=== PATIENT | female | born 1960 | race Caucasian/White ===

== ENCOUNTER 2019-09-15 08:39 | Emergency (ER) | payer OTHER, SELFPAY ==
[2019-09-15 08:40] VITALS: BP 161/90; PULSE 83; RESP 16; TEMP 35.5; O2SAT 98; BMI 50.8
--- NOTE | 2019-09-15 09:22 | RAD_ITS ---
STUDY: X-RAY - CERVICAL SPINE REASON FOR EXAM: Female, 59 years old. INJURY/PAIN. LT SHOULDER/NECK PAIN. HX LT SHOULDER FX. NKI - ACUTE TECHNIQUE: 3 view(s) of the cervical spine were obtained. COMPARISON: None FINDINGS: Normal anterior atlantoaxial articulation. Normal odontoid process. Normal cervical lordosis. Marked degree of disc space narrowing and spondylosis at the C5-C6 and C6-C7 levels with facet joint osteoarthritis. The soft tissue structures are unremarkable. RAD/Cerv Spine 2 or 3 Views IMPRESSION: Marked degree of disc space narrowing and spondylosis at the C5-C6 and C6-C7 levels. Electronically Signed: Duc Bishop, at 10:27 EST , Service support ,
--- NOTE | 2019-09-15 09:22 | EKG12_ITS ---
Test Reason : UPPER EXTREMITY PAIN Blood Pressure : / mmHG Vent. Rate : 075 BPM Atrial Rate : 075 BPM P-R Int : 158 ms QRS Dur : 106 ms QT Int : 390 ms P-R-T Axes : 049 -37 012 degrees QTc Int : 435 ms Normal sinus rhythm Left axis deviation Minimal voltage criteria for LVH, may be normal variant Abnormal ECG Confirmed by LIZET SHARP, SUKHWINDER ([id number]), editor book SHAHEEN CHATTERJEE ([id number]) on 09/18/2019 2:37:27 PM Referred By: ALEXEY Confirmed By:TIFF HINDS MD
--- NOTE | 2019-09-15 09:24 | ED.DCSUM_ITS ---
- ER Visit Summary Date of Service: 09/15/19 Chief Complaint: Left neck, shoulder, and arm pain History of Present Illness: The patient is a 59 F who presents with left neck, shoulder, and arm pain that began today. Patient states pain began rather suddenly. Patient states she was driving to work when it began. Patient describes the pain as constant aching but sharp at times. Patient states the pain is worse with movement of her shoulder and neck. Patient states the pain is better when she flexes her arm. Patient denies any fevers or chills. Patient denies any radiation to her chest. Patient states the pain does going to her back where she also has chronic low back pain. Patient denies any weakness. Patient denies any headaches. Patient does admit to some shortness of breath but states she has a history of asthma. Physical Examination: Vital signs are stable. Patient is afebrile. Patient is in no acute distress. Oral mucosa is pink and moist. Neck is supple. Trachea is midline. There is no JVD. Heart was regular rate and rhythm. Lungs are clear and equal bilaterally. Musculoskeletal exam reveals tenderness and spasm of the left cervical paraspinal muscles and left trapezius muscle. There is no edema or ecchymosis. There is no bony crepitance or step-off. There is no midline cervical spine tenderness. Range of motion of the cervical spine and left shoulder were limited in all motions secondary to pain. Strength is 5/5 bilateral knee upper extremities. There are no sensory deficits noted. Radial pulses are equal bilaterally. Test Results: EKG showed normal sinus rhythm with a rate of 75. There are no acute ST or T wave changes. This was unchanged compared to previous EKG dated 02/14/2014. X-rays of the cervical spine were obtained. There is some mild degenerative changes. There is disc space narrowing and spondylosis at the C5- C6 and C6-C7 levels. There is no fracture or spondylolisthesis noted. Emergency Department Course and Treatment: Patient was given a dose of Naprosyn and Flexeril here. Patient was advised that this is most likely a muscular strain. Patient was instructed to use ice to the area. Patient was instructed to follow-up with her primary care physician in 5 to 7 days. Patient understood and was agreeable with the plan. All questions were answered. Disposition: Discharge home Impression: Acute cervical strain This note was generated with [employer] dictation software. It may contain incorrect words, spelling, and punctuation that were not noted in review of the chart prior to signing ED Disposition - Plan for ED Patient: Disposition: Home or Assisted Living Diagnosis: Acute cervical myofascial strain Instructions: Neck Sprain/Strain Prescriptions: Naproxen [Naprosyn] 500 mg PO BID PRN #20 tab Prescription Printed Diazepam [Valium] 5 mg PO QHS PRN PRN #10 tab PRN Reason: Muscle Spasm Prescription Printed Referrals: Lazaro Conner MD [Primary Care Provider] - 5-7 Days
[2019-09-15] MEDS: cycloBENZAPRine HCl 10 MG Tablet PO (09:34)
[2019-09-15] MEDS: Naproxen 250 MG Tablet 500 MG PO (09:34)
== END 2019-09-15 10:55 | disposition home or self-care (01) ==
PROVIDERS: Emergency Provider Emergency Medicine; PCP Family Medicine
DX: S16.1XXA Strain of muscle, fascia and tendon at neck level, initial encounter (principal); J45.909 Unspecified asthma, uncomplicated
CPT/HCPCS: 72040; 93005; 99283

== ENCOUNTER 2024-04-15 13:39 | Emergency (ER) | payer OTHER, SELFPAY ==
[2024-04-15 13:40] VITALS: BP 153/76; PULSE 102; RESP 16; TEMP 36.1; O2SAT 96; BMI 51.8
--- NOTE | 2024-04-15 13:55 | ED.VIS.LOWEX ---
HPI History of Present Illness HPI Narrative: 63-year-old female history of a prior PE years ago. States she is atraumatic left hip pain since Wednesday. Denies any fall injury or trauma. No fever or chills. No prior surgery to her left hip or left lower leg. Worse with ambulation. Better sitting or resting. Denies any knee or ankle or foot pain. Chief Complaint: Lower Extremity Injury Informant: patient and spouse/S.O. Occured/Mechanism Mechanism/Context: No injury and No blunt trauma Onset/Context/Timing Onset: Days Context: Gradual Onset Timing: Continuous Quality of Pain: Sharp and Aching Maximum Severity: Mild Associated Symptoms Associated Symptoms: Negative for Parasthesia, Weakness or Loss of Funtion Narrative Narrative: 63-year-old female complaining atraumatic left hip and upper leg pain. Denies any fall injury or trauma. No fever. No swelling. No redness or discoloration. No fever or chills. No prior surgery. Prior similar symptoms: No Recent Illness/Hospitalization: No PFSH PFSH Home Medications ?Medication ?Instructions ?Recorded ?Last Taken ?Type albuterol sulfate 2.5 mg/3 mL 2.5 mg inhalation DAILY 09/15/19 Unknown History (0.083 %) solution for nebulization budesonide 0.25 mg/2 mL suspension 0.25 mg IH DAILY 09/15/19 Unknown History for nebulization diazepam 5 mg tablet 5 mg PO QHS PRN PRN Muscle Spasm 09/15/19 Unknown Rx #10 tabs naproxen 500 mg tablet 500 mg PO BID PRN #20 tabs 09/15/19 Unknown Rx Allergy/AdvReac Type Severity Reaction Status Date / Time No Known Allergies Allergy Verified 04/15/24 13:42 Social History Smoking Status: Never smoker ROS ROS ED ROS Narrative Denies recent illness. Constitutional Constitutional ED: Denies chills or fever(s) Eyes Eyes: Denies blurry vision ENT ENT ED: Denies ear pain Cardiovascular Cardiovascular: Denies chest pain Respiratory/Chest Respiratory/Chest: Denies cough Gastrointestinal Gastrointestinal: Denies abdominal pain, nausea or vomiting Genitourinary Genitourinary ED: Denies dysuria or hematuria Musculoskeletal Musculoskeletal: Denies arthralgias, back pain or myalgias Integumentary Denies abscess Neurologic Neurologic: Denies headache(s) Psychiatric Psychiatric: Denies anxiety Endocrine Endocrinology: Denies polydipsia Hematologic/Lymphatic Hematologic/Lymphatic: Denies easy bleeding Allergic/Immunologic Allergic/Immunologic ED: Denies mouth swelling EXAM Physical Exam Narrative Exam Narrative: 63-year-old female no acute distress. Sitting upright in bed. at bedside. Vital signs are stable afebrile. H EENT exam unremarkable. Lungs clear to auscultation. Heart regular rhythm rate about 100 no murmur. Chest wall ribs nontender. Abdomen soft nontender. Back spine SI joints nontender. No signs of bruising or trauma. Left hip has mild tenderness laterally. There is no shortening or rotation. She has normal flexion extension of left hip, knee ankle and foot. Normal DP pulse. Normal dorsi plantarflexion. There is no redness or discoloration of the hip no signs of trauma or bruising. She has normal flexion extension. Internal and external rotation. Calf is nontender without edema. There is no swelling of the leg. Leg peers normal is neurovascularly intact with normal DP pulse. Both upper and right lower extremity unremarkable. She is awake and alert. No focal motor or sensory deficits. Const Vital Signs: 04/15/24 13:40 Temperature 97.0 F L Temperature Source Temporal Pulse Rate 102 H Respiratory Rate 16 Blood Pressure 153/76 H Blood Pressure Mean 101 Pulse Ox 96 Oxygen Delivery Method Room Air Positive well nourished and well developed; Negative for cachectic, contractures or unkempt General Appearance ED: well developed and NAD; Negative for unkempt, cachectic or contractures Nutritional Appearance: Negative for cachectic HEENT Reports moist mucous membranes atraumatic; Negative for trauma or tenderness Eyes PERRL General Eye ED: Negative for other Neck full ROM and supple Thyroid: Negative for tender Lymph Lymphatic: Negative for other Chest Wall inspection of chest normal and palpation of chest normal Chest: Negative for other Resp normal respiratory effort, no retractions and clear to auscultation bilaterally Effort and Inspection: Negative for pain with movement Auscultation: Negative for rales, rhonchi, wheezes or diminished lung sounds Percussion: Negative for other Cardio regular rate, regular rhythm, S1 normal heart sound, S2 normal heart sound and no murmurs Rate: Negative for bradycardia or tachycardic Rhythm: Negative for abnormal rhythm Bruits: Negative for other GI non-tender, non-distended and no masses Palpation: Negative for tender, guarding or rebound tenderness present Back/Spine no CVA tenderness General Back: Negative for CVA tenderness Cervical Spine: Negative for cervical spine tenderness Thoracic Spine / Upper Back: Negative for thoracic spinal tenderness Lumbar Spine / Lower Back: Negative for lumbar spinal tenderness Extremity normal to inspection and full ROM Extremity Narrative: Mild tenderness left lateral hip and iliotibial tract. No redness or warmth. No discoloration. No signs of trauma or bruising. No shortening or rotation. Normal internal/external rotation. Normal flexion extension. Left knee, lower leg ankle and foot are nontender. No edema. Normal DP pulse. Normal range of motion. No bony deformity. General Extremety ED: Negative for cyanosis or edema General Extremity: Negative for cyanosis or edema Neuro oriented x3, CN's II-XII intact bilaterally, moves all extremities and no sensory deficits noted Sensorium / Orientation: alert, oriented to person, oriented to place and oriented to time Motor Exam: strength 5/5 throughout Psych mental status grossly normal Appearance: Negative for unkempt Speech: No other Skin no wounds Lesions: no lesions Rashes: no rashes Trauma: Negative for abrasion, laceration or puncture MDM MDM MDM Narrative Medical decision making narrative: 63-year-old female with atraumatic left hip pain for the last 3 to 4 days. Denies any fall injury or trauma. No fever. Exam is benign other reproducibly tender. There is no SI joint tenderness. She has normal range of motion. There is no signs of infection. There is no signs of a blood clot. She was concerned it could be that does not seem to be a blood clot on exam. There is no edema or leg or calf tenderness. She has normal DP pulse in the foot. Normal sensation. X-ray of the left hip and pelvis is being obtained. Repeat exam patient is doing well. Has reproducible pain along her left lateral hip and iliotibial tract. Again there is no change in exam. She has normal range of motion. No signs of infection or septic joint. No signs of DVT. Calf and hamstring are nontender and there is no edema. I discussed all this with the patient along with her x-ray. She is comfortable being discharged home with anti-inflammatories and Tylenol and ice and rest. If not improving outpatient follow-up. We discussed a noninvasive study which is not available currently but we can get it done as an outpatient she can hold off at this time. Clinically I do not think this is a DVT. Discharge Plan Triage Chief Complaint: Lower Extremity Injury ED Provider: Neto Wallace Dx/Rx/DC Orders Clinical Impression: Acute pain of left hip Instructions: ED Arthralgia Prescriptions: No Action albuterol sulfate 2.5 MG/3 ML solution for nebulization 2.5 mg inhalation DAILY budesonide 0.25 MG/2 ML suspension for nebulization 0.25 mg IH DAILY naproxen 500 MG tablet 500 mg PO BID PRN Qty: 20 0RF diazepam 5 MG tablet 5 mg PO QHS PRN PRN (Reason: Muscle Spasm) Qty: 10 0RF Primary Care Provider: Lazaro Conner Referrals: Lazaro Conner MD [Primary Care Provider] - 3-5 Days if not improving Activity Restrictions/Additional Instructions: Hip x-ray showed mild arthritis. Otherwise unremarkable. Clinically this appears to be musculoskeletal pain in either your hip which could be from arthritis or the soft tissue along the lateral aspect of your left hip. Ice to the area. Rest. Motrin for pain and inflammation and Tylenol for pain. Follow-up with your doctor if not improving for further evaluation. At this time there is no signs of any broken bones. There is no signs of any infection. Nor any signs of a blood clot. Print Language: Ukrainian Disposition Disposition: Home, Self Care
--- NOTE | 2024-04-15 14:17 | RAD_ITS ---
INDICATION: atraumatic left hip pain EXAMINATION/TECHNIQUE: X-RAY - XR Hip Unilateral with Pelvis when performed; 2-3 Views COMPARISON: No relevant prior comparison study available FINDINGS: PELVIC BONES: No displaced fracture, destructive or sclerotic lesions. Note that overlapping bowel shadows may however obscure fine detail. Sacroiliac joints are unremarkable. No widening of the pubic symphysis. HIPS: There are degenerative changes of the hips characterized by joint space narrowing and subchondral sclerosis. SOFT TISSUES: No soft tissue swelling or gas. RAD/HIP, UNI W/ Pelvis 2-3 Views IMPRESSION: Degenerative changes of the hips. Electronically Signed: Kendra Childers MD at 14:56 EDT ,
[2024-04-15 14:42] VITALS: BP 119/57; PULSE 68; RESP 16; TEMP 36.7; O2SAT 96
== END 2024-04-15 14:44 | disposition home or self-care (01) ==
PROVIDERS: Emergency Provider Emergency Medicine; PCP Family Medicine; Visit Provider Emergency Medicine
DX: M25.552 Pain in left hip (principal); M16.12 Unilateral primary osteoarthritis, left hip; Z86.711 Personal history of pulmonary embolism
CPT/HCPCS: 73502; 99282

== ENCOUNTER 2025-07-23 21:21 | Emergency (ER) | payer MEDICARE, SELFPAY ==
[2025-07-23 21:22] VITALS: BP 187/86; PULSE 79; RESP 18; TEMP 36.8; O2SAT 100; BMI 49.7
--- NOTE | 2025-07-23 21:30 | EKG12_ITS ---
Test Reason : EPIGASTRIC PAIN Blood Pressure : */* mmHG Vent. Rate : 71 BPM Atrial Rate : 71 BPM P-R Int : 160 ms QRS Dur : 116 ms QT Int : 426 ms P-R-T Axes : 60 -43 30 degrees QTcB Int : 462 ms Normal sinus rhythm Left axis deviation Minimal voltage criteria for LVH, may be normal variant ( [place] product ) Possible Septal infarct , age undetermined Abnormal ECG Poor R wave progression Confirmed by Bam Burgos ([id number]), subeditor SHAHEEN CHATTERJEE ([id number]) on 07/27/2025 6:40:33 AM Referred By: SNEHA Confirmed By: Bam Burgos
--- NOTE | 2025-07-23 21:47 | RAD_ITS ---
PROCEDURE: CHEST 1 VIEW (PORTABLE) 07/23/2025 REASON FOR EXAM: CHEST PAIN TECHNIQUE: Frontal view of the chest. FINDINGS: The lungs are clear. The cardiomediastinal silhouette appears unremarkable. No acute osseous abnormality. Moderate thoracic spondylosis. RAD/Chest 1 View (Portable) IMPRESSION: As above. Reading Location: [id number]
[2025-07-23 22:08] LABS: Hematocrit 44.4 % (37-47); Hemoglobin 14.4 g/dL (12.0-15.0); Immature Granulocytes Count 0.050 X10^3/uL (0.0-0.0); Mean Corp Hgb Conc 32.4 g/dL (32-36); Mean Corpuscular Volume 84.4 fL (81-99); Mean Platelet Vol. 10.8 fl (6.2-12.0); NRBC Flagged by Analyzer 0 % (0-5); Platelet Count 281 K/mm3 (150-450); RBC Distribution Width CV 14.7 % (11.6-14.6); RBC Distribution Width SD 45.2 fl (35.1-43.9); Red Blood Count 5.26 M/mm3 (4.2-5.4); White Blood Count 12.8 K/mm3 (4.4-11.0)
[2025-07-23 22:15] LABS: Anion Gap 12 (7-18); BUN 16 mg/dL (4-19); BUN/Creat Ratio 21.9 RATIO (10-20); Calcium,Total 9.7 mg/dL (7.6-11.0); Carbon Dioxide 24.4 mmol/L (20.0-29.0); Chloride 99 mmol/L (96-106); Estimated Creatinine Clearance 108.10 ml/min (50-250); Glucose 157 mg/dL (70-99); Potassium 3.9 mmol/L (3.5-5.1); Troponin T High Sensitivity < 6 ng/L (<=14)
--- NOTE | 2025-07-23 22:55 | US_ITS ---
PROCEDURE: GALLBLADDER 07/23/2025 REASON FOR EXAM: RUQ PAIN TECHNIQUE: Procedure Code: USGB Modality: US Procedure: GALLBLADDER FINDINGS: Diffuse increased echogenicity throughout the liver suggestive of fatty infiltration. The liver is mildly enlarged, measuring 19.6 cm in its greatest dimension. Focal hypoechogenicity in the gallbladder fossa, compatible with focal fatty sparing. Minimal echogenic sludge is noted within the gallbladder. Otherwise the gallbladder appears unremarkable. No gallbladder wall thickening or pericholecystic fluid. The common bile duct measures less than 6 millimeters in diameter, within normal limits. The visualized pancreas is grossly unremarkable. Both kidneys are normal in size, shape, and echotexture. No focal lesion no hydronephrosis. The spleen appears unremarkable, normal in size and echogenicity. US/Gallbladder IMPRESSION: Mild hepatomegaly with fatty infiltration. Minimal gallbladder sludge. Reading Location: [id number]
[2025-07-23] MEDS: 0.9% Normal Saline (1000mL) 1,000 ML 999 ML IV (23:02)
[2025-07-23] MEDS: Pantoprazole Sodium 40 MG in 0.9% Normal Saline (100mL MB+) 100 ML 300 MG IV (23:05)
[2025-07-23 23:22] VITALS: BP 152/78; PULSE 62; RESP 15; O2SAT 93
[2025-07-23 23:33] LABS: AST(SGOT) 25 U/L (<=31); Alanine Aminotransfer ALT/SGPT 20 U/L (<=34); Albumin, Serum 4.3 g/dL (3.4-4.8); Alkaline Phosphatase 125 U/L (35-104); Bilirubin, Direct 0.35 mg/dL (0.00-0.30); Globulin 4.0 g/dL (2.2-4.2); Lipase 28 U/L (13-75)
--- OUTSIDE RECORDS SUMMARY | 2025-07-23 23:53 | XMS RPT_ITS | CCD ---
Author Organization [facility] Care Team Providers Care Lobbyist Name Role Phone Lazaro Rust MD Primary Care Provider RABIA GUPTA Referring Unavailable LAZARO RUST Primary Care Unavailable ANN MARIE MCHUGH Attending Unavailable Lazaro Rust MD Primary Care Provider Lazaro Rust MD Primary Care Provider Lazaro Rust MD Primary Care Provider Lazaro Rust MD Primary Care Provider Lazaro So Primary Care Unavailable Neto Wallace Attending Unavailable Martha SOLAR PANEL TECHNICIAN.Valentino JOYNER Unavailable Aurora Muñoz PA-C Unavailable Lazaro Rust MD Primary Care Provider [phone] Martha SOLAR PANEL TECHNICIAN.ANYA Valentino Unavailable Julian Muñoz PA-Canne Unavailable LAZARO RUST Primary Care Unavailable AURORA MUÑOZ Attending Unavailable AURORA MUÑOZ Referring Unavailable NETO RUSTREY A Primary Care Unavailable LAZARO RUST Attending Unavailable NETO RUSTREY A Primary Care Unavailable LAZARO RUST Referring Unavailable NETO RUSTREY A Primary Care Unavailable VALENTINO EGAN Referring Unavailable NETO RUSTREY A Primary Care Unavailable AURORA MUÑOZ Attending Unavailable YOCASTA, LAZARO A Primary Care Unavailable AURORA MUÑOZ Attending Unavailable YOCASTA, LAZARO A Primary Care Unavailable AURORA MUÑOZ Referring Unavailable YOCASTA, LAZARO A Primary Care Unavailable AURORA MUÑOZ Attending Unavailable YOCASTA LAZARO A Primary Care Unavailable Medications Current Medications Medication Drug Class(es) Dates Sig (Normalized) Sig (Original) [id number] 200 actuat albuterol 0.09 mg/actuat metered dose inhaler (20 sources) beta2-Adrenergic Agonist Start: 10-09-2024 albuterol (PROVENTIL) 2.5 mg /3 mL (0.083 %) nebulizer solution Indications: Mild intermittent asthma without complication (HCC) Use 3 mL via nebulizer every 6 hours as needed for wheezing/shortness of breath. J45.20 300 mL 1 10/09/2024 Active Start: 10-09-2024 take 2 puff(s) by in halation every six hours as needed for wheezing albuterol HFA (PROAIR HFA) 90 mcg/actuation inhaler Inhale 2 Puffs as instructed every 6 hours as needed for wheezing/shortness of breath. 3 Each 1 10/09/2024 Active Start: 11-17-2021 End: 10-06-2024 albuterol (PROVENTIL) 2.5 mg /3 mL (0.083 %) nebulizer solution Indications: Mild intermittent asthma without complication Use 3 mL via nebulizer every 6 hours as needed for wheezing/shortness of breath. J45.20 300 mL 1 10/03/2024 10/06/2024 Discontinued Start: 11-17-2021 End: 10-06-2024 take 2 puff(s) by inhalation every six hours as needed for wheezing albuterol HFA (PROAIR HFA) 90 mcg/actuation inhaler Inhale 2 Puffs as instructed every 6 hours as needed for wheezing/shortness of breath. 3 Each 1 10/03/2024 10/06/2024 Discontinued Comment on above: Use 3 mL via nebuliz er every 6 hours as needed for wheezing/shortness of breath. J45.20 Inhale 2 Puffs as in structed every 6 hours as needed for wheezing/shortness of breath. amoxicillin 875 mg / clavulanate 125 mg oral tablet (3 sources) Penicillin-class Antibacterial Start: End: take 1 tablet by mouth every twelve hours amoxicillin-clavula nirmala potassium (AUGMENTIN) 875-125 mg per tablet Take 1 tablet by mouth every 12 hours for 10 days. 20 tablet 09/19/2024 09/29/2024 Active atorvastatin 10 mg oral tablet (20 sources) HMG-CoA Reductase Inhibitor Start: 023 End: 025 take 1 tablet by mouth once daily atorvastatin (LIPITOR) 10 mg tablet Take 1 tablet by mouth once daily. 90 tablet 3 12/28/2024 Active Start: 11-17-2021 End: 06-11-2023 take 1 tablet by mouth once daily at bedtime for hyperlipidemia atorvastatin (LIPITOR) 10 mg tablet Take 1 tablet by mouth daily at bedtime. For cholesterol. 90 tablet 1 12/10/2022 06/11/2023 Discontinued Comment on above: Take 1 tablet by armond th daily at bedtime. For cholesterol. Take 1 tablet by armond th daily at bedtime for 10 days. For cholesterol. azithromycin 250 mg oral tablet (4 sources) Macrolide Antimicrobial Start: 08-28-2024 End: 09-19-2024 azithromycin (ZITHROMAX) 250 mg tablet Take 1 tablet by mouth as directed. 6 tablet 08/28/2024 09/19/2024 Discontinued Start: 10-02-2022 End: 10-07-2022 azithromycin (ZITHROMAX Z-PA K) 250 mg tablet Indications: Moderate persistent asthma with (acute) exacerbation Take 2 tablets day one, then, 1 tablet daily until gone. 6 tablet 10/02/2022 10/07/2022 Comment on above: Take 2 tablets day o ne, then, 1 tablet daily until gone. budesonide 0.25 mg/ml inhalation suspension (20 sources) Corticosteroid Start: 10-09-2024 End: 10-20-2024 budesonide (PULMICORT) 0.5 mg/2 mL nebulizer solution Indications: Moderate persistent asthma with (acute) exacerbation (HCC) Use 2 mL via nebulizer once daily. Dx: J45.20 180 mL 1 10/20/2024 Active Start: 07-11-2024 End: 10-06-2024 budesonide (PULMICORT) 0.5 m g/2 mL nebulizer solution Use 2 mL via nebulizer once daily. 180 mL 1 10/03/2024 10/06/2024 Discontinued Start: 11-17-2021 End: 04-18-2024 budesonide (PULMICORT) 0.5 m g/2 mL nebulizer solution Indications: Mild intermittent asthma without complication Use 2 mL via nebulizer once daily. 20 mL 04/18/2024 Active Comment on above: Use 2 mL via nebuliz er once daily. calcium carbonate 1250 mg / cholecalciferol 200 unt oral tablet (3 sources) Vitamin D Start: End: take 1 tablet by mouth three times daily pblnhov-[id number]-arwb min D3 500 mg-5 mcg (200 unit) per tablet Take 1 tablet by mouth three times daily. 90 tablet 0 02/26/2022 04/08/2022 Discontinued Comment on above: Take 1 tablet by armond three times daily. cefadroxil 500 mg oral capsule (2 sources) Cephalosporin Antibacterial Start: End: take 1 capsule by mouth twice daily cefADROxil (DURICEF) 500 mg capsule Take 1 capsule by mouth two times a day for 10 days. 20 capsule 08/24/2024 09/03/2024 Active cholecalciferol 0.05 mg oral tablet (20 sources) Vitamin D Start: take 1 tablet by mouth once daily cholecalciferol (VITAMIN D-3) 50 mcg (2,000 unit) tablet Take 1 tablet by mouth once daily. 06/28/2023 Active Start: 02-12-2021 End: 06-28-2023 take 2 tablets by mouth once daily cholecalciferol (VITAMIN D-3) 50 mcg (2,000 unit) tablet Take 2 tablets by mouth once daily. 02/12/2021 06/28/2023 Discontinued Comment on above: Take 2 tablets by mo [facility] once daily. Take 1 tablet by armond once daily. codeine phosphate 2 mg/ml / guaiFENesin 20 mg/ml oral solution (2 sources) Opioid Agonist Start: End: take 5 mL by mouth three times daily as needed codeine-guaiFENesin (ROBITUSSIN AC) 10-100 mg/5 mL syrup Indications: Influenza A Take 5 mL by mouth three times a day as needed for up to 7 days. 120 mL 08/24/2024 08/31/2024 Active COMPOUNDED PRESCRIPTION (20 sources) Start: 6 COMPOUNDED PRESCRIPTION Nebulizer supplies. Dx. Asthma.J45.909 1 Each 0 01/29/2016 Active Comment on above: Nebulizer supplies. Dx. Asthma.J45.909 CPAP (20 sources) Start: CPAP Indications: EVE (obstructive sleep apnea) Mask (per patient preference) optional chin strap (if indicated), filters, tubing / heated tubing, heated humidity and lifetime supplies. Dx. EVE G47.33 327.23 1 Each 08/05/2022 Active Start: 08-05-2022 CPAP Indicatio ns: EVE (obstructive sleep apnea) Mask (per patient preference) optional chin strap (if indicated), filters, tubing / heated tubing, heated humidity and lifetime supplies. Dx. EVE G47.33 327.23 1 Each 0 08/05/2022 Active Start: 07-29-2022 CPAP Indicatio ns: EVE (obstructive sleep apnea) Mask (per patient preference) optional chin strap (if indicated), filters, tubing / heated tubing, heated humidity and lifetime supplies. Dx. EVE G47.33 327.23 1 Each 0 07/29/2022 Active Start: 11-15-2020 End: 07-29-2022 CPAP Indications: EVE (obstr uctive sleep apnea) Mask (per patient preference) optional chin strap (if indicated), filters, tubing / heated tubing, heated humidity and lifetime supplies. Dx. EVE G47.33 327.23 1 Device 0 11/15/2020 07/29/2022 Discontinued Start: 11-15-2020 CPAP Indicatio ns: EVE (obstructive sleep apnea) Mask (per patient preference) optional chin strap (if indicated), filters, tubing / heated tubing, heated humidity and lifetime supplies. Dx. EVE G47.33 327.23 1 Device 0 11/15/2020 Active Comment on above: Mask (per patient pr eference) optional chin strap (if indicated), filters, tubing / heated tubing, heated humidity and lifetime supplies. Dx. EVE G47.33 327.23 cyclobenzaprine hydrochloride 10 mg oral tablet (1 source) Muscle Relaxant Start: 2023 take 1 tablet by mouth every eight hours as needed cyclobenzaprine (FLEXERIL) 10 mg tablet Take 1 tablet by mouth three times a day as needed for muscle spasm. 30 tablet 04/18/2024 Active meloxicam 15 mg oral tablet (9 sources) Nonsteroidal Anti-inflammatory Drug Start: 2023 take 1 tablet by mouth once daily meloxicam (MOBIC) 15 mg tablet Indications: Lumbar spondylosis Take 1 tablet by mouth once daily. 30 tablet 1 01/10/2024 Active methylPREDNISolone (6 sources) Corticosteroid Start: 2024 End: 2024 methylPREDNISolone (MEDROL, CARLENE,) 4 mg Dose-Pack Follow dosing instructions, take with food. 21 tablet 09/19/2024 09/25/2024 Active Start: 08-18-2024 End: 08-24-2024 methylPREDNISolone (MEDROL, CARLENE,) 4 mg Dose-Pack Follow dosing instructions, take with food. 21 tablet 08/18/2024 08/24/2024 Discontinued Start: 08-18-2024 End: 08-24-2024 methylPREDNISolone (MEDROL, CARLENE,) 4 mg Dose-Pack Follow dosing instructions, take with food. 21 tablet 08/18/2024 08/24/2024 Active Nebulizer (20 sources) Start: 05-25-2016 Nebulizer NEBULIZER WITH SUPPLIES IF NEEDED FOR HOME USE. DX: Mild persistent asthma without complication J45.30 1 Each 0 05/25/2016 Active Comment on above: NEBULIZER WITH SUPPL IES IF NEEDED FOR HOME USE. DX: Mild persistent asthma without complication J45.30 predniSONE 20 mg oral tablet (7 sources) Start: 08-28-2024 End: 09-01-2024 take 1 tablet by mouth once daily at mealtime predniSONE (DELTASONE) 20 mg tablet Take 1 tablet by mouth once daily for 4 days. Take daily with food. 4 tablet 08/28/2024 09/01/2024 Active Start: 04-18-2024 End: 04-27-2024 predniSONE (DELTASONE) 10 mg tablet Take 4 tabs daily for 3 days, then 2 tabs daily for 3 days, then 1 tab daily for 3 days with food. 21 tablet 04/18/2024 04/27/2024 Active Start: 10-02-2022 End: 10-06-2022 take 1 tablet by mouth once daily at mealtime predniSONE (DELTASONE) 20 mg tablet Indications: Moderate persistent asthma with (acute) exacerbation Take 1 tablet by mouth once daily for 4 days. Take daily with food. 4 tablet 10/02/2022 10/06/2022 Start: 01-25-2022 End: 02-06-2022 predniSONE (DELTASONE) 10 mg tablet Take 4 tabs daily x 3 days, then 3 tabs x 3 days, 2 tabs x 3 days, then 1 tab x3 days with food. 30 tablet 0 01/25/2022 02/06/2022 Active Comment on above: Take 4 tabs daily x 3 days, then 3 tabs x 3 days, 2 tabs x 3 days, then 1 tab x3 days with food. Take 1 tablet by armond once daily for 4 days. Take daily with food. Completed/Discontinued Medications Medication Drug Class(es) Dates Sig (Normalized) Sig (Original) benzonatate 200 mg oral capsule (18 sources) Non-narcotic Antitussive Start: 08-18-2024 End: 01-18-2025 take 1 capsule by mouth every eight hours as needed Benzonatate 200 mg capsule Take 1 capsule by mouth three times a day as needed. 30 capsule 08/18/2024 01/18/2025 Discontinued (Course of therapy completed) bisacodyl 5 mg delayed release oral tablet (11 sources) Stimulant Laxative Start: 02-03-2022 End: 06-12-2022 Bisacodyl (DULCOLAX) 5 mg tab Indications: Screening for colon cancer Use as directed for Miralax / Gatorade Bowel Prep Kit 4 tablet 0 02/03/2022 06/12/2022 Discontinued Comment on above: Use as directed for Miralax / Gatorade Bowel Prep Kit polyethylene glycol 3350 29896 mg powder for oral solution (11 sources) Osmotic Laxative Start: 02-03-2022 End: 06-12-2022 polyethylene glycol 3350 (MIRALAX, GLYCOLAX) 17 gram/dose powder Indications: Screening for colon cancer Use as directed for Miralax / Gatorade Bowel Prep Kit 238 g 0 02/03/2022 06/12/2022 Discontinued Comment on above: Use as directed for Miralax / Gatorade Bowel Prep Kit Problems Active Problems Problem Classification Problem Date Documented Date Episodic/Chronic Asthma (20 sources) Mild intermittent asthma; Translations: [Mild intermittent asthma, uncomplicated] Onset: 07-21-2013 04-30-2017 Chronic Complications of surgical procedures or medical care (1 source) History of parathyroidectomy; Translations: [Postprocedural hypoparathyroidism] Chronic Disorders of lipid metabolism (20 sources) Mixed hyperlipidemia; Translations: [Mixed hyperlipidemia] Onset: 10-08-2015 04-12-2017 Chronic Diverticulosis and diverticulitis (20 sources) Diverticulosis of colon; Translations: [Diverticulosis of large intestine without perforation or abscess without bleeding] 04-30-2017 Chronic Genitourinary symptoms and ill-defined conditions (4 sources) Hypercalciuria; Translations: [Hypercalciuria] Episodic Hemorrhoids (20 sources) External hemorrhoids; Translations: [Residual hemorrhoidal skin tags] 04-30-2017 Episodic Influenza (1 source) Influenza due to Influenza A virus; Translations: [Influenza due to other identified influenza virus with other respiratory manifestations] 08-24-2024 Episodic Nonmalignant breast conditions (1 source) Breast finding ; Translations: [Dense breast tissue] 01-13-2024 Episodic Nutritional deficiencies (20 sources) Vitamin D deficiency; Translations: [Vitamin D deficiency, unspecified] Onset: 12-02-2020 05-07-2021 Chronic Other endocrine disorders (20 sources) Hyperparathyroidism; Translations: [Hyperparathyroidism, unspecified] Onset: 12-02-2020 Chronic Other endocrine disorders (1 source) Primary hyperparathyroidism; Translations: [Primary hyperparathyroidism] Chronic Other endocrine disorders (1 source) Hyperparathyroidism, unspecified; Translations: [Hyperparathyroidism (HCC)] Onset: 06-12-2022 Chronic Other lower respiratory disease (1 source) Cough; Translations: [Acute cough] 08-23-2023 Episodic Other lower respiratory disease (1 source) Lower respiratory tract infection; Translations: [Unspecified acute lower respiratory infection] 08-18-2024 Episodic Other lower respiratory disease (1 source) Cough; Translations: [Acute cough] 09-19-2024 Episodic Other non-traumatic joint disorders (3 sources) Hip pain; Translations: [Pain in left hip] 01-06-2024 Episodic Other non-traumatic joint disorders (1 source) Pain in left hip; Translations: [Pain in left hip] Onset: 05-12-2024 Episodic Other nutritional; endocrine; and metabolic disorders (5 sources) Hypercalcemia; Translations: [Hypercalcemia] Chronic Other nutritional; endocrine; and metabolic disorders (20 sources) Metabolic syndrome X; Translations: [Metabolic syndrome] Onset: 10-08-2015 04-12-2017 Chronic Other nutritional; endocrine; and metabolic disorders (20 sources) Body mass index 40+ - severely obese; Translations: [Morbid (severe) obesity due to excess calories] Onset: 04-30-2017 04-30-2017 Chronic Otitis media and related conditions (1 source) Acute right otitis media; Translations: [Otitis media, unspecified, right ear] 09-19-2024 Episodic Pulmonary heart disease (20 sources) H/O: pulmonary embolus; Translations: [Personal history of pulmonary embolism] 04-30-2017 Episodic Residual codes; unclassified (20 sources) Obstructive sleep apnea syndrome; Translations: [Obstructive sleep apnea (adult) (pediatric)] Onset: 09-19-2014 11-08-2018 Chronic Residual codes; unclassified (1 source) Obstructive sleep apnea (adult) (pediatric); Translations: [EVE (obstructive sleep apnea)] Onset: 11-08-2018 Chronic Spondylosis; intervertebral disc disorders; other back problems (20 sources) Lumbar spondylosis; Translations: [Spondylosis without myelopathy or radiculopathy, lumbar region] Onset: 02-01-2024 01-10-2024 Chronic Spondylosis; intervertebral disc disorders; other back problems (2 sources) Low back pain; Translations: [Midline low back pain without sciatica, unspecified chronicity] 12-30-2023 Episodic Unclassified (1 source) Obesity, Class III, BMI 40-49.9 (morbid obesity) (HCC); Translations: [Obesity, Class III, BMI 40-49.9 (morbid obesity) (HCC)] Onset: 04-30-2017 Past or Other Problems Problem Classification Problem Date Documented Da te Episodic/Chronic Diabetes mellitus without complication (20 sources) Hyperglycemia; Translations: [Hyperglycemia, unspecified] Onset: 10-08-2015 04-12-2017 Episodic Immunizations and screening for infectious disease (3 sources) Needs influenza immunization; Translations: [Encounter for immunization] Onset: 01-18-2025 Episodic Menopausal disorders (20 sources) Menopausal symptom; Translations: [Menopausal and female climacteric states] Onset: 05-02-2009 Resolved: 09-14-2016 09-14-2016 Chronic Nutritional deficiencies (20 sources) Iron deficiency; Translations: [Iron deficiency] Onset: 11-21-2014 Resolved: 03-04-2016 03-04-2016 Episodic Other connective tissue disease (20 sources) Bilateral plantar fasciitis; Translations: [Plantar fascial fibromatosis] Onset: 10-08-2015 Resolved: 09-14-2016 04-30-2017 Episodic Other hereditary and degenerative nervous system conditions (20 sources) Restless legs; Translations: [Restless legs syndrome] Onset: 11-21-2014 Resolved: 03-04-2016 03-04-2016 Chronic Other lower respiratory disease (20 sources) Snoring; Translations: [Snoring] Onset: 09-19-2014 Resolved: 09-14-2016 09-14-2016 Episodic Other lower respiratory disease (1 source) Unspecified acute lower respiratory infection; Translations: [Lower respiratory infection] Onset: 08-18-2024 Episodic Other non-traumatic joint disorders (20 sources) Shoulder joint pain; Translations: [Pain in unspecified shoulder] Onset: 11-17-2006 Resolved: 09-14-2016 09-14-2016 Episodic Other screening for suspected conditions (not mental disorders or infectious disease) (20 sources) Patient encounter status; Translations: [Encounter for screening for malignant neoplasm of colon] Onset: 04-30-2017 04-30-2017 Episodic Other upper respiratory infections (3 sources) Acute upper respiratory infection; Translations: [Acute upper respiratory infection, unspecified] Onset: 08-18-2024 08-18-2024 Episodic Screening and history of mental health and substance abuse codes (2 sources) Encounter for screening for depression; Translations: [Encounter for screening examination for other mental health and behavioral disorders] Onset: 01-18-2025 Episodic Unclassified (2 sources) Patient encounter status 01-18-2025 Results Test Name Value Interpretation Reference Range Facil ity CNPNon 05-08-[address] [facility] AMINA MORALES ([id number]) 1960 F Date Time Provider Department 05/08/25 [facility] During your visit today, we recorded the following information about you: Debi Boo MA 05/08/2025 3:28 PM Signed Type of form: PAP order from [employer] Form received via fax When form is completed, Fax form to [phone] Form has been forwarded to Physician Desk: DEB Chiang Rilee, MA 05/10/2025 11:32 AM Signed This has been completed and faxed back to number below. Debi Boo MA Allergies As of Date: 05/08/2025 (No Known Allergies) Date Reviewed: 01/18/2025 Reviewed by: Lazaro Rust MD - Fully Assessed Reason for Visit: Forms [913] Cmt: PAP order Prescriptions as of 05/10/2025 - albuterol (PROVENTIL) 2.5 mg /3 mL (0.083 %) nebulizer solution Use 3 mL via nebulizer every 6 hours as needed for wheezing/shortness of breath. J45.20 - atorvastatin (LIPITOR) 10 mg tablet Take 1 tablet by mouth once daily. - budesonide (PULMICORT) 0.5 mg/2 mL nebulizer solution Use 2 mL via nebulizer once daily. Dx: J45.20 - albuterol HFA (PROAIR HFA) 90 mcg/actuation inhaler Inhale 2 Puffs as instructed every 6 hours as needed for wheezing/shortness of breath. - cholecalciferol (VITAMIN D-3) 50 mcg (2,000 unit) tablet Take 1 tablet by mouth once daily. - CPAP Mask (per patient preference) optional chin strap (if indicated), filters, tubing / heated tubing, heated humidity and lifetime supplies. Dx. EVE G47.33 327.23 - Nebulizer NEBULIZER WITH SUPPLIES IF NEEDED FOR HOME USE. DX: Mild persistent asthma without complication J45.30 - COMPOUNDED PRESCRIPTION Nebulizer supplies. Dx. Asthma.J45.909 Problem List As Of Date 05/08/2025 Noted Resolved Pain in joint, shoulder region [M25.519] 11/17/2006 09/14/2016 Symptomatic menopausal or female climacteric st*05/02/2009 09/14/2016 Mild intermittent asthma without complication [*07/21/2013 Snoring [R06.83] 09/19/2014 09/14/2016 EVE (obstructive sleep apnea) ahi 46 [G47.33] 09/19/2014 RLS (restless legs syndrome) [G25.81] 11/21/2014 03/04/2016 Iron deficiency concern [E61.1] 11/21/2014 03/04/2016 Mixed hyperlipidemia [E78.2] 10/08/2015 Metabolic syndrome [E88.810] 10/08/2015 Plantar fasciitis, bilateral [M72.2] 10/08/2015 09/14/2016 Elevated hemoglobin A1c [R73.09] 10/08/2015 Encounter for gynecological examination without*04/30/2017 Diverticulosis of colon [K57.30] External hemorrhoids [K64.4] Internal hemorrhoids [K64.8] History of pulmonary embolism [Z86.711] Plantar fasciitis, bilateral [M72.2] 10/08/2015 Well adult exam [Z00.00] 04/30/2017 Screening for colon cancer [Z12.11] 04/30/2017 Obesity, Class III, BMI 40-49.9 (morbid obesity*04/30/2017 Hyperparathyroidism (HCC) [E21.3] 12/02/2020 Vitamin D deficiency [E55.9] 12/02/2020 Lumbar spondylosis [M47.816] 02/01/2024 Encounter for screening mammogram for breast ca*01/18/2025 Encounter Status:Closed by DEBI BOO on 05/10/25 [facility] JUSTIN SCREENING W TOMOon 01-24 JUSTIN SCREENING W BIANCA * * *Final Report* * * DATE OF EXAM: Jan 24 2025 10:06AM [facility] [id number] - JUSTIN SCREENING W BIANCA / PROCEDURE REASON: Encounter for screening mammogram for malignant neoplasm of breast * * * * Physician Interpretation * * * * RESULT: [address] [address] [place] [address] #[id number] - JUSTIN SCREENING W BIANCA HISTORY: 64 year-old patient presents for screening. Patient is asymptomatic in both breasts. Patient states no personal history of breast cancer. The patient has a family history of breast cancer. COMPARISON STUDIES: The present examination has been compared to prior imaging studies dated 11/21/2019 (mammogram), 12/19/2020 (mammogram), 12/24/2021 (mammogram), 01/11/2023 (mammogram) and 01/13/2024 (mammogram). MAMMOGRAM TECHNIQUE: The study was acquired using full field digital technology and interpreted from soft copy. Digital Breast Tomosynthesis (DBT) images were obtained and used to assist in the interpretation of this examination. MAMMOGRAM FINDINGS: There are scattered areas of fibroglandular density. No suspicious masses, calcifications or other abnormalities are seen in either breast. There are no significant interval changes. IMPRESSION: There is no mammographic evidence of malignancy in either breast. Routine screening mammogram is recommended. Annual mammogram will be due in 1 year. BI-RADS Category 1: Negative RISK: Based on the Tyrer-Cuzick (TC) risk assessment model, this patient has a 8.6% lifetime risk of developing breast cancer, meaning they are at average risk for developing breast cancer. However, this is only an estimate based on available history provided on the patient's questionnaire. We encourage all patients to talk with their providers about these results, further recommendations for managing breast health, and appropriate supplemental screening options if the patient has dense breast tissue. Interpreting Radiologist: Juanpablo Dominique M.D. Electronically signed on: 01/26/2025 Electronic Sales And Service Technician: DAMEON Transcribe Date/Time: Jan 24 2025 9:40A Dictated by: JUANPABLO DOMINIQUE MD This examination was interpreted and the report reviewed and electronically signed by: JUANPABLO DOMINIQUE MD on Jan 26 2025 12:36AM EST [id number] [facility] CNOVon 01-18-2025 CNOV Office Visit (FAMPWS ) AMINA MORALES ([id number]) 1960 F Date Time Provider Department 01/18/25 11:00 AM LA[facility]O RUSTWS During your visit today, we recorded the following information about you: Pulse Respiration Blood pressure 76/minute 18/minute 134/80 Lazaro Rust MD 01/18/2025 9:51 PM Signed Chief Complaint Patient presents with: F/U 6 Month HPI Amina Morales is a 64 year old female who presents here today for a routine follow up. Patient with hx of hyperlipidemia, asthma, EVE, hyperparathyroid, elevated A1c, vit d def, obesity and those as below. No specific concerns today. Amina reports no recent fevers, lumps, or swelling in the neck. She experiences wheezing and dyspnea when the weather is hot, but otherwise, her breathing has been good. She denies waking up with dyspnea at night, hemoptysis, chest pain, palpitations, or lower extremity edema. She has not noticed any changes in heat tolerance, increased thirst, syncope, seizures, or tremors. She continues to use her CPAP machine and feels it is beneficial. Amina has not had any changes in her medications recently. She has one albuterol inhaler left, which she believes will last until the fall, and her budesonide and atorvastatin prescriptions were recently refilled. Recent blood work showed triglycerides at 185 mg/dL, HDL cholesterol at 36 mg/dL, LDL cholesterol at 76 mg/dL, and HbA1c at 6.2%. She is interested in receiving a 6-month COVID-19 booster. Past medical history, appointments, medications, allergies reviewed. Previous Medical History PAST MEDICAL HISTORY Diagnosis Date Closed fracture of left humerus Diverticulosis of colon Elevated hemoglobin A1c 10/08/2015 External hemorrhoids History of pulmonary embolism 1993 ? Pulmonary embolism Hyperglycemia 10/08/2015 Hyperparathyroidism ([facility]) 12/02/2020 Internal hemorrhoids Metabolic syndrome 10/08/2015 Mild intermittent asthma without complication ([facility]) 07/21/2013 Mixed hyperlipidemia 10/08/2015 Obesity, Class III, BMI 40-49.9 (morbid obesity) ([facility]) 04/30/2017 EVE (obstructive sleep apnea) ahi 46 09/19/2014 On CPAP, [facility] Phlebitis and thrombophlebitis of unspecified site Plantar fasciitis, bilateral 10/08/2015 Symptomatic menopausal or female climacteric states 05/02/2009 Vitamin D deficiency 12/02/2020 Previous Surgical History PAST SURGICAL HISTORY Procedure Laterality Date [facility] INCL FLUOR GDNCE DX W/CELL WASHG SPX BRONCHOSCOPY COLONOSCOPY 04/22/2022 repeat in 5 years COLONOSCOPY FLX DX W/COLLJ SPEC WHEN PFRMD 09/18/2011 repeat 10 years HYSTEROSCOPY, DIAGNOSTIC (SEPARATE WITH CURRETAGE IMMUNOCHEMICAL FECAL OCCULT BLOOD TEST 05/01/2017 negative LIG/TRNSXJ FLP TUBE ABDL/VAG APPR UNI/BI Tubal ligation PARATHYROIDECTOMY/EXPLO R PARATHYROIDS RE-EXPLOR 02/2022 PT ED ENDOCRINOLOGY 02/25/2022 Rt: upper and lower, Left Upper. TOTAL ABDOMINAL HYSTERECT W/WO RMVL TUBE OVARY 2004 Hysterectomy, DANIEL UNSPECIFIED ORAL SURGERY PROCEDURE, BY REPORT 08/18/2007 Family History FAMILY HISTORY Problem Relation Age of Onset Lipids Mother High Cholesterol Arthritis Mother Lipids Father High cholesterol Alzheimer's Disease Father Heart Maternal Grandmother Heart Maternal Grandfather Cancer Maternal Grandfather /BONE Heart Paternal Grandmother Heart Paternal Grandfather Hypertension Paternal Grandfather Patient Allergies ALLERGIES No Known Allergies Current Medications Current Outpatient Medications on File Prior to Visit Medication Sig atorvastatin (LIPITOR) 10 mg tablet Take 1 tablet by mouth once daily. budesonide (PULMICORT) 0.5 mg/2 mL nebulizer solution Use 2 mL via nebulizer once daily. Dx: J45.20 albuterol HFA (PROAIR HFA) 90 mcg/actuation inhaler Inhale 2 Puffs as instructed every 6 hours as needed for wheezing/shortness of breath. albuterol (PROVENTIL) 2.5 mg /3 mL (0.083 %) nebulizer solution Use 3 mL via nebulizer every 6 hours as needed for wheezing/shortness of breath. J45.20 Benzonatate 200 mg capsule Take 1 capsule by mouth three times a day as needed. cholecalciferol (VITAMIN D-3) 50 mcg (2,000 unit) tablet Take 1 tablet by mouth once daily. CPAP Mask (per patient preference) optional chin strap (if indicated), filters, tubing / heated tubing, heated humidity and lifetime supplies. Dx. EVE G47.33 327.23 Nebulizer NEBULIZER WITH SUPPLIES IF NEEDED FOR HOME USE. DX: Mild persistent asthma without complication J45.30 COMPOUNDED PRESCRIPTION Nebulizer supplies. Dx. Asthma.J45.909 No current facility-administered medications on file prior to visit. Social History Social History Tobacco Use Smoking status: Never Smokeless tobacco: Never Vaping Use Vaping status: Never Used Substance Use Topics Alcohol use: Yes Comment: Occasionally Drug use: No Review of Sympt (more content not included)... Normal [facility] HbA1c (Bld)on 01-04-2025 Average glucose Estimated from glycated hemoglobin (Bld) [Mass/Vol] 131 mg/dL Normal [facility] Comment on above: Order Comment: Misael robles Type: BLOOD SPECIMENOrdering Facility: [facility] Address: [address] [place] [address] Result Comment: eAG: (Estimated average glucose) is a calculated value from HgbA1c and is dental sales representative of the average blood glucose level in the last 2-3 month period. Performed By: #### 5 5454-3 ####[facility] LABCLIA [id number] [place] [address] [place] HbA1c (Bld) [Mass fraction] 6.2 % High 4.3-5.6 [facility] Comment on above: Order Comment: Misael robles Type: BLOOD SPECIMENOrdering Facility: [facility] Address: [address] [place] [address] Result Comment: Amer ican Diabetes Association guidelines indicate that patients with HgbA1c in the range 5.7-6.4% are at increased risk for development of diabetes, and intervention by lifestyle modification may be beneficial. HgbA1c greater or equal to 6.5% is considered diagnostic of diabetes. Performed By: #### 5 5454-3 ####[facility] LABCLIA [id number] [address] [place] LIPID PANEL, NONFASTINGon Cholesterol [Mass/Vol] 143 mg/dL Normal <200 [facility] Comment on above: Order Comment: Misael robles Type: BLOOD SPECIMENOrdering Facility: [facility] Address: [address] [place] [address] Result Comment: <200 mg/dL, Desirable 200-239 mg/dL, Borderline high >239 mg/dL, High Performed By: #### L IPNF ####[facility] LABCLIA [id number] [address] HDL CHOLESTEROL, NF 36 mg/dL Low >39 [facility] Comment on above: Order Comment: iMsael travis Type: BLOOD SPECIMENOrdering Facility: [facility] Address: [address] [place] [address] Result Comment: 40-5 9 mg/dL, Acceptable >59 mg/dL, High: Negative risk factor for coronary heart disease <40 mg/dL, Low: Positive risk factor for coronary heart disease Performed By: #### L IPNF ####[facility]CLIA [id number] [address] LDL CHOLESTEROL CALCULATED, NF 76 mg/dL Normal <100 [facility] Comment on above: Order Comment: Misael [facility] Type: BLOOD SPECIMENOrdering Facility: [facility] Address: [address] [place] [address] Result Comment: <100 mg/dL, Optimal 100-129 mg/dL, Near optimal/above optimal 130-159 mg/dL, Borderline high 160-189 mg/dL, High >189 mg/dL, Very high Secondary prevention optimal LDL Cholesterol levels are recommended to be <70 mg/dL LDL cholesterol is calculated using the Ceja-NIH equation. Performed By: #### L IPNF ####[facility] LABIA [id number] [address] LDL/HDL RATIO, NF 2.11 mg/dL Normal <2.54 [facility] Comment on above: Order Comment: [place] [facility] Type: BLOOD SPECIMENOrdering Facility: [facility] Address: [address] [place] [address] Result Comment: Lorene goodman: 1. National Cholesterol Education Program ATP III Guideline At-A-Glance Quick Desk Reference: National Heart, Lung, and Blood [place]. National Institutes of Health. 2001: NIH Publication No. 01-3305. 2. An International Atherosclerosis Society position paper: global recommendations for the management of dyslipidemia: executive summary, Atherosclerosis. 2014: 232(2):410-413. Performed By: #### L IPNF ####[facility] LABCLIA [id number] [place] [address] [place] NON HDL CHOL, NF 107 mg/dL Normal <130 [facility] Comment on above: Order Comment: Speci men Type: BLOOD SPECIMENOrdering Facility: [facility] Address: [address] [place] [address] Result Comment: <130 mg/dL, Optimal 130-159 mg/dL, Near optimal/above optimal 160-189 mg/dL, Borderline high 190-219 mg/dL, High >219 mg/dL, Very high Secondary prevention optimal non HDL Cholesterol levels are recommended to be <100 mg/dL Performed By: #### L IPNF ####[facility]CLIA [id number] [address] STATES OF [facility] T CHOL/HDL RATIO NF 3.97 mg/dL Normal <5.10 [facility] Comment on above: Order Comment: Speci men Type: BLOOD SPECIMENOrdering Facility: [facility] Address: [address] [place] [address] Performed By: #### L IPNF ####[facility] LABCLIA [id number] [place] [address] [place] TRIGLYCERIDES, NF 185 mg/dL High <150 [facility] Comment on above: Order Comment: Speci men Type: BLOOD SPECIMENOrdering Facility: [facility] Address: [address] [place] [address] Result Comment: <150 mg/dL, Normal 150-199 mg/dL, Borderline high 200-499 mg/dL, High >499 mg/dL, Very high Performed By: #### L IPNF ####[facility] LABCLIA [id number] [place] [address] [place] VLDL CHOLESTEROL, NF 28 mg/dL Normal <30 [facility] Comment on above: Order Comment: Speci men Type: BLOOD SPECIMENOrdering Facility: [facility] Address: [address] [place] [address] Performed By: #### L [facility] ####[facility] LABCLIA [id number] [place] [address] [place] Josafat 10-20-2024 CNPN Telephone (FAMPWS) AMINA MORALES ([id number]) 1960 F Date Time Provider Department 10/20/24 [facility] During your visit today, we recorded the following information about you: Rachell Alcocer 10/20/2024 11:58 AM Signed Please see encounters regarding the Budesonide. [facility] needs the Code in order to submit under Medicare part B. Amina asked if you can please submit this to them today. TY Lazaro Rust MD 10/20/2024 1:31 PM Signed The following approved medication requests have been transmitted electronically. Requested Prescriptions Signed Prescriptions Disp Refills budesonide (PULMICORT) 0.5 mg/2 mL nebulizer solution 180 mL 1 Sig: Use 2 mL via nebulizer once daily. Dx: J45.20 Authorizing Provider: LAZARO RUST MD Burkey, Jeffrey A, MD 10/20/2024 1:31 PM Signed Addended by: LAZARO RUST on: 10/20/2024 01:31 PM Modules accepted: Orders Allergies As of Date: 10/20/2024 (No Known Allergies) Date Reviewed: 09/19/2024 Reviewed by: Elly Orourke LPN - Fully Assessed Reason for Visit: Medication Problem [65] Cmt: Budesonide Primary Visit Diagnosis:Moderate persistent asthma with (acute) exacerbation [J45.41] Order(s):budesonide (PULMICORT) 0.5 mg/2 mL nebulizer solutionUse 2 mL via nebulizer once daily. Dx: J45.20Disp: 180 mLRfl: 1 Prescriptions as of 10/20/2024 - budesonide (PULMICORT) 0.5 mg/2 mL nebulizer solution Use 2 mL via nebulizer once daily. Dx: J45.20 - albuterol HFA (PROAIR HFA) 90 mcg/actuation inhaler Inhale 2 Puffs as instructed every 6 hours as needed for wheezing/shortness of breath. - albuterol (PROVENTIL) 2.5 mg /3 mL (0.083 %) nebulizer solution Use 3 mL via nebulizer every 6 hours as needed for wheezing/shortness of breath. J45.20 - Benzonatate 200 mg capsule Take 1 capsule by mouth three times a day as needed. - atorvastatin (LIPITOR) 10 mg tablet TAKE 1 TABLET DAILY AT BEDTIME FOR CHOLESTEROL - cholecalciferol (VITAMIN D-3) 50 mcg (2,000 unit) tablet Take 1 tablet by mouth once daily. - CPAP Mask (per patient preference) optional chin strap (if indicated), filters, tubing / heated tubing, heated humidity and lifetime supplies. Dx. EVE G47.33 327.23 - Nebulizer NEBULIZER WITH SUPPLIES IF NEEDED FOR HOME USE. DX: Mild persistent asthma without complication J45.30 - COMPOUNDED PRESCRIPTION Nebulizer supplies. Dx. Asthma.J45.909 Problem List As Of Date 10/20/2024 Noted Resolved Pain in joint, shoulder region [M25.519] 11/17/2006 09/14/2016 Symptomatic menopausal or female climacteric st*05/02/2009 09/14/2016 Mild intermittent asthma without complication [*07/21/2013 Snoring [R06.83] 09/19/2014 09/14/2016 EVE (obstructive sleep apnea) ahi 46 [G47.33] 09/19/2014 RLS (restless legs syndrome) [G25.81] 11/21/2014 03/04/2016 Iron deficiency concern [E61.1] 11/21/2014 03/04/2016 Mixed hyperlipidemia [E78.2] 10/08/2015 Metabolic syndrome [E88.810] 10/08/2015 Plantar fasciitis, bilateral [M72.2] 10/08/2015 09/14/2016 Elevated hemoglobin A1c [R73.09] 10/08/2015 Encounter for gynecological examination without*04/30/2017 Diverticulosis of colon [K57.30] External hemorrhoids [K64.4] Internal hemorrhoids [K64.8] History of pulmonary embolism [Z86.711] Plantar fasciitis, bilateral [M72.2] 10/08/2015 Well adult exam [Z00.00] 04/30/2017 Screening for colon cancer [Z12.11] 04/30/2017 Obesity, Class III, BMI 40-49.9 (morbid obesity*04/30/2017 Hyperparathyroidism (HCC) [E21.3] 12/02/2020 Vitamin D deficiency [E55.9] 12/02/2020 Lumbar spondylosis [M47.816] 02/01/2024 Prescriptions ordered this encounter Disp Refills Start End BUDESONIDE 0.5 MG/2 ML SUSPENSION FO* 180 * 1 10/20/2024 10/20/2024 Route: NEBULIZATION Sig: Use 2 mL via nebulizer once daily. BUDESONIDE 0.5 MG/2 ML SUSPENSION FO* 180 * 1 10/20/2024 Cmt: Dx is J45.20, use Medicare part B plan Route: NEBULIZATION Sig: Use 2 mL via nebulizer once daily. Dx: J45.20 Medications Discontinued During This Encounter Prescriptions - budesonide (PULMICORT) 0.5 mg/2 mL nebulizer solution (Discontinued) Use 2 mL via nebulizer once daily. - budesonide (PULMICORT) 0.5 mg/2 mL nebulizer solution (Discontinued) Use 2 mL via nebulizer once daily. Encounter Status:Closed by VALENTINO EGAN on 10/20/24 [facility] Josafat [facility] AM[facility] MORALES ([id number]) 1960 F Date Time Provider Department 10/06/24 LAZARO RUST During your visit today, we recorded the following information about you: Tigist Arroyo 10/06/2024 3:45 PM Signed Patient called requesting all prescriptions that was sent to [facility] on 10/03 Patient said send it through Medicare Part B Patient can be reached at [phone] Please resend those to [facility] Please advise Paulina Kulkarni RN 10/09/2024 2:27 PM Signed To clarify message below, patient requesting pended scripts be sent to [facility], using her Part B Medicare. STACI Pulido Rayanne, PA-C 10/09/2024 2:29 PM Signed The following approved medication requests have been transmitted electronically. Requested Prescriptions Signed Prescriptions Disp Refills albuterol HFA (PROAIR HFA) 90 mcg/actuation inhaler 3 Each 1 Sig: Inhale 2 Puffs as instructed every 6 hours as needed for wheezing/shortness of breath. Authorizing Provider: AURORA MUÑOZ albuterol (PROVENTIL) 2.5 mg /3 mL (0.083 %) nebulizer solution 300 mL 1 Sig: Use 3 mL via nebulizer every 6 hours as needed for wheezing/shortness of breath. J45.20 Authorizing Provider: AURORA MUÑOZ budesonide (PULMICORT) 0.5 mg/2 mL nebulizer solution 180 mL 1 Sig: Use 2 mL via nebulizer once daily. Authorizing Provider: AURORA MUÑOZ PA-C Allergies As of Date: 10/06/2024 (No Known Allergies) Date Reviewed: 09/19/2024 Reviewed by: Elly Orourke LPN - Fully Assessed Reason for Visit: Medication Problem [65] Cmt: Resend Rxs to [facility] Visit Diagnosis:Mild intermittent asthma without complication [J45.20] Order(s):albuterol HFA (PROAIR HFA) 90 mcg/actuation inhalerInhale 2 Puffs as instructed every 6 hours as needed for wheezing/shortness of breath.Disp: 3 EachRfl: 1 albuterol (PROVENTIL) 2.5 mg /3 mL (0.083 %) nebulizer solutionUse 3 mL via nebulizer every 6 hours as needed for wheezing/shortness of breath. J45.20Disp: 300 mLRfl: 1 budesonide (PULMICORT) 0.5 mg/2 mL nebulizer solutionUse 2 mL via nebulizer once daily.Disp: 180 mLRfl: 1 Prescriptions as of 10/09/2024 - albuterol HFA (PROAIR HFA) 90 mcg/actuation inhaler Inhale 2 Puffs as instructed every 6 hours as needed for wheezing/shortness of breath. - albuterol (PROVENTIL) 2.5 mg /3 mL (0.083 %) nebulizer solution Use 3 mL via nebulizer every 6 hours as needed for wheezing/shortness of breath. J45.20 - budesonide (PULMICORT) 0.5 mg/2 mL nebulizer solution Use 2 mL via nebulizer once daily. - Benzonatate 200 mg capsule Take 1 capsule by mouth three times a day as needed. - atorvastatin (LIPITOR) 10 mg tablet TAKE 1 TABLET DAILY AT BEDTIME FOR CHOLESTEROL - cholecalciferol (VITAMIN D-3) 50 mcg (2,000 unit) tablet Take 1 tablet by mouth once daily. - CPAP Mask (per patient preference) optional chin strap (if indicated), filters, tubing / heated tubing, heated humidity and lifetime supplies. Dx. EVE G47.33 327.23 - Nebulizer NEBULIZER WITH SUPPLIES IF NEEDED FOR HOME USE. DX: Mild persistent asthma without complication J45.30 - COMPOUNDED PRESCRIPTION Nebulizer supplies. Dx. Asthma.J45.909 Problem List As Of Date 10/06/2024 Noted Resolved Pain in joint, shoulder region [M25.519] 11/17/2006 09/14/2016 Symptomatic menopausal or female climacteric st*05/02/2009 09/14/2016 Mild intermittent asthma without complication [*07/21/2013 Snoring [R06.83] 09/19/2014 09/14/2016 EVE (obstructive sleep apnea) ahi 46 [G47.33] 09/19/2014 RLS (restless legs syndrome) [G25.81] 11/21/2014 03/04/2016 Iron deficiency concern [E61.1] 11/21/2014 03/04/2016 Mixed hyperlipidemia [E78.2] 10/08/2015 Metabolic syndrome [E88.810] 10/08/2015 Plantar fasciitis, bilateral [M72.2] 10/08/2015 09/14/2016 Elevated hemoglobin A1c [R73.09] 10/08/2015 Encounter for gynecological examination without*04/30/2017 Diverticulosis of colon [K57.30] External hemorrhoids [K64.4] Internal hemorrhoids [K64.8] History of pulmonary embolism [Z86.711] Plantar fasciitis, bilateral [M72.2] 10/08/2015 Well adult exam [Z00.00] 04/30/2017 Screening for colon cancer [Z12.11] 04/30/2017 Obesity, Class III, BMI 40-49.9 (morbid obesity*04/30/2017 Hyperparathyroidism (HCC) [E21.3] 12/02/2020 Vitamin D deficiency [E55.9] 12/02/2020 Lumbar spondylosis [M47.816] 02/01/2024 Prescriptions ordered this encounter Disp Refills Start End ALBUTEROL SULFATE HFA 90 MCG/ACTUATI* 3 Ea* 1 10/09/2024 Cmt: Generic or brand: dispense inhaler preferred by patient/insurance unless JENAE flag is selected. Route: INHALATION Sig: Inhale 2 Puffs as instructed every 6 hours as needed for wheezing/shortness of breath. ALBUTEROL SULFATE 2.5 MG/3 ML (0.083* 300 * 1 10/09/2024 Route: NEBULIZATION Sig: Use 3 mL via nebulizer every 6 hours as ne (more content not included)... Normal [facility]02[facility] AMINA MORALES ([id number]) 1960 F Date Time Provider Department 10/02/24 LITZY MORALES During your visit today, we recorded the following information about you: Litzy Morales MA 10/02/2024 9:55 AM Signed Patient contacted office and indicated that prior authorization on (2) inhalers. DEB Cueto Janice, LPN 10/02/2024 10:04 AM Addendum Electronic PA requested for medicines ordered 09/25/24 for albuterol (proventil) AND budesonide(pulmicort) Blanca Reza LPN 10/02/2024 11:31 AM Signed Both have been denied with pharmacy benefits D. They are covered under medical benefits part B. Pt notified and this infor was faxed to [facility]. Allergies As of Date: 10/02/2024 (No Known Allergies) Date Reviewed: 09/19/2024 Reviewed by: Elly Orourke LPN - Fully Assessed Reason for Visit: Insurance Authorization [4313] Prescriptions as of 10/02/2024 - albuterol (PROVENTIL) 2.5 mg /3 mL (0.083 %) nebulizer solution Use 3 mL via nebulizer every 6 hours as needed for wheezing/shortness of breath. J45.20 - budesonide (PULMICORT) 0.5 mg/2 mL nebulizer solution Use 2 mL via nebulizer once daily. - Benzonatate 200 mg capsule Take 1 capsule by mouth three times a day as needed. - atorvastatin (LIPITOR) 10 mg tablet TAKE 1 TABLET DAILY AT BEDTIME FOR CHOLESTEROL - albuterol HFA (PROAIR HFA) 90 mcg/actuation inhaler Inhale 2 Puffs as instructed every 6 hours as needed for wheezing/shortness of breath. - cholecalciferol (VITAMIN D-3) 50 mcg (2,000 unit) tablet Take 1 tablet by mouth once daily. - CPAP Mask (per patient preference) optional chin strap (if indicated), filters, tubing / heated tubing, heated humidity and lifetime supplies. Dx. EVE G47.33 327.23 - Nebulizer NEBULIZER WITH SUPPLIES IF NEEDED FOR HOME USE. DX: Mild persistent asthma without complication J45.30 - COMPOUNDED PRESCRIPTION Nebulizer supplies. Dx. Asthma.J45.909 Problem List As Of Date 10/02/2024 Noted Resolved Pain in joint, shoulder region [M25.519] 11/17/2006 09/14/2016 Symptomatic menopausal or female climacteric st*05/02/2009 09/14/2016 Mild intermittent asthma without complication [*07/21/2013 Snoring [R06.83] 09/19/2014 09/14/2016 EVE (obstructive sleep apnea) ahi 46 [G47.33] 09/19/2014 RLS (restless legs syndrome) [G25.81] 11/21/2014 03/04/2016 Iron deficiency concern [E61.1] 11/21/2014 03/04/2016 Mixed hyperlipidemia [E78.2] 10/08/2015 Metabolic syndrome [E88.810] 10/08/2015 Plantar fasciitis, bilateral [M72.2] 10/08/2015 09/14/2016 Elevated hemoglobin A1c [R73.09] 10/08/2015 Encounter for gynecological examination without*04/30/2017 Diverticulosis of colon [K57.30] External hemorrhoids [K64.4] Internal hemorrhoids [K64.8] History of pulmonary embolism [Z86.711] Plantar fasciitis, bilateral [M72.2] 10/08/2015 Well adult exam [Z00.00] 04/30/2017 Screening for colon cancer [Z12.11] 04/30/2017 Obesity, Class III, BMI 40-49.9 (morbid obesity*04/30/2017 Hyperparathyroidism (HCC) [E21.3] 12/02/2020 Vitamin D deficiency [E55.9] 12/02/2020 Lumbar spondylosis [M47.816] 02/01/2024 Encounter Status:Closed by BLANCA REZA on 10/02/24 [facility] CNOVon 09-19-2024 CNOV Office Visit (FAMPWS ) AMINA MORALES ([id number]) 1960 F Date Time Provider Department 09/19/24 7:40 AM AURORA MUÑOZWS During your visit today, we recorded the following information about you: Temperature Pulse Respiration Blood pressure 97 degrees 69/minute 18/minute 126/80 Weight 152 kg Aurora Muñoz PA-C 09/19/2024 8:57 AM Signed Chief Complaint Patient presents with: Follow Up: Having right ear pain, cough HPI Amina Morales is a 64 year old female who presents here today for recheck. Patient tested positive for influenza in July. Was treated for continued bronchitis symptoms with atb. State she was feeling better for a couple weeks. But then 2 days ago she started noting a new cough and fatigue. No fever. +R ear pain +scratchy throat. Past medical history, appointments, medications, allergies reviewed. Previous Medical History PAST MEDICAL HISTORY Diagnosis Date Closed fracture of left humerus Diverticulosis of colon Elevated hemoglobin A1c 10/08/2015 External hemorrhoids History of pulmonary embolism 1993 ? Pulmonary embolism Hyperglycemia 10/08/2015 Hyperparathyroidism (HCC) 12/02/2020 Internal hemorrhoids Metabolic syndrome 10/08/2015 Mild intermittent asthma without complication 07/21/2013 Mixed hyperlipidemia 10/08/2015 Obesity, Class III, BMI 40-49.9 (morbid obesity) ([facility]) 04/30/2017 EVE (obstructive sleep apnea) ahi 46 09/19/2014 On CPAP, [facility] Phlebitis and thrombophlebitis of unspecified site Plantar fasciitis, bilateral 10/08/2015 Symptomatic menopausal or female climacteric states 05/02/2009 Vitamin D deficiency 12/02/2020 Previous Surgical History PAST SURGICAL HISTORY Procedure Laterality Date [facility] INCL FLUOR GDNCE DX W/CELL WASHG SPX BRONCHOSCOPY COLONOSCOPY 04/22/2022 repeat in 5 years COLONOSCOPY FLX DX W/COLLJ SPEC WHEN PFRMD 09/18/2011 repeat 10 years FECAL OCCULT BLOOD TEST 05/01/2017 negative HYSTEROSCOPY, DIAGNOSTIC (SEPARATE WITH CURRETAGE LIG/TRNSXJ FLP TUBE ABDL/VAG APPR UNI/BI Tubal ligation PARATHYROIDECTOMY/EXPLO R PARATHYROIDS RE-EXPLOR 02/2022 PT ED ENDOCRINOLOGY 02/25/2022 Rt: upper and lower, Left Upper. TOTAL ABDOMINAL HYSTERECT W/WO RMVL TUBE OVARY 2004 Hysterectomy, DANIEL UNSPECIFIED ORAL SURGERY PROCEDURE, BY REPORT 08/18/2007 Family History FAMILY HISTORY Problem Relation Age of Onset Lipids Mother High Cholesterol Arthritis Mother Lipids Father High cholesterol Alzheimer's Disease Father Heart Maternal Grandmother Heart Maternal Grandfather Cancer Maternal Grandfather /BONE Heart Paternal Grandmother Heart Paternal Grandfather Hypertension Paternal Grandfather Patient Allergies ALLERGIES No Known Allergies Current Medications Current Outpatient Medications on File Prior to Visit Medication Sig budesonide (PULMICORT) 0.5 mg/2 mL nebulizer solution Use 2 mL via nebulizer once daily. albuterol (PROVENTIL) 2.5 mg /3 mL (0.083 %) nebulizer solution Use 3 mL via nebulizer every 6 hours as needed for wheezing/shortness of breath. J45.20 atorvastatin (LIPITOR) 10 mg tablet TAKE 1 TABLET DAILY AT BEDTIME FOR CHOLESTEROL albuterol HFA (PROAIR HFA) 90 mcg/actuation inhaler Inhale 2 Puffs as instructed every 6 hours as needed for wheezing/shortness of breath. cholecalciferol (VITAMIN D-3) 50 mcg (2,000 unit) tablet Take 1 tablet by mouth once daily. CPAP Mask (per patient preference) optional chin strap (if indicated), filters, tubing / heated tubing, heated humidity and lifetime supplies. Dx. EVE G47.33 327.23 Nebulizer NEBULIZER WITH SUPPLIES IF NEEDED FOR HOME USE. DX: Mild persistent asthma without complication J45.30 COMPOUNDED PRESCRIPTION Nebulizer supplies. Dx. Asthma.J45.909 azithromycin (ZITHROMAX) 250 mg tablet Take 1 tablet by mouth as directed. (Patient not taking: Reported on 09/19/2024) Benzonatate 200 mg capsule Take 1 capsule by mouth three times a day as needed. No current facility-administered medications on file prior to visit. Social History Social History Tobacco Use Smoking status: Never Smokeless tobacco: Never Vaping Use Vaping status: Never Used Substance Use Topics Alcohol use: Yes Comment: Occasionally Drug use: No Review of Symptoms REVIEW OF SYSTEMS See hpi EXAM: BP 126/80 (BP Site: Right Arm, BP Position: Sitting, BP Cuff Size: Large Adult) Pulse 69 Temp 36.1 ?C (97 ?F) Resp 18 Wt (!) 152 kg (335 lb) SpO2 96% BMI 51.97 kg/m? General Appearance: Well appearing, alert, in no acute distress, well-hydrated, well nourished.. Ears: R TM red. Left TM wnl. Nose/Sinuses: Nares normal, septum midline, mucosa normal, no drainage or sinus tenderness. Oropharynx: Lips, mucosa, and tongue normal, teeth and gums normal, oropharynx normal. Neck: Supple, no adenopathy; thyroid symmetric, (more content not included)... [facility] CNPNon 08-28-2024 [facility] AM[facility] MORALES ([id number]) 1960 F Date Time Provider Department 08/28/24 [facility] During your visit today, we recorded the following information about you: Macarena Reed LPN 08/28/2024 11:00 AM Signed Pt calling to report she was seen on and not doing any better. Cough is continuous and yesterday and thru the night face and throat hurting again. Pt was instructed to call back if no better. Pt not sure if ATB needs to be changed and if she needs Prednisone also. Pt denies: fever, abdominal pain,problems breathing, SOB or chest pain. Please review and advise pt. ARTURO Tyson Rayanne, PA-C 08/28/2024 11:10 AM Signed Ill add a zpack. Continue the duricef. Will also do another round of steroid. But since I just had her on a taper, we are only going to do a burst of 20mg daily x 4 days. Elly Orourke LPN 08/28/2024 11:23 AM Signed Pt notified of Aurora's message and instructions. Pt verbalizes understanding. Elly Orourke LPN Allergies As of Date: 08/28/2024 (No Known Allergies) Date Reviewed: 08/24/2024 Reviewed by: Elly Orourke LPN - Fully Assessed Reason for Visit: Patient Question [4628] Order(s):azithromycin (ZITHROMAX) 250 mg tabletTake 1 tablet by mouth as directed.Disp: 6 tabletRfl: 0 predniSONE (DELTASONE) 20 mg tabletTake 1 tablet by mouth once daily for 4 days. Take daily with food.Disp: 4 tabletRfl: 0 Prescriptions as of 08/28/2024 - azithromycin (ZITHROMAX) 250 mg tablet Take 1 tablet by mouth as directed. - predniSONE (DELTASONE) 20 mg tablet Take 1 tablet by mouth once daily for 4 days. Take daily with food. - cefADROxil (DURICEF) 500 mg capsule Take 1 capsule by mouth two times a day for 10 days. - codeine-guaiFENesin (ROBITUSSIN AC) 10-100 mg/5 mL syrup Take 5 mL by mouth three times a day as needed for up to 7 days. - Benzonatate 200 mg capsule Take 1 capsule by mouth three times a day as needed. - budesonide (PULMICORT) 0.5 mg/2 mL nebulizer solution Use 2 mL via nebulizer once daily. - albuterol (PROVENTIL) 2.5 mg /3 mL (0.083 %) nebulizer solution Use 3 mL via nebulizer every 6 hours as needed for wheezing/shortness of breath. J45.20 - atorvastatin (LIPITOR) 10 mg tablet TAKE 1 TABLET DAILY AT BEDTIME FOR CHOLESTEROL - albuterol HFA (PROAIR HFA) 90 mcg/actuation inhaler Inhale 2 Puffs as instructed every 6 hours as needed for wheezing/shortness of breath. - cholecalciferol (VITAMIN D-3) 50 mcg (2,000 unit) tablet Take 1 tablet by mouth once daily. - CPAP Mask (per patient preference) optional chin strap (if indicated), filters, tubing / heated tubing, heated humidity and lifetime supplies. Dx. EVE G47.33 327.23 - Nebulizer NEBULIZER WITH SUPPLIES IF NEEDED FOR HOME USE. DX: Mild persistent asthma without complication J45.30 - COMPOUNDED PRESCRIPTION Nebulizer supplies. Dx. Asthma.J45.909 Problem List As Of Date 08/28/2024 Noted Resolved Pain in joint, shoulder region [M25.519] 11/17/2006 09/14/2016 Symptomatic menopausal or female climacteric st*05/02/2009 09/14/2016 Mild intermittent asthma without complication [*07/21/2013 Snoring [R06.83] 09/19/2014 09/14/2016 EVE (obstructive sleep apnea) ahi 46 [G47.33] 09/19/2014 RLS (restless legs syndrome) [G25.81] 11/21/2014 03/04/2016 Iron deficiency concern [E61.1] 11/21/2014 03/04/2016 Mixed hyperlipidemia [E78.2] 10/08/2015 Metabolic syndrome [E88.810] 10/08/2015 Plantar fasciitis, bilateral [M72.2] 10/08/2015 09/14/2016 Elevated hemoglobin A1c [R73.09] 10/08/2015 Encounter for gynecological examination without*04/30/2017 Diverticulosis of colon [K57.30] External hemorrhoids [K64.4] Internal hemorrhoids [K64.8] History of pulmonary embolism [Z86.711] Plantar fasciitis, bilateral [M72.2] 10/08/2015 Well adult exam [Z00.00] 04/30/2017 Screening for colon cancer [Z12.11] 04/30/2017 Obesity, Class III, BMI 40-49.9 (morbid obesity*04/30/2017 Hyperparathyroidism (HCC) [E21.3] 12/02/2020 Vitamin D deficiency [E55.9] 12/02/2020 Lumbar spondylosis [M47.816] 02/01/2024 Prescriptions ordered this encounter Disp Refills Start End AZITHROMYCIN 250 MG TABLET 6 ta* 0 08/28/2024 Route: ORAL Sig: Take 1 tablet by mouth as directed. PREDNISONE 20 MG TABLET 4 ta* 0 08/28/2024 09/01/2024 Route: ORAL Sig: Take 1 tablet by mouth once daily for 4 days. Take daily with food. Encounter Status:Closed by ELLY OROUREK on 08/28/24 [facility] CNOVgopal 08-24-2024 CNOV Office Visit ([facility] ) AMINA MORALES ([id number]) 1960 F Date Time Provider Department 08/24/24 12:40 PM AURORA MUÑOZ During your visit today, we recorded the following information about you: Temperature Pulse Respiration Blood pressure 97.5 degrees 66/minute 20/minute 136/76 Weight 149.2 kg Aurora Muñoz PA-C 08/24/2024 12:56 PM Signed Chief Complaint Patient presents with: Cough HPI Amina Morales is a 64 year old female who presents here today for Above Complaints.. Patient dx with influenza last week. Symptoms improved with exception of cough which patient reports as worse. Cough is keeping her up at night. Has not been productive. No fever. Past medical history, appointments, medications, allergies reviewed. Previous Medical History PAST MEDICAL HISTORY Diagnosis Date Closed fracture of left humerus Diverticulosis of colon Elevated hemoglobin A1c 10/08/2015 External hemorrhoids History of pulmonary embolism 1993 ? Pulmonary embolism Hyperglycemia 10/08/2015 Hyperparathyroidism (HCC) 12/02/2020 Internal hemorrhoids Metabolic syndrome 10/08/2015 Mild intermittent asthma without complication 07/21/2013 Mixed hyperlipidemia 10/08/2015 Obesity, Class III, BMI 40-49.9 (morbid obesity) (HCC) 04/30/2017 EVE (obstructive sleep apnea) ahi 46 09/19/2014 On CPAP, [facility] Phlebitis and thrombophlebitis of unspecified site Plantar fasciitis, bilateral 10/08/2015 Symptomatic menopausal or female climacteric states 05/02/2009 Vitamin D deficiency 12/02/2020 Previous Surgical History PAST SURGICAL HISTORY Procedure Laterality Date [facility] INCL FLUOR GDNCE DX W/CELL WASHG SPX BRONCHOSCOPY COLONOSCOPY 04/22/2022 repeat in 5 years COLONOSCOPY FLX DX W/COLLJ SPEC WHEN PFRMD 09/18/2011 repeat 10 years FECAL OCCULT BLOOD TEST 05/01/2017 negative HYSTEROSCOPY, DIAGNOSTIC (SEPARATE WITH CURRETAGE LIG/TRNSXJ FLP TUBE ABDL/VAG APPR UNI/BI Tubal ligation PARATHYROIDECTOMY/EXPLO R PARATHYROIDS RE-EXPLOR 02/2022 PT ED ENDOCRINOLOGY 02/25/2022 Rt: upper and lower, Left Upper. TOTAL ABDOMINAL HYSTERECT W/WO RMVL TUBE OVARY 2004 Hysterectomy, DANIEL UNSPECIFIED ORAL SURGERY PROCEDURE, BY REPORT 08/18/2007 Family History FAMILY HISTORY Problem Relation Age of Onset Lipids Mother High Cholesterol Arthritis Mother Lipids Father High cholesterol Alzheimer's Disease Father Heart Maternal Grandmother Heart Maternal Grandfather Cancer Maternal Grandfather /BONE Heart Paternal Grandmother Heart Paternal Grandfather Hypertension Paternal Grandfather Patient Allergies ALLERGIES No Known Allergies Current Medications Current Outpatient Medications on File Prior to Visit Medication Sig Benzonatate 200 mg capsule Take 1 capsule by mouth three times a day as needed. budesonide (PULMICORT) 0.5 mg/2 mL nebulizer solution Use 2 mL via nebulizer once daily. albuterol (PROVENTIL) 2.5 mg /3 mL (0.083 %) nebulizer solution Use 3 mL via nebulizer every 6 hours as needed for wheezing/shortness of breath. J45.20 atorvastatin (LIPITOR) 10 mg tablet TAKE 1 TABLET DAILY AT BEDTIME FOR CHOLESTEROL albuterol HFA (PROAIR HFA) 90 mcg/actuation inhaler Inhale 2 Puffs as instructed every 6 hours as needed for wheezing/shortness of breath. cholecalciferol (VITAMIN D-3) 50 mcg (2,000 unit) tablet Take 1 tablet by mouth once daily. CPAP Mask (per patient preference) optional chin strap (if indicated), filters, tubing / heated tubing, heated humidity and lifetime supplies. Dx. EVE G47.33 327.23 Nebulizer NEBULIZER WITH SUPPLIES IF NEEDED FOR HOME USE. DX: Mild persistent asthma without complication J45.30 COMPOUNDED PRESCRIPTION Nebulizer supplies. Dx. Asthma.J45.909 methylPREDNISolone (MEDROL, CARLENE,) 4 mg Dose-Pack Follow dosing instructions, take with food. (Patient not taking: Reported on 08/24/2024) No current facility-administered medications on file prior to visit. Social History Social History Tobacco Use Smoking status: Never Smokeless tobacco: Never Vaping Use Vaping status: Never Used Substance Use Topics Alcohol use: Yes Comment: Occasionally Drug use: No Review of Symptoms REVIEW OF SYSTEMS See hpi EXAM: BP 136/76 (BP Site: Left Arm, BP Position: Sitting, BP Cuff Size: Large Adult) Pulse 66 Temp 36.4 ?C (97.5 ?F) Resp 20 Wt (!) 149.2 kg (329 lb) SpO2 96% BMI 51.04 kg/m? General Appearance: Well appearing, alert, in no acute distress, well-hydrated, well nourished.. Neck: Supple, no adenopathy; thyroid symmetric, normal size, no bruits. Lungs: wheezes and rhonchi throughout. No acute distress Heart: RRR without murmur, gallop, or rubs. No ectopy. Health Maintenance List Advance Directive Discussion Never done Mammogram Screening due on 01/12/2025 Depression Screening due on 12/29/2024 Anxi (more content not included)... [facility] CNOVon 08-18-2024 CNOV Office Visit ([facility] ) CARMNEAMINA Aquino ([id number]) 1960 F Date Time Provider Department 08/18/24 12:20 PM [facility] During your visit today, we recorded the following information about you: Temperature Pulse Respiration Blood pressure 99.7 degrees 101/minute 20/minute 130/78 Weight 152 kg Aurora Muñoz PA-C 08/18/2024 12:51 PM Signed Chief Complaint Patient presents with: Cough HPI Amina Aquino Carmen is a 64 year old female who presents here today for Above Complaints.. Patient with cough for 3 days. Pain in lower ribcage from cough. Having sinus pressure and ear pressure Sore throat from cough Cough is dry No fevers No body aches No n/v/d Past medical history, appointments, medications, allergies reviewed. Previous Medical History PAST MEDICAL HISTORY Diagnosis Date Closed fracture of left humerus Diverticulosis of colon Elevated hemoglobin A1c 10/08/2015 External hemorrhoids History of pulmonary embolism 1993 ? Pulmonary embolism Hyperglycemia 10/08/2015 Hyperparathyroidism ([facility]) 12/02/2020 Internal hemorrhoids Metabolic syndrome 10/08/2015 Mild intermittent asthma without complication 07/21/2013 Mixed hyperlipidemia 10/08/2015 Obesity, Class III, BMI 40-49.9 (morbid obesity) ([facility]) 04/30/2017 EVE (obstructive sleep apnea) ahi 46 09/19/2014 [place] [facility] [place] Phlebitis and thrombophlebitis of unspecified site Plantar fasciitis, bilateral 10/08/2015 Symptomatic menopausal or female climacteric states 05/02/2009 Vitamin D deficiency 12/02/2020 Previous Surgical History PAST SURGICAL HISTORY Procedure Laterality Date [facility] INCL FLUOR GDNCE DX W/CELL WASHG SPX BRONCHOSCOPY COLONOSCOPY 04/22/2022 repeat in 5 years COLONOSCOPY FLX DX W/COLLJ SPEC WHEN PFRMD 09/18/2011 repeat 10 years FECAL OCCULT BLOOD TEST 05/01/2017 negative HYSTEROSCOPY, DIAGNOSTIC (SEPARATE WITH CURRETAGE LIG/TRNSXJ FLP TUBE ABDL/VAG APPR UNI/BI Tubal ligation PARATHYROIDECTOMY/EXPLO R PARATHYROIDS RE-EXPLOR 02/2022 PT ED ENDOCRINOLOGY 02/25/2022 Rt: upper and lower, Left Upper. TOTAL ABDOMINAL HYSTERECT W/WO RMVL TUBE OVARY 2004 Hysterectomy, DANIEL UNSPECIFIED ORAL SURGERY PROCEDURE, BY REPORT 08/18/2007 Family History FAMILY HISTORY Problem Relation Age of Onset Lipids Mother High Cholesterol Arthritis Mother Lipids Father High cholesterol Alzheimer's Disease Father Heart Maternal Grandmother Heart Maternal Grandfather Cancer Maternal Grandfather /BONE Heart Paternal Grandmother Heart Paternal Grandfather Hypertension Paternal Grandfather Patient Allergies ALLERGIES No Known Allergies Current Medications Current Outpatient Medications on File Prior to Visit Medication Sig budesonide (PULMICORT) 0.5 mg/2 mL nebulizer solution Use 2 mL via nebulizer once daily. albuterol (PROVENTIL) 2.5 mg /3 mL (0.083 %) nebulizer solution Use 3 mL via nebulizer every 6 hours as needed for wheezing/shortness of breath. J45.20 atorvastatin (LIPITOR) 10 mg tablet TAKE 1 TABLET DAILY AT BEDTIME FOR CHOLESTEROL albuterol HFA (PROAIR HFA) 90 mcg/actuation inhaler Inhale 2 Puffs as instructed every 6 hours as needed for wheezing/shortness of breath. cholecalciferol (VITAMIN D-3) 50 mcg (2,000 unit) tablet Take 1 tablet by mouth once daily. CPAP Mask (per patient preference) optional chin strap (if indicated), filters, tubing / heated tubing, heated humidity and lifetime supplies. Dx. EVE G47.33 327.23 Nebulizer NEBULIZER WITH SUPPLIES IF NEEDED FOR HOME USE. DX: Mild persistent asthma without complication J45.30 COMPOUNDED PRESCRIPTION Nebulizer supplies. Dx. Asthma.J45.909 No current facility-administered medications on file prior to visit. Social History Social History Tobacco Use Smoking status: Never Smokeless tobacco: Never Vaping Use Vaping status: Never Used Substance Use Topics Alcohol use: Yes Comment: Occasionally Drug use: No Review of Symptoms REVIEW OF SYSTEMS See hpi EXAM: BP 130/78 (BP Site: Left Arm, BP Position: Sitting, BP Cuff Size: Large Adult) Pulse 101 Temp 37.6 ?C (99.7 ?F) Resp 20 Wt (!) 152 kg (335 lb) SpO2 100% BMI 51.97 kg/m? General Appearance: Well appearing, alert, in no acute distress, well-hydrated, well nourished.. Ears: External ears normal, canals clear. Nose/Sinuses: Nares normal, septum midline, mucosa normal, no drainage or sinus tenderness. Oropharynx: Lips, mucosa, and tongue normal, teeth and gums normal, oropharynx normal. Neck: Supple, no adenopathy; thyroid symmetric, normal size, no bruits. Lungs: wheeze noted. Heart: RRR without murmur, gallop, or rubs. No ectopy. Health Maintenance List Advance Directive Discussion Never done Mammogram Screening due on 01/12/2025 Depression Screening due on 12/29/2024 Anxiety Screening due on 12/29/2024 (more content not included)... [facility] CNPNon 08-18-2024 CNPN Telephone ([facility]) AMINA MORALES ([id number]) 1960 F Date Time Provider Department 08/18/24 [facility] During your visit today, we recorded the following information about you: Aurora Muñoz PA-C 08/18/2024 1:19 PM Signed Cxr neg for infection. ELISABET Reilly Amanda, RN 08/18/2024 1:29 PM Signed Pt called and is notified of providers results. Pt voices understanding. Janette Torres RN Allergies As of Date: 08/18/2024 (No Known Allergies) Date Reviewed: 08/18/2024 Reviewed by: Elly Orourke LPN - Fully Assessed Reason for Visit: Results [95] Prescriptions as of 08/18/2024 - methylPREDNISolone (MEDROL, CARLENE,) 4 mg Dose-Pack Follow dosing instructions, take with food. - Benzonatate 200 mg capsule Take 1 capsule by mouth three times a day as needed. - budesonide (PULMICORT) 0.5 mg/2 mL nebulizer solution Use 2 mL via nebulizer once daily. - albuterol (PROVENTIL) 2.5 mg /3 mL (0.083 %) nebulizer solution Use 3 mL via nebulizer every 6 hours as needed for wheezing/shortness of breath. J45.20 - atorvastatin (LIPITOR) 10 mg tablet TAKE 1 TABLET DAILY AT BEDTIME FOR CHOLESTEROL - albuterol HFA (PROAIR HFA) 90 mcg/actuation inhaler Inhale 2 Puffs as instructed every 6 hours as needed for wheezing/shortness of breath. - cholecalciferol (VITAMIN D-3) 50 mcg (2,000 unit) tablet Take 1 tablet by mouth once daily. - CPAP Mask (per patient preference) optional chin strap (if indicated), filters, tubing / heated tubing, heated humidity and lifetime supplies. Dx. EVE G47.33 327.23 - Nebulizer NEBULIZER WITH SUPPLIES IF NEEDED FOR HOME USE. DX: Mild persistent asthma without complication J45.30 - COMPOUNDED PRESCRIPTION Nebulizer supplies. Dx. Asthma.J45.909 Problem List As Of Date 08/18/2024 Noted Resolved Pain in joint, shoulder region [M25.519] 11/17/2006 09/14/2016 Symptomatic menopausal or female climacteric st*05/02/2009 09/14/2016 Mild intermittent asthma without complication [*07/21/2013 Snoring [R06.83] 09/19/2014 09/14/2016 EVE (obstructive sleep apnea) ahi 46 [G47.33] 09/19/2014 RLS (restless legs syndrome) [G25.81] 11/21/2014 03/04/2016 Iron deficiency concern [E61.1] 11/21/2014 03/04/2016 Mixed hyperlipidemia [E78.2] 10/08/2015 Metabolic syndrome [E88.810] 10/08/2015 Plantar fasciitis, bilateral [M72.2] 10/08/2015 09/14/2016 Elevated hemoglobin A1c [R73.09] 10/08/2015 Encounter for gynecological examination without*04/30/2017 Diverticulosis of colon [K57.30] External hemorrhoids [K64.4] Internal hemorrhoids [K64.8] History of pulmonary embolism [Z86.711] Plantar fasciitis, bilateral [M72.2] 10/08/2015 Well adult exam [Z00.00] 04/30/2017 Screening for colon cancer [Z12.11] 04/30/2017 Obesity, Class III, BMI 40-49.9 (morbid obesity*04/30/2017 Hyperparathyroidism (HCC) [E21.3] 12/02/2020 Vitamin D deficiency [E55.9] 12/02/2020 Lumbar spondylosis [M47.816] 02/01/2024 Encounter Status:Closed by JANETTE TORRES on 08/18/24 [facility] COVID AND INFLUENZA A/B AND RSV PCR, ROUTINEon 08-18-2024 SARS-CoV-2 (COVID-19) RNA LUIS E+probe Ql (Unsp spec) SARS-COV-2 (AGENT OF COVID-19) RNA: Not detected INFLUENZA A RNA: Detected INFLUENZA B RNA: Not detected RESPIRATORY SYNCYTIAL VIRUS (RSV) RNA: Not detected [facility] Comment on above: Performed By: #### C VFLRS ####[facility] [id number] [place] [address] [place] XR CHEST 2V FRONTAL/LATon XR CHEST 2V FRONTAL/LAT * * *Final Report* * * DATE OF EXAM: Aug 18 2024 1:04PM WOX [id number] - XR CHEST 2V FRONTAL/LAT / PROCEDURE REASON: multiple diagnoses * * * * Physician Interpretation * * * * EXAMINATION: CHEST RADIOGRAPH (2 VIEW FRONTAL and LATERAL) CLINICAL HISTORY: Lower respiratory infection URI, acute MQ: XC2_6 EXAM DATE/TIME: 08/18/2024 1:04 PM COMPARISON: 08/23/2023 RESULT: Lines, tubes, and devices: None. Lungs and pleura: No consolidation. No lung mass. No pleural effusion. No pneumothorax. Cardiomediastinal silhouette: Normal cardiomediastinal silhouette. Bones and soft tissues: Degenerative changes are present within the thoracic spine. IMPRESSION: No acute radiographic abnormality. Electronic Sales And Service Technician: ZOEY Transcribe Date/Time: Aug 18 2024 1:04P Dictated by : CARMEN EATON MD This examination was interpreted and the report reviewed and electronically signed by: CARMEN EATON MD on Aug 18 2024 1:05PM EST [id number] [facility] XR Chest PA and Lateralon IMPRESSION: No acute radiographic abnormality. Electronic Sales And Service Technician: [facility] Transcribe Date/Time: Aug 18 2024 1:04P Dictated by : CARMEN EATON MD This examination was interpreted and the report reviewed and electronically signed by: CARMEN EATON MD on Aug 18 2024 1:05PM EST DIVISION OF RADIOLOGY * * *Final Report* * * DATE OF EXAM: Aug 18 2024 1:04PM WOX [id number] - XR CHEST 2V FRONTAL/LAT / PROCEDURE REASON: multiple diagnoses * * * * Physician Interpretation * * * * EXAMINATION: CHEST RADIOGRAPH (2 VIEW FRONTAL & LATERAL) CLINICAL HISTORY: Lower respiratory infection URI, acute MQ: XC2_6 EXAM DATE/TIME: 08/18/2024 1:04 PM COMPARISON: 08/23/2023 RESULT: Lines, tubes, and devices: None. Lungs and pleura: No consolidation. No lung mass. No pleural effusion. No pneumothorax. Cardiomediastinal silhouette: Normal cardiomediastinal silhouette. Bones and soft tissues: Degenerative changes are present within the thoracic spine. DIVISION OF RADIOLOGY Provider, [facility] - 08/18/2024 * * *Final Report* * * DATE OF EXAM: Aug 18 2024 1:04PM WOX [id number] - XR CHEST 2V FRONTAL/LAT / PROCEDURE REASON: multiple diagnoses * * * * Physician Interpretation * * * * EXAMINATION: CHEST RADIOGRAPH (2 VIEW FRONTAL & LATERAL) CLINICAL HISTORY: Lower respiratory infection URI, acute MQ: XC2_6 EXAM DATE/TIME: 08/18/2024 1:04 PM COMPARISON: 08/23/2023 RESULT: Lines, tubes, and devices: None. Lungs and pleura: No consolidation. No lung mass. No pleural effusion. No pneumothorax. Cardiomediastinal silhouette: Normal cardiomediastinal silhouette. Bones and soft tissues: Degenerative changes are present within the thoracic spine. IMPRESSION IMPRESSION: No acute radiographic abnormality. Electronic Sales And Service Technician: PSCPetr Transcribe Date/Time: Aug 18 2024 1:04P Dictated by : CARMEN EATON MD This examination was interpreted and the report reviewed and electronically signed by: CARMEN EATON MD on Aug 18 2024 1:05PM EST [facility] Radiology Study observation (narrative) [facility] XR Chest PA and LateralOrder ed By: [facility] Provider on 08-18-2024 [facility] CNOVon 07-11-2024 CNOV Office Visit (FAMPWS ) AMINA MORALES ([id number]) 1960 F Date Time Provider Department 07/11/24 7:20 AM [facility] During your visit today, we recorded the following information about you: Temperature Pulse Respiration Blood pressure 97.8 degrees 79/minute 18/minute 128/70 Weight Height 153.3 kg 1.71 m Aurora Muñoz PA-C 07/11/2024 8:37 AM Signed Chief Complaint Patient presents with: Yearly Exam HPI Amina Aquino Carmen is a 63 year old female who presents here today for physical. Patient with hx of hyperlipidemia, asthma, EVE, hyperparathyroid, elevated A1c, vit d def, obesity and those as below. No specific concerns today. Past medical history, appointments, medications, allergies reviewed. Previous Medical History PAST MEDICAL HISTORY Diagnosis Date Closed fracture of left humerus Diverticulosis of colon Elevated hemoglobin A1c 10/08/2015 External hemorrhoids History of pulmonary embolism 1993 ? Pulmonary embolism Hyperglycemia 10/08/2015 Hyperparathyroidism (HCC) 12/02/2020 Internal hemorrhoids Metabolic syndrome 10/08/2015 Mild intermittent asthma without complication 07/21/2013 Mixed hyperlipidemia 10/08/2015 Obesity, Class III, BMI 40-49.9 (morbid obesity) (HCC) 04/30/2017 EVE (obstructive sleep apnea) ahi 46 09/19/2014 On CPAP, BRETT [facility] Phlebitis and thrombophlebitis of unspecified site Plantar fasciitis, bilateral 10/08/2015 Symptomatic menopausal or female climacteric states 05/02/2009 Vitamin D deficiency 12/02/2020 Previous Surgical History PAST SURGICAL HISTORY Procedure Laterality Date [facility] INCL FLUOR GDNCE DX W/CELL WASHG SPX BRONCHOSCOPY COLONOSCOPY 04/22/2022 repeat in 5 years COLONOSCOPY FLX DX W/COLLJ SPEC WHEN PFRMD 09/18/2011 repeat 10 years FECAL OCCULT BLOOD TEST 05/01/2017 negative HYSTEROSCOPY, DIAGNOSTIC (SEPARATE WITH CURRETAGE LIG/TRNSXJ FLP TUBE ABDL/VAG APPR UNI/BI Tubal ligation PARATHYROIDECTOMY/EXPLO R PARATHYROIDS RE-EXPLOR 02/2022 PT ED ENDOCRINOLOGY 02/25/2022 Rt: upper and lower, Left Upper. TOTAL ABDOMINAL HYSTERECT W/WO RMVL TUBE OVARY 2004 Hysterectomy, DANIEL UNSPECIFIED ORAL SURGERY PROCEDURE, BY REPORT 08/18/2007 Family History FAMILY HISTORY Problem Relation Age of Onset Lipids Mother High Cholesterol Arthritis Mother Lipids Father High cholesterol Alzheimer's Disease Father Heart Maternal Grandmother Heart Maternal Grandfather Cancer Maternal Grandfather /BONE Heart Paternal Grandmother Heart Paternal Grandfather Hypertension Paternal Grandfather Patient Allergies ALLERGIES No Known Allergies Current Medications Current Outpatient Medications on File Prior to Visit Medication Sig albuterol (PROVENTIL) 2.5 mg /3 mL (0.083 %) nebulizer solution Use 3 mL via nebulizer every 6 hours as needed for wheezing/shortness of breath. J45.20 atorvastatin (LIPITOR) 10 mg tablet TAKE 1 TABLET DAILY AT BEDTIME FOR CHOLESTEROL budesonide (PULMICORT) 0.5 mg/2 mL nebulizer solution Use 2 mL via nebulizer once daily. albuterol HFA (PROAIR HFA) 90 mcg/actuation inhaler Inhale 2 Puffs as instructed every 6 hours as needed for wheezing/shortness of breath. cholecalciferol (VITAMIN D-3) 50 mcg (2,000 unit) tablet Take 1 tablet by mouth once daily. CPAP Mask (per patient preference) optional chin strap (if indicated), filters, tubing / heated tubing, heated humidity and lifetime supplies. Dx. EVE G47.33 327.23 Nebulizer NEBULIZER WITH SUPPLIES IF NEEDED FOR HOME USE. DX: Mild persistent asthma without complication J45.30 COMPOUNDED PRESCRIPTION Nebulizer supplies. Dx. Asthma.J45.909 budesonide (PULMICORT) 0.5 mg/2 mL nebulizer solution Use 2 mL via nebulizer once daily. cyclobenzaprine (FLEXERIL) 10 mg tablet Take 1 tablet by mouth three times a day as needed for muscle spasm. (Patient not taking: Reported on 07/11/2024) meloxicam (MOBIC) 15 mg tablet Take 1 tablet by mouth once daily. (Patient not taking: Reported on 07/11/2024) No current facility-administered medications on file prior to visit. Social History Social History Tobacco Use Smoking status: Never Smokeless tobacco: Never Vaping Use Vaping status: Never Used Substance Use Topics Alcohol use: Yes Comment: Occasionally Drug use: No Review of Symptoms REVIEW OF SYSTEMS GENERAL: No weight loss, malaise or fevers HEENT: No changes in hearing or vision, no nose bleeds or other nasal problems NECK: Negative for lumps, goiter, pain and significant neck swelling RESPIRATORY: Negative for cough, hemoptysis, wheezing, COPD, dyspnea or shortness of breath CARDIOVASCULAR: Negative for chest pain, leg swelling, CHF or palpitations GI: Negative for abdominal discomfort, blood in stools or black stools, change in bowel habit, nausea, vomiting : No history of dysuria, frequency or incontinen (more content not included)... Normal [facility] 25(OH)D3 [facility] 2023 25-hydroxyvitamin D3 [Mass/Vol] 34.5 ng/mL Normal 31.0-80.0 [facility] Comment on above: Order Comment: Speci men Type: BLOOD SPECIMENOrdering Facility: [facility] Address: [address] [place] [address] Result Comment: Clas sification of 25 [place] Vitamin D status: Deficiency/Insufficiency: < or = 30 ng/ml. Sufficiency/Optimal Levels: 31-80 ng/mL Toxicity: > 100 ng/mL. Test performed by chemiluminescent immunoassay. Performed By: #### 1 989-3 ####[facility] [id number] [place] [address] [place] CBC W Auto Differential pane l (Bld)on 06-28-2024 Basophils (Bld) [#/Vol] 0.07 10*3/uL Normal <0.11 [facility] Comment on above: Order Comment: Speci men Type: BLOOD SPECIMENOrdering Facility: [facility] Address: [address] [place] [address] Performed By: #### 5 7021-8 ####[facility]CL[facility] [id number] [place] [address] [place] Basophils/100 WBC (Bld) 0.9 % Normal [facility] Comment on above: Order Comment: Speci men Type: BLOOD SPECIMENOrdering Facility: [facility] Address: [address] [place] [address] Performed By: #### 5 7021-8 ####[facility]CL[facility] [id number] [place] [address] [place] Differential cell count method Nom (Bld) Auto Normal [facility] Comment on above: Order Comment: Speci men Type: BLOOD SPECIMENOrdering Facility: [facility] Address: [address] [place] [address] Performed By: #### 5 7021-8 ####[facility] [id number] [place] [address] [place] Eosinophils (Bld) [#/Vol] 0.18 10*3/uL Normal <0.46 [facility] Comment on above: Order Comment: Speci men Type: BLOOD SPECIMENOrdering Facility: [facility] Address: [address] [place] [address] Performed By: #### 5 7021-8 ####[facility] [id number] [place] [address] [place] Eosinophils/100 WBC (Bld) 2.2 % Normal [facility] Comment on above: Order Comment: Speci men Type: BLOOD SPECIMENOrdering Facility: [facility] Address: [address] [place] [address] Performed By: #### 5 7021-8 ####[facility] [id number] [place] [address] [place] Erythrocyte distribution width (RBC) [Ratio] 14.6 % Normal 11.5-15.0 [facility] Comment on above: Order Comment: Speci men Type: BLOOD SPECIMENOrdering Facility: [facility] Address: [address] [place] [address] Performed By: #### 5 7021-8 ####[facility] [id number] [place] [address] [place] Hematocrit (Bld) [Volume fraction] 39.6 % Normal 36.0-46.0 [facility] Comment on above: Order Comment: Speci men Type: BLOOD SPECIMENOrdering Facility: [facility] Address: [address] [place] [address] Performed By: #### 5 7021-8 ####[facility] [id number] [place] [address] [place] Hemoglobin (Bld) [Mass/Vol] 12.9 g/dL Normal 11.5-15.5 [facility] Comment on above: Order Comment: Speci men Type: BLOOD SPECIMENOrdering Facility: [facility] Address: [address] [place] [address] Performed By: #### 5 7021-8 ####[facility] [id number] [place] [address] [place] Immature granulocytes (Bld) [#/Vol] 0.04 10*3/uL Normal <0.10 [facility] Comment on above: Order Comment: Speci men Type: BLOOD SPECIMENOrdering Facility: [facility] Address: [address] [place] [address] Performed By: #### 5 7021-8 ####[facility] [id number] [place] [address] [place] Immature granulocytes/100 WBC (Bld) 0.5 % Normal [facility] Comment on above: Order Comment: Speci men Type: BLOOD SPECIMENOrdering Facility: [facility] Address: [address] [place] [address] Performed By: #### 5 7021-8 ####[facility] [id number] [place] [address] [place] Lymphocytes (Bld) [#/Vol] 1.47 10*3/uL Normal 1.00-4.00 [facility] Comment on above: Order Comment: Speci men Type: BLOOD SPECIMENOrdering Facility: [facility] Address: [address] [place] [address] Performed By: #### 5 7021-8 ####[facility] LABIA [id number] [place] [address] [place] Lymphocytes/100 WBC (Bld) 18.3 % Normal [facility] Comment on above: Order Comment: Speci men Type: BLOOD SPECIMENOrdering Facility: [facility] Address: [address] [place] [address] Performed By: #### 5 7021-8 ####[facility] LABIA [id number] [place] [address] [place] MCH (RBC) [Entitic mass] 28.0 pg Normal 26.0-34.0 [facility] Comment on above: Order Comment: Speci men Type: BLOOD SPECIMENOrdering Facility: [facility] Address: [address] [place] [address] Performed By: #### 5 7021-8 ####[facility]CL[facility] [id number] [address] [id number] [address] [place] MCHC (RBC) [Mass/Vol] 32.6 g/dL Normal 30.5-36.0 [facility] Comment on above: Order Comment: Speci men Type: BLOOD SPECIMENOrdering Facility: [facility] Address: [address] [place] [address] Performed By: #### 5 7021-8 ####[facility]CL[facility] [id number] [place] [address] [place] MCV (RBC) [Entitic vol] 85.9 fL Normal 80.0-100.0 [facility] Comment on above: Order Comment: Speci men Type: BLOOD SPECIMENOrdering Facility: [facility] Address: [address] [place] [address] Performed By: #### 5 7021-8 ####[facility] LABIA [id number] [place] [address] [place] Monocytes (Bld) [#/Vol] 0.59 10*3/uL Normal <0.87 [facility] Comment on above: Order Comment: Speci men Type: BLOOD SPECIMENOrdering Facility: [facility] Address: [address] [place] [address] Performed By: #### 5 7021-8 ####[facility]IA [id number] [place] [address] [place] Monocytes/100 WBC (Bld) 7.3 % Normal [facility] Comment on above: Order Comment: Speci men Type: BLOOD SPECIMENOrdering Facility: [facility] Address: [address] [place] [address] Performed By: #### 5 7021-8 ####[facility]CL[facility] [id number] [place] [address] [place] Neutrophils (Bld) [#/Vol] 5.70 10*3/uL Normal 1.45-7.50 [facility] Comment on above: Order Comment: Speci men Type: BLOOD SPECIMENOrdering Facility: [facility] Address: [address] [place] [address] Performed By: #### 5 7021-8 ####[facility]CL[facility] [id number] [place] [address] [place] Neutrophils/100 WBC (Bld) 70.8 % Normal [facility] Comment on above: Order Comment: Speci men Type: BLOOD SPECIMENOrdering Facility: [facility] Address: [address] [place] [address] Performed By: #### 5 7021-8 ####[facility] LABIA [id number] [place] [address] [place] Nucleated RBC (Bld) [#/Vol] 10*3/uL Normal <0.01 [facility] Comment on above: Order Comment: Speci men Type: BLOOD SPECIMENOrdering Facility: [facility] Address: [address] [place] [address] Performed By: #### 5 7021-8 ####[facility]IA [id number] [place] [address] [place] Nucleated RBC/100 WBC (Bld) [Ratio] 0.0 /100 WBC Normal [facility] Comment on above: Order Comment: Speci men Type: BLOOD SPECIMENOrdering Facility: [facility] Address: [address] [place] [address] Performed By: #### 5 7021-8 ####[facility]CL[facility] [id number] [place] [address] [place] Platelet mean volume (Bld) [Entitic vol] 10.6 fL Normal 9.0-12.7 [facility] Comment on above: Order Comment: Speci men Type: BLOOD SPECIMENOrdering Facility: [facility] Address: [address] [place] [address] Performed By: #### 5 7021-8 ####[facility]CL[facility] [id number] [place] [address] [place] Platelets (Bld) [#/Vol] 249 10*3/uL Normal 150-400 [facility] Comment on above: Order Comment: Speci men Type: BLOOD SPECIMENOrdering Facility: [facility] Address: [address] [place] [address] Performed By: #### 5 7021-8 ####[facility] [id number] [place] [address] [place] RBC (Bld) [#/Vol] 4.61 10*6/uL Normal 3.90-5.20 [facility] Comment on above: Order Comment: Speci men Type: BLOOD SPECIMENOrdering Facility: [facility] Address: [address] [place] [address] Performed By: #### 5 7021-8 ####[facility] LABIA [id number] [place] [address] [place] WBC (Bld) [#/Vol] 8.05 10*3/uL Normal 3.70-11.00 [facility] Comment on above: Order Comment: Speci men Type: BLOOD SPECIMENOrdering Facility: [facility] Address: [address] [place] [address] Performed By: #### 5 7021-8 ####[facility]IA [id number] [place] [address] [place] Comprehensive metabolic 2000 panelon 06-28-2024 Albumin [Mass/Vol] 3.9 g/dL Normal 3.9-4.9 [facility] Comment on above: Order Comment: Speci men Type: BLOOD SPECIMENOrdering Facility: [facility] Address: [address] [place] [address] Performed By: #### 2 4323-8, LIPNF ####[facility]IA [id number] [place] [address] [place] ALP [Catalytic activity/Vol] 117 U/L Normal 34-123 [facility] Comment on above: Order Comment: Speci men Type: BLOOD SPECIMENOrdering Facility: [facility] Address: [address] [place] [address] Performed By: #### 2 4323-8, LIPNF ####[facility]CL[facility] [id number] [place] [address] [place] ALT [Catalytic activity/Vol] 19 U/L Normal 7-38 [facility] Comment on above: Order Comment: Speci men Type: BLOOD SPECIMENOrdering Facility: [facility] Address: [address] [place] [address] Performed By: #### 2 4323-8, LIPNF ####[facility]CL[facility] [id number] [place] [address] [place] Anion gap [Moles/Vol] 12 mmol/L Normal 8-15 [facility] Comment on above: Order Comment: Speci men Type: BLOOD SPECIMENOrdering Facility: [facility] Address: [address] [place] [address] Performed By: #### 2 4323-8, LIPNF ####[facility]CL[facility] [id number] [place] [address] [place] AST [Catalytic activity/Vol] 21 U/L Normal 13-35 [facility] Comment on above: Order Comment: Speci men Type: BLOOD SPECIMENOrdering Facility: [facility] Address: [address] [place] [address] Performed By: #### 2 4323-8, LIPNF ####[facility]CL[facility] [id number] [place] [address] [place] Bilirubin [Mass/Vol] 0.8 mg/dL Normal 0.2-1.3 [facility] Comment on above: Order Comment: Speci men Type: BLOOD SPECIMENOrdering Facility: [facility] Address: [address] [place] [address] Performed By: #### 2 4323-8, LIPNF ####[facility]CL[facility] [id number] [place] [address] [place] Calcium [Mass/Vol] 9.1 mg/dL Normal 8.5-10.2 [facility] Comment on above: Order Comment: Speci men Type: BLOOD SPECIMENOrdering Facility: [facility] Address: [address] [place] [address] Performed By: #### 2 4323-8, LIPNF ####[facility]CL[facility] [id number] [place] [address] [place] Chloride [Moles/Vol] 103 mmol/L Normal 98-107 [facility] Comment on above: Order Comment: Speci men Type: BLOOD SPECIMENOrdering Facility: [facility] Address: [address] [place] [address] Performed By: #### 2 4323-8, LIPNF ####[facility]CL[facility] [id number] [place] [address] [place] CO2 [Moles/Vol] 23 mmol/L Normal 22-30 [facility] Comment on above: Order Comment: Speci men Type: BLOOD SPECIMENOrdering Facility: [facility] Address: [address] [place] [address] Performed By: #### 2 4323-8, LIPNF ####[facility]CL[facility] [id number] [place] [address] [place] Creatinine [Mass/Vol] 0.68 mg/dL Normal 0.58-0.96 [facility] Comment on above: Order Comment: Speci men Type: BLOOD SPECIMENOrdering Facility: [facility] Address: [address] [place], [place] [address] Performed By: #### 2 4323-8, LIPNF ####[facility]CL[facility] [id number] [place] [address] [place] Creatinine and Glomerular filtration rate.predicted panel (S/P/Bld) 97 mL/min/1.73m??? Normal >=60 [facility] Comment on above: Order Comment: Misael robles Type: BLOOD SPECIMENOrdering Facility: [facility] Address: [address] [place] [address] Result Comment: Jolene mated Glomerular Filtration Rate (eGFR) is calculated using the 2020 CKD-EPI creatinine equation. This equation utilizes serum creatinine, sex, and age as parameters. The creatinine assay has traceable calibration to isotope dilution-mass spectrometry. Refer to KDIGO guidelines for clinical interpretation. In patients with unstable renal function, e.g. those with acute kidney injury, the eGFR may not accurately reflect actual GFR. Performed By: #### 2 4323-8, LIPNF ####[facility]CL[facility] [id number] [place] [address] [place] Glucose [Mass/Vol] 153 mg/dL High 74-99 [facility] Comment on above: Order Comment: Misael robles Type: BLOOD SPECIMENOrdering Facility: [facility] Address: [address] [place] [address] Result Comment: The [place] Diabetes Association (ADA) provides guidance for cutoff values for fasting glucose and random glucose. The ADA defines fasting as no caloric intake for at least 8 hours. Fasting plasma glucose results between 100 to 125 mg/dL indicate increased risk for diabetes (prediabetes). Fasting plasma glucose results greater than or equal to 126 mg/dL meet the criteria for diagnosis of diabetes. In the absence of unequivocal hyperglycemia, results should be confirmed by repeat testing. In a patient with classic symptoms of hyperglycemia or hyperglycemic crisis, random plasma glucose results greater than or equal to 200 mg/dL meet the criteria for diagnosis of diabetes. Reference: Standards of Medical Care in Diabetes 2016, [place] Diabetes Association. Diabetes Care. 2016.39(Suppl 1). Performed By: #### 2 4323-8, LIPNF ####[facility]CL[facility] [id number] [place] [address] [place] Potassium [Moles/Vol] 4.2 mmol/L Normal 3.7-5.1 [facility] Comment on above: Order Comment: Speci men Type: BLOOD SPECIMENOrdering Facility: [facility] Address: [address] [place] [address] Performed By: #### 2 4323-8, LIPNF ####[facility]CL[facility] [id number] [address] [address] [place] Protein [Mass/Vol] 7.1 g/dL Normal 6.3-8.0 [facility] Comment on above: Order Comment: Speci men Type: BLOOD SPECIMENOrdering Facility: [facility] Address: [address] [place] [address] Performed By: #### 2 4323-8, LIPNF ####[facility]CL[facility] [id number] [place] [address] [place] Sodium [Moles/Vol] 138 mmol/L Normal 136-144 [facility] Comment on above: Order Comment: Speci men Type: BLOOD SPECIMENOrdering Facility: [facility] Address: [address] [place] [address] Performed By: #### 2 4323-8, LIPNF ####[facility]CL[facility] [id number] [place] [address] [place] Urea nitrogen [Mass/Vol] 14 mg/dL Normal 7-21 [facility] Comment on above: Order Comment: Speci men Type: BLOOD SPECIMENOrdering Facility: [facility] Address: [address] [place] [address] Performed By: #### 2 4323-8, LIPNF ####[facility]CL[facility] [id number] [place] [address] [place] HbA1c (Bld)on 06-28-2024 Average glucose Estimated from glycated hemoglobin (Bld) [Mass/Vol] 131 mg/dL Normal [facility] Comment on above: Order Comment: Speci men Type: BLOOD SPECIMENOrdering Facility: [facility] Address: [address] [place] [address] Result Comment: eAG: (Estimated average glucose) is a calculated value from HgbA1c and is dental sales representative of the average blood glucose level in the last 2-3 month period. Performed By: #### 5 5454-3 ####[facility] [id number] [place] [address] [place] HbA1c (Bld) [Mass fraction] 6.2 % High 4.3-5.6 [facility] Comment on above: Order Comment: Speci men Type: BLOOD SPECIMENOrdering Facility: [facility] Address: [address] [place] [address] Result Comment: [place] Diabetes Association guidelines indicate that patients with HgbA1c in the range 5.7-6.4% are at increased risk for development of diabetes, and intervention by lifestyle modification may be beneficial. HgbA1c greater or equal to 6.5% is considered diagnostic of diabetes. Performed By: #### 5 5454-3 ####[facility] [id number] [place] [address] [place] LIPID PANEL, NONFASTINGon Cholesterol [Mass/Vol] 151 mg/dL Normal <200 [facility] Comment on above: Order Comment: Misael robles Type: BLOOD SPECIMENOrdering Facility: [facility] Address: [address] [place] [address] Result Comment: <200 mg/dL, Desirable 200-239 mg/dL, Borderline high >239 mg/dL, High Performed By: #### 2 4323-8, LIPNF ####[facility]IA [id number] [place] [address] [place] HDL CHOLESTEROL, NF 37 mg/dL Low >39 [facility] Comment on above: Order Comment: Misael men Type: BLOOD SPECIMENOrdering Facility: [facility] Address: [address] [place] [address] Result Comment: 40-5 9 mg/dL, Acceptable >59 mg/dL, High: Negative risk factor for coronary heart disease <40 mg/dL, Low: Positive risk factor for coronary heart disease Performed By: #### 2 4323-8, LIPNF ####[facility]CL[facility] [id number] [address] [facility] LDL CHOLESTEROL, NF 88 mg/dL Normal <100 [facility] Comment on above: Order Comment: Speci men Type: BLOOD SPECIMENOrdering Facility: [facility] Address: [address] [place] [address] Result Comment: <100 mg/dL, Optimal 100-129 mg/dL, Near optimal/above optimal 130-159 mg/dL, Borderline high 160-189 mg/dL, High >189 mg/dL, Very high Secondary prevention optimal LDL Cholesterol levels are recommended to be < 70 mg/dL Performed By: #### 2 4323-8, LIPNF ####[facility]CL[facility] [id number] [address] LDL/HDL RATIO, NF 2.38 mg/dL Normal <2.54 [facility] Comment on above: Order Comment: Speci men Type: BLOOD SPECIMENOrdering Facility: [facility] Address: [address] [place] [address] Result Comment: Reflilibeth goodman: 1. National Cholesterol Education Program ATP III Guideline At-A-Glance Quick Desk Reference: National Heart, Lung, and Blood [place]. National Institutes of Health. 2001: NIH Publication No. 01-3305. 2. An International Atherosclerosis Society position paper: global recommendations for the management of dyslipidemia: executive summary, Atherosclerosis. 2014: 232(2):410-413. Performed By: #### 2 4323-8, LIPNF ####[facility] LABIA [id number] [place] [address] [place] NON HDL CHOL, NF 114 mg/dL Normal <130 [facility] Comment on above: Order Comment: Speci men Type: BLOOD SPECIMENOrdering Facility: [facility] Address: [address] [place] [address] Result Comment: <130 mg/dL, Optimal 130-159 mg/dL, Near optimal/above optimal 160-189 mg/dL, Borderline high 190-219 mg/dL, High >219 mg/dL, Very high Secondary prevention optimal non HDL Cholesterol levels are recommended to be <100 mg/dL Performed By: #### 2 4323-8, LIPNF ####[facility] LABCLIA [id number] [place] [address] [place] T CHOL/HDL RATIO NF 4.08 mg/dL Normal <5.10 [facility] Comment on above: Order Comment: Speci men Type: BLOOD SPECIMENOrdering Facility: [facility] Address: [address] [place] [address] Performed By: #### 2 4323-8, LIPNF ####[facility] LABCLIA [id number] [place] [address] [place] TRIGLYCERIDES, NF 128 mg/dL Normal <150 [facility] Comment on above: Order Comment: Speci men Type: BLOOD SPECIMENOrdering Facility: [facility] Address: [address] [place] [address] Result Comment: <150 mg/dL, Normal 150-199 mg/dL, Borderline high 200-499 mg/dL, High >499 mg/dL, Very high Performed By: #### 2 4323-8, LIPNF ####[facility] LABCLIA [id number] [place] [address] [place] VLDL CHOLESTEROL, NF 26 mg/dL Normal <30 [facility] Comment on above: Order Comment: Speci men Type: BLOOD SPECIMENOrdering Facility: [facility] Address: [address] [place] [address] Performed By: #### 2 4323-8, LIPNF ####[facility] LABCLIA [id number] [place] [id number] [place] Urinalysis complete panel (U )on 06-28-2024 BACTERIA UL 2123.0 uL High Negative [facility] Comment on above: Order Comment: Speci men Type: URINE SPECIMENOrdering Facility: [facility] Address: [address] [place] [address] Performed By: #### 2 4356-8 ####[facility] LABCLIA [id number] [place] [address] [place] Bilirubin Ql (U) Negative Normal Negative [facility] Comment on above: Order Comment: Speci men Type: URINE SPECIMENOrdering Facility: [facility] Address: [address] [place] [address] Performed By: #### 2 4356-8 ####[facility] LABCLIA [id number] [place] [address] [place] Clarity (Unsp spec) Clear Normal Clear [facility] Comment on above: Order Comment: Speci men Type: URINE SPECIMENOrdering Facility: [facility] Address: [address] [place] [address] Performed By: #### 2 4356-8 ####[facility] LABCLIA [id number] [place] [address] [place] Color (U) Yellow Normal Yellow [facility] Comment on above: Order Comment: Speci men Type: URINE SPECIMENOrdering Facility: [facility] Address: [address] [place] [address] Performed By: #### 2 4356-8 ####[facility] LABCLIA [id number] [place] [address] [place] Epithelial cells LM.HPF (Urine sed) [#/Area] Few Normal [facility] Comment on above: Order Comment: Speci men Type: URINE SPECIMENOrdering Facility: [facility] Address: [address] [place] [address] Performed By: #### 2 4356-8 ####[facility] LABCLIA [id number] [address] [address] [id number] [address] [place] Glucose Test strip (U) [Mass/Vol] Negative Normal Negative [facility] Comment on above: Order Comment: Speci men Type: URINE SPECIMENOrdering Facility: [facility] Address: [address] [place] [address] Performed By: #### 2 4356-8 ####[facility] LABCLIA [id number] [place] [address] [place] Hemoglobin Ql (U) Negative Normal Negative [facility] Comment on above: Order Comment: Speci men Type: URINE SPECIMENOrdering Facility: [facility] Address: [address] [place] [address] Performed By: #### 2 4356-8 ####[facility] LABCLIA [id number] [place] [address] [place] Hyaline casts (Urine sed) [#/Area] 0 /[LPF] Normal 0 /LPF [facility] Comment on above: Order Comment: Speci men Type: URINE SPECIMENOrdering Facility: [facility] Address: [address] [place] [address] Performed By: #### 2 4356-8 ####[facility] LABCLIA [id number] [place] [address] [place] Ketones Ql (U) Negative Normal Negative [facility] Comment on above: Order Comment: Speci men Type: URINE SPECIMENOrdering Facility: [facility] Address: [address] [place] [address] Performed By: #### 2 4356-8 ####[facility] LABCLIA [id number] [place] [address] [place] Leukocyte esterase Test strip Ql (U) Negative Normal Negative [facility] Comment on above: Order Comment: Speci men Type: URINE SPECIMENOrdering Facility: [facility] Address: [address] [place] [address] Performed By: #### 2 4356-8 ####[facility] LABCLIA [id number] [place] [address] [place] Nitrite Ql (U) Negative Normal Negative [facility] Comment on above: Order Comment: Speci men Type: URINE SPECIMENOrdering Facility: [facility] Address: [address] [place] [address] Performed By: #### 2 4356-8 ####[facility] LABIA [id number] [place] [address] [place] pH (U) 6.0 [pH] Normal <8.5 [facility] Comment on above: Order Comment: Speci men Type: URINE SPECIMENOrdering Facility: [facility] Address: [address] [place] [address] Performed By: #### 2 4356-8 ####[facility] LABIA [id number] [place] [address] [place] Protein (U) [Mass/Vol] Negative Normal Negative [facility] Comment on above: Order Comment: Speci men Type: URINE SPECIMENOrdering Facility: [facility] Address: [address] [place] [address] Performed By: #### 2 4356-8 ####[facility] LABIA [id number] [place] [address] [place] RBC LM.HPF (Urine sed) [#/Area] 0-2 /HPF Normal 0-2 /HPF [facility] Comment on above: Order Comment: Speci men Type: URINE SPECIMENOrdering Facility: [facility] Address: [address] [place] [address] Performed By: #### 2 4356-8 ####[facility] LABIA [id number] [place] [address] [place] Specific gravity (U) [Rel density] 1.018 Normal 1.005-1.030 [facility] Comment on above: Order Comment: Speci men Type: URINE SPECIMENOrdering Facility: [facility] Address: [address] [place] [address] Performed By: #### 2 4356-8 ####[facility] [id number] [place] [address] [place] Urobilinogen Ql (U) 0.2 EU/dL Normal 0.2-1.0 EU/dL Cl [facility] Comment on above: Order Comment: Speci men Type: URINE SPECIMENOrdering Facility: [facility] Address: [address] [place] [address] Performed By: #### 2 4356-8 ####[facility] [id number] [place] [address] [place] WBC LM.HPF (Urine sed) [#/Area] 0-5 /HPF Normal 0-5 /HPF [facility] Comment on above: Order Comment: Speci men Type: URINE SPECIMENOrdering Facility: [facility] Address: [address] [place] [address] Performed By: #### 2 4356-8 ####[facility] [id number] [place] [address] [place] Emergency Department Summary on 04-15-2024 Emergency Department Summary [facility] Medical Records Department [address] [place] [id number] Emergency Department Summary 04/15/24 MR#: [id number] Acct: [id number] Name: AMINA MORALES Rep #: [id number] : 1960 63 From: Neto Wallace MD PCP: Lazaro Rust MD Status:REG ER Location: ED HPI History of Present Illness HPI Narrative: 63-year-old female history of a prior PE years ago. States she is atraumatic left hip pain since Wednesday. Denies any fall injury or trauma. No fever or chills. No prior surgery to her left hip or left lower leg. Worse with ambulation. Better sitting or resting. Denies any knee or ankle or foot pain. Chief Complaint: Lower Extremity Injury Informant: patient and spouse/S.O. Occured/Mechanism Mechanism/Context: No injury and No blunt trauma Onset/Context/Timing Onset: Days Context: Gradual Onset Timing: Continuous Quality of Pain: Sharp and Aching Maximum Severity: Mild Associated Symptoms Associated Symptoms: Negative for Parasthesia, Weakness or Loss of Funtion Narrative Narrative: 63-year-old female complaining atraumatic left hip and upper leg pain. Denies any fall injury or trauma. No fever. No swelling. No redness or discoloration. No fever or chills. No prior surgery. Prior similar symptoms: No Recent Illness/Hospitalization : No PFSH PFSH Home Medications ???Medication ???Instructions ???Recorded ???Last Taken ???Type albuterol sulfate 2.5 mg/3 mL 2.5 mg inhalation DAILY 09/15/19 Unknown History (0.083 %) solution for nebulization budesonide 0.25 mg/2 mL suspension 0.25 mg IH DAILY 09/15/19 Unknown History for nebulization diazepam 5 mg tablet 5 mg PO QHS PRN PRN Muscle Spasm 09/15/19 Unknown Rx #10 tabs naproxen 500 mg tablet 500 mg PO BID PRN #20 tabs 09/15/19 Unknown Rx Allergy/AdvReac Type Severity Reaction Status Date / Time No Known Allergies Allergy Verified 04/15/24 13:42 Social History Smoking Status: Never smoker ROS ROS ED ROS Narrative Denies recent illness. Constitutional Constitutional ED: Denies chills or fever(s) Eyes Eyes: Denies blurry vision ENT ENT ED: Denies ear pain Cardiovascular Cardiovascular: Denies chest pain Respiratory/Chest Respiratory/Chest: Denies cough Gastrointestinal Gastrointestinal: Denies abdominal pain, nausea or vomiting Genitourinary Genitourinary ED: Denies dysuria or hematuria Musculoskeletal Musculoskeletal: Denies arthralgias, back pain or myalgias Integumentary Denies abscess Neurologic Neurologic: Denies headache(s) Psychiatric Psychiatric: Denies anxiety Endocrine Endocrinology: Denies polydipsia Hematologic/Lymphatic Hematologic/Lymphatic: Denies easy bleeding Allergic/Immunologic Allergic/Immunologic ED: Denies mouth swelling EXAM Physical Exam Narrative Exam Narrative: 63-year-old female no acute distress. Sitting upright in bed. at bedside. Vital signs are stable afebrile. H EENT exam unremarkable. Lungs clear to auscultation. Heart regular rhythm rate about 100 no murmur. Chest wall ribs nontender. Abdomen soft nontender. Back spine SI joints nontender. No signs of bruising or trauma. Left hip has mild tenderness laterally. There is no shortening or rotation. She has normal flexion extension of left hip, knee ankle and foot. Normal DP pulse. Normal dorsi plantarflexion. There is no redness or discoloration of the hip no signs of trauma or bruising. She has normal flexion extension. Internal and external rotation. Calf is nontender without edema. There is no swelling of the leg. Leg peers normal is neurovascularly intact with normal DP pulse. Both upper and right lower extremity unremarkable. She is awake and alert. No focal motor or sensory deficits. Const Vital Signs: 04/15/24 13:40 Temperature 97.0 F L Temperature Source Temporal Pulse Rate 102 H Respiratory Rate 16 Blood Pressure 153/76 H Blood Pressure Mean 101 Pulse Ox 96 Oxygen Delivery Method Room Air Positive well nourished and well developed; Negative for cachectic, contractures or unkempt General Appearance ED: well developed and NAD; Negative for unkempt, cachectic or contractures Nutritional Appearance: Negative for cachectic HEENT Reports moist mucous membranes atraumatic; Negative for trauma or tenderness Eyes PERRL General Eye ED: Negative for other Neck full ROM and supple Thyroid: Negative for tender Lymph Lymphatic: Negative for other Chest Wall inspection of chest normal and palpation of chest normal Chest: Negative for other Resp normal respiratory effort, no retractions and clear to auscultation bilaterally Effort and Inspection: Negative for pain with movement Auscultation: Negative for rales, rhonchi, wheezes or diminish (more content not included)... Normal [facility] HIP, UNI W/ Pelvis 2-3 Views on 04-15-2024 HIP, UNI W/ Pelvis 2-3 Views [facility] Imaging Services [address] [place] [address] HIP, UNI W/ Pelvis 2-3 Views MR#: [id number] Acct: [id number] Name: AMINA MORALES Rep #: [id number] : 1960 F 63 From: Kendra Childers MD PCP: Lazaro Rust MD Status: DEP Study: HIP, UNI W/ Pelvis 2-3 Views Date of Exam: Exam# [id number] Ordering [place]: [place] [id number] INDICATION: atraumatic left hip pain EXAMINATION/TECHNIQUE: X-RAY - XR Hip Unilateral with Pelvis when performed; 2-3 Views COMPARISON: No relevant prior comparison study available FINDINGS: PELVIC BONES: No displaced fracture, destructive or sclerotic lesions. Note that overlapping bowel shadows may however obscure fine detail. Sacroiliac joints are unremarkable. No widening of the pubic symphysis. HIPS: There are degenerative changes of the hips characterized by joint space narrowing and subchondral sclerosis. SOFT TISSUES: No soft tissue swelling or gas. RAD/HIP, UNI W/ Pelvis 2-3 Views IMPRESSION: Degenerative changes of the hips. Electronically Signed: Kendra Childers MD at 14:56 EDT , CC: Dr. Neto Wallace MD; Lazaro Rust MD Electronic Sales And Service Technician: Signed Normal [facility] DBT Breast - bilateral scree misael 01-13-2024 IMPRESSION: BENIGN FINDING There is no mammographic evidence of malignancy. A 1 year screening mammogram is recommended. The exam was reviewed by a staff physician. gayatri Tompkins M.D., D.O./vitaly:01/13/2024 13:01:11 Window Covering Sales Consultant(s): RT Alexus(R)(M), [facility] letter sent: Normal over 40 Mammogram BI-RADS: 2 Benign finding Multiple national specialty organizations have released breast cancer screening guidelines for women at average risk for developing breast cancer - guidelines that are based on both evidence and opinion, yet differ on when to start and how often to screen for breast cancer. With representation from Breast Imaging, Internal Medicine, Women's Health, Family Medicine, and Medical/Surgical Oncology, the [facility] has carefully reviewed the data and reached the following consensus: 1) All women should engage in shared decision-making with their providers to decide when to start and how often to screen; 2) All women should have the opportunity to start screening mammography at age 40; 3) For women ages 45-55, we recommend annual screening mammograms; 4) For women ages 55 and over, we support both the transition from an annual to a biennial interval if this aligns more with patient's values and preferences, or continuation with annual screening; 5) All women should discuss with their providers when to stop screening mammograms. Electronic Sales And Service Technician: Vitaly Transcribe Date/Time: Jan 13 2024 9:24A Dictated by: CANDIDA KEENAN DO This examination was interpreted and the report reviewed and electronically signed by: CALEB CASTILLO MD on Jan 13 2024 1:01PM [facility] DIVISION OF RADIOLOGY * * *Final Report* * * DATE OF EXAM: Jan 13 2024 9:46AM W 0582 - [facility] SCREENING W BIANCA / PROCEDURE REASON: multiple diagnoses * * * * Physician Interpretation * * * * RESULT: #[id number] - [facility] SCREENING W BIANCA BILATERAL DIGITAL SCREENING MAMMOGRAM TOMOSYNTHESIS WITH CAD: 01/13/2024 HISTORY: Multiple Diagnoses /Screening Mammogram with BIANCA - patient reports NO breast symptoms /priors available for comparison. RESULT: TECHNIQUE: The study was acquired using full field digital technology and interpreted from soft copy. Digital Breast Tomosynthesis (DBT) images were obtained and used to assist in the interpretation of this examination. Current study was also evaluated with a Computer Aided Detection (CAD). Comparison is made to exams dated: 01/11/2023 mammogram, 12/24/2021 mammogram, and 12/19/2020 mammogram - [facility]. There are scattered areas of fibroglandular density. There are benign masses in both breasts. No significant masses, calcifications, or other findings are seen in either breast. There has been no significant interval change. DIVISION OF RADIOLOGY Provider, Celestina Carlyle [facility] - 01/13/2024 * * *Final Report* * * DATE OF EXAM: Jan 13 2024 9:46AM WRW 0582 - [facility] SCREENING W BIANCA / PROCEDURE REASON: multiple diagnoses * * * * Physician Interpretation * * * * RESULT: #[id number] - [facility] SCREENING W BIANCA BILATERAL DIGITAL SCREENING MAMMOGRAM TOMOSYNTHESIS WITH CAD: 01/13/2024 HISTORY: Multiple Diagnoses /Screening Mammogram with BIANCA - patient reports NO breast symptoms /priors available for comparison. RESULT: TECHNIQUE: The study was acquired using full field digital technology and interpreted from soft copy. Digital Breast Tomosynthesis (DBT) images were obtained and used to assist in the interpretation of this examination. Current study was also evaluated with a Computer Aided Detection (CAD). Comparison is made to exams dated: 01/11/2023 mammogram, 12/24/2021 mammogram, and 12/19/2020 mammogram - [facility]. There are scattered areas of fibroglandular density. There are benign masses in both breasts. No significant masses, calcifications, or other findings are seen in either breast. There has been no significant interval change. IMPRESSION IMPRESSION: BENIGN FINDING There is no mammographic evidence of malignancy. A 1 year screening mammogram is recommended. The exam was reviewed by a staff physician. gayatri Tompkins M.D., D.O./vitaly:01/13/2024 13:01:11 Window Covering Sales Consultant(s): RT Alexus(Chaitanya)(M), [facility] letter sent: Normal over 40 Mammogram BI-RADS: 2 Benign finding Multiple national specialty organizations have released breast cancer screening guidelines for women at average risk for developing breast cancer - guidelines that are based on both evidence and opinion, yet differ on when to start and how often to screen for breast cancer. With representation from Breast Imaging, Internal Medicine, Women's Health, Family Medicine, and Medical/Surgical Oncology, the [facility] has carefully reviewed the data and reached the following consensus: 1) All women should engage in shared decision-making with their providers to decide when to start and how often to screen; 2) All women should have the opportunity to start screening mammography at age 40; 3) For women ages 45-55, we recommend annual screening mammograms; 4) For women ages 55 and over, we support both the transition from an annual to a biennial interval if this aligns more with patient's values and preferences, or continuation with annual screening; 5) All women should discuss with their providers when to stop screening mammograms. Electronic Sales And Service Technician: Vitaly Transcribe Date/Time: Jan 13 2024 9:24A Dictated by: CANDIDA KEENAN DO This examination was interpreted and the report reviewed and electronically signed by: CALEB CASTILLO MD on Jan 13 2024 1:01PM EST [facility] Radiology Study observation (narrative) [facility] DBT Breast - bilateral scree ningOrdered By: [facility] Provider on 01-13-2024 [facility] XR HIP BILATERAL 5V PEL/AP/L AT EACH HIPon 01-05-2024 IMPRESSION: No acute fracture. Degenerative disease of the left hip. Electronic Sales And Service Technician: ZOEY Transcribe Date/Time: Jan 05 2024 11:34A Dictated by : MARCELINO DIEGO MD This examination was interpreted and the report reviewed and electronically signed by: MARCELINO DIEGO MD on Jan 05 2024 11:35AM [facility] DIVISION OF RADIOLOGY * * *Final Report* * * DATE OF EXAM: Dec 30 2023 11:52AM WOX [id number] - XR HIP JACKY 5V PEL+ AP/LAT EA HIP / PROCEDURE REASON: Midline low back pain without sciatica, unspecified chronicity * * * * Physician Interpretation * * * * EXAMINATION: XR HIP JACKY 5V PEL+ AP/LAT EA HIP CLINICAL HISTORY: Chronic low back pain radiates down the right leg Technique: XR HIP JACKY 5V PEL+ AP/LAT EA HIP -- BILATERAL with 5 views on 5 images Comparison: None RESULT: No acute fracture or dislocation. Moderate left hip joint space narrowing with acetabular osteophytes. DIVISION OF RADIOLOGY Provider, [facility] - 01/05/2024 * * *Final Report* * * DATE OF EXAM: Dec 30 2023 11:52AM WOX [id number] - XR HIP JACKY 5V PEL+ AP/LAT EA HIP / PROCEDURE REASON: Midline low back pain without sciatica, unspecified chronicity * * * * Physician Interpretation * * * * EXAMINATION: XR HIP JACKY 5V PEL+ AP/LAT EA HIP CLINICAL HISTORY: Chronic low back pain radiates down the right leg Technique: XR HIP JACKY 5V PEL+ AP/LAT EA HIP -- BILATERAL with 5 views on 5 images Comparison: None RESULT: No acute fracture or dislocation. Moderate left hip joint space narrowing with acetabular osteophytes. IMPRESSION IMPRESSION: No acute fracture. Degenerative disease of the left hip. Electronic Sales And Service Technician: [facility]ENTER[facility] Transcribe Date/Time: Jan 05 2024 11:34A Dictated by : MARCELINO DIEGO MD This examination was interpreted and the report reviewed and electronically signed by: MARCELINO DIEGO MD on Jan 05 2024 11:35AM EST [facility] XR Lumbar spine AP and Later al and obliqueon 01-05-2024 IMPRESSION: No acute fracture. Degenerative disease of the lumbar spine. Grade 1 anterolisthesis of L4 on L5. Electronic Sales And Service Technician: ZOEY Transcribe Date/Time: Jan 05 2024 11:35A Dictated by : MARCELINO DIEGO MD This examination was interpreted and the report reviewed and electronically signed by: MARCELINO DIEGO MD on Jan 05 2024 11:36AM EST DIVISION OF RADIOLOGY * * *Final Report* * * DATE OF EXAM: Dec 30 2023 11:52AM WOX [id number] - XR LUMBAR PARS 4V AP/LAT/OBL X2 / PROCEDURE REASON: Midline low back pain without sciatica, unspecified chronicity * * * * Physician Interpretation * * * * X-ray lumbosacral spine, AP, lateral and oblique views Indication: Low back pain Comparison: None Counting reference: Lumbosacral junction. For the purposes of this report, L5S1 is considered the last lumbar type disc space and L4-5 is considered the level of the iliac crest. No acute fracture. Grade 1 anterolisthesis of L4 on L5. There is degenerative disc disease at multiple levels of the lumbar spine with endplate sclerosis, intervertebral disc space narrowing and osteophyte formation. Facet joint degenerative disease from L3 through S1. Sacroiliac joints appear normal. DIVISION OF RADIOLOGY Provider, Roberts Chapel Carlyle [facility] - 01/05/2024 * * *Final Report* * * DATE OF EXAM: Dec 30 2023 11:52AM WOX [id number] - XR LUMBAR PARS 4V AP/LAT/OBL X2 / PROCEDURE REASON: Midline low back pain without sciatica, unspecified chronicity * * * * Physician Interpretation * * * * X-ray lumbosacral spine, AP, lateral and oblique views Indication: Low back pain Comparison: None Counting reference: Lumbosacral junction. For the purposes of this report, L5S1 is considered the last lumbar type disc space and L4-5 is considered the level of the iliac crest. No acute fracture. Grade 1 anterolisthesis of L4 on L5. There is degenerative disc disease at multiple levels of the lumbar spine with endplate sclerosis, intervertebral disc space narrowing and osteophyte formation. Facet joint degenerative disease from L3 through S1. Sacroiliac joints appear normal. IMPRESSION IMPRESSION: No acute fracture. Degenerative disease of the lumbar spine. Grade 1 anterolisthesis of L4 on L5. Electronic Sales And Service Technician: ZOEY Transcribe Date/Time: Jan 05 2024 11:35A Dictated by : MARCELINO DIEGO MD This examination was interpreted and the report reviewed and electronically signed by: MARCELINO DIEGO MD on Jan 05 2024 11:36AM EST [facility] XR Lumbar spine AP and Later al and obliqueOrdered By: Ccf Provider on 01-05-2024 [facility] No Panel Informationon 12-29 Radiology Study observation (narrative) [facility] XR Chest PA and Lateralon IMPRESSION: New minimal left infrahilar opacity, atelectasis versus bronchopneumonia in the appropriate clinical setting. Electronic Sales And Service Technician: ZOEY Transcribe Date/Time: Aug 23 2023 2:39P Dictated by : GE MONK MD This examination was interpreted and the report reviewed and electronically signed by: GE MONK MD on Aug 23 2023 2:39PM [facility] DIVISION OF RADIOLOGY * * *Final Report* * * DATE OF EXAM: Aug 23 2023 2:37PM WOX 5291 - XR CHEST 2V FRONTAL/LAT / PROCEDURE REASON: Acute cough * * * * Physician Interpretation * * * * EXAMINATION: CHEST RADIOGRAPH (2 VIEW FRONTAL & LATERAL) CLINICAL HISTORY: Acute cough MQ: XC2_6 EXAM DATE/TIME: 08/23/2023 2:37 PM COMPARISON: Chest x-ray dated October 02, 2022 RESULT: Lines, tubes, and devices: None. Lungs and pleura: No consolidation. No lung mass. No pleural effusion. No pneumothorax. Cardiomediastinal silhouette: New minimal left infrahilar opacity. No pleural effusion or pneumothorax are Bones and soft tissues: Degenerative changes are present within the thoracic spine. DIVISION OF RADIOLOGY Provider, Mango Reardonanish [facility] - 08/23/2023 * * *Final Report* * * DATE OF EXAM: Aug 23 2023 2:37PM WOX 5291 - XR CHEST 2V FRONTAL/LAT / PROCEDURE REASON: Acute cough * * * * Physician Interpretation * * * * EXAMINATION: CHEST RADIOGRAPH (2 VIEW FRONTAL & LATERAL) CLINICAL HISTORY: Acute cough MQ: XC2_6 EXAM DATE/TIME: 08/23/2023 2:37 PM COMPARISON: Chest x-ray dated October 02, 2022 RESULT: Lines, tubes, and devices: None. Lungs and pleura: No consolidation. No lung mass. No pleural effusion. No pneumothorax. Cardiomediastinal silhouette: New minimal left infrahilar opacity. No pleural effusion or pneumothorax are Bones and soft tissues: Degenerative changes are present within the thoracic spine. IMPRESSION IMPRESSION: New minimal left infrahilar opacity, atelectasis versus bronchopneumonia in the appropriate clinical setting. Electronic Sales And Service Technician: ZOEY Transcribe Date/Time: Aug 23 2023 2:39P Dictated by : GE MONK MD This examination was interpreted and the report reviewed and electronically signed by: GE MONK MD on Aug 23 2023 2:39PM EST [facility] Radiology Study observation (narrative) [facility] XR Chest PA and LateralOrder ed By: Ccf Provider on 08-23-2023 [facility] JUSTIN SCREENING W TOMOon 01-11 [facility] XR CHEST 2V FRONTAL/LATon [facility] XR Chest PA and Lateralon IMPRESSION: No acute radiographic abnormality. Electronic Sales And Service Technician: ZOEY Transcribe Date/Time: Oct 02 2022 2:13P Dictated by : CLAIRE LANGSTON MD This examination was interpreted and the report reviewed and electronically signed by: CLAIRE LANGSTON MD on Oct 02 2022 2:14PM [facility] DIVISION OF RADIOLOGY * * *Final Report* * * DATE OF EXAM: Oct 02 2022 2:03PM WOX 5291 - XR CHEST 2V FRONTAL/LAT / PROCEDURE REASON: Moderate persistent asthma with (acute) exacerbation * * * * Physician Interpretation * * * * EXAMINATION: CHEST RADIOGRAPH (2 VIEW FRONTAL & LATERAL) CLINICAL HISTORY: Moderate persistent asthma with (acute) exacerbation MQ: XC2_6 EXAM DATE/TIME: 10/02/2022 2:03 PM COMPARISON: Chest x-ray on 02/16/2022 RESULT: Lines, tubes, and devices: None. Lungs and pleura: No consolidation. No lung mass. No pleural effusion. No pneumothorax. Cardiomediastinal silhouette: Stable cardiac silhouette and mediastinal contour. Bones and soft tissues: There are degenerative changes in the spine. DIVISION OF RADIOLOGY Provider, [facility] - 10/02/2022 * * *Final Report* * * DATE OF EXAM: Oct 02 2022 2:03PM WOX 5291 - XR CHEST 2V FRONTAL/LAT / PROCEDURE REASON: Moderate persistent asthma with (acute) exacerbation * * * * Physician Interpretation * * * * EXAMINATION: CHEST RADIOGRAPH (2 VIEW FRONTAL & LATERAL) CLINICAL HISTORY: Moderate persistent asthma with (acute) exacerbation MQ: XC2_6 EXAM DATE/TIME: 10/02/2022 2:03 PM COMPARISON: Chest x-ray on 02/16/2022 RESULT: Lines, tubes, and devices: None. Lungs and pleura: No consolidation. No lung mass. No pleural effusion. No pneumothorax. Cardiomediastinal silhouette: Stable cardiac silhouette and mediastinal contour. Bones and soft tissues: There are degenerative changes in the spine. IMPRESSION IMPRESSION: No acute radiographic abnormality. Electronic Sales And Service Technician: PSCB Transcribe Date/Time: Oct 02 2022 2:13P Dictated by : CLAIRE LANGSTON MD This examination was interpreted and the report reviewed and electronically signed by: CLAIRE LANGSTON MD on Oct 02 2022 2:14PM EST [facility] Radiology Study observation (narrative) [facility] XR Chest PA and LateralOrder ed By: Ccf Provider on 10-02-2022 [facility] ANES POSTPROC EVALon 04-22-2 022 ANES POSTPROC EVAL HNO ID: [id number] Author: Ann Marie Mchugh MD Service: ? Author Type: Anesthesiologist Type: Anesthesia Postprocedure Evaluation Filed: 04/22/2022 1:32 PM Note Text: POST ANESTHESIA EVALUATION NOTE : 1960 Procedure Summary Date: 04/22/22 Room / Location: [facility] Endoscopy Anesthesia Start: 948 Anesthesia Stop: 1033 Procedure: COLONOSCOPY SCREENING Diagnosis: Screening for colon cancer (Screening for colorectal malignant neoplasm) Scheduled Providers: Ben Hollis MD; Ann Marie Mchugh MD Responsible Provider: Ann Marie Mchugh MD Anesthesia Type: MAC ASA Status: 3 Anesthesia Type: MAC Last Vitals Vitals Value Taken Time BP 129/61 04/22/22 1101 Temp 36.3 ?C (97.3 ?F) 04/22/22 1033 Pulse 57 04/22/22 1103 Resp 9 04/22/22 1103 SpO2 100 % 04/22/22 1103 Vitals shown include unvalidated device data. Post Anesthesia Patient Status Patient Evaluation: bedside. Anticipated Disposition: phase 2 then home. Neurological Status: aware and responsive. Pulmonary Status: breathing comfortably on room air Airway Control: returned to baseline unsupported. Cardiovascular Status: stable. Pain Management: clinically adequate Postoperative Hydration: acceptable. Intraoperative Events: no significant anesthesia events Post Operative Nausea/Vomiting Status: no significant post operative nausea or vomiting Anesthetic Observations: Recommendation: continue current plan of care. Anesthesia Observations No Documentation SIGNATURE: Ann Marie Mchugh MD PATIENT NAME: Amina Morales DATE: April 22, 2022 TIME: 1:31 PM CSN: [id number] Normal [facility] ANES PRE-OPon 04-22-2022 ANES PRE-OP HNO ID: [id number] Author: Ann Marie Mchugh MD Service: ? Author Type: Anesthesiologist Type: Anesthesia Preprocedure Evaluation Filed: 04/22/2022 9:25 AM Note Text: ANESTHESIOLOGY DAY OF SURGERY NOTE : 1960 Procedure Information Date/Time: 04/22/22 1000 Scheduled providers: Ben Hollis MD; Ann Marie Mchugh MD Procedure: COLONOSCOPY SCREENING Location: [facility] Endoscopy Estimated body mass index is 52.94 kg/m? as calculated from the following: Height as of 04/08/22: 170.2 cm (5' 7). Weight as of 04/08/22: 153.3 kg (338 lb). Most recent hematocrit and potassium results: Hematocrit 41.6 02/16/2022 Potassium 4.4 12/24/2021 Relevant Problems ANESTHESIA (+) EVE (obstructive sleep apnea) ahi 46 (CPAP. Nasal pillows. ) CARDIO (+) External hemorrhoids (+) Internal hemorrhoids (-) Angina at rest (HCC) (-) Angina of effort (HCC) NEURO-PSYCH (+) History of pulmonary embolism PULMONARY (+) Mild intermittent asthma without complication (+) EVE (obstructive sleep apnea) ahi 46 (CPAP. Nasal pillows. ) I - PHYSICAL EVALUATION AIRWAY Patient intubated: No. Tracheostomy tube not present Mallampati: III. TM distance: >3 FB. Neck ROM: full ROM without neurological symptoms. Mouth opening: adequate. Short neck: no. Thick neck: no DENTAL Dental findings: teeth intact. II - ANESTHESIA PLAN ASA Score: 3 Anesthetic Plan: MAC The patient is not a current smoker. NPO Status: adequate Beta Syl Administration of chronic beta syl medication not planned. Monitoring plan: standard ASA. Postoperative analgesic plan: other. Informed Consent Anesthetic risks, benefits, alternatives, personnel and consent discussed: yes. Patient / Responsible Republican agrees to proceed: yes Patient / Surrogate agrees to blood products: Yes DNR status not reviewed with patient and/or family prior to surgery. Significant changes in the patient condition since the History and Physical, not otherwise documented in primary service progress note: no. Potential Anesthesia issues that may suggest increased risk of complications or contraindication to planned procedure: none. Vitals Value Taken Time BP 134/66 04/22/22 0900 Pulse 71 04/22/22 0900 Resp 18 04/22/22 0900 Temp 36.2 ?C (97.2 ?F) 04/22/22 0900 SpO2 97 % 04/22/22 0900 Outpatient Medications as of 04/22/2022 Medication Sig - polyethylene glycol 3350 (MIRALAX, GLYCOLAX) 17 gram/dose powder Use as directed for Miralax / Gatorade Bowel Prep Kit - Bisacodyl (DULCOLAX) 5 mg tab Use as directed for Miralax / Gatorade Bowel Prep Kit - atorvastatin (LIPITOR) 10 mg tablet Take 1 tablet by mouth daily at bedtime. For cholesterol. - budesonide (PULMICORT) 0.5 mg/2 mL nebulizer solution Use 2 mL via nebulizer once daily. - albuterol (PROVENTIL) 2.5 mg /3 mL (0.083 %) nebulizer solution Use 3 mL via nebulizer every 6 hours as needed for wheezing/shortness of breath. J45.20 - cholecalciferol (VITAMIN D-3) 50 mcg (2,000 unit) tablet Take 2 tablets by mouth once daily. - albuterol HFA (PROAIR HFA) 90 mcg/actuation inhaler Inhale 2 Puffs as instructed every 6 hours as needed for wheezing/shortness of breath. - CPAP Mask (per patient preference) optional chin strap (if indicated), filters, tubing / heated tubing, heated humidity and lifetime supplies. Dx. EVE G47.33 327.23 - Nebulizer NEBULIZER WITH SUPPLIES IF NEEDED FOR HOME USE. DX: Mild persistent asthma without complication J45.30 - COMPOUNDED PRESCRIPTION Nebulizer supplies. Dx. Asthma.J45.909 Facility-Administered Medications as of 04/22/2022 Medication Dose Route Frequency - lactated ringers iv infusion 30 mL/hr INTRAVENOUS CONTINUOUS I have interviewed and examined the patient. I have reviewed the medical record and/or the pre-anesthesia evaluation, pertinent labs, and test results. This contains updated information obtained within 48 hours of Surgery/Procedure. SIGNATURE: Ann Marie Mchugh MD PATIENT NAME: Amina Morales DATE: April 22, 2022 TIME: 9:24 AM CSN: [id number] Normal [facility] Colonoscopyon 04-22-2022 Colonoscopy [facility] Gastrointestinal Endoscopy Patient Name: Amina Morales Procedure Date: 04/22/2022 9:42 AM Date of : 1960 Admit Type: Outpatient Age: 61 Room: [facility] Gender: Female Note Status: Finalized Attending MD: Ben Hollis MD Procedure: Colonoscopy Indications: Screening for colorectal malignant neoplasm Providers: Ben Hollis MD Patient Profile: This is a 61 year old female. Refer to note in patient chart for documentation of history and physical. Last Colonoscopy: August 2011. Referring Physician: Rabia Gupta (Referring MD) Medicines: See the Anesthesia note for documentation of the administered medications Complications: No immediate complications. Requesting Provider: Procedure: Pre-Anesthesia Assessment: - Prior to the procedure, a History and Physical was performed, and patient medications and allergies were reviewed. The patient's tolerance of previous anesthesia was also reviewed. The risks and benefits of the procedure and the sedation options and risks were discussed with the patient. All questions were answered, and informed consent was obtained. Prior Anticoagulants: The patient has taken no previous anticoagulant or antiplatelet agents. ASA Grade Assessment: III - A patient with severe systemic disease. After reviewing the risks and benefits, the patient was deemed in satisfactory condition to undergo the procedure. After I obtained informed consent, the scope was passed under direct vision. Throughout the procedure, the patient's blood pressure, pulse, and oxygen saturations were monitored continuously. The Colonoscope was introduced through the anus and advanced to the cecum, identified by appendiceal orifice and ileocecal valve. The colonoscopy was performed without difficulty. The patient tolerated the procedure well. The quality of the bowel preparation was good. Scope Withdrawal Time: 0 hours 17 minutes 33 seconds Moderate Sedation: MAC anesthesia was administered by the anesthesia team. Total Procedure Duration: 0 hours 29 minutes 33 seconds Findings: The perianal and digital rectal examinations were normal. Non-bleeding internal hemorrhoids were found during retroflexion. The hemorrhoids were mild and small. The exam was otherwise without abnormality. There was area with significant folds that would not flaten out. THIS MADE IT DIFFICULT TO SEE AROUND. Impression: - Non-bleeding internal hemorrhoids. - The examination was otherwise normal. - No specimens collected. Recommendation: - Patient has a contact number available for emergencies. The signs and symptoms of potential delayed complications were discussed with the patient. Return to normal activities tomorrow. Written discharge instructions were provided to the patient. - Resume previous diet. - Continue present medications. - Repeat colonoscopy in 5 years for screening purposes secondary to numerous folds. - Return to primary care physician PRN. - Resume anticoagulant at prior dose. Procedure Code(s): --- Professional --- 76988, Colonoscopy, flexible; diagnostic, including collection of specimen(s) by brushing or washing, when performed (separate procedure) Diagnosis Code(s): --- Professional --- Z12.11, Encounter for screening for malignant neoplasm of colon K64.8, Other hemorrhoids CPT copyright 2019 [employer]. All rights reserved. The codes documented in this report are preliminary and upon him coder review may be revised to meet current compliance requirements. Attending Participation: I personally performed the entire procedure. Scope In: 9:58:02 AM Scope Out: 10:27:35 AM MD Ben Flores MD 04/22/2022 10:32:54 AM This report has been signed electronically by Ben Hollis MD Number of Addenda: 0 Note Initiated On: 04/22/2022 9:42 AM Estimated Blood Loss: Estimated blood loss: none. Normal [facility] HISTORY PHYSICALon HISTORY PHYSICAL HNO ID: [id number] Author: Ben Hollis MD Service: General Surgery Author Type: Physician Type: HANDP Filed: 04/22/2022 9:54 AM Note Text: HPI: The patient denies change in bowel habits, denies black stool or rectal bleeding or abdominal pain. Having a bowel movement Daily. Reports at times constipation reporting what she eats might cause constipation. Denies diarrhea. Denies weight loss. Denies upper GI complaints at this time. Record Review: [facility] / Outside records reviewed. PAST MEDICAL HISTORY PAST MEDICAL HISTORY Diagnosis Date Closed fracture of left humerus Diverticulosis of colon External hemorrhoids History of pulmonary embolism 1993 ? Pulmonary embolism Hyperglycemia 10/08/2015 Hyperparathyroidism (HCC) 12/02/2020 Internal hemorrhoids Metabolic syndrome 10/08/2015 Mild intermittent asthma without complication 07/21/2013 Mixed hyperlipidemia 10/08/2015 Obesity, Class III, BMI 40-49.9 (morbid obesity) (HCC) 04/30/2017 EVE (obstructive sleep apnea) ahi 46 09/19/2014 On CPAP, [facility] Phlebitis and thrombophlebitis of unspecified site Plantar fasciitis, bilateral 10/08/2015 Symptomatic menopausal or female climacteric states 05/02/2009 Vitamin D deficiency 12/02/2020 PAST SURGICAL HISTORY PAST SURGICAL HISTORY Procedure [facility]/CELL WASHG SPX BRONCHOSCOPY COLONOSCOPY FLX DX W/COLLJ SPEC WHEN PFRMD 09/18/11 repeat 10 years FECAL OCCULT BLOOD TEST 05/01/2017 negative HYSTEROSCOPY, DIAGNOSTIC (SEPARATE WITH CURRETAGE LIG/TRNSXJ FLP TUBE ABDL/VAG APPR UNI/BI Tubal ligation TOTAL ABDOMINAL HYSTERECT W/WO RMVL TUBE OVARY 2004 Hysterectomy, DANIEL UNSPECIFIED ORAL SURGERY PROCEDURE, BY REPORT 08/18/2007 Allergies: ALLERGIES ALLERGIES No Known Allergies Medications: CURRENT MEDICATIONS atorvastatin (LIPITOR) 10 mg tablet Take 1 tablet by mouth daily at bedtime. For cholesterol. budesonide (PULMICORT) 0.5 mg/2 mL nebulizer solution Use 2 mL via nebulizer once daily. albuterol (PROVENTIL) 2.5 mg /3 mL (0.083 %) nebulizer solution Use 3 mL via nebulizer every 6 hours as needed for wheezing/shortness of breath. J45.20 albuterol HFA (PROAIR HFA) 90 mcg/actuation inhaler Inhale 2 Puffs as instructed every 6 hours as needed for wheezing/shortness of breath. cholecalciferol (VITAMIN D-3) 50 mcg (2,000 unit) tablet Take 2 tablets by mouth once daily. predniSONE (DELTASONE) 10 mg tablet Take 4 tabs daily x 3 days, then 3 tabs x 3 days, 2 tabs x 3 days, then 1 tab x3 days with food. atorvastatin (LIPITOR) 10 mg tablet Take 1 tablet by mouth daily at bedtime for 10 days. For cholesterol. CPAP Mask (per patient preference) optional chin strap (if indicated), filters, tubing / heated tubing, heated humidity and lifetime supplies. Dx. EVE G47.33 327.23 Nebulizer NEBULIZER WITH SUPPLIES IF NEEDED FOR HOME USE. DX: Mild persistent asthma without complication J45.30 COMPOUNDED PRESCRIPTION Nebulizer supplies. Dx. 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 Are you taking any blood thinners? No Physical Examination: BP 114/68 Pulse 76 Ht 5' 8.504 (1.74m) Wt 335 lb (152.0kg) SpO2 98% BMI 50.19 kg/(m2). Physical Exam Constitutional: Appearance: Normal appearance. She is normal weight. HENT: Head: Normocephalic and atraumatic. Eyes: Extraocular Movements: Extraocular movements intact. Pupils: Pupils are equal, round, and reactive to light. Cardiovascular: Rate and Rhythm: Normal rate and regular rhythm. Pulses: Normal pulses. Heart sounds: Normal heart sounds. Pulmonary: Effort: Pulmonary effort is normal. Breath sounds: Normal breath sounds. Abdominal: General: Abdomen is flat. Bowel sounds are normal. Palpations: Abdomen is soft. Musculoskeletal: General: Normal range of motion. Cervical back: Normal range of motion and neck supple. Skin: General: Skin is warm and dry. Neurological: General: No focal deficit present. Mental Status: She is alert and oriented to person, place, and time. Psychiatric: Mood and Affect: Mood normal. (more content not included)... Normal [facility] Calcium SerPl-mCncon 022 Calcium [Mass/Vol] 10.0 mg/dL Normal 8.5-10.2 [facility] Comment on above: Order Comment: Speci men Type: BLOOD SPECIMENOrdering Facility: [facility] Address: [address] [place] [address] Performed By: #### 1 [id number] ####[facility]ORATORYCLIA [id number] [address] [place] PTH-[facility]-0 Parathyrin.intact [Mass/Vol] 11 pg/mL Low 15-65 [facility] Comment on above: Order Comment: Speci [facility] Type: BLOOD SPECIMEN Ordering Facility: [facility] Address: [address] [place] [address] Performed By: #### 2 [id number] #### [facility] CLIA [id number] [place] [address] [place] ANES POSTPROC EVALon 022 ANES POSTPROC EVAL HNO ID: [id number] Author: Teddy Leone MD Service: Anesthesiology Author Type: Physician Type: Anesthesia Postprocedure Evaluation Filed: 02/25/2022 4:37 PM Note Text: POST ANESTHESIA EVALUATION NOTE : 1960 Procedure Summary Date: 02/25/22 Room / Location: OR05 / MM OR Anesthesia Start: 1357 Anesthesia Stop: 1632 Procedure: PARATHYROIDECTOMY (N/A Thyroid) Diagnosis: Hyperparathyroidism (HCC) (Hyperparathyroidism (HCC) [E21.3]) Surgeons: Angelina Quiros MD Responsible Provider: Teddy Leone MD Anesthesia Type: general ASA Status: 2 Anesthesia Type: general Airway Type: ETT Last Vitals Vitals Value Taken Time BP 149/82 02/25/22 1630 Temp 36.4 ?C (97.5 ?F) 02/25/22 1628 Pulse 79 02/25/22 1636 Resp 19 02/25/22 1636 SpO2 96 % 02/25/22 1636 Vitals shown include unvalidated device data. Post Anesthesia Patient Status Patient Evaluation: PACU. PACU/ICU Patient Condition: stable. Anticipated Disposition: inpatient floor planned admission. Neurological Status: aware and responsive. Pulmonary Status: breathing comfortably on room air Airway Control: returned to baseline unsupported. Cardiovascular Status: stable. Pain Management: clinically adequate - multimodal analgesia pain management approach Postoperative Hydration: acceptable. Intraoperative Events: no significant anesthesia events Recommendation: continue current plan of care and further care per PACU/ICU/floor team. Anesthesia Observations No Documentation SIGNATURE: Teddy Leone MD PATIENT NAME: Amina Morales DATE: February 25, 2022 TIME: 4:37 PM CSN: [id number] [facility] ANES PRE-OPon 02-25-2022 ANES PRE-OP HNO ID: [id number] Author: Raul Davidson MD Service: Anesthesiology Author Type: Anesthesiologist Type: Anesthesia Preprocedure Evaluation Filed: 02/25/2022 12:14 PM Note Text: ANESTHESIOLOGY DAY OF SURGERY NOTE : 1960 Procedure Information Date/Time: 02/25/22 1255 Procedure: PARATHYROIDECTOMY (N/A Thyroid) Location: OR05 / [facility] OR Surgeons: Angelina Quiros MD Estimated body mass index is 53.56 kg/m? as calculated from the following: Height as of 02/16/22: 170.2 cm (5' 7). Weight as of 02/16/22: 155.1 kg (342 lb). Most recent hematocrit and potassium results: Hematocrit 41.6 02/16/2022 Potassium 4.4 12/24/2021 Relevant Problems ANESTHESIA (+) EVE (obstructive sleep apnea) ahi 46 CARDIO (+) External hemorrhoids (+) Internal hemorrhoids NEURO-PSYCH (+) History of pulmonary embolism PULMONARY (+) Mild intermittent asthma without complication (+) EVE (obstructive sleep apnea) ahi 46 I - PHYSICAL EVALUATION AIRWAY Patient intubated: No. Mallampati: II. TM distance: >3 FB. Neck ROM: full ROM without neurological symptoms. Mouth opening: adequate. Short neck: no. Thick neck: no DENTAL Dental findings: teeth intact. Additional exam findings: no II - ANESTHESIA PLAN ASA Score: 2 Anesthetic Plan: general Airway type: ETT NPO Status: adequate Monitoring plan: Standard ASA. Postoperative analgesic plan: parenteral or oral opioids and multimodal analgesia. Patient / Surrogate agrees to blood products: yes DNR status not reviewed with patient and/or family prior to surgery. Significant changes in the patient condition since the History and Physical, not otherwise documented in primary service progress note: no. Potential Anesthesia issues that may suggest increased risk of complications or contraindication to planned procedure: none. Vitals Value Taken Time BP 155/69 02/25/22 1150 Pulse 80 02/25/22 1150 Resp 16 02/25/22 1150 Temp 36.7 ?C (98 ?F) 02/25/22 1150 SpO2 97 % 02/25/22 1150 Facility-Administered Medications as of 02/25/2022 Medication Dose Route Frequency - lidocaine 10 mg/mL (1 %) 1-2 mg injection (XYLOCAINE) 0.1-0.2 mL INTRADERMAL PRN - NaCl 0.9% iv infusion 75 mL/hr INTRAVENOUS CONTINUOUS - [COMPLETED] acetaminophen 650 mg tab(s) (TYLENOL) 650 mg ORAL Pre-Op Once - [COMPLETED] promethazine 12.5 mg tab(s) (PHENERGAN) 12.5 mg ORAL Pre-Op Once - scopolamine 1 mg over 3 days 1 Patch (TRANSDERM-SCOP) 1 Patch TRANSDERMAL ONCE - [START ON 02/28/2022] scopolamine - REMOVE PATCH OTHER q 72 HR And - scopolamine - VERIFY patch OTHER q 8 H Outpatient Medications as of 02/25/2022 Medication Sig - atorvastatin (LIPITOR) 10 mg tablet Take 1 tablet by mouth daily at bedtime. For cholesterol. - budesonide (PULMICORT) 0.5 mg/2 mL nebulizer solution Use 2 mL via nebulizer once daily. - albuterol (PROVENTIL) 2.5 mg /3 mL (0.083 %) nebulizer solution Use 3 mL via nebulizer every 6 hours as needed for wheezing/shortness of breath. J45.20 - CPAP Mask (per patient preference) optional chin strap (if indicated), filters, tubing / heated tubing, heated humidity and lifetime supplies. Dx. EVE G47.33 327.23 - albuterol HFA (PROAIR HFA) 90 mcg/actuation inhaler Inhale 2 Puffs as instructed every 6 hours as needed for wheezing/shortness of breath. - cholecalciferol (VITAMIN D-3) 50 mcg (2,000 unit) tablet Take 2 tablets by mouth once daily. - Nebulizer NEBULIZER WITH SUPPLIES IF NEEDED FOR HOME USE. DX: Mild persistent asthma without complication J45.30 - COMPOUNDED PRESCRIPTION Nebulizer supplies. Dx. Asthma.J45.909 I have interviewed and examined the patient. I have reviewed the medical record and/or the pre-anesthesia evaluation, pertinent labs, and test results. This contains updated information obtained within 48 hours of Surgery/Procedure. SIGNATURE: Raul Davidson MD PATIENT NAME: Amina Morales DATE: February 25, 2022 TIME: 12:14 PM CSN: [id number] [facility] BRIEF OP NOTon 02-25-2022 BRIEF OP NOT HNO ID: [id number] Author: Nasim Ardon MD, PhD Service: Endocrine Surgery Author Type: Resident Type: Brief Op Note Filed: 02/25/2022 4:21 PM Note Text: GENERAL SURGERY BRIEF OP NOTE LOG ID: [id number] Surgery/Procedure Date: 02/25/2022 Incision/Procedure Start Time: 2:29 PM Incision Close/Procedure End Time: 4:16 PM Surgeon(s) and Percussion Instrument Repairer(s): Surgeon(s) and Role: * Angelina Quiros MD - Primary * Nasim Ardon MD, PhD - Resident - Assisting No Additional Staff Procedure(s): 1. Intraoperative ultrasound 2. Parathyroidectomy (Right upper, Right lower, Left upper) Anesthesia: General Findings: Three abnormal appearing parathyroid glands removed. Left lower parathyroid gland normal in appearance and preserved. Please see operative report for full details Drains: None IV Fluids: Per anesthesia report Estimated Blood Loss: 5 mls Estimated Urine Output: Per anesthesia report Specimens: ID Type Source Tests Collected by Time Destination 1 : Pre PTH Blood BLOOD INTRAOPERATIVE PTH Angelina Quiros MD 02/25/2022 2:52 PM 2 : Post PTH Blood BLOOD INTRAOPERATIVE PTH Angelina Quiros MD 02/25/2022 3:32 PM A : Right Lower Parathyroid Gland Totally Excised totally Submitted [id number] Tissue PARATHYROID GLAND RIGHT SURGICAL PATHOLOGY Angelina Quiros MD 02/25/2022 2:58 PM B : right upper totally excised, portion submitted 10x7x3 Tissue PARATHYROID GLAND RIGHT SURGICAL PATHOLOGY Angelina Quiros MD 02/25/2022 3:36 PM C : left upper totally excised, portion submitted 10x5x4 Tissue PARATHYROID GLAND LEFT SURGICAL PATHOLOGY Angelina Quiros MD 02/25/2022 3:41 PM Wound Classification: Class 1, operative wound clean, non-traumatic, with no inflammation encountered, no break in technique, gastrointestinal and genitor-urinary tracts not entered Complications: None Pre-Op/Pre-Procedure Diagnosis: Pre-Op Diagnosis Codes: * Hyperparathyroidism (HCC) [E21.3] Post-Op/Post-Procedure Diagnosis: Same SIGNATURE: Nasim Ardon MD, PhD PATIENT NAME: Amina Morales DATE: February 25, 2022 TIME: 4:19 PM PAGER/CONTACT #: [phone] From 6pm to 6 am and on weekends, please page general surgery on-call [phone] [facility] HBV core Ab Ser Qlon 022 HBV core Ab Ql (S) Negative Normal Negative [facility] Comment on above: Order Comment: Speci men Type: BLOOD SPECIMENOrdering Facility: [facility] Address: [address] [place] [phone] Result Comment: No e vidence of current or past infection with Hepatitis B virus. Should recent infection be suspected, repeat testing may be considered 3-4 weeks after this draw. Performed By: #### 1 6933-4, , ####[facility] [id number] [address] [place] HBV surface Ab IA Ql (S)on 0 02-25-2022 HBV surface Ag Ql (S) Negative [facility] Comment on above: Order Comment: Speci men Type: BLOOD SPECIMENOrdering Facility: [facility] Address: [address] [place] [address] Performed By: #### 1 6933-4, , ####[facility] [id number] [address] [place] HCV Ab Ser Qlon 02-25-2022 HCV Ab Ql (S) Negative [facility] Comment on above: Order Comment: Speci men Type: BLOOD SPECIMEN [facility]ing Facility: [facility] Address: [address] [place] [address] Result Comment: The result suggests no evidence of active infection with Hepatitis C virus. Should recent infection be suspected, repeat testing may be considered 4-6 weeks after this draw. Performed By: #### 1 6128-1 #### [facility] CLIA [id number] [address] [place] [address] [place] HIV 1+2 Ab IA Qlon 2 HIV 1 and 2 Ab IA.rapid Nom [facility] Comment on above: Order Comment: Speci men Type: BLOOD SPECIMENOrdering Facility: [facility] Address: [address] [place] [address] Result Comment: Test not indicated. Performed By: #### 1 6933-4, 15722-2, ####[facility] [id number] [address] [place] HIV 1+2 Ab+HIV1 p24 Ag IA Ql Non-Reactive Normal Nonreactive [facility] Comment on above: Order Comment: Speci men Type: BLOOD SPECIMENOrdering Facility: [facility] Address: [address] [place], [place] [id number] Performed By: #### 1 6933-4, 23549-0, 08247-8 ####[facility] [id number] [place] [address] [place] HIVINT [facility] Comment on above: Order Comment: Speci men Type: BLOOD SPECIMENOrdering Facility: [facility] Address: [address] [place], [place] [id number] Result Comment: No e vidence of HIV-1 or HIV-2 infection. Should recent infection be suspected, repeat testing may be considered 2-3 weeks after this draw. [place] Rev. Code 3701.243(E): This information has been disclosed to you from confidential records protected from disclosure by state law. ???You shall make no further disclosure of this information without the specific, written, and informed release of the individual to whom it pertains or as otherwise permitted by state law. A general authorization for the release of medical or other information is not sufficient for the purpose of the release of HIV test results or diagnoses. Performed By: #### 1 6933-4, 58795-9, 09917-6 ####[facility] [id number] [place] [address] [place] INTRAOPERATIVE PTHon 022 INTRAOPERATIVE PTH 15 pg/mL Normal 15-65 [facility] Comment on above: Order Comment: Speci men Type: BLOOD SPECIMEN [facility]ing Facility: [facility] Address: [address] [place], [place] [phone] Performed By: #### R IPTH #### [facility] CLIA [id number] [address] [place] [address] [place] INTRAOPERATIVE PTH 78 pg/mL High 15-65 [facility] Comment on above: Order Comment: Speci men Type: BLOOD SPECIMEN [facility]ing Facility: [facility] Address: [address] [place] [address], [place] [address] Performed By: #### R IPTH #### [facility] CLIA [id number] [address] [place] [address] [place] NURSING PROGon 02-25-2022 NURSING PROG HNO ID: [id number] Author: Natasha Mckinnon RN Service: Nursing Author Type: Registered Nurse Type: Nursing Progress Note Filed: 02/25/2022 11:29 AM Note Text: PRE OP LEARNING ASSESSMENT PROCEDURE/SURGERY: SURGERY: parathyroidectomy READINESS TO LEARN COGNITIVE ABILITY: Alert and oriented MOTIVATION TO LEARN: Eager FAMILY SUPPORT: Unable to assess - Family not present PATIENT LEARNS BEST BY: Individual Instruction Written Instruction - Hand-outs Verbal Instruction FACTORS AFFECTING LEARNING: None PHYSICAL LIMITATIONS AFFECTING LEARNING: None Electronically Signed By: Natasha Mckinnon RN In Department: [facility] SURGERY [facility] OPERATIVE NOon 02-25-2022 OPERATIVE NO HNO ID: [id number] Author: Angelina Quiros MD Service: Endocrine Surgery Author Type: Physician Type: Operative Report Filed: 02/26/2022 3:59 PM Note Text: [facility] - Operative Report AMINA MORALES : 1960 AGE: 61. SEX: F PATIENT TYPE: A HOSP SVC: [facility] LOCATION: [facility] ATTENDING PHYSICIAN: Angelina Quiros M.D. CSN NUMBER: [id number] DATE OF SURGERY/PROCEDURE: 02/25/2022 Incision/Procedure Start Time: 2:29 PM Incision Close/Procedure End Time: 4:16 PM PREOPERATIVE DIAGNOSIS: Primary hyperparathyroidism. POSTOPERATIVE DIAGNOSIS: Primary hyperparathyroidism. SURGEON: Angelina Quiros M.D. LINOTYPE WORKER: Dr. Nasim Ardon. SURGERY/PROCEDURE: 1. Parathyroidectomy. 2. Neck ultrasound. 3. Cryopreservation of parathyroid tissue. ANESTHESIA: General endotracheal. URINE OUTPUT: Not recorded. ESTIMATED BLOOD LOSS: Minimal. INDICATIONS: This is a 61-year-old woman with biochemical evidence of primary hyperparathyroidism with calcium 10.9, PTH between 50s and 90s. Hypercalcemia has been present since at least 2018. She complains of brain fog, has a very high urinary calcium of greater than 400. DEXA scan was normal. Preop ultrasound and sestamibi were suggestive of right-sided parathyroid adenoma. ULTRASOUND FINDINGS: Ultrasound images were archived and sent to the medical record. Images demonstrated a hypoechoic structure measuring 12 x 8 x 16 mm in the distribution of the right lower parathyroid with typical appearance of enlarged parathyroid gland. No other parathyroids were seen. The thyroid had scattered colloid cysts in both lobes. OPERATIVE FINDINGS: All 4 parathyroids were seen with 100% certainty. The right lower parathyroid was enlarged, measuring 21 x 14 x 12 mm. It was excised completely and confirmed hypercellular parathyroid tissue. The right upper parathyroid was enlarged and firm. It measured 10 x 7 x 3 mm. It was excised completely. The left upper parathyroid was also enlarged and firm. It measured 10 x 5 x 4 mm. It was excised completely. The right lower parathyroid was located in the thymic horn and it was suppressed in appearance and it was left entirely in situ and its [place] blood supply. Pre-excision PTH was 78. Post-excision PTH is pending. DESCRIPTION OF PROCEDURE: After informed consent was obtained, patient was brought to the operating room and placed supine on the operating table. No antibiotics were indicated and none were given. SCDs were used for DVT prophylaxis. She was intubated and placed in neck extended, both arms tucked. We then performed ultrasound. We prepped and draped the neck. We made a 4 cm incision in natural skin crease overlying the isthmus. We carried this down through the platysma using electrocautery. We created subplatysmal flaps up to thyroid cartilage down the sternal notch. We divided the strap muscles in the midline. We the right sternohyoid and sternothyroid muscles from 1 another. Then, we the right thyroid from the overlying sternothyroid muscle and performed lateral dissection down to the carotid artery. We identified an enlarged and firm right lower parathyroid. We dissected it free of the surrounding tissue. We then valentina a pre-excision PTH from her right anterior jugular vein. We then divided the hilum of the right lower parathyroid with a 3-0 silk ties and sent it for pathology. We explored the right upper neck and found a firm, mildly enlarged right upper parathyroid gland. We then exposed the left neck in the same manner. We identified the left upper parathyroid with a similar appearance to the right upper parathyroid and a very small normal-appearing left lower parathyroid. We elected to remove the right upper and left upper parathyroids. We divided the hilum with the Harmonic Scalpel. We sent a portion of each gland for frozen section. The remainder was placed on sterile ice for later cryopreservation. We placed 2 hemoclips next to the left lower parathyroid. We achieved hemostasis. We left SNoW Surgicel on both sides of the central neck. We closed the strap muscles with a single layer of interrupted 4-0 Vicryl. We valentina a post-excision PTH as well as cryo blood from the right anterior jugular vein. We closed the platysma with a single layer of interrupted 4-0 Vicryl. We injected the wound with 0.5% Marcaine and closed the skin using running 3-0 subcuticular Prolene. We placed surgical glue and Steri-Strips as a dressing. Due to the nature of this case with uncertainty as to the amount of remaining parathyroid tissue, a decision was made to cryopreserve the resected parathyroid gland(s) for storage and potential future auto transplantation. We turned our attention to the back table, where we performed tissue preparation of the resected parathyroid glands. Under sterile conditions, a portion of each parathyroid gland was minced into (more content not included)... [facility] SURGICAL PATHOLOGYon 022 CASE REPORT [facility] Comment on above: Order Comment: Speci men Type: TISSUE SPECIMEN [facility] Address: [address] [place] [address] Result Comment: Surg [facility] Pathology Report Case: [id number] Authorizing Provider: Angelina Quiros MD Collected: 02/25/2022 02:58 PM Ordering Location: [facility] Surgery Received: 02/25/2022 03:04 PM Pathologist: Bharti Soto MD Intraop: Meagan Traylor MD Specimens: A) - PARATHYROID GLAND RIGHT, Right Lower Parathyroid Gland Totally Excised totally Submitted [id number] B) - PARATHYROID GLAND RIGHT, right upper totally excised, portion submitted 10x7x3 C) - PARATHYROID GLAND LEFT, left upper totally excised, portion submitted 10x5x4 Performed By: #### S #### [facility] CLIA [id number] [address] [place], [place] [address] [address] [place] DIAGNOSIS COMMENT C. The left upper parathyroid gland is predominantly comprised of fat with focally increased parenchymal tissue; this could represent within the range of normal or a mildly hypercellular parathyroid gland. [facility] Comment on above: Order Comment: Speci men Type: TISSUE SPECIMEN [facility] Address: [address] [place] [address] Performed By: #### S #### [facility] CLIA [id number] [address] [place] [address] FINAL DIAGNOSIS [facility] Comment on above: Order Comment: Speci men Type: TISSUE SPECIMEN [facility]: [facility] Address: [address] [place] [address] Result Comment: A. P arathyroid, right lower, excision: -Hypercellular parathyroid gland tissue. B. Parathyroid, right upper, excision: -Mildly hypercellular parathyroid gland tissue. C. Parathyroid, left upper, excision: -Variably cellular parathyroid gland tissue. (See comment.) Performed By: #### S #### [facility] CLIA [id number] [address] [place] [address] FINAL PERFORMING LAB [facility] Comment on above: Order Comment: Speci men Type: TISSUE SPECIMEN Order[facility] Facility: [facility] Address: [address] [place] [address] Result Comment: Diag nostic interpretation performed at [facility], [address] [place] [address] CLIA# [id number] Tool Salvage Worker: Bolivar Guido M.D. Performed By: #### S #### [facility] CLIA [id number] [address] [place] [address] GROSS DESCRIPTION [facility] Comment on above: Order Comment: Speci [facility] Type: TISSUE SPECIMEN Ordering Facility: [facility] Address: [address] [place] [address] Result Comment: A. P ARATHYROID GLAND RIGHT. A. Received fresh is a segment of hernández-red soft tissue measuring 21 x 14 x 12 mm and weighing 1.508 grams. One half submitted as FSA1. Remainder in A2. Gross examination performed at [facility], [address], [place] [address] CLIA# [id number]. B. PARATHYROID GLAND RIGHT. B. Received fresh is a segment of hernández-red soft tissue measuring 5 x 4 x 3 mm and weighing 0.05 grams. Submitted in toto as FSB1. Gross examination performed at [facility], [address], [place] [address] CLIA# [id number]. C. PARATHYROID GLAND LEFT. C. Received fresh is a segment of hernández-red soft tissue measuring 4 x 3 x 3 mm and weighing 0.04 grams. Submitted in toto as FSC1. Gross examination performed at [facility], [address], [place] [address] CLIA# [id number]. Performed By: #### S #### [facility] CLIA [id number] [address] [place] [address] INTRAOPERATIVE DIAGNOSIS [facility] Comment on above: Order Comment: Speci men Type: TISSUE SPECIMEN Order[facility]: [facility] Address: [address] [place] [address] Result Comment: A. P ARATHYROID GLAND RIGHT. FSA1 Right lower parathyroid gland: Hypercellular parathyroid tissue (Dr. Meagan Traylor) Intraoperative diagnosis performed at [facility], [address], [place] [address] CLIA# [id number]. B. PARATHYROID GLAND RIGHT. FSB1 Right upper parathyroid gland: Parathyroid tissue (Dr. Meagan Traylor) Intraoperative diagnosis performed at [facility], [address], [place] [address] CLIA# [id number]. C. PARATHYROID GLAND LEFT. FSC1 Left upper parathyroid gland: Parathyroid tissue (Dr. Meagan Traylor) Intraoperative diagnosis performed at [facility], [address], [place] [address] CLIA# [id number]. Performed By: #### S #### [facility] CLIA [id number] [address] [place] [address] [place] ECG COMPLETEon 02-17-2022 Atrial Rate 73 BPM [facility] Calculated P [employer] 96 degrees [facility] Calculated R [employer] -35 degrees [facility] Calculated T [employer] 24 degrees [facility] P-R Interval 160 ms [facility] QRS Duration 108 ms [facility] QT Interval 406 ms [facility] QTC Calculation (Bazett) 447 ms [facility] Ventricular Rate 73 BPM [facility] XR CHEST 2V FRONTAL/LATon [facility] No Panel Informationon 01-08 [facility] US THYROID/PARATHYROID (POC) ENDO USE ONLYon 01-08-2022 [facility] JUSTIN SCREENINGon 12-24-2021 [facility] No Panel Informationon 12-02 [facility] Vital Signs Date Time Vital Sign Value Performing Clinician Faci jennifer 01-18-2025 11:10-0400 Diastolic blood pressure 80 mm[Hg] Lazaro Rust MD Work Phone: [facility] 01-18-2025 11:10-0400 Heart rate 76 /min Lazaro Rust MD Work Phone: [facility] 01-18-2025 11:10-0400 Respiratory rate 18 /min Lazaro Rust MD Work Phone: [facility] 01-18-2025 11:10-0400 Systolic blood pressure 134 mm[Hg] Lazaro Rust MD Work Phone: [facility] 09-19-2024 07:30-0500 Body mass index (BMI) [Ratio] 51.97 kg/m2 Aurora Muñoz PA-C Work Phone: [facility] 09-19-2024 07:30-0500 Body temperature 97 [degF] Aurora Muñoz PA-C Work Phone: [facility] 09-19-2024 07:30-0500 Body weight 151.96 kg Aurora Muñoz PA-C Work Phone: [facility] 09-19-2024 07:30-0500 Diastolic blood pressure 80 mm[Hg] Aurora Muñoz PA-C Work Phone: [facility] 09-19-2024 07:30-0500 Heart rate 69 /min Aurora Muñoz PA-C Work Phone: [facility] 09-19-2024 07:30-0500 Respiratory rate 18 /min Aurora Muñoz PA-C Work Phone: [facility] 09-19-2024 07:30-0500 SaO2% (BldA) [Mass fraction] 96 % Aurora Muñoz PA-C Work Phone: [facility] 09-19-2024 07:30-0500 Systolic blood pressure 126 mm[Hg] Aurora Muñoz PA-C Work Phone: [facility] 08-24-2024 12:31-0500 Body mass index (BMI) [Ratio] 51.04 kg/m2 Aurora Muñoz PA-C Work Phone: [facility] 08-24-2024 12:31-0500 Body temperature 97.5 [degF] Aurora Muñoz PA-C Work Phone: [facility] 08-24-2024 12:31-0500 Body weight 149.23 kg Aurora Muñoz PA-C Work Phone: [facility] 08-24-2024 12:31-0500 Diastolic blood pressure 76 mm[Hg] Aurora Muñoz PA-C Work Phone: [facility] 08-24-2024 12:31-0500 Heart rate 66 /min Aurora Muñoz PA-C Work Phone: [facility] 08-24-2024 12:31-0500 Respiratory rate 20 /min Aurora Muñoz PA-C Work Phone: [facility] 08-24-2024 12:31-0500 SaO2% (BldA) [Mass fraction] 96 % Aurora Muñoz PA-C Work Phone: [facility] 08-24-2024 12:31-0500 Systolic blood pressure 136 mm[Hg] Aurora Muñoz PA-C Work Phone: [facility] 08-18-2024 12:17-0500 Body mass index (BMI) [Ratio] 51.97 kg/m2 Aurora Muñoz PA-C Work Phone: [facility] 08-18-2024 12:17-0500 Body temperature 99.7 [degF] Aurora Muñoz PA-C Work Phone: [facility] 08-18-2024 12:17-0500 Body weight 151.96 kg Aurora Muñoz PA-C Work Phone: [facility] 08-18-2024 12:17-0500 Diastolic blood pressure 78 mm[Hg] Aurora Muñoz PA-C Work Phone: [facility] 08-18-2024 12:17-0500 Heart rate 101 /min Aurora Muñoz PA-C Work Phone: [facility] 08-18-2024 12:17-0500 Respiratory rate 20 /min Aurora Muñoz PA-C Work Phone: [facility] 08-18-2024 12:17-0500 SaO2% (BldA) [Mass fraction] 100 % Aurora Muñoz PA-C Work Phone: [facility] 08-18-2024 12:17-0500 Systolic blood pressure 130 mm[Hg] Aurora Muñoz PA-C Work Phone: [facility] 04-18-2024 10:28-0400 Body mass index (BMI) [Ratio] 52.77 kg/m2 Aurora Muñoz PA-C Work Phone: [facility] 04-18-2024 10:28-0400 Body temperature 98.4 [degF] Aurora Muñoz PA-C Work Phone: [facility] 04-18-2024 10:28-0400 Body weight 155.13 kg Aurora Muñoz PA-C Work Phone: [facility] 04-18-2024 10:28-0400 Diastolic blood pressure 76 mm[Hg] Aurora Muñoz PA-C Work Phone: [facility] 04-18-2024 10:28-0400 Heart rate 96 /min Aurora Muñoz PA-C Work Phone: [facility] 04-18-2024 10:28-0400 Respiratory rate 18 /min Aurora Muñoz PA-C Work Phone: [facility] 04-18-2024 10:28-0400 SaO2% (BldA) [Mass fraction] 95 % Aurora Muñoz PA-C Work Phone: [facility] 04-18-2024 10:28-0400 Systolic blood pressure 126 mm[Hg] Aurora Muñoz PA-C Work Phone: [facility] 12-30-2023 10:52-0400 Body mass index (BMI) [Ratio] 52.62 kg/m2 Valentino Egan APRN.IMMIGRATION INVESTIGATOR Work Phone: [facility] 12-30-2023 10:52-0400 Body weight 154.68 kg Valentino Egan APRN.IMMIGRATION INVESTIGATOR Work Phone: [facility] 12-30-2023 10:52-0400 Diastolic blood pressure 74 mm[Hg] Valentino Egan APRN.IMMIGRATION INVESTIGATOR Work Phone: [facility] 12-30-2023 10:52-0400 Heart rate 80 /min Valentino Egan APRN.IMMIGRATION INVESTIGATOR Work Phone: [facility] 12-30-2023 10:52-0400 Respiratory rate 16 /min Valentino Egan APRN.IMMIGRATION INVESTIGATOR Work Phone: [facility] 12-30-2023 10:52-0400 Systolic blood pressure 117 mm[Hg] Valentino Egan APRN.IMMIGRATION INVESTIGATOR Work Phone: [facility] 06-28-2023 14:37-0500 Body height 171.5 cm Lazaro Rust MD Work Phone: [facility] 06-28-2023 14:37-0500 Body weight 150.59 kg Lazaro Rust MD Work Phone: [facility] 06-28-2023 14:37-0500 Diastolic blood pressure 82 mm[Hg] Lazaro Rust MD Work Phone: [facility] 06-28-2023 14:37-0500 Heart rate 70 /min Lazaro Rust MD Work Phone: [facility] 06-28-2023 14:37-0500 Respiratory rate 16 /min Lazaro Rust MD Work Phone: [facility] 06-28-2023 14:37-0500 Systolic blood pressure 136 mm[Hg] Lazaro Rust MD Work Phone: [facility] 10-02-2022 13:39-0500 Body temperature 97.9 [degF] Valentino Egan SOLAR PANEL TECHNICIAN.IMMIGRATION INVESTIGATOR Work Phone: [facility] 10-02-2022 13:39-0500 Body weight 153.77 kg Valentino Egan SOLAR PANEL TECHNICIAN.IMMIGRATION INVESTIGATOR Work Phone: [facility] 10-02-2022 13:39-0500 Diastolic blood pressure 82 mm[Hg] Valentino Egan SOLAR PANEL TECHNICIAN.IMMIGRATION INVESTIGATOR Work Phone: [facility] 10-02-2022 13:39-0500 Heart rate 80 /min Valentino Egan SOLAR PANEL TECHNICIAN.IMMIGRATION INVESTIGATOR Work Phone: [facility] 10-02-2022 13:39-0500 Respiratory rate 18 /min Valentino Egan SOLAR PANEL TECHNICIAN.IMMIGRATION INVESTIGATOR Work Phone: [facility] 10-02-2022 13:39-0500 SaO2% (BldA) [Mass fraction] 95 % Valentino Egan SOLAR PANEL TECHNICIAN.IMMIGRATION INVESTIGATOR Work Phone: [facility] 10-02-2022 13:39-0500 Systolic blood pressure 136 mm[Hg] Valentino Egan SOLAR PANEL TECHNICIAN.IMMIGRATION INVESTIGATOR Work Phone: [facility] 06-12-2022 13:35-0500 Diastolic blood pressure 82 mm[Hg] Lazaro Rust MD Work Phone: [facility] 06-12-2022 13:35-0500 Systolic blood pressure 132 mm[Hg] Lazaro Rust MD Work Phone: [facility] 06-12-2022 13:02-0500 Body height 170.8 cm Lazaro Rust MD Work Phone: [facility] 06-12-2022 13:02-0500 Body weight 154.68 kg Lazaro Rust MD Work Phone: [facility] 06-12-2022 13:02-0500 Heart rate 70 /min Lazaro Rust MD Work Phone: [facility] 04-28-2022 10:54-0400 Body height 170.2 cm Savanah Sahu MD Work Phone: [facility] 04-28-2022 10:54-0400 Body weight 152.41 kg Savanah Sahu MD Work Phone: [facility] 04-28-2022 10:54-0400 Diastolic blood pressure 78 mm[Hg] Savanah Sahu MD Work Phone: [facility] 04-28-2022 10:54-0400 Systolic blood pressure 130 mm[Hg] Savanah Sahu MD Work Phone: [facility] 04-08-2022 08:32-0400 Body height 170.2 cm Pacc 1 Work Phone: [facility] 04-08-2022 08:32-0400 Body temperature 98.4 [degF] Pacc 1 Work Phone: [facility] 04-08-2022 08:32-0400 Body weight 153.32 kg Pacc 1 Work Phone: [facility] 04-08-2022 08:32-0400 Diastolic blood pressure 74 mm[Hg] Pacc 1 Work Phone: [facility] 04-08-2022 08:32-0400 Heart rate 68 /min Pacc 1 Work Phone: [facility] 04-08-2022 08:32-0400 Respiratory rate 16 /min Pacc 1 Work Phone: [facility] 04-08-2022 08:32-0400 SaO2% (BldA) [Mass fraction] 96 % Pacc 1 Work Phone: [facility] 04-08-2022 08:32-0400 Systolic blood pressure 136 mm[Hg] Pacc 1 Work Phone: [facility] 02-16-2022 09:13-0400 Body height 170.2 cm Pacc 1 Work Phone: [facility] 02-16-2022 09:13-0400 Body temperature 97.59 [degF] Pacc 1 Work Phone: [facility] 02-16-2022 09:13-0400 Body weight 155.13 kg Pacc 1 Work Phone: [facility] 02-16-2022 09:13-0400 Diastolic blood pressure 72 mm[Hg] Pacc 1 Work Phone: [facility] 02-16-2022 09:13-0400 Heart rate 73 /min Pacc 1 Work Phone: [facility] 02-16-2022 09:13-0400 Respiratory rate 18 /min Pacc 1 Work Phone: [facility] 02-16-2022 09:13-0400 SaO2% (BldA) [Mass fraction] 95 % Pacc 1 Work Phone: [facility] 02-16-2022 09:13-0400 Systolic blood pressure 134 mm[Hg] Pacc 1 Work Phone: [facility] 02-03-2022 09:42-0400 Body height 174 cm Rabia Gupta SOLAR PANEL TECHNICIAN.IMMIGRATION INVESTIGATOR Work Phone: [facility] 02-03-2022 09:42-0400 Body weight 151.96 kg Rabia Gupta SOLAR PANEL TECHNICIAN.IMMIGRATION INVESTIGATOR Work Phone: [facility] 02-03-2022 09:42-0400 Diastolic blood pressure 68 mm[Hg] Rabia Gupta SOLAR PANEL TECHNICIAN.IMMIGRATION INVESTIGATOR Work Phone: [facility] 02-03-2022 09:42-0400 Heart rate 76 /min Rabia Gupta SOLAR PANEL TECHNICIAN.IMMIGRATION INVESTIGATOR Work Phone: [facility] 02-03-2022 09:42-0400 SaO2% (BldA) [Mass fraction] 98 % Rabia Gupta SOLAR PANEL TECHNICIAN.IMMIGRATION INVESTIGATOR Work Phone: [facility] 02-03-2022 09:42-0400 Systolic blood pressure 114 mm[Hg] Rabia Gupta SOLAR PANEL TECHNICIAN.IMMIGRATION INVESTIGATOR Work Phone: [facility] 01-08-2022 10:03-0400 Body height 172.7 cm Angelina Quiros MD Work Phone: [facility] 01-08-2022 10:03-0400 Body weight 154.68 kg Angelina Quiros MD Work Phone: [facility] 01-08-2022 10:03-0400 Diastolic blood pressure 74 mm[Hg] Angelina Quiros MD Work Phone: [facility] 01-08-2022 10:03-0400 Heart rate 75 /min Angelina Quiros MD Work Phone: [facility] 01-08-2022 10:03-0400 Systolic blood pressure 125 mm[Hg] Angelina Quiros MD Work Phone: [facility] 12-24-2021 14:50-0400 Body height 172.7 cm Shantell Seymour MD Work Phone: [facility] 12-24-2021 14:50-0400 Body weight 154.22 kg Shantell Seymour MD Work Phone: [facility] 12-24-2021 14:50-0400 Diastolic blood pressure 63 mm[Hg] Shantell Seymour MD Work Phone: [facility] 12-24-2021 14:50-0400 Systolic blood pressure 140 mm[Hg] Shantell Seymour MD Work Phone: [facility] Encounters Encounter Date Encounter Type Care Provider Facility Start: 01-29-2025 End: 01-29-2025 Follow-up encounter Valentino Egan APRN.IMMIGRATION INVESTIGATOR Work Phone: [facility] [place] Start: 01-24-2025 ambulatory LAZARO RUST [facility] ty:[facility] Start: 01-24-2025 End: 01-24-2025 Subsequent hospital visit by physician Screen Mammo [facility] Comment on above: Encounter for screen ing mammogram for malignant neoplasm of breast [Z12.31] Start: 01-18-2025 End: 01-18-2025 Patient encounter procedure Lazaro Rust MD Work Phone: [facility] Comment on above: Mixed hyperlipidemia (Primary Dx); Elevated hemoglobin A1c; Mild intermittent asthma without complication (HCC); Hyperparathyroidism (HCC); Obesity, Class III, BMI 40-49.9 (morbid obesity) (HCC); EVE (obstructive sleep apnea) ahi 46; Vitamin D deficiency; Need for vaccination; Screening for depression; Encounter for screening examination for other mental health and behavioral disorders; Encounter for screening mammogram for malignant neoplasm of breast Start: 01-18-2025 End: 01-18-2025 ambulatory LAZARO RUST Facility:[facility] Start: 01-15-2025 End: 01-15-2025 ambulatory Valentino Gandhi MA [facility] Start: 01-15-2025 End: 01-16-2025 Follow-up encounter Lazaro Rust MD Work Phone: [facility] [place] Start: 01-15-2025 End: 01-15-2025 Patient encounter procedure Valentino Gandhi MA [facility] Comment on above: Population Health Na vigation Outreach ([facility] PCSRonald) Start: 01-04-2025 End: 01-04-2025 ambulatory AURORA MUÑOZ Facility:[facility] Start: 12-27-2024 End: 12-28-2024 Refill Valentino Egan APRN.IMMIGRATION INVESTIGATOR Work Phone: [facility] [place] Comment on above: Refill Request Start: 10-20-2024 End: 10-20-2024 Telephone encounter Lazaro Rust MD Work Phone: [facility] [place] Comment on above: Medication Problem ( Budesonide) Start: 10-17-2024 End: 10-17-2024 Refill Lazaro Rust MD Work Phone: [facility] [place] Comment on above: Refill Request Start: 10-06-2024 End: 10-09-2024 Telephone encounter Lazaro Rust MD Work Phone: [facility] [place] Comment on above: Medication Problem ( Resend Rxs to [facility]) Start: 10-03-2024 End: 10-03-2024 Refill Lazaro Rust MD Work Phone: [facility] [place] Comment on above: Refill Request Start: 10-03-2024 End: 10-03-2024 Refill Aurora Muñoz PA-C Work Phone: [facility] [place] Comment on above: Med Change Request Start: 10-02-2024 End: 10-02-2024 ambulatory Lazaro Rust MD Work Phone: [facility] [place] Comment on above: Budesonide inhalatio n and albuterol solution Start: 10-02-2024 End: 10-02-2024 Telephone encounter Litzy Morales MA [facility] Comment on above: Insurance Authorizat ion Start: 09-25-2024 End: 09-25-2024 Refill Lazaro Rust MD Work Phone: [address] [place] [address] Comment on above: Refill Request Start: 09-20-2024 End: 09-20-2024 Follow-up encounter Aurora Muñoz PA-C Work Phone: [facility] [place] Start: 09-19-2024 End: 09-19-2024 ambulatory LAZARO RUST Facility:[facility] Start: 09-19-2024 End: 09-19-2024 Office outpatient visit 15 minutes Aurora Muñoz PA-C Work Phone: [facility] [place] Comment on above: Acute otitis media, right (Primary Dx); URI, acute; Acute cough Start: 08-28-2024 End: 08-28-2024 Telephone encounter Lazaro Rust MD Work Phone: [facility] [place] Comment on above: Patient Question Start: 08-24-2024 End: 08-24-2024 ambulatory [facility] Facility:[facility] Start: 08-24-2024 End: 08-24-2024 Office outpatient visit 15 minutes Aurora HAYWARD-C Work Phone: [facility] [place] Comment on above: Influenza A (Primary Dx) Start: 08-18-2024 End: 08-18-2024 Telephone encounter Aurora DIETRICHC Work Phone: [facility] [place] Comment on above: Results Start: 08-18-2024 End: 08-18-2024 [facility] Facility:[facility] Start: 08-18-2024 End: 08-18-2024 Patient encounter procedure Aurora HAYWARD-C Work Phone: [facility] [place] Comment on above: Lower respiratory in fection (Primary Dx); URI, acute Start: 07-11-2024 End: 07-11-2024 [facility] Facility:[facility] Start: 06-28-2024 End: 06-28-2024 ambulatory VALENTINO EGAN Facility:[facility] Start: 06-28-2024 Encounter for genera l adult medical examination without abnormal findings LAZARO RUST [facility] Start: 04-18-2024 End: 04-18-2024 Patient encounter procedure Aurora Toni HAYWARD-C Work Phone: [facility] [place] Comment on above: Left hip pain (Prima ry Dx); Encounter for immunization; Mild intermittent asthma without complication Start: 04-17-2024 End: 04-17-2024 Chart abstracting Lazaro Rust MD Work Phone: [facility] [place] Comment on above: ER Discharge Summary Start: 04-15-2024 End: 04-15-2024 Emergency department patient visit Lazaro SILVA Facility:[facility] Start: 02-28-2024 End: 02-28-2024 ambulatory Shane Ramirez PT Work Phone: [facility] Comment on above: Lumbar spondylosis ( Primary Dx) Start: 02-21-2024 End: 02-21-2024 ambulatory Deanna Trujillo GIMP BUTTONHOLE MACHINE OPERATOR Work Phone: [facility] Comment on above: Lumbar spondylosis ( Primary Dx) Start: 02-09-2024 End: 02-09-2024 ambulatory Deanna Trujillo GIMP BUTTONHOLE MACHINE OPERATOR Work Phone: [facility] Comment on above: Lumbar spondylosis ( Primary Dx) Start: 02-01-2024 End: 02-01-2024 ambulatory Shane Ramirez PT Work Phone: [facility] Comment on above: Lumbar spondylosis ( Primary Dx) Start: 01-13-2024 Documentation procedure Mammog gema Coordinator [facility] Department Start: 01-13-2024 Letter encounter Mammography Coordinator [facility] Department Start: 01-13-2024 End: 01-13-2024 Subsequent hospital visit by physician Screen Mammo [facility] Comment on above: Encounter for screen ing mammogram for malignant neoplasm of breast [Z12.31] Start: 01-10-2024 End: 01-10-2024 Patient encounter procedure Raji Dubois MD Work Phone: Orthopaedics Comment on above: Lumbar spondylosis ( Primary Dx); Left hip pain Start: 01-06-2024 Telephone encounter Valentino hutchinson APRN.IMMIGRATION INVESTIGATOR Work Phone: [facility] Comment on above: Results Start: 12-30-2023 End: 12-30-2023 Subsequent hospital visit by physician Xr [facility] Work Phone: Radiology Comment on above: Midline low back jhony n without sciatica, unspecified chronicity [M54.50] Start: 12-30-2023 End: 12-30-2023 Patient encounter procedure Valentino Egan APRN.IMMIGRATION INVESTIGATOR Work Phone: [facility] Comment on above: Midline low back jhony n without sciatica, unspecified chronicity (Primary Dx); Mixed hyperlipidemia; EVE (obstructive sleep apnea) ahi 46; Hyperparathyroidism (HCC); Elevated hemoglobin A1c; Moderate persistent asthma with (acute) exacerbation; Wellness examination; Vitamin D deficiency; Morbid obesity with BMI of 50.0-59.9, adult (HCC) Start: 12-30-2023 End: 12-30-2023 Patient encounter status Valentino Egan APRN.IMMIGRATION INVESTIGATOR Work Phone: [facility] Start: 12-06-2023 Refill Valentino fong APRN.CNP Work Phone: [facility] [place] Comment on above: Refill Request Start: 08-23-2023 End: 08-23-2023 Subsequent hospital visit by physician Xr [facility] [place] Work Phone: Radiology Comment on above: Acute cough [R05.1] Start: 06-28-2023 End: 06-28-2023 Patient encounter procedure Lazaro Rust MD Work Phone: [facility] [place] Comment on above: Well adult exam ([facility] Dx); Mixed hyperlipidemia; Elevated hemoglobin A1c; Hyperparathyroidism (HCC); Mild intermittent asthma without complication; Obesity, Class III, BMI 40-49.9 (morbid obesity) (HCC); EVE (obstructive sleep apnea) ahi 46; Vitamin D deficiency Start: 06-28-2023 End: 06-28-2023 Patient encounter status Lazaro Rust MD Work Phone: [facility] Work Phone: Start: 06-18-2023 Refill Lazaro michael MD Work Phone: [facility] Comment on above: Refill Request (Plea se send RX today, patient is out! this is a copy of the mail order for urgent reuqest to local pharmacy [facility]) Start: 06-11-2023 Refill Lazaro michael MD Work Phone: [facility] [place] Comment on above: Refill Request Start: 05-21-2023 Telephone encounter Lazaro Rust MD Work Phone: [facility] [place] Comment on above: Knee Pain Start: 05-11-2023 Telephone encounter Lazaro Rust MD Work Phone: [facility] [place] Comment on above: Rx not available at pharmacy Start: 01-12-2023 Documentation procedure Mammog gema Coordinator [facility] Start: 01-12-2023 Letter encounter Mammography Coordinator [facility] Department Start: 01-11-2023 End: 01-11-2023 Subsequent hospital visit by physician Screen Mammo [facility] Comment on above: Encounter for screen ing mammogram for malignant neoplasm of breast [Z12.31] Start: 10-02-2022 End: 10-02-2022 Subsequent hospital visit by physician Xr [facility] [place] Work Phone: Radiology Comment on above: Moderate persistent asthma with (acute) exacerbation [J45.41] Start: 10-02-2022 End: 10-02-2022 Patient encounter procedure Valentino Egan APRN.CNP Work Phone: [facility] Comment on above: Moderate persistent asthma with (acute) exacerbation (Primary Dx) Start: 07-29-2022 Refill Lazaro michael MD Work Phone: [facility] Comment on above: Refill Request Start: 06-12-2022 End: 06-12-2022 Patient encounter procedure Lazaro Rust MD Work Phone: [facility] Comment on above: Well adult exam ([facility] Dx); Mild intermittent asthma without complication; Mixed hyperlipidemia; Hyperparathyroidism (HCC); Hyperglycemia; Vitamin D deficiency; EVE (obstructive sleep apnea) ahi 46; Obesity, Class III, BMI 40-49.9 (morbid obesity) (HCC); Elevated hemoglobin A1c Start: 06-12-2022 End: 06-12-2022 Patient encounter status Lazaro Rust MD Work Phone: [facility] [place] Start: 04-28-2022 End: 04-28-2022 Patient encounter procedure Savanah Sahu MD Work Phone: OB/Gynecology Comment on above: Encounter for gyneco logical examination (general) (routine) without abnormal findings (Primary Dx); Encounter for screening mammogram for malignant neoplasm of breast; Need for influenza vaccination Start: 04-28-2022 End: 04-28-2022 Patient encounter status Savanah Sahu MD Work Phone: OB/Gynecology Start: 04-22-2022 ambulatory [facility] Facility:[facility] Start: 04-08-2022 End: 04-08-2022 Admission to [facility] [place] 1 Work Phone: [facility] Start: 04-08-2022 End: 04-08-2022 ambulatory [facility] [place] 1 Work Phone: Pre Anesthesia Comment on above: Pre-operative examin ation (Primary Dx); Screening for colon cancer; Diverticulosis of colon; Mild intermittent asthma without complication; Mixed hyperlipidemia; EVE (obstructive sleep apnea) ahi 46; Hyperparathyroidism (HCC); History of pulmonary embolism Start: 04-08-2022 End: 04-08-2022 Preprocedural examination done [facility] 1 Work Phone: Pre Anesthesia Start: 04-03-2022 Telephone encounter Yaneth Vazquez APRN.CNP Work Phone: Pre Anesthesia Comment on above: Patient Question (Ap pointment clarifications) Start: 03-13-2022 End: 03-13-2022 ambulatory Angelina Quiros MD Work Phone: Endocrine Surgery Comment on above: S/P parathyroidectom y (HCC) (Primary Dx) Start: 03-13-2022 End: 03-13-2022 Telemedicine consultation with patient Angelina Quiros MD Work Phone: [facility] Start: 02-24-2022 Orders Only Nasim Ardon MD, P hD Work Phone: General Surgery Comment on above: Hyperparathyroidism (HCC) (Primary Dx) Start: 02-18-2022 Telephone encounter Lazaro Rust MD Work Phone: [facility] Comment on above: Orders (nebulizer br oken -needs a replacement ) Start: 02-16-2022 End: 02-16-2022 Subsequent hospital visit by physician Xr [facility] [place] Work Phone: Radiology Comment on above: Hyperparathyroidism (HCC) [E21.3] Start: 02-16-2022 End: 02-16-2022 Admission to establishment [facility] [place] 1 Work Phone: [facility] Start: 02-16-2022 End: 02-16-2022 ambulatory [facility] [place] 1 Work Phone: Pre Anesthesia Comment on above: Pre-operative examin ation (Primary Dx); Hyperparathyroidism (HCC); History of pulmonary embolism; Mild intermittent asthma without complication; EVE (obstructive sleep apnea) ahi 46; Mixed hyperlipidemia; Obesity, Class III, BMI 40-49.9 (morbid obesity) (HCC) Start: 02-16-2022 End: 02-16-2022 Preprocedural examination done [facility] [place] 1 Work Phone: Pre Anesthesia Start: 02-03-2022 Telephone encounter Rabia Gupta APRN.CNP Work Phone: Gastroenterology Comment on above: Procedure (Colonosco py) Start: 02-03-2022 End: 02-03-2022 Patient encounter procedure Rabia Gupta APRN.CNP Work Phone: Gastroenterology Comment on above: Screening for colon cancer Start: 01-25-2022 Telephone encounter Riana rose APRN.CNP Work Phone: [facility] Comment on above: Orders Start: 01-08-2022 End: 01-08-2022 Orders Only Angelina Quiros MD Work Phone: Endocrine Surgery Comment on above: Hyperparathyroidism (HCC) (Primary Dx) Primary hyperparathy roidism (HCC) (Primary Dx); Hypercalcemia; Hypercalciuria; Hyperparathyroidism (HCC) pre-ops, MM OR 8/3/2 2 (Parathyroidectomy) Hypercalcemia [E83.5 2] Start: 12-24-2021 End: 12-24-2021 Patient encounter procedure Shantell Seymour MD Work Phone: Endocrinology Comment on above: Hypercalcemia (Prima ry Dx); Hypercalciuria; Hyperparathyroidism (HCC); Vitamin D deficiency Start: 12-24-2021 Documentation procedure Mammog gema Coordinator [facility] Start: 12-24-2021 Letter encounter Mammography Coordinator [facility] Department Start: 12-24-2021 Telephone encounter Aurora marrufo PA-C Work Phone: Family [facility] [place] Comment on above: Results Start: 12-24-2021 End: 12-24-2021 Subsequent hospital visit by physician Screen Mammo [facility] Comment on above: Screening mammogram for breast cancer [Z12.31] Start: 12-16-2021 Telephone encounter Lazaro Rust MD Work Phone: [facility] [place] Comment on above: Medication Question Start: 12-02-2021 End: 12-02-2021 Subsequent hospital visit by physician Bone Density [facility] Work Phone: Radiology Comment on above: Hyperparathyroidism (HCC) [E21.3] Start: 11-20-2021 ambulatory Shantell jay MD Work Phone: Endocrinology Comment on above: Results and next kamran ps Start: 11-20-2021 E-mail encounter fro m caregiver Shantell Seymour MD Work Phone: [facility] Start: 05-07-2021 Patient encounter status Kristy Seymour MD Work Phone: [facility] Work Phone: Start: 04-30-2017 Patient encounter status Kristy Seymour MD Work Phone: [facility] Work Phone: Procedures Date Procedure Procedure Detail Performing Clinician Start: 01-18-2025 PFIZER-BIONTECH COVI D-19 VACCINE AGE 12+ YR (COMIRNATY) Lazaro Rust MD Work Phone: Start: 01-04-2025 Lipid 1996 panel - S bhavna or Plasma Valentino Gandhi MA Start: 06-28-2024 Lipid 1996 panel - S bhavna or Plasma Aurora Muñoz PA-C Work Phone: Start: 04-18-2024 PFIZER-BIONTECH COVI D-19 VACCINE AGE 12+ YR Aurora Muñoz PA-C Work Phone: Start: 01-13-2024 Screening digital br east tomosynthesis bi Savanah Sahu MD Work Phone: Start: 12-30-2023 Radex hips bilateral with pelvis minimum 5 views Valentino Egan SOLAR PANEL TECHNICIAN.IMMIGRATION INVESTIGATOR Work Phone: Start: 12-30-2023 Adult depression scr eening assessment Deanna Trujillo GIMP BUTTONHOLE MACHINE OPERATOR Work Phone: Start: 12-23-2023 Lipid 1995 panel - S bhavna or Plasma Valentino Egan SOLAR PANEL TECHNICIAN.IMMIGRATION INVESTIGATOR Work Phone: Start: 08-23-2023 Radiologic exam ches t 2 views Valentino Egan SOLAR PANEL TECHNICIAN.IMMIGRATION INVESTIGATOR Work Phone: Start: 06-21-2023 Lipid 1996 panel - S bhavna or Plasma Lazaro Rust MD Work Phone: Start: 01-11-2023 End: 01-11-2023 Mammography Savanah comer MD Work Phone: Start: 12-02-2022 Lipid 1996 panel - S bhavna or Plasma Lazaro Rust MD Work Phone: Start: 10-02-2022 Radiologic exam ches t 2 views Valentino Egan APRN.IMMIGRATION INVESTIGATOR Work Phone: Start: 04-28-2022 INFLUENZA VACCINE QUADRIVALENT 6 MO - 64 YRS IM Savanah Sahu MD Work Phone: Start: 04-22-2022 Colonoscopy Savanah Sahu MD Work Phone: Start: 02-16-2022 Radiologic exam ches t 2 views Angelina Quiros MD Work Phone: Start: 01-08-2022 Parathyroid imaging w/tomographic spect & ct Angelina Quiros MD Work Phone: Start: 01-08-2022 Us soft tissue head & neck real time imge docm Angelina Quiros MD Work Phone: Start: 12-24-2021 End: 12-24-2021 Mammography Aurora Steve Work Phone: Start: 12-02-2021 Dxa bone density joseluis dy 1/> sites axial skel Shantell Seymour MD Work Phone: Start: 12-19-2020 Mammography Shantell Seymour MD Work Phone: Start: 09-18-2011 Colonoscopy Shantell Seymour MD Work Phone: Plan of Treatment Date Care Activity Detail Author Start: 04-22-2032 Colonoscopy COLONOSCOPY [facility] Start: 04-22-2032 COLORECTAL CANCER SCREENING COLORECTAL CANCER SCREENING [facility] Start: 01-04-2030 Lipid panel Lipid Screening [facility] Start: 06-28-2029 Lipid panel Lipid Screening [facility] Start: 12-22-2028 Lipid panel Lipid Screening [facility] Start: 06-21-2028 Lipid 1996 panel - Serum or Plasma Lipid Screening [facility] Start: 06-21-2028 Lipid panel Lipid Screening [facility] Start: 05-10-2028 Urine microalbumin profile [facility] Start: 01-05-2028 Diabetes Screening Diabetes Screening [facility] Start: 12-03-2027 Lipid 1996 panel - Serum or Plasma Lipid Screening [facility] Start: 12-03-2027 LIPID SCREEN LIPID SCREEN [facility] Start: 06-28-2027 Diabetes Screening Diabetes Screening [facility] Start: 06-08-2027 LIPID SCREEN LIPID SCREEN [facility] Start: 04-22-2027 Colonoscopy COLONOSCOPY [facility] Start: 04-22-2027 COLORECTAL CANCER SCREENING COLORECTAL CANCER SCREENING [facility] Start: 04-22-2027 Screening for malignant neoplasm of colon [facility] Start: 12-22-2026 Diabetes Screening Diabetes Screening [facility] Start: 11-12-2026 LIPID SCREEN LIPID SCREEN [facility] Start: 06-21-2026 Diabetes Screening Diabetes Screening [facility] Start: 05-07-2026 PNEUMOCOCCAL (3 - PPSV23 if available, else PCV20) PNEUMOCOCCAL (3 - PPSV23 if available, else PCV20) [facility] Start: 05-07-2026 PNEUMOCOCCAL (3 - PPSV23 or PCV20) PNEUMOCOCCAL (3 - PPSV23 or PCV20) [facility] Start: 05-07-2026 Pneumococcal vaccination [facility] Start: 05-07-2026 Pneumococcal Vaccine: 50+ (3 of 3 - PCV20 or PCV21) Pneumococcal Vaccine: 50+ (3 of 3 - PCV20 or PCV21) [facility] Start: 01-24-2026 Screening for malignant neoplasm of breast Mammogram Screening [facility] Start: 01-18-2026 Annual PCP Team Chronic Disease Visit Annual PCP Team Chronic Disease Visit [facility] Start: 12-02-2025 DIABETES SCREEN DIABETES SCREEN [facility] Start: 12-02-2025 Diabetes Screening Diabetes Screening [facility] Start: 09-19-2025 Annual PCP Team Chronic Disease Visit Annual PCP Team Chronic Disease Visit [facility] Start: 08-24-2025 Annual PCP Team Chronic Disease Visit Annual PCP Team Chronic Disease Visit [facility] Start: 08-18-2025 Annual PCP Team Chronic Disease Visit Annual PCP Team Chronic Disease Visit [facility] Start: 07-23-2025 End: 07-23-2025 Patient encounter procedure 07/23/2025 10:40 AM EST Office Visit [facility] [place] [address] [place] [address] [phone] Valentino Egan APRN.IMMIGRATION INVESTIGATOR [address] [place], [place] [phone] Medicare Wellness [facility] [place] Comment on above: Medicare Wellness Start: 07-06-2025 End: 10-05-2025 25-hydroxyvitamin D3 [Mass/volume] in Serum or Plasma VITAMIN D 25 HYDROXY Lab Routine Vitamin D deficiency Expected: 07/06/2025, Expires: 10/05/2025 [facility] Comment on above: Expected: 07/06/2025, Expires: Start: 07-06-2025 End: 10-05-2025 Comprehensive metabolic 2000 panel - Serum or Plasma COMPREHENSIVE METABOLIC PANEL Lab Routine Mixed hyperlipidemia Hyperparathyroidism (HCC) Expected: 07/06/2025, Expires: 10/05/2025 [facility] Comment on above: Expected: 07/06/2025, Expires: Start: 07-06-2025 End: 02-17-2026 DBT Breast - bilateral screening JUSTIN SCREENING W BIANCA Radiology Routine Encounter for screening mammogram for malignant neoplasm of breast Expected: 07/06/2025, Expires: 02/17/2026 [facility] Work Phone: Comment on above: Expected: 07/06/2025, Expires: Start: 07-06-2025 End: 10-05-2025 Hemoglobin A1c in Blood HEMOGLOBIN A1C Lab Routine Elevated hemoglobin A1c Expected: 07/06/2025, Expires: 10/05/2025 [facility] Comment on above: Expected: 07/06/2025, Expires: Start: 07-06-2025 End: 10-05-2025 LIPID PANEL, NONFASTING LIPID PANEL, NONFASTING Lab Routine Mixed hyperlipidemia Expected: 07/06/2025, Expires: 10/05/2025 [facility] Comment on above: Expected: 07/06/2025, Expires: Start: 07-06-2025 End: 10-05-2025 Urinalysis complete panel - Urine URINALYSIS, WITH MICROSCOPIC Lab Routine Mixed hyperlipidemia Expected: 07/06/2025, Expires: 10/05/2025 [facility] Comment on above: Expected: 07/06/2025, Expires: Start: 06-08-2025 DIABETES SCREEN DIABETES SCREEN [facility] Start: 04-18-2025 Annual PCP Team Chronic Disease Visit Annual PCP Team Chronic Disease Visit [facility] Start: 03-26-2025 Influenza vaccination Influenza Vaccine (#1) [facility] Start: 01-18-2025 End: 02-17-2026 DBT Breast - bilateral screening JUSTIN SCREENING W BIANCA Radiology Routine Encounter for screening mammogram for malignant neoplasm of breast Expected: 01/18/2025, Expires: 02/17/2026 [facility] Comment on above: Expected: 01/18/2025, Expires: Start: 01-18-2025 End: 01-18-2025 Patient encounter procedure 01/18/2025 11:00 AM EDT Office Visit [facility] [address] [place], [place] [address] Lazaro Rust MD [address] [place] [address] [place] [address] 6 month f/u [facility] Comment on above: 6 month f/u Start: 01-12-2025 Screening for malignant neoplasm of breast Mammogram Screening [facility] Start: 01-12-2025 End: 01-12-2025 Patient encounter procedure [facility] Comment on above: 6 month f/u Start: 12-29-2024 Annual PCP Team Chronic Disease Visit Annual PCP Team Chronic Disease Visit [facility] Start: 12-29-2024 Anxiety Screening Anxiety Screening [facility] Start: 12-29-2024 Depression Screening Depression Screening [facility] Start: 11-12-2024 DIABETES SCREEN DIABETES SCREEN [facility] Start: 10-16-2024 Covid-19 Vaccine () Covid-19 Vaccine () [facility] Start: 08-23-2024 Annual PCP Team Chronic Disease Visit Annual PCP Team Chronic Disease Visit [facility] Start: 2024 Advance Directive Discussion Advance Directive Discussion [facility] Start: 07-26-2024 Medicare Advantage Annual Wellness Visit Medicare Advantage Annual Wellness Visit [facility] Start: 07-01-2024 End: 07-01-2024 Patient encounter procedure 07/01/2024 8:00 AM EST Office Visit [facility] [address] [place] [address] Lazaro Rust MD [address] [place] [address] physical [facility] Comment on above: physical Start: 06-28-2024 End: 09-27-2024 25-hydroxyvitamin D3 [Mass/volume] in Serum or Plasma VITAMIN D 25 HYDROXY Lab Routine Vitamin D deficiency Expected: 06/28/2024, Expires: 09/27/2024 [facility] Comment on above: Expected: 06/28/2024, Expires: Start: 06-28-2024 Annual PCP Team Chronic Disease Visit Annual PCP Team Chronic Disease Visit [facility] Start: 06-28-2024 End: 09-27-2024 CBC W Auto Differential panel - Blood COMPLETE BLOOD COUNT AND DIFFERENTIAL Lab Routine Wellness examination Expected: 06/28/2024, Expires: 09/27/2024 [facility] Comment on above: Expected: 06/28/2024, Expires: Start: 06-28-2024 End: 09-27-2024 Comprehensive metabolic 2000 panel - Serum or Plasma COMPREHENSIVE METABOLIC PANEL Lab Routine Wellness examination Expected: 06/28/2024, Expires: 09/27/2024 [facility] Comment on above: Expected: 06/28/2024, Expires: Start: 06-28-2024 End: 09-27-2024 Hemoglobin A1c in Blood HEMOGLOBIN A1C Lab Routine Elevated hemoglobin A1c Expected: 06/28/2024, Expires: 09/27/2024 [facility] Comment on above: Expected: 06/28/2024, Expires: Start: 06-28-2024 End: 09-27-2024 LIPID PANEL, NONFASTING LIPID PANEL, NONFASTING Lab Routine Mixed hyperlipidemia Expected: 06/28/2024, Expires: 09/27/2024 [facility] Comment on above: Expected: 06/28/2024, Expires: Start: 06-28-2024 RSV Vaccine (1 - 1-dose 60+ series) RSV Vaccine (1 - 1-dose 60+ series) [facility] Comment on above: Postponed from 2019 (Insurance Cov erage) Start: 06-28-2024 RSV Vaccine (1 - Risk 60-74 years 1-dose series) RSV Vaccine (1 - Risk 60-74 years 1-dose series) [facility] Comment on above: Postponed from 2019 (Insurance Cov erage) Start: 06-28-2024 End: 09-27-2024 Urinalysis complete panel - Urine URINALYSIS, WITH MICROSCOPIC Lab Routine Wellness examination Expected: 06/28/2024, Expires: 09/27/2024 [facility] Comment on above: Expected: 06/28/2024, Expires: Start: 06-28-2024 End: 06-28-2024 ambulatory 06/28/2024 7:15 AM EST [facility] [address] [place] [address] [facility] Start: 03-26-2024 Covid-19 Vaccine ( season) Covid-19 Vaccine ( season) [facility] Start: 03-26-2024 Influenza vaccination Influenza Vaccine (#1) [facility] Start: 02-28-2024 End: 02-28-2024 ambulatory 02/28/2024 4:15 PM EDT OT/PT/Speech Visit [facility] [address] [place] [address] Shane Ramirez, PT [address] [place] [address] Lumbar spondylosis [M47.816] [facility] Comment on above: Lumbar spondylosis [M47.816] Start: 02-21-2024 End: 02-21-2024 ambulatory 02/21/2024 2:45 PM EDT OT/PT/Speech Visit [facility] [address] [place] [address] Deanna Trujillo, [employer]TON[employer] MACHINE OPERATOR [address] [place] [address] Lumbar spondylosis [M47.816] [facility] Comment on above: Lumbar spondylosis [M47.816] Start: 02-09-2024 End: 02-09-2024 Follow-up encounter 02/09/2024 4:30 PM EDT OT/PT/Speech Visit [facility] [address] [place] [address] Deanna Trujillo, G[employer] MACHINE OPERATOR [address] [place] [address] follow up [facility] Comment on above: follow up Start: 02-02-2024 End: 02-02-2024 Nutrition therapy 02/02/2024 10:15 AM EDT [facility] [address] [place] [address] Jorge Luis Jones, RD [address] [place] [address] [facility] Comment on above: Menu and a1c Start: 02-01-2024 End: 02-01-2024 ambulatory 02/01/2024 7:00 AM EDT OT/PT/Speech Visit [facility] [address] [place] [address] Shane Ramirez, PT [address] [place] [address] Lumbar spondylosis [M47.816] [facility] Comment on above: Lumbar spondylosis [M47.816] Start: 01-13-2024 End: 01-13-2024 Patient encounter procedure 01/13/2024 9:30 AM EDT Appointment Mammogram [address] [place] [address] Mammogram Start: 01-12-2024 Mammography [facility] Start: 01-12-2024 Screening for malignant neoplasm of breast Mammogram Screening [facility] Start: 01-10-2024 End: 01-10-2024 Patient encounter procedure 01/10/2024 2:15 PM EDT Office Visit Orthopaedics [address] [place] [address] Raji Dubois MD [address] [place] [address] Left hip pain [M25.552] Orthopaedics Comment on above: Left hip pain [M25.552] Start: 12-30-2023 End: 12-30-2023 Patient encounter procedure 12/30/2023 11:00 AM EDT Office Visit [facility] [place] [address] [place], [place] [address] [address] Valentino Egan APRN.[facility] [address] [place] [address] 6 month follow up [facility] [place] Comment on above: 6 month follow up Start: 12-17-2023 End: 03-17-2024 Hemoglobin A1c in Blood HGB A1C Lab Routine Elevated hemoglobin A1c Expected: 12/17/2023, Expires: 03/17/2024 [facility] Work Phone: Comment on above: Expected: 12/17/2023, Expires: Start: 12-17-2023 End: 03-17-2024 LIPID PANEL, NONFASTING LIPID PANEL, NONFASTING Lab Routine Mixed hyperlipidemia Expected: 12/17/2023, Expires: 03/17/2024 [facility] Work Phone: Comment on above: Expected: 12/17/2023, Expires: Start: 12-11-2023 ANNUAL PCP TEAM CHRONIC DISEASE VISIT ANNUAL PCP TEAM CHRONIC DISEASE VISIT [facility] Start: 10-03-2023 ANNUAL PCP TEAM CHRONIC DISEASE VISIT ANNUAL PCP TEAM CHRONIC DISEASE VISIT [facility] Start: 07-26-2023 Behavioral Health Screening Behavioral Health Screening [facility] Start: 07-25-2023 Depression Assessment Depression Assessment [facility] Comment on above: Postponed from 07/26/2022 (Declined at t his time) Start: 06-12-2023 ANNUAL PCP TEAM CHRONIC DISEASE VISIT ANNUAL PCP TEAM CHRONIC DISEASE VISIT [facility] Start: 12-24-2022 Mammography MAMMOGRAM [facility] Start: 11-27-2022 End: 01-27-2023 Hemoglobin A1c in Blood HGB A1C Lab Routine Hyperglycemia Expected: 11/27/2022, Expires: 01/27/2023 [facility] Work Phone: Comment on above: Expected: 11/27/2022, Expires: 3 Start: 11-27-2022 End: 01-27-2023 Hepatic function 2000 panel - Serum or Plasma HEPATIC FUNCTION PNL Lab Routine Mixed hyperlipidemia Expected: 11/27/2022, Expires: 01/27/2023 [facility] Work Phone: Comment on above: Expected: 11/27/2022, Expires: 3 Start: 11-27-2022 End: 01-27-2023 LIPID PANEL, NONFASTING LIPID PANEL, NONFASTING Lab Routine Mixed hyperlipidemia Expected: 11/27/2022, Expires: 01/27/2023 [facility] Work Phone: Comment on above: Expected: 11/27/2022, Expires: 3 Start: 11-17-2022 ANNUAL PCP TEAM CHRONIC DISEASE VISIT ANNUAL PCP TEAM CHRONIC DISEASE VISIT [facility] Start: 09-09-2022 End: 10-09-2022 25-hydroxyvitamin D3 [Mass/volume] in Serum or Plasma VITAMIN D 25 HYDROXY Lab Routine S/P parathyroidectomy ([facility]) Expected: 09/09/2022, Expires: 10/09/2022 [facility] Work Phone: Comment on above: Expected: 09/09/2022, Expires: 3 Start: 09-09-2022 End: 10-09-2022 Calcium [Mass/volume] in Serum or Plasma CALCIUM TOTAL BLD Lab Routine S/P parathyroidectomy ([facility]) Expected: 09/09/2022, Expires: 10/09/2022 [facility] Work Phone: Comment on above: Expected: 09/09/2022, Expires: 3 Start: 09-09-2022 End: 10-09-2022 Parathyrin.intact [Mass/volume] in Serum or Plasma PTH INTACT BLD Lab Routine S/P parathyroidectomy ([facility]) Expected: 09/09/2022, Expires: 10/09/2022 [facility] Work Phone: Comment on above: Expected: 09/09/2022, Expires: 3 Start: 07-26-2022 DEPRESSION ASSESSMENT DEPRESSION ASSESSMENT [facility] Start: 03-26-2022 Influenza vaccination INFLUENZA (#1) [facility] Start: 02-25-2022 End: 02-26-2022 US THYROID/PARATHYROID (POC) ENDO USE ONLY US THYROID/PARATHYROID (POC) ENDO USE ONLY Imaging Diagnostic Routine Hyperparathyroidism (HCC) Expected: 02/25/2022, Expires: 02/26/2022 [facility] Work Phone: Comment on above: Expected: 02/25/2022, Expires: 2 Start: 02-22-2022 End: 01-08-2023 SARS-CoV-2 (COVID-19) RNA [Presence] in Respiratory specimen by LUIS E with probe detection PRE-PROCEDURE & PRE-OPERATIVE COVID Microbiology Routine Hyperparathyroidism (HCC) Expected: 02/22/2022, Expires: 01/08/2023 [facility] Work Phone: Comment on above: Expected: 02/22/2022, Expires: 3 Start: 01-23-2022 COVID-19 VACCINE (5 - Booster for Pfizer series) COVID-19 VACCINE (5 - Booster for Pfizer series) [facility] Start: 01-08-2022 End: 01-08-2023 CBC W Auto Differential panel - Blood CBC + DIFF Lab Routine Hyperparathyroidism (HCC) Expected: 01/08/2022, Expires: 01/08/2023 [facility] Work Phone: Comment on above: Expected: 01/08/2022, Expires: 3 Start: 12-24-2021 End: 02-23-2022 CALCIUM IONIZED B [facility] Work Phone: Comment on above: Expected: 12/24/2021, Expires: 2 Start: 12-24-2021 End: 02-23-2022 PTH INTACT BLD [facility] Work Phone: Comment on above: Expected: 12/24/2021, Expires: 2 Start: 12-24-2021 End: 02-23-2022 Renal function 2000 panel - Serum or Plasma [facility] Work Phone: Comment on above: Expected: 12/24/2021, Expires: 2 Start: 12-24-2021 End: 02-23-2022 VITAMIN D 25 HYDROXY [facility] Work Phone: Comment on above: Expected: 12/24/2021, Expires: 2 Start: 12-24-2021 End: 02-23-2022 VITAMIN D1 25-DIHYDR [facility] Work Phone: Comment on above: Expected: 12/24/2021, Expires: 2 Start: 12-19-2021 Mammography MAMMOGRAM [facility] Start: 09-18-2021 Colonoscopy COLONOSCOPY [facility] Start: 09-18-2021 COLORECTAL CANCER SCREENING COLORECTAL CANCER SCREENING [facility] Start: 08-29-2021 COVID-19 VACCINE (4 - Booster for Pfizer series) COVID-19 VACCINE (4 - Booster for Pfizer series) [facility] Start: 07-26-2021 DEPRESSION ASSESSMENT DEPRESSION ASSESSMENT [facility] Start: 06-03-2020 FECAL OCCULT BLOOD FECAL OCCULT BLOOD [facility] Start: 06-03-2020 Screening for malignant neoplasm of colon Fecal Occult Blood [facility] Start: 2019 RSV Vaccine (1 - 1-dose 60+ series) RSV Vaccine (1 - 1-dose 60+ series) [facility] Start: 2004 COLOGUARD (FIT-DNA) COLOGUARD (FIT-DNA) [facility] Start: [address] COLONOGRAPHY [facility] Start: 2004 Screening for malignant neoplasm of colon [facility] Start: 2004 SIGMOIDOSCOPY SIGMOIDOSCOPY [facility] COVID & INFLUENZA A/ B & RSV PCR, ROUTINE COVID & INFLUENZA A/B & RSV PCR, ROUTINE Microbiology Routine Lower respiratory infection URI, acute Ordered: 08/18/2024 [facility] Work Phone: Comment on above: Ordered: 08/18/2024 COVID & INFLUENZA A/ B & RSV PCR, ROUTINE COVID & INFLUENZA A/B & RSV PCR, ROUTINE Microbiology Routine URI, acute Acute cough Ordered: 09/19/2024 [facility] Work Phone: Comment on above: Ordered: 09/19/2024 DBT Breast - bilater al screening JUSTIN SCREENING W BIANCA Radiology Routine Encounter for screening mammogram for malignant neoplasm of breast 01/24/2025 10:06 AM EDT [facility] Work Phone: End: 12-20-2022 Dxa bone density study 1/> sites axial skel DXA-AXIAL SKELETON Radiology Routine Hyperparathyroidism (HCC) Hypercalcemia Hypercalciuria 1 Occurrences starting 11/20/2021 until 12/20/2022 [facility] Work Phone: Comment on above: 1 Occurrences starting 11/20/2021 until 12/20/2022 End: 12-20-2022 Dxa bone density study 1/>sites appendiclr skel DXA-FOREARM [facility]KE[facility] Radiology Routine Hyperparathyroidism (HCC) Hypercalcemia Hypercalciuria 1 Occurrences starting 11/20/2021 until 12/20/2022 [facility] Work Phone: Comment on above: 1 Occurrences starting 11/20/2021 until 12/20/2022 End: 01-08-2023 ECG COMPLETE ECG COMPLETE ECG Routine Hyperparathyroidism (HCC) 1 Occurrences starting 01/08/2022 until 01/08/2023 [facility] Work Phone: Comment on above: 1 Occurrences starting 01/08/2022 until 01/08/2023 End: 05-28-2023 JUSTIN SCREENING W BIANCA JUSTIN SCREENING W BIANCA Radiology Routine Encounter for screening mammogram for malignant neoplasm of breast 1 Occurrences starting 04/28/2022 until 05/28/2023 [facility] Work Phone: Comment on above: 1 Occurrences starting 04/28/2022 until 05/28/2023 End: 01-08-2023 Radiologic exam chest 2 views XR CHEST 2V FRONTAL/LAT Radiology Routine Hyperparathyroidism (HCC) 1 Occurrences starting 01/08/2022 until 01/08/2023 [facility] Work Phone: Comment on above: 1 Occurrences starting 01/08/2022 until 01/08/2023 REFER FOR ADMIT INTERVIEW REFER FOR ADMIT INTERVIEW Procedures Routine Hyperparathyroidism (HCC) Ordered: 01/08/2022 [facility] Work Phone: Comment on above: Ordered: 01/08/2022 End: 02-03-2023 Screening colonoscopy COLONOSCOPY SCREENING Endoscopy Routine Screening for colon cancer 1 Occurrences starting 02/03/2022 until 02/03/2023 [facility] Work Phone: Comment on above: 1 Occurrences starting 02/03/2022 until 02/03/2023 End: 01-28-2025 XR HIP BILATERAL 5V PEL/AP/LAT EACH HIP XR HIP BILATERAL 5V PEL/AP/LAT EACH HIP Radiology Routine Midline low back pain without sciatica, unspecified chronicity 1 Occurrences starting 12/30/2023 until 01/28/2025 [facility] Comment on above: 1 Occurrences starting 12/30/2023 until 01/28/2025 XR HIP BILATERAL 5V PEL/AP/LAT EACH HIP XR HIP BILATERAL 5V PEL/AP/LAT EACH HIP Radiology Routine Midline low back pain without sciatica, unspecified chronicity 12/30/2023 11:52 AM EDT [facility] End: 01-28-2025 XR Lumbar spine AP and Lateral and oblique XR LUMBAR PARS DEFECT 4V AP/LAT/BOTH OBL Radiology Routine Midline low back pain without sciatica, unspecified chronicity 1 Occurrences starting 12/30/2023 until 01/28/2025 [facility] Work Phone: Comment on above: 1 Occurrences starting 12/30/2023 until 01/28/2025 XR Lumbar spine AP a nd Lateral and oblique XR LUMBAR PARS DEFECT 4V AP/LAT/BOTH OBL Radiology Routine Midline low back pain without sciatica, unspecified chronicity 12/30/2023 11:52 AM EDT [facility] Immunizations Immunization Date Immunization Notes Care Provider Anne Marie [facility] 01-18-2025 COVID-19 vaccine, ag e 12+ yr ([employer] COMIRNATY) Lazaro Rust MD Work Phone: [facility] 06-26-2024 respiratory syncytia l virus (RSV) vaccine, adjuvanted (AREXVY) Aurora Muñoz PA-C Work Phone: [facility] 04-18-2024 COVID-19 vaccine, ag e 12+ yr ([employer]) Aurora Muñoz PA-C Work Phone: [facility] 04-18-2024 influenza, seasonal, injectable Aurora Muñoz PA-C Work Phone: [facility] 04-18-2024 influenza virus vacc ine, unspecified formulation Screen Wstr [facility] 04-19-2023 COVID-19 vaccine, ag e 12+ yr, season ([employer]) Lazaro Rust MD Work Phone: [facility] 04-19-2023 influenza, injectabl e, quadrivalent, preservative free Lazaro Rust MD Work Phone: [facility] 04-19-2023 influenza virus vacc ine, unspecified formulation Shane James PT Work Phone: [facility] 04-28-2022 influenza, injectabl e, quadrivalent, contains preservative Savanah Sahu MD Work Phone: [facility] 05-07-2021 pneumococcal polysaccharide vaccine, 23 valent Shantell Seymour MD Work Phone: [facility] 05-07-2021 zoster vaccine recombinant Shantell Seymour MD Work Phone: [facility] 04-28-2021 COVID-19 vaccine, ag e 12+ yr (PFIZER-BIONTECH - PURPLE TOP) Shantell Seymour MD Work Phone: [facility] 04-11-2021 influenza, injectabl e, quadrivalent, contains preservative Shantell Seymour MD Work Phone: [facility] 04-11-2021 influenza, seasonal, injectable Shantell Semyour MD Work Phone: [facility] 10-31-2020 zoster vaccine recombinant Shantell Seymour MD Work Phone: [facility] 09-07-2020 COVID-19 vaccine, ag e 12+ yr (PFIZER-BIONTECH - PURPLE TOP) Shantell Seymour MD Work Phone: [facility] 08-19-2020 COVID-19 vaccine, ag e 12+ yr (PFIZER-BIONTECH - PURPLE TOP) Shantell Seymour MD Work Phone: [facility] 05-01-2020 influenza, injectabl e, quadrivalent, contains preservative Shantell Seymour MD Work Phone: [facility] 05-10-2018 pneumococcal conjuga te vaccine, 13 valent Shatnell Seymour MD Work Phone: [facility] 05-10-2018 tetanus toxoid, redu angy diphtheria toxoid, and acellular pertussis vaccine, adsorbed Shantell Seymour MD Work Phone: [facility] 05-24-2017 influenza, high dose seasonal, preservative-free Shantell Seymour MD Work Phone: [facility] Work Phone: 05-04-2016 influenza, seasonal, injectable Shantell Seymour MD Work Phone: [facility] 09-19-2014 pneumococcal polysaccharide vaccine, 23 valent Shantell Seymour MD Work Phone: [facility] 04-23-2008 tetanus toxoid, redu angy diphtheria toxoid, and acellular pertussis vaccine, adsorbed Shantell Seymour MD Work Phone: [facility] 04-25-2006 influenza virus vacc ine, unspecified formulation Shantell Seymour MD Work Phone: [facility] Work Phone: 05-02-1998 tetanus and diphther ia toxoids, adsorbed, preservative free, for adult use (2 Lf of tetanus toxoid and 2 Lf of diphtheria toxoid) Shantell Seymour MD Work Phone: [facility] Work Phone: Payers Date Payer Category Payer Medicare AETNA MEDICARE A ETNA MEDICARE PPO [id number] 2024-Present [phone] [address] [place] [address] PPO [id number] 2024 Medicare (Managed Care) [place] [place] [id number] 2024 Medicare [id number] 2024 Self-pay 2022 Private Health Insurance [id number] 2021 Private Health Insurance AETNA A ETNA CHOICE POS II [id number] 2021-Present [phone] [address] [place] [address] POS [id number] 2021 Private Health Insurance [id number] 2021 Private Health Insurance [id number] Unknown [id number] Social History Date Type Detail Facility Start: 06-29-2011 End: 04-08-2022 Tobacco smoking status UTIS Never smoked tobacco [facility] Work Phone: Start: 11-17-2021 End: 01-18-2025 Alcohol intake Current drinker of alcohol (finding) [facility] Start: 1960 Sex Assigned At Not on file [facility] Start: 11-07-2021 End: 06-12-2022 Exposure to SARS-CoV-2 (event) Not sure [facility] Start: 06-29-2011 End: 04-08-2022 Tobacco use and exposure Smokeless tobacco non-user [facility] Work Phone: Start: 06-09-2022 End: 12-04-2022 History SDOH Alcohol Frequency 2 [facility] Start: 06-09-2022 End: 12-04-2022 History SDOH Alcohol Std Drinks 1 [facility] Start: 06-09-2022 History SDOH Social Connections Phone 5 [facility] Start: 06-09-2022 End: 12-04-2022 History SDOH Social Connections Meetings 98 [facility] Start: 06-09-2022 End: 12-04-2022 History SDOH Social Connections Living 3 [facility] Start: 12-04-2022 End: 04-18-2024 History of Social function [facility] Start: 12-04-2022 End: 04-18-2024 Social connection and isolation panel [facility] In a typical week, h ow many times do you talk on the telephone with family, friends, or neighbors? Patient refused [facility] Do you belong to any clubs or organizations such as jainism groups, unions, [employer] or athletic groups, or school groups? No [facility] Are you now , , , , never or living with a partner? [facility] How often to you hav e a drink containing alcohol? 2-4 times a month [facility] How often do you hav e 6 or more drinks on 1 occasion? Never [facility] Do you feel stress - tense, restless, nervous, or anxious, or unable to sleep at night because your mind is troubled all the time - these days [OSQ] Only a little [facility] (I/We) worried wheth er (my/our) food would run out before (I/we) got money to buy more. DK or Refused [facility] How often to you hav e a drink containing alcohol? Monthly or less [facility] How many standard dr inks containing alcohol do you have on a typical day? 1 or 2 [facility] (I/We) worried wheth er (my/our) food would run out before (I/we) got money to buy more. Never true [facility] Functional Status Date Assessment Result Facility 02-26-2022 Are you deaf, or do you have serious difficulty hearing No 02/26/2022 11:18 AM Paz Montes RN No [facility] 02-26-2022 Are you blind, or do you have serious difficulty seeing, even when wearing glasses No 02/26/2022 11:18 AM EDT Paz Rendon RN No [facility] 02-26-2022 Do you have serious difficulty walking or climbing stairs No 02/26/2022 11:18 AM EDT Paz Rendon RN No [facility] 02-26-2022 Do you have difficul ty dressing or bathing No 02/26/2022 11:18 AM EDT Paz Rendon RN No [facility] 02-26-2022 Because of a physica l, mental, or emotional condition, do you have difficulty doing errands alone such as visiting a physician's office or shopping No 02/26/2022 11:18 AM EDT Paz Rendon RN No [facility] Mental Status Date Assessment Result Facility 02-26-2022 Because of a physica l, mental, or emotional condition, do you have serious difficulty concentrating, remembering, or making decisions No 02/26/2022 11:18 AM EDT Paz Rendon RN No [facility] Clinical Notes 10-08-2015 to 01-29-2025 Telephone Encounter - Charley George MA - 01/29/2025 12:55 PM EDTTelephone Encounter - Charley George MA - 01/29/2025 12:55 PM Toña Baig Mammo Tech - 01/24/2025 9:30 AM EDT Note Date & Type Note Facility 01-29-2025 Telephone encounter Note Pt notified and verbalized understanding Charley George MA [facility] 01-29-2025 Miscellaneous Notes Pt notified and verbalized understanding Charley George MA Please let patient know her mammogram is negative. Patient should continue with annual screenings. documented in this encounter [facility] 01-29-2025 Telephone encounter Note Please let patient know her mammogram is negative. Patient should continue with annual screenings. [facility] 01-24-2025 History of Present illness Narrative Radiology Service Progress Note PATIENT NAME: Amina Morales DATE OF SERVICE: January 24, 2025 TIME: 10:08 AM PATIENT IDENTITY VERIFICATION COMPLETED USING TWO (2) IDENTIFIERS: Name and Date of confirmed by patient verbally. FALL SCREENING: Has the patient had 2 falls in the last year or 1 fall with injury or currently using an Ambulatory Assistive Device (Walker, Cane, Wheelchair, Crutches, etc.)? No PATIENT GENDER DATA: Assigned female at . status: : No status: NO. PATIENT RELEVANT IMPLANT DATA REVIEWED: Not Applicable PATIENT PRESENTS WITH AN IMPLANTABLE OR ATTACHED DOPE WORKER: No RADIOLOGY DEPARTMENT: Mammography PERIPHERAL IV DATA: Not applicable SIGNED BY: Teena Farmer January 24, 2025 10:08 AM documented in this encounter [facility] 01-24-2025 Note HNO ID: [id number] Author: TOÑA DU Mammo Tech Service: ? Author Type: Records And Information Manager Type: Progress Notes Filed: 01/24/2025 10:09 Note Text: Radiology Service Progress Note PATIENT NAME: Amina Morales DATE OF SERVICE: January 24, 2025 TIME: 10:08 AM PATIENT IDENTITY VERIFICATION COMPLETED USING TWO (2) IDENTIFIERS: Name and Date of confirmed by patient verbally. FALL SCREENING: Has the patient had 2 falls in the last year or 1 fall with injury or currently using an Ambulatory Assistive Device (Walker, Cane, Wheelchair, Crutches, etc.)? No PATIENT GENDER DATA: Assigned female at . status: : No status: NO. PATIENT RELEVANT IMPLANT DATA REVIEWED: Not Applicable PATIENT PRESENTS WITH AN IMPLANTABLE OR ATTACHED DOPE WORKER: No RADIOLOGY DEPARTMENT: Mammography PERIPHERAL IV DATA: Not applicable SIGNED BY: Toña Du [employer] January 24, 2025 10:08 AM [facility] 01-18-2025 Instructions Lazaro Rust MD - 01/18/2025 11:45 AM EDT Please get labs and urine test done on or after 07/06/2025 prior to your next visit. We discussed your recent lab results: - Your triglycerides were slightly elevated at 185 (goal is below 150). This may be related to dietary fat intake. Please continue to monitor your diet and aim to reduce fat intake. - Your HDL cholesterol (good cholesterol) was 36, which is below the target of 50. Physical activity and exercise are the best ways to improve this level. - Your LDL cholesterol (bad cholesterol) was excellent at 76, improved from 88 previously. - Your A1c was stable at 6.2, indicating you are at risk for diabetes but are not diabetic. Please continue to focus on a healthy diet and regular exercise. We discussed your COVID-19 booster: - You received your COVID-19 booster today. This is recommended due to your age and history of asthma, as your immune system may be less robust. - I still encourage you to get your next booster in the fall, as you have been doing. We discussed your mammogram: - I placed an order for a screening mammogram. The staff will assist you in scheduling this. We discussed your medications: - No changes were made to your current medications. - Your albuterol inhaler should last until the fall. If you find you are running low before your next visit, please send us a message, and we will refill it for you. We discussed your next steps: - I placed an order for labs to be completed before your next physical. - The staff will help schedule your physical for 6 months from now. Please let us know if you have any questions or concerns before your next visit. documented in this encounter [facility] 01-18-2025 Note HNO ID: [id number] Author: LAZARO RUST MD Service: ? Author Type: Physician Type: Progress Notes Filed: 01/18/2025 21:51 Note Text: Chief Complaint Patient presents with: F/U 6 Month HPI Amina Morales is a 64 year old female who presents here today for a routine follow up. Patient with hx of hyperlipidemia, asthma, EVE, hyperparathyroid, elevated A1c, vit d def, obesity and those as below. No specific concerns today. Amina reports no recent fevers, lumps, or swelling in the neck. She experiences wheezing and dyspnea when the weather is hot, but otherwise, her breathing has been good. She denies waking up with dyspnea at night, hemoptysis, chest pain, palpitations, or lower extremity edema. She has not noticed any changes in heat tolerance, increased thirst, syncope, seizures, or tremors. She continues to use her CPAP machine and feels it is beneficial. Amina has not had any changes in her medications recently. She has one albuterol inhaler left, which she believes will last until the fall, and her budesonide and atorvastatin prescriptions were recently refilled. Recent blood work showed triglycerides at 185 mg/dL, HDL cholesterol at 36 mg/dL, LDL cholesterol at 76 mg/dL, and HbA1c at 6.2%. She is interested in receiving a 6-month COVID-19 booster. Past medical history, appointments, medications, allergies reviewed. Previous Medical History PAST MEDICAL HISTORY Diagnosis Date Closed fracture of left humerus Diverticulosis of colon Elevated hemoglobin A1c 10/08/2015 External hemorrhoids History of pulmonary embolism 1993 ? Pulmonary embolism Hyperglycemia 10/08/2015 Hyperparathyroidism ([facility]) 12/02/2020 Internal hemorrhoids Metabolic syndrome 10/08/2015 Mild intermittent asthma without complication ([facility]) 07/21/2013 Mixed hyperlipidemia 10/08/2015 Obesity, Class III, BMI 40-49.9 (morbid obesity) ([facility]) 04/30/2017 EVE (obstructive sleep apnea) ahi 46 09/19/2014 On CPAP, [facility] Phlebitis and thrombophlebitis of unspecified site Plantar fasciitis, bilateral 10/08/2015 Symptomatic menopausal or female climacteric states 05/02/2009 Vitamin D deficiency 12/02/2020 Previous Surgical History PAST SURGICAL HISTORY [facility]/CELL WASHG SPX BRONCHOSCOPY COLONOSCOPY 04/22/2022 repeat in 5 years COLONOSCOPY FLX DX W/COLLJ SPEC WHEN PFRMD 09/18/2011 repeat 10 years HYSTEROSCOPY, DIAGNOSTIC (SEPARATE WITH CURRETAGE IMMUNOCHEMICAL FECAL OCCULT BLOOD TEST 05/01/2017 negative LIG/TRNSXJ FLP TUBE ABDL/VAG APPR UNI/BI Tubal ligation PARATHYROIDECTOMY/EXPLOR PARATHYROIDS RE-EXPLOR 02/2022 PT ED ENDOCRINOLOGY 02/25/2022 Rt: upper and lower, Left Upper. TOTAL ABDOMINAL HYSTERECT W/WO RMVL TUBE OVARY 2004 Hysterectomy, DANIEL UNSPECIFIED ORAL SURGERY PROCEDURE, BY REPORT 08/18/2007 Family History FAMILY HISTORY Problem Relation Age of Onset Lipids Mother High Cholesterol Arthritis Mother Lipids Father High cholesterol Alzheimer's Disease Father Heart Maternal Grandmother Heart Maternal Grandfather Cancer Maternal Grandfather /BONE Heart Paternal Grandmother Heart Paternal Grandfather Hypertension Paternal Grandfather Patient Allergies ALLERGIES No Known Allergies Current Medications Current Outpatient Medications on File Prior to Visit Medication Sig atorvastatin (LIPITOR) 10 mg tablet Take 1 tablet by mouth once daily. budesonide (PULMICORT) 0.5 mg/2 mL nebulizer solution Use 2 mL via nebulizer once daily. Dx: J45.20 albuterol HFA (PROAIR HFA) 90 mcg/actuation inhaler Inhale 2 Puffs as instructed every 6 hours as needed for wheezing/shortness of breath. albuterol (PROVENTIL) 2.5 mg /3 mL (0.083 %) nebulizer solution Use 3 mL via nebulizer every 6 hours as needed for wheezing/shortness of breath. J45.20 Benzonatate 200 mg capsule Take 1 capsule by mouth three times a day as needed. cholecalciferol (VITAMIN D-3) 50 mcg (2,000 unit) tablet Take 1 tablet by mouth once daily. CPAP Mask (per patient preference) optional chin strap (if indicated), filters, tubing / heated tubing, heated humidity and lifetime supplies. Dx. EVE G47.33 327.23 Nebulizer NEBULIZER WITH SUPPLIES IF NEEDED FOR HOME USE. DX: Mild persistent asthma without complication J45.30 COMPOUNDED PRESCRIPTION Nebulizer supplies. Dx. Asthma.J45.909 No current facility-administered medications on file prior to visit. Social History Social History Tobacco Use Smoking status: Never Smokeless tobacco: Never Vaping Use Vaping status: Never Used Substance Use Topics Alcohol use: Yes Comment: Occasionally Drug use: No Review of Symptoms REVIEW OF SYSTEMS GENERAL: No weight loss, malaise or fevers NECK: Negative for lumps, goiter, pain and significant neck swelling RESPIRATORY: Negative for cough, hemoptysis, wheezing, COPD, dyspnea or shortness of breath. Only harder to breath when i (more content not included)... [facility] 01-18-2025 History of Present illness Narrative Chief Complaint Patient presents with: F/U 6 Month HPI Amina Morales is a 64 year old female who presents here today for a routine follow up. Patient with hx of hyperlipidemia, asthma, EVE, hyperparathyroid, elevated A1c, vit d def, obesity and those as below. No specific concerns today. Amina reports no recent fevers, lumps, or swelling in the neck. She experiences wheezing and dyspnea when the weather is hot, but otherwise, her breathing has been good. She denies waking up with dyspnea at night, hemoptysis, chest pain, palpitations, or lower extremity edema. She has not noticed any changes in heat tolerance, increased thirst, syncope, seizures, or tremors. She continues to use her CPAP machine and feels it is beneficial. Amina has not had any changes in her medications recently. She has one albuterol inhaler left, which she believes will last until the fall, and her budesonide and atorvastatin prescriptions were recently refilled. Recent blood work showed triglycerides at 185 mg/dL, HDL cholesterol at 36 mg/dL, LDL cholesterol at 76 mg/dL, and HbA1c at 6.2%. She is interested in receiving a 6-month COVID-19 booster. Past medical history, appointments, medications, allergies reviewed. Previous Medical History PAST MEDICAL HISTORY Diagnosis Date Closed fracture of left humerus Diverticulosis of colon Elevated hemoglobin A1c 10/08/2015 External hemorrhoids History of pulmonary embolism 1993 ? Pulmonary embolism Hyperglycemia 10/08/2015 Hyperparathyroidism (HCC) 12/02/2020 Internal hemorrhoids Metabolic syndrome 10/08/2015 Mild intermittent asthma without complication (HCC) 07/21/2013 Mixed hyperlipidemia 10/08/2015 Obesity, Class III, BMI 40-49.9 (morbid obesity) (HCC) 04/30/2017 EVE (obstructive sleep apnea) ahi 46 09/19/2014 On CPAP, [facility] Phlebitis and thrombophlebitis of unspecified site Plantar fasciitis, bilateral 10/08/2015 Symptomatic menopausal or female climacteric states 05/02/2009 Vitamin D deficiency 12/02/2020 Previous Surgical History PAST SURGICAL HISTORY [facility] DX W/CELL WASHG SPX BRONCHOSCOPY COLONOSCOPY 04/22/2022 repeat in 5 years COLONOSCOPY FLX DX W/COLLJ SPEC WHEN PFRMD 09/18/2011 repeat 10 years HYSTEROSCOPY, DIAGNOSTIC (SEPARATE WITH CURRETAGE IMMUNOCHEMICAL FECAL OCCULT BLOOD TEST 05/01/2017 negative LIG/TRNSXJ FLP TUBE ABDL/VAG APPR UNI/BI Tubal ligation PARATHYROIDECTOMY/EXPLOR PARATHYROIDS RE-EXPLOR 02/2022 PT ED ENDOCRINOLOGY 02/25/2022 Rt: upper and lower, Left Upper. TOTAL ABDOMINAL HYSTERECT W/WO RMVL TUBE OVARY 2004 Hysterectomy, DANIEL UNSPECIFIED ORAL SURGERY PROCEDURE, BY REPORT 08/18/2007 Family History FAMILY HISTORY Problem Relation Age of Onset Lipids Mother High Cholesterol Arthritis Mother Lipids Father High cholesterol Alzheimer's Disease Father Heart Maternal Grandmother Heart Maternal Grandfather Cancer Maternal Grandfather /BONE Heart Paternal Grandmother Heart Paternal Grandfather Hypertension Paternal Grandfather Patient Allergies ALLERGIES No Known Allergies Current Medications Current Outpatient Medications on File Prior to Visit Medication Sig atorvastatin (LIPITOR) 10 mg tablet Take 1 tablet by mouth once daily. budesonide (PULMICORT) 0.5 mg/2 mL nebulizer solution Use 2 mL via nebulizer once daily. Dx: J45.20 albuterol HFA (PROAIR HFA) 90 mcg/actuation inhaler Inhale 2 Puffs as instructed every 6 hours as needed for wheezing/shortness of breath. albuterol (PROVENTIL) 2.5 mg /3 mL (0.083 %) nebulizer solution Use 3 mL via nebulizer every 6 hours as needed for wheezing/shortness of breath. J45.20 Benzonatate 200 mg capsule Take 1 capsule by mouth three times a day as needed. cholecalciferol (VITAMIN D-3) 50 mcg (2,000 unit) tablet Take 1 tablet by mouth once daily. CPAP Mask (per patient preference) optional chin strap (if indicated), filters, tubing / heated tubing, heated humidity and lifetime supplies. Dx. EVE G47.33 327.23 Nebulizer NEBULIZER WITH SUPPLIES IF NEEDED FOR HOME USE. DX: Mild persistent asthma without complication J45.30 COMPOUNDED PRESCRIPTION Nebulizer supplies. Dx. Asthma.J45.909 No current facility-administered medications on file prior to visit. Social History Social History Tobacco Use Smoking status: Never Smokeless tobacco: Never Vaping Use Vaping status: Never Used Substance Use Topics Alcohol use: Yes Comment: Occasionally Drug use: No Review of Symptoms REVIEW OF SYSTEMS GENERAL: No weight loss, malaise or fevers NECK: Negative for lumps, goiter, pain and significant neck swelling RESPIRATORY: Negative for cough, hemoptysis, wheezing, COPD, dyspnea or shortness of breath. Only harder to breath when it has been in the 90's this past week. No nocturnal shortness of breath. CARDIOVASCULAR: Negative for chest pain, leg swelling, hypertension, CHF or palpitations ENDOCRINE: Negative for cold or heat intolerance, polyuria, polydipsia and goiter NEURO: No history of headaches, syncope, paralysis, seizures or tremors SEE HPI EXAM: BP 134/80 (BP Site: Left Arm, BP Position: Sitting, BP Cuff Size: Large Adult) Pulse 76 Resp 18 Last 5 Encounter Wt Readings: Date: Wt: 09/19/2024 152 kg (335 lb) 08/24/2024 149.2 kg (329 lb) 08/18/2024 152 kg (335 lb) 07/11/2024 153.3 kg (338 lb) 04/18/2024 155.1 kg (342 lb) General Appearance: Well appearing, alert, in no acute distress, well-hydrated, well nourished. and Morbidly obese. Neck: Supple, no adenopathy; thyroid symmetric, normal size, no bruits. Lungs: Lungs clear to auscultation. No wheezing, rhonchi, rales.. Heart: RRR without murmur, gallop, or rubs. No ectopy. Abdomen: Normal abdominal exam, Abdomen soft, non-tender. Bowel sounds normal. No masses, organomegaly. Extremities: No deformities, edema, skin discoloration, clubbing or cyanosis. Good capillary refill. . Peripheral Pulses: Normal. Health Maintenance List Medicare Advantage Annual Wellness Visit Never done Advance Directive Discussion Never done Depression Screening due on 12/29/2024 Anxiety Screening due on 12/29/2024 Mammogram Screening due on 01/12/2025 Annual PCP Team Chronic Disease Visit due on 01/18/2026 Colorectal Cancer Screening due on 04/22/2027 Diabetes Screening due on 01/05/2028 DTaP,Tdap,Td Vaccine(3 - Td or Tdap) due on 05/10/2028 Lipid Screening due on 01/04/2030 Bone Density Screening Completed Influenza Vaccine Completed RSV Vaccine Completed Shingrix Vaccine Completed Covid-19 Vaccine Completed Pneumococcal Vaccine: 50+ Completed Cervical Cancer Screening Discontinued Hepatitis C Screening Discontinued HIV Screening Discontinued Data reviewed Latest Ref Rng 06/28/2024 01/04/2025 Total Cholesterol, Nonfasting <200 mg/dL 151 143 Triglycerides, Nonfasting <150 mg/dL 128 185 (H) HDL Cholesterol, Nonfasting >39 mg/dL 37 (L) 36 (L) LDL Cholesterol Calculated, Nonfasting <100 mg/dL 88 76 Non HDL Cholesterol, Nonfasting <130 mg/dL 114 107 VLDL Cholesterol, Nonfasting <30 mg/dL 26 28 Total Chol/HDL Ratio, Nonfasting <5.10 mg/dL 4.08 3.97 LDL/HDL Ratio, Nonfasting <2.54 mg/dL 2.38 2.11 Hemoglobin A1C 4.3 - 5.6 % 6.2 (H) 6.2 (H) Estimated Average Glucose mg/dL 131 131 Assessment and Plan 1. Mixed hyperlipidemia (E78.2) Recent lab results show triglycerides at 185 mg/dL (goal <150 mg/dL), HDL at 36 mg/dL (goal >50 mg/dL), and LDL at 76 mg/dL. Previous triglycerides were 128 mg/dL and LDL was 88 mg/dL. - Encouraged dietary modifications to reduce fat intake. - Advised increasing physical activity to improve HDL levels. - Continue atorvastatin therapy. 2. Elevated hemoglobin A1c (R73.09) Hemoglobin A1c stable at 6.2%, indicating prediabetes but not diabetes. - Continue monitoring diet and exercise. 3. Mild intermittent asthma without complication (HCC) (J45.20) Asthma is well-controlled with current medication regimen. Patient experiences occasional dyspnea in hot weather but no nocturnal symptoms or hemoptysis. - Continue current medications: albuterol and budesonide. - Refill albuterol if needed before the next visit. 4. Hyperparathyroidism (HCC) (E21.3) Status post parathyroidectomy. 5. Obesity, Class III, BMI 40-49.9 (morbid obesity) (HCC) (E66.813) Contributing factor to elevated hemoglobin A1c and hyperlipidemia. - Continue to encourage weight management through diet and exercise. 6. EVE (obstructive sleep apnea) (G47.33) Well-managed with CPAP therapy, which patient finds beneficial. - Continue CPAP use. 7. Vitamin D deficiency (E55.9) 8. Need for vaccination (Z23) Eligible for COVID-19 booster due to age >65 and history of asthma. - Administer COVID-19 booster. - Advised to receive flu and COVID-19 vaccines in the fall. 9. Screening for depression (Z13.31) 10. Encounter for screening examination for other mental health and behavioral disorders (Z13.39) 11. Encounter for screening mammogram for malignant neoplasm of breast (Z12.31) Patient due for screening mammogram. - Ordered screening mammogram and facilitated scheduling. F/u 6 months extensive check CMP, A1c, lipid, UA and Vit D prior. Lazaro Rust MD Recording using [employer] software for draft documentation of the visit was discussed with the patient/authorized dental sales representative; all questions welcomed and answered. Patient/authorized dental sales representative agreed to proceed documented in this encounter [facility] 01-16-2025 Telephone encounter Note Pt r/s for 01/18/25. Debi Boo MA [facility] 01-16-2025 Miscellaneous Notes Pt r/s for 01/18/25. Debi Boo MA Can we help pt get r/s since this was from when Provider was out of the office? Okay with PCP Team. Debi Boo MA Needs routine appt from 01/12/25 rescheduled due to my absence. Can be within the triad. documented in this encounter [facility] 01-15-2025 Telephone encounter Note Can we help pt get r/s since this was from when Provider was out of the office? Okay with PCP Team. Debi Boo MA [facility] 01-15-2025 Telephone encounter Note Needs routine appt from 01/12/25 rescheduled due to my absence. Can be within the triad. [facility] 01-15-2025 Note HNO ID: [id number] Author: VALENTINO GANDHI MA Service: ? 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 Type: Progress Notes Filed: 01/15/2025 11:46 Note Text: POPULATION HEALTH NAVIGATION OUTREACH Action/FYI Patient is on [employer] Work[employer] list for below and needs appointment to address: Medicare Advantage Annual Wellness Visit Advance Directive Discussion Covid-19 Vaccine( season) Depression Screening Anxiety Screening Mammogram Screening Hemoglobin A1C (%) Date Value 01/04/2025 6.2 05/03/2021 5.7 Last 1 Encounter BP Readings: Date: BP: 09/19/2024 126/80 Patient due for: Medicare Annual Wellness Visit - last 07-11-24 Follow up - provider ill from 01-12-25 Breast Cancer Screening MyChart Active: Yes Left message for patient to call back. Sent [employer] message. HCC: Yes Reason for Outreach Care Gap/HCC or Scheduling Wellness Visits Care Gaps due: Medicare Annual Wellness Visit Follow-up Appointment Breast Cancer Screening Patient Contacted: Unable or unnecessary to reach patient: Left message [employer] message sent HCC related Navigation Signature: Valentino Gandhi MA January 15, 2025 11:43 AM [facility] 01-15-2025 History of Present illness Narrative POPULATION HEALTH NAVIGATION OUTREACH Action/ Patient is on [employer] Work[employer] list for below and needs appointment to address: Medicare Advantage Annual Wellness Visit Advance Directive Discussion Covid-19 Vaccine() Depression Screening Anxiety Screening Mammogram Screening Hemoglobin A1C (%) Date Value 01/04/2025 6.2 05/03/2021 5.7 Last 1 Encounter BP Readings: Date: BP: 09/19/2024 126/80 Patient due for: Medicare Annual Wellness Visit - last 07-11-24 Follow up - provider ill from 01-12-25 Breast Cancer Screening [employer] Active: Yes Left message for patient to call back. Sent [employer] message. HCC: Yes Reason for Outreach Care Gap/HCC or Scheduling Wellness Visits Care Gaps due: Medicare Annual Wellness Visit Follow-up Appointment Breast Cancer Screening Patient Contacted: Unable or unnecessary to reach patient: Left message [employer] message sent HCC related Navigation Signature: Valentino Gandhi MA January 15, 2025 11:43 AM documented in this encounter [facility] 01-15-2025 Note Patient Outreach (NE TNAV) AMINA MORALES ([id number]) 1960 F Date Time Provider Department 01/15/25 VALENTINO GANDHIV During your visit today, we recorded the following information about you: Valentino Gandhi MA 01/15/2025 11:46 AM Signed POPULATION HEALTH NAVIGATION OUTREACH Action/I Patient is on [employer] Work[employer] list for below and needs appointment to address: Medicare Advantage Annual Wellness Visit Advance Directive Discussion Covid-19 Vaccine() Depression Screening Anxiety Screening Mammogram Screening Hemoglobin A1C (%) Date Value 01/04/2025 6.2 05/03/2021 5.7 Last 1 Encounter BP Readings: Date: BP: 09/19/2024 126/80 Patient due for: Medicare Annual Wellness Visit - last 07-11-24 Follow up - provider ill from 01-12-25 Breast Cancer Screening MyChart Active: Yes Left message for patient to call back. Sent [employer] message. HCC: Yes Reason for Outreach Care Gap/HCC or Scheduling Wellness Visits Care Gaps due: Medicare Annual Wellness Visit Follow-up Appointment Breast Cancer Screening Patient Contacted: Unable or unnecessary to reach patient: Left message [employer] message sent HCC related Navigation Signature: Valentino Gandhi MA January 15, 2025 11:43 AM Allergies As of Date: 01/15/2025 (No Known Allergies) Date Reviewed: 09/19/2024 Reviewed by: Elly Orourke LPN - Fully Assessed Reason for Visit: Population Health Navigation Outreach [3910] Cmt: Anne[facility] Prescriptions as of 01/15/2025 - atorvastatin (LIPITOR) 10 mg tablet Take 1 tablet by mouth once daily. - budesonide (PULMICORT) 0.5 mg/2 mL nebulizer solution Use 2 mL via nebulizer once daily. Dx: J45.20 - albuterol HFA (PROAIR HFA) 90 mcg/actuation inhaler Inhale 2 Puffs as instructed every 6 hours as needed for wheezing/shortness of breath. - albuterol (PROVENTIL) 2.5 mg /3 mL (0.083 %) nebulizer solution Use 3 mL via nebulizer every 6 hours as needed for wheezing/shortness of breath. J45.20 - Benzonatate 200 mg capsule Take 1 capsule by mouth three times a day as needed. - cholecalciferol (VITAMIN D-3) 50 mcg (2,000 unit) tablet Take 1 tablet by mouth once daily. - CPAP Mask (per patient preference) optional chin strap (if indicated), filters, tubing / heated tubing, heated humidity and lifetime supplies. Dx. EVE G47.33 327.23 - Nebulizer NEBULIZER WITH SUPPLIES IF NEEDED FOR HOME USE. DX: Mild persistent asthma without complication J45.30 - COMPOUNDED PRESCRIPTION Nebulizer supplies. Dx. Asthma.J45.909 Problem List As Of Date 01/15/2025 Noted Resolved Pain in joint, shoulder region [M25.519] 11/17/2006 09/14/2016 Symptomatic menopausal or female climacteric st*05/02/2009 09/14/2016 Mild intermittent asthma without complication [*07/21/2013 Snoring [R06.83] 09/19/2014 09/14/2016 EVE (obstructive sleep apnea) ahi 46 [G47.33] 09/19/2014 RLS (restless legs syndrome) [G25.81] 11/21/2014 03/04/2016 Iron deficiency concern [E61.1] 11/21/2014 03/04/2016 Mixed hyperlipidemia [E78.2] 10/08/2015 Metabolic syndrome [E88.810] 10/08/2015 Plantar fasciitis, bilateral [M72.2] 10/08/2015 09/14/2016 Elevated hemoglobin A1c [R73.09] 10/08/2015 Encounter for gynecological examination without*04/30/2017 Diverticulosis of colon [K57.30] External hemorrhoids [K64.4] Internal hemorrhoids [K64.8] History of pulmonary embolism [Z86.711] Plantar fasciitis, bilateral [M72.2] 10/08/2015 Well adult exam [Z00.00] 04/30/2017 Screening for colon cancer [Z12.11] 04/30/2017 Obesity, Class III, BMI 40-49.9 (morbid obesity*04/30/2017 Hyperparathyroidism (HCC) [E21.3] 12/02/2020 Vitamin D deficiency [E55.9] 12/02/2020 Lumbar spondylosis [M47.816] 02/01/2024 Encounter Status:Closed by VALENTINO GANDHI on 01/15/25 [facility] 12-28-2024 Telephone encounter Note Prescription Refill Information The patient has been identified by name and date of : Yes Caregiver verified no other encounters exist for this prescription request: Yes Caregiver confirmed with patient/requestor that no other refills are due, in the near future, with this provider at this time: Yes The last office visit in the department: 09/19/24 Does the patient have a future office visit with this provider/department: Yes Requested Prescriptions Pending Prescriptions Disp Refills atorvastatin (LIPITOR) 10 mg tablet 90 tablet 3 Elly Orourke LPN December 28, 2024 2:48 PM [facility] 12-28-2024 Miscellaneous Notes Prescription Refill Information The patient has been identified by name and date of : Yes Caregiver verified no other encounters exist for this prescription request: Yes Caregiver confirmed with patient/requestor that no other refills are due, in the near future, with this provider at this time: Yes The last office visit in the department: 09/19/24 Does the patient have a future office visit with this provider/department: Yes Requested Prescriptions Pending Prescriptions Disp Refills atorvastatin (LIPITOR) 10 mg tablet 90 tablet 3 Elly Orourke LPN December 28, 2024 2:48 PM documented in this encounter [facility] 10-20-2024 Note Addended by: ALZARO RUST on: 10/20/2024 01:31 PM Modules accepted: Orders [facility] 10-20-2024 Telephone encounter Note The following approved medication requests have been transmitted electronically. Requested Prescriptions Signed Prescriptions Disp Refills budesonide (PULMICORT) 0.5 mg/2 mL nebulizer solution 180 mL 1 Sig: Use 2 mL via nebulizer once daily. Dx: J45.20 Authorizing Provider: LAZARO RUST MD [facility] 10-20-2024 Miscellaneous Notes Addended by: LAZARO RUST on: 10/20/2024 01:31 PM Modules accepted: Orders The following approved medication requests have been transmitted electronically. Requested Prescriptions Signed Prescriptions Disp Refills budesonide (PULMICORT) 0.5 mg/2 mL nebulizer solution 180 mL 1 Sig: Use 2 mL via nebulizer once daily. Dx: J45.20 Authorizing Provider: LAZARO RUST MD Please see encounters regarding the Budesonide. [facility] needs the Code in order to submit under Medicare part B. Amina asked if you can please submit this to them today. TY documented in this encounter [facility] 10-20-2024 Telephone encounter Note Please see encounters regarding the Budesonide. [facility] needs the Code in order to submit under Medicare part B. Amina asked if you can please submit this to them today. TY [facility] 10-17-2024 Telephone encounter Note The following approved medication requests have been transmitted electronically. Requested Prescriptions Signed Prescriptions Disp Refills budesonide (PULMICORT) 0.5 mg/2 mL nebulizer solution 180 mL 1 Sig: Use 2 mL via nebulizer once daily. Authorizing Provider: LAZARO RUST MD [facility] 10-17-2024 Miscellaneous Notes The following approved medication requests have been transmitted electronically. Requested Prescriptions Signed Prescriptions Disp Refills budesonide (PULMICORT) 0.5 mg/2 mL nebulizer solution 180 mL 1 Sig: Use 2 mL via nebulizer once daily. Authorizing Provider: LAZARO RUST MD per message below [facility] needs [facility] [place]. Specify that it needs to go under the Medicare B Last rx was sent to [facility]. Pt has appointment 01/12/25 RON: 09/19/24 [facility] [place]. Specify that it needs to go under the Medicare B Prescription Refill Information The patient has been identified by name and date of : Yes Caregiver verified no other encounters exist for this prescription request: Yes Caregiver confirmed with patient/requestor that no other refills are due, in the near future, with this provider at this time: Yes The last office visit in the department: 09-19-24 Does the patient have a future office visit with this provider/department: Yes Requested Prescriptions Pending Prescriptions Disp Refills budesonide (PULMICORT) 0.5 mg/2 mL nebulizer solution 180 mL 1 Sig: Use 2 mL via nebulizer once daily. Nazanin Brown October 17, 2024 2:25 PM documented in this encounter [facility] 10-17-2024 Telephone encounter Note per message below [facility] [place] Specify that it needs to go under the Medicare B Last rx was sent to [facility]. Pt has appointment 01/12/25 RON: 09/19/24 [facility] 10-17-2024 Telephone encounter Note [facility] [place]. Specify that it needs to go under the Medicare B [facility] Work Phone: 10-17-2024 Telephone encounter Note Prescription Refill Information The patient has been identified by name and date of : Yes Caregiver verified no other encounters exist for this prescription request: Yes Caregiver confirmed with patient/requestor that no other refills are due, in the near future, with this provider at this time: Yes The last office visit in the department: 09-19-24 Does the patient have a future office visit with this provider/department: Yes Requested Prescriptions Pending Prescriptions Disp Refills budesonide (PULMICORT) 0.5 mg/2 mL nebulizer solution 180 mL 1 Sig: Use 2 mL via nebulizer once daily. Nazanin Brown October 17, 2024 2:25 PM [facility] 10-09-2024 Telephone encounter Note The following approved medication requests have been transmitted electronically. Requested Prescriptions Signed Prescriptions Disp Refills albuterol HFA (PROAIR HFA) 90 mcg/actuation inhaler 3 Each 1 Sig: Inhale 2 Puffs as instructed every 6 hours as needed for wheezing/shortness of breath. Authorizing Provider: AURORA MUÑOZ albuterol (PROVENTIL) 2.5 mg /3 mL (0.083 %) nebulizer solution 300 mL 1 Sig: Use 3 mL via nebulizer every 6 hours as needed for wheezing/shortness of breath. J45.20 Authorizing Provider: AURORA MUÑOZ budesonide (PULMICORT) 0.5 mg/2 mL nebulizer solution 180 mL 1 Sig: Use 2 mL via nebulizer once daily. Authorizing Provider: AURORA MUÑOZ PA-C [facility] 10-09-2024 Miscellaneous Notes The following approved medication requests have been transmitted electronically. Requested Prescriptions Signed Prescriptions Disp Refills albuterol HFA (PROAIR HFA) 90 mcg/actuation inhaler 3 Each 1 Sig: Inhale 2 Puffs as instructed every 6 hours as needed for wheezing/shortness of breath. Authorizing Provider: AURORA MUÑOZ albuterol (PROVENTIL) 2.5 mg /3 mL (0.083 %) nebulizer solution 300 mL 1 Sig: Use 3 mL via nebulizer every 6 hours as needed for wheezing/shortness of breath. J45.20 Authorizing Provider: AURORA MUÑOZ budesonide (PULMICORT) 0.5 mg/2 mL nebulizer solution 180 mL 1 Sig: Use 2 mL via nebulizer once daily. Authorizing Provider: AURORA MUÑOZ PA-C To clarify message below, patient requesting pended scripts be sent to [facility], using her Part B Medicare. Paulina Kulkarni RN Patient called requesting all prescriptions that was sent to [facility] on 10/03 Patient said send it through Medicare Part B Patient can be reached at [phone] Please resend those to [facility] Please advise documented in this encounter [facility] 10-09-2024 Telephone encounter Note To clarify message below, patient requesting pended scripts be sent to [facility], using her Part B Medicare. Paulina Kulkarni RN [facility] 10-06-2024 Telephone encounter Note Patient called requesting all prescriptions that was sent to [facility] on 10/03 Patient said send it through Medicare Part B Patient can be reached at [phone] Please resend those to [facility] Please advise [facility] Work Phone: 10-03-2024 Telephone encounter Note Requesting these be sent to local pharmacy. Looks like [facility] Natasha Garibay MA [facility] 10-03-2024 Miscellaneous Notes Requesting these be sent to local pharmacy. [facility] Natasha Garibay MA Last apt 09-19-2024 Next apt 01-12-2025 Patient has been identified by name and date of : Yes Last office visit in this department: 09/19/2024 RX INSTRUCTIONS: Patient aware RX will be sent to pharmacy. No need to notify patient. Patient phones requesting refills as follows: Requested Prescriptions Pending Prescriptions Disp Refills albuterol (PROVENTIL) 2.5 mg /3 mL (0.083 %) nebulizer solution 300 mL 1 Sig: Use 3 mL via nebulizer every 6 hours as needed for wheezing/shortness of breath. J45.20 albuterol HFA (PROAIR HFA) 90 mcg/actuation inhaler 3 Each 1 Sig: Inhale 2 Puffs as instructed every 6 hours as needed for wheezing/shortness of breath. budesonide (PULMICORT) 0.5 mg/2 mL nebulizer solution 180 mL 1 Sig: Use 2 mL via nebulizer once daily. Please review and advise. Tigist Brown documented in this encounter [facility] 10-03-2024 Telephone encounter Note Last apt 09-19-2024 Next apt 01-12-2025 Patient has been identified by name and date of : Yes Last office visit in this department: 09/19/2024 RX INSTRUCTIONS: Patient aware RX will be sent to pharmacy. No need to notify patient. Patient phones requesting refills as follows: Requested Prescriptions Pending Prescriptions Disp Refills albuterol (PROVENTIL) 2.5 mg /3 mL (0.083 %) nebulizer solution 300 mL 1 Sig: Use 3 mL via nebulizer every 6 hours as needed for wheezing/shortness of breath. J45.20 albuterol HFA (PROAIR HFA) 90 mcg/actuation inhaler 3 Each 1 Sig: Inhale 2 Puffs as instructed every 6 hours as needed for wheezing/shortness of breath. budesonide (PULMICORT) 0.5 mg/2 mL nebulizer solution 180 mL 1 Sig: Use 2 mL via nebulizer once daily. Please review and advise. Tigist Brown [facility] 10-02-2024 Telephone encounter Note Both have been denied with pharmacy benefits D. They are covered under medical benefits part B. Pt notified and [facility]. [facility] 10-02-2024 Miscellaneous Notes Both have been denied with pharmacy benefits D. They are covered under medical benefits part B. Pt notified and [facility]. Electronic PA requested for medicines ordered 09/25/24 for albuterol (proventil) AND budesonide(pulmicort) Patient contacted office and indicated that prior authorization on (2) inhalers. Litzy Morales MA documented in this encounter [facility] 10-02-2024 Telephone encounter Note Electronic PA requested for medicines ordered 09/25/24 for albuterol (proventil) AND budesonide(pulmicort) [facility] 10-02-2024 Telephone encounter Note Patient contacted office and indicated that prior authorization on (2) inhalers. Litzy Morales MA [facility] 10-02-2024 Telephone encounter Note See phone note to prior authorization nurse. Litzy Morales MA [facility] 10-02-2024 Miscellaneous Notes See phone note to prior authorization nurse. Litzy Morales MA documented in this encounter [facility] 09-25-2024 Telephone encounter Note Prescription Refill Information The patient has been identified by name and date of : Yes Caregiver verified no other encounters exist for this prescription request: Yes Caregiver confirmed with patient/requestor that no other refills are due, in the near future, with this provider at this time: Yes The last office visit in the department: 06/2024 Does the patient have a future office visit with this provider/department: Yes Requested Prescriptions Pending Prescriptions Disp Refills albuterol (PROVENTIL) 2.5 mg /3 mL (0.083 %) nebulizer solution 300 mL 1 Sig: Use 3 mL via nebulizer every 6 hours as needed for wheezing/shortness of breath. J45.20 budesonide (PULMICORT) 0.5 mg/2 mL nebulizer solution 180 mL 1 Sig: Use 2 mL via nebulizer once daily. Litzy Morales MA September 25, 2024 2:36 PM [facility] 09-25-2024 Miscellaneous Notes Prescription Refill Information The patient has been identified by name and date of : Yes Caregiver verified no other encounters exist for this prescription request: Yes Caregiver confirmed with patient/requestor that no other refills are due, in the near future, with this provider at this time: Yes The last office visit in the department: 06/2024 Does the patient have a future office visit with this provider/department: Yes Requested Prescriptions Pending Prescriptions Disp Refills albuterol (PROVENTIL) 2.5 mg /3 mL (0.083 %) nebulizer solution 300 mL 1 Sig: Use 3 mL via nebulizer every 6 hours as needed for wheezing/shortness of breath. J45.20 budesonide (PULMICORT) 0.5 mg/2 mL nebulizer solution 180 mL 1 Sig: Use 2 mL via nebulizer once daily. Litzy Morales MA September 25, 2024 2:36 PM Prescription Refill Information The patient has been identified by name and date of : Yes Caregiver verified no other encounters exist for this prescription request: Yes Caregiver confirmed with patient/requestor that no other refills are due, in the near future, with this provider at this time: Yes The last office visit in the department: Does the patient have a future office visit with this provider/department: Yes Requested Prescriptions Pending Prescriptions Disp Refills albuterol (PROVENTIL) 2.5 mg /3 mL (0.083 %) nebulizer solution 300 mL 1 Sig: Use 3 mL via nebulizer every 6 hours as needed for wheezing/shortness of breath. J45.20 budesonide (PULMICORT) 0.5 mg/2 mL nebulizer solution 180 mL 1 Sig: Use 2 mL via nebulizer once daily. Paulina Brown September 25, 2024 2:16 PM documented in this encounter [facility] 09-25-2024 Telephone encounter Note Prescription Refill Information The patient has been identified by name and date of : Yes Caregiver verified no other encounters exist for this prescription request: Yes Caregiver confirmed with patient/requestor that no other refills are due, in the near future, with this provider at this time: Yes The last office visit in the department: Does the patient have a future office visit with this provider/department: Yes Requested Prescriptions Pending Prescriptions Disp Refills albuterol (PROVENTIL) 2.5 mg /3 mL (0.083 %) nebulizer solution 300 mL 1 Sig: Use 3 mL via nebulizer every 6 hours as needed for wheezing/shortness of breath. J45.20 budesonide (PULMICORT) 0.5 mg/2 mL nebulizer solution 180 mL 1 Sig: Use 2 mL via nebulizer once daily. Paulina Brown September 25, 2024 2:16 PM [facility] 09-20-2024 Telephone encounter Note Pt notified of same. Elly Orourke LPN [facility] 09-20-2024 Miscellaneous Notes Pt notified of same. Elly Orourke LPN Neg covid/rsv. Continue as we discussed. documented in this encounter [facility] 09-20-2024 Telephone encounter Note Neg covid/rsv. Continue as we discussed. [facility] 09-19-2024 Note SARS-COV-2 (AGENT OF COVID-19) RNA: Not detected INFLUENZA A RNA: Not detected INFLUENZA B RNA: Not detected RESPIRATORY SYNCYTIAL VIRUS (RSV) RNA: Not detected [facility] Comment on above: Performed By: #### 9 [id number] ####[facility] [id number] [place] [address] [place] 09-19-2024 Note HNO ID: [id number] Author: AURORA MUÑOZ PA-C Service: ? Author Type: Physician Percussion Instrument Repairer Type: Progress Notes Filed: 09/19/2024 08:57 Note Text: Chief Complaint Patient presents with: Follow Up: Having right ear pain, cough HPI Amina Morales is a 64 year old female who presents here today for recheck. Patient tested positive for influenza in July. Was treated for continued bronchitis symptoms with atb. State she was feeling better for a couple weeks. But then 2 days ago she started noting a new cough and fatigue. No fever. +R ear pain +scratchy throat. Past medical history, appointments, medications, allergies reviewed. Previous Medical History PAST MEDICAL HISTORY Diagnosis Date Closed fracture of left humerus Diverticulosis of colon Elevated hemoglobin A1c 10/08/2015 External hemorrhoids History of pulmonary embolism 1993 ? Pulmonary embolism Hyperglycemia 10/08/2015 Hyperparathyroidism (HCC) 12/02/2020 Internal hemorrhoids Metabolic syndrome 10/08/2015 Mild intermittent asthma without complication 07/21/2013 Mixed hyperlipidemia 10/08/2015 Obesity, Class III, BMI 40-49.9 (morbid obesity) (HCC) 04/30/2017 EVE (obstructive sleep apnea) ahi 46 09/19/2014 On CPAP, [facility] Phlebitis and thrombophlebitis of unspecified site Plantar fasciitis, bilateral 10/08/2015 Symptomatic menopausal or female climacteric states 05/02/2009 Vitamin D deficiency 12/02/2020 Previous Surgical History PAST SURGICAL HISTORY Procedure Laterality Date [facility] INCL FLUOR GDNCE DX W/CELL WASHG SPX BRONCHOSCOPY COLONOSCOPY 04/22/2022 repeat in 5 years COLONOSCOPY FLX DX W/COLLJ SPEC WHEN PFRMD 09/18/2011 repeat 10 years FECAL OCCULT BLOOD TEST 05/01/2017 negative HYSTEROSCOPY, DIAGNOSTIC (SEPARATE WITH CURRETAGE LIG/TRNSXJ FLP TUBE ABDL/VAG APPR UNI/BI Tubal ligation PARATHYROIDECTOMY/EXPLOR PARATHYROIDS RE-EXPLOR 02/2022 PT ED ENDOCRINOLOGY 02/25/2022 Rt: upper and lower, Left Upper. TOTAL ABDOMINAL HYSTERECT W/WO RMVL TUBE OVARY 2004 Hysterectomy, DANIEL UNSPECIFIED ORAL SURGERY PROCEDURE, BY REPORT 08/18/2007 Family History FAMILY HISTORY Problem Relation Age of Onset Lipids Mother High Cholesterol Arthritis Mother Lipids Father High cholesterol Alzheimer's Disease Father Heart Maternal Grandmother Heart Maternal Grandfather Cancer Maternal Grandfather /BONE Heart Paternal Grandmother Heart Paternal Grandfather Hypertension Paternal Grandfather Patient Allergies ALLERGIES No Known Allergies Current Medications Current Outpatient Medications on File Prior to Visit Medication Sig budesonide (PULMICORT) 0.5 mg/2 mL nebulizer solution Use 2 mL via nebulizer once daily. albuterol (PROVENTIL) 2.5 mg /3 mL (0.083 %) nebulizer solution Use 3 mL via nebulizer every 6 hours as needed for wheezing/shortness of breath. J45.20 atorvastatin (LIPITOR) 10 mg tablet TAKE 1 TABLET DAILY AT BEDTIME FOR CHOLESTEROL albuterol HFA (PROAIR HFA) 90 mcg/actuation inhaler Inhale 2 Puffs as instructed every 6 hours as needed for wheezing/shortness of breath. cholecalciferol (VITAMIN D-3) 50 mcg (2,000 unit) tablet Take 1 tablet by mouth once daily. CPAP Mask (per patient preference) optional chin strap (if indicated), filters, tubing / heated tubing, heated humidity and lifetime supplies. Dx. EVE G47.33 327.23 Nebulizer NEBULIZER WITH SUPPLIES IF NEEDED FOR HOME USE. DX: Mild persistent asthma without complication J45.30 COMPOUNDED PRESCRIPTION Nebulizer supplies. Dx. Asthma.J45.909 azithromycin (ZITHROMAX) 250 mg tablet Take 1 tablet by mouth as directed. (Patient not taking: Reported on 09/19/2024) Benzonatate 200 mg capsule Take 1 capsule by mouth three times a day as needed. No current facility-administered medications on file prior to visit. Social History Social History Tobacco Use Smoking status: Never Smokeless tobacco: Never Vaping Use Vaping status: Never Used Substance Use Topics Alcohol use: Yes Comment: Occasionally Drug use: No Review of Symptoms REVIEW OF SYSTEMS See hpi EXAM: BP 126/80 (BP Site: Right Arm, BP Position: Sitting, BP Cuff Size: Large Adult) Pulse 69 Temp 36.1 ?C (97 ?F) Resp 18 Wt (!) 152 kg (335 lb) SpO2 96% BMI 51.97 kg/m? General Appearance: Well appearing, alert, in no acute distress, well-hydrated, well nourished.. Ears: R TM red. Left TM wnl. Nose/Sinuses: Nares normal, septum midline, mucosa normal, no drainage or sinus tenderness. Oropharynx: Lips, mucosa, and tongue normal, teeth and gums normal, oropharynx normal. Neck: Supple, no adenopathy; thyroid symmetric, normal size, no bruits. Lungs: Lungs clear to auscultation. No wheezing, rhonchi, rales.. Heart: RRR without murmur, gallop, or rubs. No ectopy. Health Maintenance List Advance Directive Discussion Never done Mammogram Screening due on 01/12/2025 Covid-19 Vaccine( se (more content not included)... [facility] 09-19-2024 History of Present illness Narrative Chief Complaint Patient presents with: Follow Up: Having right ear pain, cough HPI Amina Morales is a 64 year old female who presents here today for recheck. Patient tested positive for influenza in July. Was treated for continued bronchitis symptoms with atb. State she was feeling better for a couple weeks. But then 2 days ago she started noting a new cough and fatigue. No fever. +R ear pain +scratchy throat. Past medical history, appointments, medications, allergies reviewed. Previous Medical History PAST MEDICAL HISTORY Diagnosis Date Closed fracture of left humerus Diverticulosis of colon Elevated hemoglobin A1c 10/08/2015 External hemorrhoids History of pulmonary embolism 1993 ? Pulmonary embolism Hyperglycemia 10/08/2015 Hyperparathyroidism ([facility]) 12/02/2020 Internal hemorrhoids Metabolic syndrome 10/08/2015 Mild intermittent asthma without complication 07/21/2013 Mixed hyperlipidemia 10/08/2015 Obesity, Class III, BMI 40-49.9 (morbid obesity) ([facility]) 04/30/2017 EVE (obstructive sleep apnea) ahi 46 09/19/2014 On CPAP, DME [facility] Phlebitis and thrombophlebitis of unspecified site Plantar fasciitis, bilateral 10/08/2015 Symptomatic menopausal or female climacteric states 05/02/2009 Vitamin D deficiency 12/02/2020 Previous Surgical History PAST SURGICAL HISTORY Procedure Laterality Date [facility] INCL FLUOR GDNCE DX W/CELL WASHG SPX BRONCHOSCOPY COLONOSCOPY 04/22/2022 repeat in 5 years COLONOSCOPY FLX DX W/COLLJ SPEC WHEN PFRMD 09/18/2011 repeat 10 years FECAL OCCULT BLOOD TEST 05/01/2017 negative HYSTEROSCOPY, DIAGNOSTIC (SEPARATE WITH CURRETAGE LIG/TRNSXJ FLP TUBE ABDL/VAG APPR UNI/BI Tubal ligation PARATHYROIDECTOMY/EXPLOR PARATHYROIDS RE-EXPLOR 02/2022 PT ED ENDOCRINOLOGY 02/25/2022 Rt: upper and lower, Left Upper. TOTAL ABDOMINAL HYSTERECT W/WO RMVL TUBE OVARY 2004 Hysterectomy, DANIEL UNSPECIFIED ORAL SURGERY PROCEDURE, BY REPORT 08/18/2007 Family History FAMILY HISTORY Problem Relation Age of Onset Lipids Mother High Cholesterol Arthritis Mother Lipids Father High cholesterol Alzheimer's Disease Father Heart Maternal Grandmother Heart Maternal Grandfather Cancer Maternal Grandfather /BONE Heart Paternal Grandmother Heart Paternal Grandfather Hypertension Paternal Grandfather Patient Allergies ALLERGIES No Known Allergies Current Medications Current Outpatient Medications on File Prior to Visit Medication Sig budesonide (PULMICORT) 0.5 mg/2 mL nebulizer solution Use 2 mL via nebulizer once daily. albuterol (PROVENTIL) 2.5 mg /3 mL (0.083 %) nebulizer solution Use 3 mL via nebulizer every 6 hours as needed for wheezing/shortness of breath. J45.20 atorvastatin (LIPITOR) 10 mg tablet TAKE 1 TABLET DAILY AT BEDTIME FOR CHOLESTEROL albuterol HFA (PROAIR HFA) 90 mcg/actuation inhaler Inhale 2 Puffs as instructed every 6 hours as needed for wheezing/shortness of breath. cholecalciferol (VITAMIN D-3) 50 mcg (2,000 unit) tablet Take 1 tablet by mouth once daily. CPAP Mask (per patient preference) optional chin strap (if indicated), filters, tubing / heated tubing, heated humidity and lifetime supplies. Dx. EVE G47.33 327.23 Nebulizer NEBULIZER WITH SUPPLIES IF NEEDED FOR HOME USE. DX: Mild persistent asthma without complication J45.30 COMPOUNDED PRESCRIPTION Nebulizer supplies. Dx. Asthma.J45.909 azithromycin (ZITHROMAX) 250 mg tablet Take 1 tablet by mouth as directed. (Patient not taking: Reported on 09/19/2024) Benzonatate 200 mg capsule Take 1 capsule by mouth three times a day as needed. No current facility-administered medications on file prior to visit. Social History Social History Tobacco Use Smoking status: Never Smokeless tobacco: Never Vaping Use Vaping status: Never Used Substance Use Topics Alcohol use: Yes Comment: Occasionally Drug use: No Review of Symptoms REVIEW OF SYSTEMS See hpi EXAM: BP 126/80 (BP Site: Right Arm, BP Position: Sitting, BP Cuff Size: Large Adult) Pulse 69 Temp 36.1 C (97 F) Resp 18 Wt (!) 152 kg (335 lb) SpO2 96% BMI 51.97 kg/m General Appearance: Well appearing, alert, in no acute distress, well-hydrated, well nourished.. Ears: R TM red. Left TM wnl. Nose/Sinuses: Nares normal, septum midline, mucosa normal, no drainage or sinus tenderness. Oropharynx: Lips, mucosa, and tongue normal, teeth and gums normal, oropharynx normal. Neck: Supple, no adenopathy; thyroid symmetric, normal size, no bruits. Lungs: Lungs clear to auscultation. No wheezing, rhonchi, rales.. Heart: RRR without murmur, gallop, or rubs. No ectopy. Health Maintenance List Advance Directive Discussion Never done Mammogram Screening due on 01/12/2025 Covid-19 Vaccine( season) due on 10/16/2024 Depression Screening due on 12/29/2024 Anxiety Screening due on 12/29/2024 Annual PCP Team Chronic Disease Visit due on 08/24/2025 Pneumococcal Vaccine: 50+(3 of 3 - PCV20 or PCV21) due on 05/07/2026 Colorectal Cancer Screening due on 04/22/2027 Diabetes Screening due on 06/28/2027 DTaP,Tdap,Td Vaccine(3 - Td or Tdap) due on 05/10/2028 Lipid Screening due on 06/28/2029 Bone Density Screening Completed Influenza Vaccine Completed RSV Vaccine Completed Shingrix Vaccine Completed Spirometry Discontinued Cervical Cancer Screening Discontinued Hepatitis C Screening Discontinued HIV Screening Discontinued Data reviewed ASSESSMENT/PLAN: 1. Acute otitis media, right - ICD9: 382.9, ICD10: H66.91 (primary diagnosis) Start atb and medrol pack Follow up prn 2. URI, acute - ICD9: 465.9, ICD10: J06.9 - COVID & INFLUENZA A/B & RSV PCR, ROUTINE 3. Acute cough - ICD9: 786.2, ICD10: R05.1 As above. - COVID & INFLUENZA A/B & RSV PCR, ROUTINE Aurora Muñoz PA-C documented in this encounter [facility] 08-28-2024 Telephone encounter Note Pt notified of Aurora's message and instructions. Pt verbalizes understanding. Elly Orourke LPN [facility] 08-28-2024 Miscellaneous Notes Pt notified of Aurora's message and instructions. Pt verbalizes understanding. Elly Orourke LPN Ill add a zpack. Continue the duricef. Will also do another round of steroid. But since I just had her on a taper, we are only going to do a burst of 20mg daily x 4 days. Pt calling to report she was seen on and not doing any better. Cough is continuous and yesterday and thru the night face and throat hurting again. Pt was instructed to call back if no better. Pt not sure if ATB needs to be changed and if she needs Prednisone also. Pt denies: fever, abdominal pain,problems breathing, SOB or chest pain. Please review and advise pt. Macarena Reed LPN documented in this encounter [facility] 08-28-2024 Telephone encounter Note Ill add a zpack. Continue the duricef. Will also do another round of steroid. But since I just had her on a taper, we are only going to do a burst of 20mg daily x 4 days. [facility] 08-28-2024 Telephone encounter Note Pt calling to report she was seen on and not doing any better. Cough is continuous and yesterday and thru the night face and throat hurting again. Pt was instructed to call back if no better. Pt not sure if ATB needs to be changed and if she needs Prednisone also. Pt denies: fever, abdominal pain,problems breathing, SOB or chest pain. Please review and advise pt. Macarena Reed LPN [facility] 08-24-2024 Note HNO ID: [id number] Author: AURORA MUÑOZ PA-C Service: ? Author Type: Physician Percussion Instrument Repairer Type: Progress Notes Filed: 08/24/2024 12:56 Note Text: Chief Complaint Patient presents with: Cough HPI Amina Morales is a 64 year old female who presents here today for Above Complaints.. Patient dx with influenza last week. Symptoms improved with exception of cough which patient reports as worse. Cough is keeping her up at night. Has not been productive. No fever. Past medical history, appointments, medications, allergies reviewed. Previous Medical History PAST MEDICAL HISTORY Diagnosis Date Closed fracture of left humerus Diverticulosis of colon Elevated hemoglobin A1c 10/08/2015 External hemorrhoids History of pulmonary embolism 1993 ? Pulmonary embolism Hyperglycemia 10/08/2015 Hyperparathyroidism (HCC) 12/02/2020 Internal hemorrhoids Metabolic syndrome 10/08/2015 Mild intermittent asthma without complication 07/21/2013 Mixed hyperlipidemia 10/08/2015 Obesity, Class III, BMI 40-49.9 (morbid obesity) (HCC) 04/30/2017 EVE (obstructive sleep apnea) ahi 46 09/19/2014 On CPAP, DME [facility] Phlebitis and thrombophlebitis of unspecified site Plantar fasciitis, bilateral 10/08/2015 Symptomatic menopausal or female climacteric states 05/02/2009 Vitamin D deficiency 12/02/2020 Previous Surgical History PAST SURGICAL HISTORY Procedure Laterality Date [facility] INCL FLUOR GDNCE DX W/CELL WASHG SPX BRONCHOSCOPY COLONOSCOPY 04/22/2022 repeat in 5 years COLONOSCOPY FLX DX W/COLLJ SPEC WHEN PFRMD 09/18/2011 repeat 10 years FECAL OCCULT BLOOD TEST 05/01/2017 negative HYSTEROSCOPY, DIAGNOSTIC (SEPARATE WITH CURRETAGE LIG/TRNSXJ FLP TUBE ABDL/VAG APPR UNI/BI Tubal ligation PARATHYROIDECTOMY/EXPLOR PARATHYROIDS RE-EXPLOR 02/2022 PT ED ENDOCRINOLOGY 02/25/2022 Rt: upper and lower, Left Upper. TOTAL ABDOMINAL HYSTERECT W/WO RMVL TUBE OVARY 2004 Hysterectomy, DANIEL UNSPECIFIED ORAL SURGERY PROCEDURE, BY REPORT 08/18/2007 Family History FAMILY HISTORY Problem Relation Age of Onset Lipids Mother High Cholesterol Arthritis Mother Lipids Father High cholesterol Alzheimer's Disease Father Heart Maternal Grandmother Heart Maternal Grandfather Cancer Maternal Grandfather /BONE Heart Paternal Grandmother Heart Paternal Grandfather Hypertension Paternal Grandfather Patient Allergies ALLERGIES No Known Allergies Current Medications Current Outpatient Medications on File Prior to Visit Medication Sig Benzonatate 200 mg capsule Take 1 capsule by mouth three times a day as needed. budesonide (PULMICORT) 0.5 mg/2 mL nebulizer solution Use 2 mL via nebulizer once daily. albuterol (PROVENTIL) 2.5 mg /3 mL (0.083 %) nebulizer solution Use 3 mL via nebulizer every 6 hours as needed for wheezing/shortness of breath. J45.20 atorvastatin (LIPITOR) 10 mg tablet TAKE 1 TABLET DAILY AT BEDTIME FOR CHOLESTEROL albuterol HFA (PROAIR HFA) 90 mcg/actuation inhaler Inhale 2 Puffs as instructed every 6 hours as needed for wheezing/shortness of breath. cholecalciferol (VITAMIN D-3) 50 mcg (2,000 unit) tablet Take 1 tablet by mouth once daily. CPAP Mask (per patient preference) optional chin strap (if indicated), filters, tubing / heated tubing, heated humidity and lifetime supplies. Dx. EVE G47.33 327.23 Nebulizer NEBULIZER WITH SUPPLIES IF NEEDED FOR HOME USE. DX: Mild persistent asthma without complication J45.30 COMPOUNDED PRESCRIPTION Nebulizer supplies. Dx. Asthma.J45.909 methylPREDNISolone (MEDROL, CARLENE,) 4 mg Dose-Pack Follow dosing instructions, take with food. (Patient not taking: Reported on 08/24/2024) No current facility-administered medications on file prior to visit. Social History Social History Tobacco Use Smoking status: Never Smokeless tobacco: Never Vaping Use Vaping status: Never Used Substance Use Topics Alcohol use: Yes Comment: Occasionally Drug use: No Review of Symptoms REVIEW OF SYSTEMS See hpi EXAM: BP 136/76 (BP Site: Left Arm, BP Position: Sitting, BP Cuff Size: Large Adult) Pulse 66 Temp 36.4 ?C (97.5 ?F) Resp 20 Wt (!) 149.2 kg (329 lb) SpO2 96% BMI 51.04 kg/m? General Appearance: Well appearing, alert, in no acute distress, well-hydrated, well nourished.. Neck: Supple, no adenopathy; thyroid symmetric, normal size, no bruits. Lungs: wheezes and rhonchi throughout. No acute distress Heart: RRR without murmur, gallop, or rubs. No ectopy. Health Maintenance List Advance Directive Discussion Never done Mammogram Screening due on 01/12/2025 Depression Screening due on 12/29/2024 Anxiety Screening due on 12/29/2024 Annual PCP Team Chronic Disease Visit due on 08/18/2025 Pneumococcal Vaccine: 50+(3 of 3 - PCV20 or PCV21) due on 05/07/2026 Colorectal Cancer Screening due on 04/22/2027 Diabetes Screening due on 06/28/2027 DTaP,Tdap,Td Vaccine(3 - Td or Tdap) due on more content not included)... [facility] 08-24-2024 History of Present illness Narrative Chief Complaint Patient presents with: Cough HPI Amina Morales is a 64 year old female who presents here today for Above Complaints.. Patient dx with influenza last week. Symptoms improved with exception of cough which patient reports as worse. Cough is keeping her up at night. Has not been productive. No fever. Past medical history, appointments, medications, allergies reviewed. Previous Medical History PAST MEDICAL HISTORY Diagnosis Date Closed fracture of left humerus Diverticulosis of colon Elevated hemoglobin A1c 10/08/2015 External hemorrhoids History of pulmonary embolism 1993 ? Pulmonary embolism Hyperglycemia 10/08/2015 Hyperparathyroidism (HCC) 12/02/2020 Internal hemorrhoids Metabolic syndrome 10/08/2015 Mild intermittent asthma without complication 07/21/2013 Mixed hyperlipidemia 10/08/2015 Obesity, Class III, BMI 40-49.9 (morbid obesity) (HCC) 04/30/2017 EVE (obstructive sleep apnea) ahi 46 09/19/2014 On CPAP, DME [facility] Phlebitis and thrombophlebitis of unspecified site Plantar fasciitis, bilateral 10/08/2015 Symptomatic menopausal or female climacteric states 05/02/2009 Vitamin D deficiency 12/02/2020 Previous Surgical History PAST SURGICAL HISTORY Procedure Laterality Date [facility] INCL FLUOR GDNCE DX W/CELL WASHG SPX BRONCHOSCOPY COLONOSCOPY 04/22/2022 repeat in 5 years COLONOSCOPY FLX DX W/COLLJ SPEC WHEN PFRMD 09/18/2011 repeat 10 years FECAL OCCULT BLOOD TEST 05/01/2017 negative HYSTEROSCOPY, DIAGNOSTIC (SEPARATE WITH CURRETAGE LIG/TRNSXJ FLP TUBE ABDL/VAG APPR UNI/BI Tubal ligation PARATHYROIDECTOMY/EXPLOR PARATHYROIDS RE-EXPLOR 02/2022 PT ED ENDOCRINOLOGY 02/25/2022 Rt: upper and lower, Left Upper. TOTAL ABDOMINAL HYSTERECT W/WO RMVL TUBE OVARY 2004 Hysterectomy, DANIEL UNSPECIFIED ORAL SURGERY PROCEDURE, BY REPORT 08/18/2007 Family History FAMILY HISTORY Problem Relation Age of Onset Lipids Mother High Cholesterol Arthritis Mother Lipids Father High cholesterol Alzheimer's Disease Father Heart Maternal Grandmother Heart Maternal Grandfather Cancer Maternal Grandfather /BONE Heart Paternal Grandmother Heart Paternal Grandfather Hypertension Paternal Grandfather Patient Allergies ALLERGIES No Known Allergies Current Medications Current Outpatient Medications on File Prior to Visit Medication Sig Benzonatate 200 mg capsule Take 1 capsule by mouth three times a day as needed. budesonide (PULMICORT) 0.5 mg/2 mL nebulizer solution Use 2 mL via nebulizer once daily. albuterol (PROVENTIL) 2.5 mg /3 mL (0.083 %) nebulizer solution Use 3 mL via nebulizer every 6 hours as needed for wheezing/shortness of breath. J45.20 atorvastatin (LIPITOR) 10 mg tablet TAKE 1 TABLET DAILY AT BEDTIME FOR CHOLESTEROL albuterol HFA (PROAIR HFA) 90 mcg/actuation inhaler Inhale 2 Puffs as instructed every 6 hours as needed for wheezing/shortness of breath. cholecalciferol (VITAMIN D-3) 50 mcg (2,000 unit) tablet Take 1 tablet by mouth once daily. CPAP Mask (per patient preference) optional chin strap (if indicated), filters, tubing / heated tubing, heated humidity and lifetime supplies. Dx. EVE G47.33 327.23 Nebulizer NEBULIZER WITH SUPPLIES IF NEEDED FOR HOME USE. DX: Mild persistent asthma without complication J45.30 COMPOUNDED PRESCRIPTION Nebulizer supplies. Dx. Asthma.J45.909 methylPREDNISolone (MEDROL, CARLENE,) 4 mg Dose-Pack Follow dosing instructions, take with food. (Patient not taking: Reported on 08/24/2024) No current facility-administered medications on file prior to visit. Social History Social History Tobacco Use Smoking status: Never Smokeless tobacco: Never Vaping Use Vaping status: Never Used Substance Use Topics Alcohol use: Yes Comment: Occasionally Drug use: No Review of Symptoms REVIEW OF SYSTEMS See hpi EXAM: BP 136/76 (BP Site: Left Arm, BP Position: Sitting, BP Cuff Size: Large Adult) Pulse 66 Temp 36.4 C (97.5 F) Resp 20 Wt (!) 149.2 kg (329 lb) SpO2 96% BMI 51.04 kg/m General Appearance: Well appearing, alert, in no acute distress, well-hydrated, well nourished.. Neck: Supple, no adenopathy; thyroid symmetric, normal size, no bruits. Lungs: wheezes and rhonchi throughout. No acute distress Heart: RRR without murmur, gallop, or rubs. No ectopy. Health Maintenance List Advance Directive Discussion Never done Mammogram Screening due on 01/12/2025 Depression Screening due on 12/29/2024 Anxiety Screening due on 12/29/2024 Annual PCP Team Chronic Disease Visit due on 08/18/2025 Pneumococcal Vaccine: 50+(3 of 3 - PCV20 or PCV21) due on 05/07/2026 Colorectal Cancer Screening due on 04/22/2027 Diabetes Screening due on 06/28/2027 DTaP,Tdap,Td Vaccine(3 - Td or Tdap) due on 05/10/2028 Lipid Screening due on 06/28/2029 Bone Density Screening Completed Influenza Vaccine Completed RSV Vaccine Completed Shingrix Vaccine Completed Covid-19 Vaccine Completed Spirometry Discontinued Cervical Cancer Screening Discontinued Hepatitis C Screening Discontinued HIV Screening Discontinued Data reviewed ASSESSMENT/PLAN: 1. Influenza A - ICD9: 487.1, ICD10: J10.1 Improving With cough worsening and patient's risk for pneumonia, will start atb. Patient to contact me on Wednesday if not improved. - CODEINE 10 MG-GUAIFENESIN 100 MG/5 ML ORAL LIQUID Aurora Muñoz PA-C documented in this encounter [facility] 08-18-2024 Telephone encounter Note Pt called and is notified of providers results. Pt voices understanding. Janette Torres RN [facility] 08-18-2024 Miscellaneous Notes Pt called and is notified of providers results. Pt voices understanding. Janette Torres RN Cxr neg for infection. Aurora Muñoz PA-C documented in this encounter [facility] 08-18-2024 Telephone encounter Note Cxr neg for infection. Aurora Muñoz PA-C [facility] 08-18-2024 Note HNO ID: [id number] Author: JAMEL LEONE RT(Chaitanya) Service: ? Author Type: Records And Information Manager Type: Progress Notes Filed: 08/18/2024 13:03 Note Text: Radiology Service Progress Note PATIENT NAME: Amina Morales DATE OF SERVICE: August 18, 2024 TIME: 12:50 PM PATIENT IDENTITY VERIFICATION COMPLETED USING TWO (2) IDENTIFIERS: Name and Date of confirmed by patient verbally. FALL SCREENING: Has the patient had 2 falls in the last year or 1 fall with injury or currently using an Ambulatory Assistive Device (Walker, Cane, Wheelchair, Crutches, etc.)? No PATIENT GENDER DATA: Assigned female at . status: : No status: NO. PATIENT RELEVANT IMPLANT DATA REVIEWED: Yes PATIENT PRESENTS WITH AN IMPLANTABLE OR ATTACHED DOPE WORKER: No RADIOLOGY DEPARTMENT: General X-ray: Exam(s) Completed: Chest X-Ray PERIPHERAL IV DATA: Not applicable SIGNED BY: Jamel Leone, RT(R) August 18, 2024 12:50 PM [facility] 08-18-2024 Note HNO ID: [id number] Author: AURORA MUÑOZ PA-C Service: ? Author Type: Physician Percussion Instrument Repairer Type: Progress Notes Filed: 08/18/2024 12:51 Note Text: Chief Complaint Patient presents with: Cough HPI Amina Morales is a 64 year old female who presents here today for Above Complaints.. Patient with cough for 3 days. Pain in lower ribcage from cough. Having sinus pressure and ear pressure Sore throat from cough Cough is dry No fevers No body aches No n/v/d Past medical history, appointments, medications, allergies reviewed. Previous Medical History PAST MEDICAL HISTORY Diagnosis Date Closed fracture of left humerus Diverticulosis of colon Elevated hemoglobin A1c 10/08/2015 External hemorrhoids History of pulmonary embolism 1993 ? Pulmonary embolism Hyperglycemia 10/08/2015 Hyperparathyroidism (HCC) 12/02/2020 Internal hemorrhoids Metabolic syndrome 10/08/2015 Mild intermittent asthma without complication 07/21/2013 Mixed hyperlipidemia 10/08/2015 Obesity, Class III, BMI 40-49.9 (morbid obesity) (HCC) 04/30/2017 EVE (obstructive sleep apnea) ahi 46 09/19/2014 On CPAP, [facility] Phlebitis and thrombophlebitis of unspecified site Plantar fasciitis, bilateral 10/08/2015 Symptomatic menopausal or female climacteric states 05/02/2009 Vitamin D deficiency 12/02/2020 Previous Surgical History PAST SURGICAL HISTORY Procedure Laterality Date [facility] INCL FLUOR GDNCE DX W/CELL WASHG SPX BRONCHOSCOPY COLONOSCOPY 04/22/2022 repeat in 5 years COLONOSCOPY FLX DX W/COLLJ SPEC WHEN PFRMD 09/18/2011 repeat 10 years FECAL OCCULT BLOOD TEST 05/01/2017 negative HYSTEROSCOPY, DIAGNOSTIC (SEPARATE WITH CURRETAGE LIG/TRNSXJ FLP TUBE ABDL/VAG APPR UNI/BI Tubal ligation PARATHYROIDECTOMY/EXPLOR PARATHYROIDS RE-EXPLOR 02/2022 PT ED ENDOCRINOLOGY 02/25/2022 Rt: upper and lower, Left Upper. TOTAL ABDOMINAL HYSTERECT W/WO RMVL TUBE OVARY 2004 Hysterectomy, DANIEL UNSPECIFIED ORAL SURGERY PROCEDURE, BY REPORT 08/18/2007 Family History FAMILY HISTORY Problem Relation Age of Onset Lipids Mother High Cholesterol Arthritis Mother Lipids Father High cholesterol Alzheimer's Disease Father Heart Maternal Grandmother Heart Maternal Grandfather Cancer Maternal Grandfather /BONE Heart Paternal Grandmother Heart Paternal Grandfather Hypertension Paternal Grandfather Patient Allergies ALLERGIES No Known Allergies Current Medications Current Outpatient Medications on File Prior to Visit Medication Sig budesonide (PULMICORT) 0.5 mg/2 mL nebulizer solution Use 2 mL via nebulizer once daily. albuterol (PROVENTIL) 2.5 mg /3 mL (0.083 %) nebulizer solution Use 3 mL via nebulizer every 6 hours as needed for wheezing/shortness of breath. J45.20 atorvastatin (LIPITOR) 10 mg tablet TAKE 1 TABLET DAILY AT BEDTIME FOR CHOLESTEROL albuterol HFA (PROAIR HFA) 90 mcg/actuation inhaler Inhale 2 Puffs as instructed every 6 hours as needed for wheezing/shortness of breath. cholecalciferol (VITAMIN D-3) 50 mcg (2,000 unit) tablet Take 1 tablet by mouth once daily. CPAP Mask (per patient preference) optional chin strap (if indicated), filters, tubing / heated tubing, heated humidity and lifetime supplies. Dx. EVE G47.33 327.23 Nebulizer NEBULIZER WITH SUPPLIES IF NEEDED FOR HOME USE. DX: Mild persistent asthma without complication J45.30 COMPOUNDED PRESCRIPTION Nebulizer supplies. Dx. Asthma.J45.909 No current facility-administered medications on file prior to visit. Social History Social History Tobacco Use Smoking status: Never Smokeless tobacco: Never Vaping Use Vaping status: Never Used Substance Use Topics Alcohol use: Yes Comment: Occasionally Drug use: No Review of Symptoms REVIEW OF SYSTEMS See hpi EXAM: BP 130/78 (BP Site: Left Arm, BP Position: Sitting, BP Cuff Size: Large Adult) Pulse 101 Temp 37.6 ?C (99.7 ?F) Resp 20 Wt (!) 152 kg (335 lb) SpO2 100% BMI 51.97 kg/m? General Appearance: Well appearing, alert, in no acute distress, well-hydrated, well nourished.. Ears: External ears normal, canals clear. Nose/Sinuses: Nares normal, septum midline, mucosa normal, no drainage or sinus tenderness. Oropharynx: Lips, mucosa, and tongue normal, teeth and gums normal, oropharynx normal. Neck: Supple, no adenopathy; thyroid symmetric, normal size, no bruits. Lungs: wheeze noted. Heart: RRR without murmur, gallop, or rubs. No ectopy. Health Maintenance List Advance Directive Discussion Never done Mammogram Screening due on 01/12/2025 Depression Screening due on 12/29/2024 Anxiety Screening due on 12/29/2024 Annual PCP Team Chronic Disease Visit due on 07/11/2025 Pneumococcal Vaccine: 50+(3 of 3 - PCV20 or PCV21) due on 05/07/2026 Colorectal Cancer Screening due on 04/22/2027 Diabetes Screening due on 06/28/2027 DTaP,Tdap,Td Vaccine(3 - Td or Tdap) due on 05/10/2028 Lipid Screening due o (more content not included)... [facility] 08-18-2024 History of Present illness Narrative Chief Complaint Patient presents with: Cough HPI Amina Morales is a 64 year old female who presents here today for Above Complaints.. Patient with cough for 3 days. Pain in lower ribcage from cough. Having sinus pressure and ear pressure Sore throat from cough Cough is dry No fevers No body aches No n/v/d Past medical history, appointments, medications, allergies reviewed. Previous Medical History PAST MEDICAL HISTORY Diagnosis Date Closed fracture of left humerus Diverticulosis of colon Elevated hemoglobin A1c 10/08/2015 External hemorrhoids History of pulmonary embolism 1993 ? Pulmonary embolism Hyperglycemia 10/08/2015 Hyperparathyroidism (HCC) 12/02/2020 Internal hemorrhoids Metabolic syndrome 10/08/2015 Mild intermittent asthma without complication 07/21/2013 Mixed hyperlipidemia 10/08/2015 Obesity, Class III, BMI 40-49.9 (morbid obesity) (HCC) 04/30/2017 EVE (obstructive sleep apnea) ahi 46 09/19/2014 On CPAP, DME [facility] Phlebitis and thrombophlebitis of unspecified site Plantar fasciitis, bilateral 10/08/2015 Symptomatic menopausal or female climacteric states 05/02/2009 Vitamin D deficiency 12/02/2020 Previous Surgical History PAST SURGICAL HISTORY Procedure Laterality Date [facility] INCL FLUOR GDNCE DX W/CELL WASHG SPX BRONCHOSCOPY COLONOSCOPY 04/22/2022 repeat in 5 years COLONOSCOPY FLX DX W/COLLJ SPEC WHEN PFRMD 09/18/2011 repeat 10 years FECAL OCCULT BLOOD TEST 05/01/2017 negative HYSTEROSCOPY, DIAGNOSTIC (SEPARATE WITH CURRETAGE LIG/TRNSXJ FLP TUBE ABDL/VAG APPR UNI/BI Tubal ligation PARATHYROIDECTOMY/EXPLOR PARATHYROIDS RE-EXPLOR 02/2022 PT ED ENDOCRINOLOGY 02/25/2022 Rt: upper and lower, Left Upper. TOTAL ABDOMINAL HYSTERECT W/WO RMVL TUBE OVARY 2004 Hysterectomy, DANIEL UNSPECIFIED ORAL SURGERY PROCEDURE, BY REPORT 08/18/2007 Family History FAMILY HISTORY Problem Relation Age of Onset Lipids Mother High Cholesterol Arthritis Mother Lipids Father High cholesterol Alzheimer's Disease Father Heart Maternal Grandmother Heart Maternal Grandfather Cancer Maternal Grandfather /BONE Heart Paternal Grandmother Heart Paternal Grandfather Hypertension Paternal Grandfather Patient Allergies ALLERGIES No Known Allergies Current Medications Current Outpatient Medications on File Prior to Visit Medication Sig budesonide (PULMICORT) 0.5 mg/2 mL nebulizer solution Use 2 mL via nebulizer once daily. albuterol (PROVENTIL) 2.5 mg /3 mL (0.083 %) nebulizer solution Use 3 mL via nebulizer every 6 hours as needed for wheezing/shortness of breath. J45.20 atorvastatin (LIPITOR) 10 mg tablet TAKE 1 TABLET DAILY AT BEDTIME FOR CHOLESTEROL albuterol HFA (PROAIR HFA) 90 mcg/actuation inhaler Inhale 2 Puffs as instructed every 6 hours as needed for wheezing/shortness of breath. cholecalciferol (VITAMIN D-3) 50 mcg (2,000 unit) tablet Take 1 tablet by mouth once daily. CPAP Mask (per patient preference) optional chin strap (if indicated), filters, tubing / heated tubing, heated humidity and lifetime supplies. Dx. EVE G47.33 327.23 Nebulizer NEBULIZER WITH SUPPLIES IF NEEDED FOR HOME USE. DX: Mild persistent asthma without complication J45.30 COMPOUNDED PRESCRIPTION Nebulizer supplies. Dx. Asthma.J45.909 No current facility-administered medications on file prior to visit. Social History Social History Tobacco Use Smoking status: Never Smokeless tobacco: Never Vaping Use Vaping status: Never Used Substance Use Topics Alcohol use: Yes Comment: Occasionally Drug use: No Review of Symptoms REVIEW OF SYSTEMS See hpi EXAM: BP 130/78 (BP Site: Left Arm, BP Position: Sitting, BP Cuff Size: Large Adult) Pulse 101 Temp 37.6 C (99.7 F) Resp 20 Wt (!) 152 kg (335 lb) SpO2 100% BMI 51.97 kg/m General Appearance: Well appearing, alert, in no acute distress, well-hydrated, well nourished.. Ears: External ears normal, canals clear. Nose/Sinuses: Nares normal, septum midline, mucosa normal, no drainage or sinus tenderness. Oropharynx: Lips, mucosa, and tongue normal, teeth and gums normal, oropharynx normal. Neck: Supple, no adenopathy; thyroid symmetric, normal size, no bruits. Lungs: wheeze noted. Heart: RRR without murmur, gallop, or rubs. No ectopy. Health Maintenance List Advance Directive Discussion Never done Mammogram Screening due on 01/12/2025 Depression Screening due on 12/29/2024 Anxiety Screening due on 12/29/2024 Annual PCP Team Chronic Disease Visit due on 07/11/2025 Pneumococcal Vaccine: 50+(3 of 3 - PCV20 or PCV21) due on 05/07/2026 Colorectal Cancer Screening due on 04/22/2027 Diabetes Screening due on 06/28/2027 DTaP,Tdap,Td Vaccine(3 - Td or Tdap) due on 05/10/2028 Lipid Screening due on 06/28/2029 Bone Density Screening Completed Influenza Vaccine Completed RSV Vaccine Completed Shingrix Vaccine Completed Covid-19 Vaccine Completed Spirometry Discontinued Cervical Cancer Screening Discontinued Hepatitis C Screening Discontinued HIV Screening Discontinued Data reviewed ASSESSMENT/PLAN: 1. Lower respiratory infection - ICD9: 519.8, ICD10: J22 (primary diagnosis) Check start cxr Check covid/influenza/rsv Start medrol pack and cough med Continue inhaler use - COVID & INFLUENZA A/B & RSV PCR, ROUTINE - XR CHEST 2V FRONTAL/LAT 2. URI, acute - ICD9: 465.9, ICD10: J06.9 As above - COVID & INFLUENZA A/B & RSV PCR, ROUTINE - XR CHEST 2V FRONTAL/LAT Aurora Muñoz PA-C documented in this encounter [facility] 07-11-2024 Note HNO ID: [id number] Author: AURORA MUÑOZ PA-C Service: ? Author Type: Physician Percussion Instrument Repairer Type: Progress Notes Filed: 07/11/2024 08:37 Note Text: Chief Complaint Patient presents with: Yearly Exam HPI Amina Morales is a 63 year old female who presents here today for physical. Patient with hx of hyperlipidemia, asthma, EVE, hyperparathyroid, elevated A1c, vit d def, obesity and those as below. No specific concerns today. Past medical history, appointments, medications, allergies reviewed. Previous Medical History PAST MEDICAL HISTORY Diagnosis Date Closed fracture of left humerus Diverticulosis of colon Elevated hemoglobin A1c 10/08/2015 External hemorrhoids History of pulmonary embolism 1993 ? Pulmonary embolism Hyperglycemia 10/08/2015 Hyperparathyroidism (HCC) 12/02/2020 Internal hemorrhoids Metabolic syndrome 10/08/2015 Mild intermittent asthma without complication 07/21/2013 Mixed hyperlipidemia 10/08/2015 Obesity, Class III, BMI 40-49.9 (morbid obesity) (HCC) 04/30/2017 EVE (obstructive sleep apnea) ahi 46 09/19/2014 On CPAP, DME [facility] Phlebitis and thrombophlebitis of unspecified site Plantar fasciitis, bilateral 10/08/2015 Symptomatic menopausal or female climacteric states 05/02/2009 Vitamin D deficiency 12/02/2020 Previous Surgical History PAST SURGICAL HISTORY Procedure Laterality Date [facility] INCL FLUOR GDNCE DX W/CELL WASHG SPX BRONCHOSCOPY COLONOSCOPY 04/22/2022 repeat in 5 years COLONOSCOPY FLX DX W/COLLJ SPEC WHEN PFRMD 09/18/2011 repeat 10 years FECAL OCCULT BLOOD TEST 05/01/2017 negative HYSTEROSCOPY, DIAGNOSTIC (SEPARATE WITH CURRETAGE LIG/TRNSXJ FLP TUBE ABDL/VAG APPR UNI/BI Tubal ligation PARATHYROIDECTOMY/EXPLOR PARATHYROIDS RE-EXPLOR 02/2022 PT ED ENDOCRINOLOGY 02/25/2022 Rt: upper and lower, Left Upper. TOTAL ABDOMINAL HYSTERECT W/WO RMVL TUBE OVARY 2003 Hysterectomy, DANIEL UNSPECIFIED ORAL SURGERY PROCEDURE, BY REPORT 08/18/2007 Family History FAMILY HISTORY Problem Relation Age of Onset Lipids Mother High Cholesterol Arthritis Mother Lipids Father High cholesterol Alzheimer's Disease Father Heart Maternal Grandmother Heart Maternal Grandfather Cancer Maternal Grandfather /BONE Heart Paternal Grandmother Heart Paternal Grandfather Hypertension Paternal Grandfather Patient Allergies ALLERGIES No Known Allergies Current Medications Current Outpatient Medications on File Prior to Visit Medication Sig albuterol (PROVENTIL) 2.5 mg /3 mL (0.083 %) nebulizer solution Use 3 mL via nebulizer every 6 hours as needed for wheezing/shortness of breath. J45.20 atorvastatin (LIPITOR) 10 mg tablet TAKE 1 TABLET DAILY AT BEDTIME FOR CHOLESTEROL budesonide (PULMICORT) 0.5 mg/2 mL nebulizer solution Use 2 mL via nebulizer once daily. albuterol HFA (PROAIR HFA) 90 mcg/actuation inhaler Inhale 2 Puffs as instructed every 6 hours as needed for wheezing/shortness of breath. cholecalciferol (VITAMIN D-3) 50 mcg (2,000 unit) tablet Take 1 tablet by mouth once daily. CPAP Mask (per patient preference) optional chin strap (if indicated), filters, tubing / heated tubing, heated humidity and lifetime supplies. Dx. EVE G47.33 327.23 Nebulizer NEBULIZER WITH SUPPLIES IF NEEDED FOR HOME USE. DX: Mild persistent asthma without complication J45.30 COMPOUNDED PRESCRIPTION Nebulizer supplies. Dx. Asthma.J45.909 budesonide (PULMICORT) 0.5 mg/2 mL nebulizer solution Use 2 mL via nebulizer once daily. cyclobenzaprine (FLEXERIL) 10 mg tablet Take 1 tablet by mouth three times a day as needed for muscle spasm. (Patient not taking: Reported on 07/11/2024) meloxicam (MOBIC) 15 mg tablet Take 1 tablet by mouth once daily. (Patient not taking: Reported on 07/11/2024) No current facility-administered medications on file prior to visit. Social History Social History Tobacco Use Smoking status: Never Smokeless tobacco: Never Vaping Use Vaping status: Never Used Substance Use Topics Alcohol use: Yes Comment: Occasionally Drug use: No Review of Symptoms REVIEW OF SYSTEMS GENERAL: No weight loss, malaise or fevers HEENT: No changes in hearing or vision, no nose bleeds or other nasal problems NECK: Negative for lumps, goiter, pain and significant neck swelling RESPIRATORY: Negative for cough, hemoptysis, wheezing, COPD, dyspnea or shortness of breath CARDIOVASCULAR: Negative for chest pain, leg swelling, CHF or palpitations GI: Negative for abdominal discomfort, blood in stools or black stools, change in bowel habit, nausea, vomiting : No history of dysuria, frequency or incontinence RACKMAN: Negative for abnormal vaginal bleeding, abnormal vaginal discharge MUSCULOSKELETAL: chronic back pain SKIN: Negative for lesions, rash, and itching PSYCH: Negative for sleep disturbance, mood disorder and recent psychosocial stressors HEMATOLOGY/LYMPHOLOGY: Negative for prolonged bleeding (more content not included)... [facility] 04-18-2024 History of Present illness Narrative Chief Complaint Patient presents with: ER F/U HPI Amina Morales is a 63 year old female who presents here today for ER Follow Up.. Patient went to ER 04/15/24 due to left hip pain. Patient was concerned for possible blood clot given her history but workup did not support that diagnosis. Xray did show some arthritis. She has been taking acetaminophen, ibuprofen and icing. Patient has been continuing. Pain located left outer hip/buttock and runs down the outside of her leg to her knee. Pain worsens with walking, getting in and out of car. Improves with rest. Past medical history, appointments, medications, allergies reviewed. Previous Medical History PAST MEDICAL HISTORY Diagnosis Date Closed fracture of left humerus Diverticulosis of colon Elevated hemoglobin A1c 10/08/2015 External hemorrhoids History of pulmonary embolism 1993 ? Pulmonary embolism Hyperglycemia 10/08/2015 Hyperparathyroidism ([facility]) 12/02/2020 Internal hemorrhoids Metabolic syndrome 10/08/2015 Mild intermittent asthma without complication 07/21/2013 Mixed hyperlipidemia 10/08/2015 Obesity, Class III, BMI 40-49.9 (morbid obesity) (HCC) 04/30/2017 EVE (obstructive sleep apnea) ahi 46 09/19/2014 On CPAP, [facility] Phlebitis and thrombophlebitis of unspecified site Plantar fasciitis, bilateral 10/08/2015 Symptomatic menopausal or female climacteric states 05/02/2009 Vitamin D deficiency 12/02/2020 Previous Surgical History PAST SURGICAL HISTORY Procedure Laterality Date [facility] INCL FLUOR GDNCE DX W/CELL WASHG SPX BRONCHOSCOPY COLONOSCOPY 04/22/2022 repeat in 5 years COLONOSCOPY FLX DX W/COLLJ SPEC WHEN PFRMD 09/18/2011 repeat 10 years FECAL OCCULT BLOOD TEST 05/01/2017 negative HYSTEROSCOPY, DIAGNOSTIC (SEPARATE WITH CURRETAGE LIG/TRNSXJ FLP TUBE ABDL/VAG APPR UNI/BI Tubal ligation PARATHYROIDECTOMY/EXPLOR PARATHYROIDS RE-EXPLOR 02/2022 PT ED ENDOCRINOLOGY 02/25/2022 Rt: upper and lower, Left Upper. TOTAL ABDOMINAL HYSTERECT W/WO RMVL TUBE OVARY 2004 Hysterectomy, DANIEL UNSPECIFIED ORAL SURGERY PROCEDURE, BY REPORT 08/18/2007 Family History FAMILY HISTORY Problem Relation Age of Onset Lipids Mother High Cholesterol Arthritis Mother Lipids Father High cholesterol Alzheimer's Disease Father Heart Maternal Grandmother Heart Maternal Grandfather Cancer Maternal Grandfather /BONE Heart Paternal Grandmother Heart Paternal Grandfather Hypertension Paternal Grandfather Patient Allergies ALLERGIES No Known Allergies Current Medications Current Outpatient Medications on File Prior to Visit Medication Sig atorvastatin (LIPITOR) 10 mg tablet TAKE 1 TABLET DAILY AT BEDTIME FOR CHOLESTEROL budesonide (PULMICORT) 0.5 mg/2 mL nebulizer solution Use 2 mL via nebulizer once daily. albuterol HFA (PROAIR HFA) 90 mcg/actuation inhaler Inhale 2 Puffs as instructed every 6 hours as needed for wheezing/shortness of breath. cholecalciferol (VITAMIN D-3) 50 mcg (2,000 unit) tablet Take 1 tablet by mouth once daily. CPAP Mask (per patient preference) optional chin strap (if indicated), filters, tubing / heated tubing, heated humidity and lifetime supplies. Dx. EVE G47.33 327.23 Nebulizer NEBULIZER WITH SUPPLIES IF NEEDED FOR HOME USE. DX: Mild persistent asthma without complication J45.30 COMPOUNDED PRESCRIPTION Nebulizer supplies. Dx. Asthma.J45.909 meloxicam (MOBIC) 15 mg tablet Take 1 tablet by mouth once daily. No current facility-administered medications on file prior to visit. Social History Social History Tobacco Use Smoking status: Never Smokeless tobacco: Never Vaping Use Vaping status: Never Used Substance Use Topics Alcohol use: Yes Comment: Occasionally Drug use: No Review of Symptoms REVIEW OF SYSTEMS See hpi EXAM: BP 126/76 (BP Site: Left Arm, BP Position: Sitting, BP Cuff Size: Large Adult) Pulse 96 Temp 36.9 C (98.4 F) Resp 18 Wt (!) 155.1 kg (342 lb) SpO2 95% BMI 52.77 kg/m General Appearance: Well appearing, alert, in no acute distress, well-hydrated, well nourished. and Morbidly obese. Musculoskeletal: point tenderness to palp of SI joint and lateral hip. +pain with ROM. Nvi. . Health Maintenance List Covid-19 Vaccine( season) due on 03/26/2024 Influenza Vaccine(1) due on 03/26/2024 RSV Vaccine(1 - Risk 60-74 years 1-dose series) due on 06/28/2024 Depression Screening due on 12/29/2024 Anxiety Screening due on 12/29/2024 Mammogram Screening due on 01/12/2025 Annual PCP Team Chronic Disease Visit due on 04/18/2025 Pneumococcal Vaccine(3 of 3 - PPSV23 or PCV20) due on 05/07/2026 Diabetes Screening due on 12/22/2026 Colorectal Cancer Screening due on 04/22/2027 DTaP,Tdap,Td Vaccine(3 - Td or Tdap) due on 05/10/2028 Lipid Screening due on 12/22/2028 Shingrix Vaccine Completed Spirometry Discontinued Cervical Cancer Screening Discontinued Hepatitis C Screening Discontinued HIV Screening Discontinued Data reviewed ASSESSMENT/PLAN: 1. Left hip pain - ICD9: 719.45, ICD10: M25.552 (primary diagnosis) Suspect bursitis vs IT band syndrome Will start pred taper and prn flexeril Continue HEP. May need dedicated Physical Therapy if not improving. 2. Encounter for immunization - ICD9: V03.89, ICD10: Z23 - PFIZER-BIONTECH COVID-19 VACCINE AGE 12+ YR - INFLUENZA VACCINE, AGE 6MO-64YR, TRIVALENT (AFLURIA, FLULAVAL, FLUVIRIN, FLUZONE) 3. Mild intermittent asthma without complication - ICD9: 493.90, ICD10: J45.20 - BUDESONIDE 0.5 MG/2 ML SUSPENSION FOR NEBULIZATION Aurora Muñoz PA-C documented in this encounter [facility] 04-17-2024 History of Present illness Narrative Scan on 04/15/2024 2:55 PM by ProviderJone PA-C: Consultation - Emergency Medicine documented in this encounter [facility] 02-28-2024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 no answer. Left detailed message (VM verified) informing her ortho consult placed and she should be hearing from schedulers. Advised her to call back also. Pavithra Leblanc MA I have placed a referral to orthopedics. Patient may schedule with Dr. Dubois who comes here to [place]. Patient returned call and went over results, notes from Valentino Egan PHOTONICS TECHNICIAN. Patient said she does not know any Ortho Dr if that is who she is wanting her to see? Patient asking what to do next? 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 Please find out where patient would like referral to go. If patient has no preference referral will be placed and she can call in and schedule. documented in this encounter [facility] 01-06-2024 Telephone encounter Note I have placed a referral to orthopedics. Patient may schedule with Dr. Dubois who comes here to [place]. [facility] 01-06-2024 Telephone encounter Note Patient returned call and went over results, notes from Valentino Egan PHOTONICS TECHNICIAN. Patient said she does not know any Ortho Dr if that is who she is wanting her to see? Patient asking what to do next? 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 Please find out where patient would like referral to go. If patient has no preference referral will be placed and she can call in and schedule. [facility] 12-30-2023 History of Present illness Narrative Radiology Service Progress Note PATIENT NAME: Amina Morales DATE OF SERVICE: December 30, 2023 TIME: 11:29 AM PATIENT IDENTITY VERIFICATION COMPLETED USING TWO (2) IDENTIFIERS: Name and Date of confirmed by patient verbally. FALL SCREENING: Has the patient had 2 falls in the last year or 1 fall with injury or currently using an Ambulatory Assistive Device (Walker, Cane, Wheelchair, Crutches, etc.)? No PATIENT GENDER DATA: Female. status: : No status: NO. PATIENT RELEVANT IMPLANT DATA REVIEWED: Yes PATIENT PRESENTS WITH AN IMPLANTABLE OR ATTACHED DOPE WORKER: No RADIOLOGY DEPARTMENT: General X-ray: Exam(s) Completed: Spine X-Ray(s): Lumbar AP / LAT / L5-S1 / OBL Pelvis X-Ray: Pelvis with Hip Bilateral PERIPHERAL IV DATA: Not applicable SIGNED BY: RT Mo(R) December 30, 2023 11:29 AM documented in this encounter [facility] 12-30-2023 History of Present illness Narrative Chief Complaint Patient presents with: 6 Month Exam HPI Amina Morales is a 63 year old female who presents here today for Above Complaints.. Patient presents for routine follow up. Patient reports that fos some time she has had low back pain and pain down her right leg. Pain is worse when walking/standing and improves when sitting, lying or leaning on something. Past medical history, appointments, medications, allergies reviewed. Previous Medical History PAST MEDICAL HISTORY Diagnosis Date Closed fracture of left humerus Diverticulosis of colon Elevated hemoglobin A1c 10/08/2015 External hemorrhoids History of pulmonary embolism 1993 ? Pulmonary embolism Hyperglycemia 10/08/2015 Hyperparathyroidism ([facility]) 12/02/2020 Internal hemorrhoids Metabolic syndrome 10/08/2015 Mild intermittent asthma without complication 07/21/2013 Mixed hyperlipidemia 10/08/2015 Obesity, Class III, BMI 40-49.9 (morbid obesity) ([facility]) 04/30/2017 EVE (obstructive sleep apnea) ahi 46 09/19/2014 On CPAP, [facility] Phlebitis and thrombophlebitis of unspecified site Plantar fasciitis, bilateral 10/08/2015 Symptomatic menopausal or female climacteric states 05/02/2009 Vitamin D deficiency 12/02/2020 Previous Surgical History PAST SURGICAL HISTORY Procedure Laterality Date [facility] INCL FLUOR GDNCE DX W/CELL WASHG SPX BRONCHOSCOPY COLONOSCOPY 04/22/2022 repeat in 5 years COLONOSCOPY FLX DX W/COLLJ SPEC WHEN PFRMD 09/18/2011 repeat 10 years FECAL OCCULT BLOOD TEST 05/01/2017 negative HYSTEROSCOPY, DIAGNOSTIC (SEPARATE WITH CURRETAGE LIG/TRNSXJ FLP TUBE ABDL/VAG APPR UNI/BI Tubal ligation PARATHYROIDECTOMY/EXPLOR PARATHYROIDS RE-EXPLOR 02/2022 PT ED ENDOCRINOLOGY 02/25/2022 Rt: upper and lower, Left Upper. TOTAL ABDOMINAL HYSTERECT W/WO RMVL TUBE OVARY 2004 Hysterectomy, DANIEL UNSPECIFIED ORAL SURGERY PROCEDURE, BY REPORT 08/18/2007 Family History FAMILY HISTORY Problem Relation Age of Onset Lipids Mother High Cholesterol Lipids Father High cholesterol Alzheimer's Disease Father Heart Maternal Grandmother Heart Maternal Grandfather Cancer Maternal Grandfather /BONE Heart Paternal Grandmother Heart Paternal Grandfather Hypertension Paternal Grandfather Patient Allergies ALLERGIES No Known Allergies Current Medications Current Outpatient Medications on File Prior to Visit Medication Sig atorvastatin (LIPITOR) 10 mg tablet TAKE 1 TABLET DAILY AT BEDTIME FOR CHOLESTEROL budesonide (PULMICORT) 0.5 mg/2 mL nebulizer solution Use 2 mL via nebulizer once daily. albuterol HFA (PROAIR HFA) 90 mcg/actuation inhaler Inhale 2 Puffs as instructed every 6 hours as needed for wheezing/shortness of breath. albuterol (PROVENTIL) 2.5 mg /3 mL (0.083 %) nebulizer solution Use 3 mL via nebulizer every 6 hours as needed for wheezing/shortness of breath. J45.20 cholecalciferol (VITAMIN D-3) 50 mcg (2,000 unit) tablet Take 1 tablet by mouth once daily. budesonide (PULMICORT) 0.5 mg/2 mL nebulizer solution Use 2 mL via nebulizer once daily. CPAP Mask (per patient preference) optional chin strap (if indicated), filters, tubing / heated tubing, heated humidity and lifetime supplies. Dx. EVE G47.33 327.23 Nebulizer NEBULIZER WITH SUPPLIES IF NEEDED FOR HOME USE. DX: Mild persistent asthma without complication J45.30 COMPOUNDED PRESCRIPTION Nebulizer supplies. Dx. Asthma.J45.909 No current facility-administered medications on file prior to visit. Social History Social History Tobacco Use Smoking status: Never Smokeless tobacco: Never Vaping Use Vaping Use: Never used Substance Use Topics Alcohol use: Yes Comment: Occasionally Drug use: No Review of Symptoms REVIEW OF SYSTEMS SEE HPI EXAM: BP 117/74 Pulse 80 Resp 16 Wt (!) 154.7 kg (341 lb) BMI 52.62 kg/m General Appearance: Well appearing, alert, in no acute distress, well-hydrated, well nourished.. Lungs: Lungs clear to auscultation. No wheezing, rhonchi, rales.. Heart: RRR without murmur, gallop, or rubs. No ectopy. Abdomen: Normal abdominal exam, Abdomen soft, non-tender. Bowel sounds normal. No masses, organomegaly. Musculoskeletal: Positive findings: Pain with back extension, none with flexion. Health Maintenance List Behavioral Health Screening Never done Mammogram Screening due on 01/12/2024 RSV Vaccine(1 - 1-dose 60+ series) due on 06/28/2024 Annual PCP Team Chronic Disease Visit due on 08/23/2024 Diabetes Screening due on 12/22/2026 Colorectal Cancer Screening due on 04/22/2027 DTaP,Tdap,Td Vaccine(3 - Td or Tdap) due on 05/10/2028 Lipid Screening due on 12/22/2028 Influenza Vaccine Completed Shingrix Vaccine Completed Covid-19 Vaccine Completed Spirometry Discontinued Pap Testing Discontinued HPV Testing Discontinued Hepatitis C Screening Discontinued HIV Screening Discontinued Data reviewed Latest Ref Rng 12/23/2023 Total Cholesterol, Nonfasting <200 mg/dL 140 Triglycerides, Nonfasting <150 mg/dL 167 (H) HDL Cholesterol, Nonfasting >39 mg/dL 38 (L) LDL Cholesterol, Nonfasting <100 mg/dL 69 Non HDL Cholesterol, Nonfasting <130 mg/dL 102 VLDL Cholesterol, Nonfasting <30 mg/dL 33 (H) Total Chol/HDL Ratio, Nonfasting <5.10 mg/dL 3.68 LDL/HDL Ratio, Nonfasting <2.54 mg/dL 1.82 Hemoglobin A1C 4.3 - 5.6 % 6.3 (H) Estimated Average Glucose mg/dL 134 ASSESSMENT/PLAN: 1. Midline low back pain without sciatica, unspecified chronicity - ICD9: 724.2, ICD10: M54.50 (primary diagnosis) - XR LUMBAR PARS DEFECT 4V AP/LAT/BOTH OBL - XR HIP BILATERAL 5V PEL/AP/LAT EACH HIP 2. Mixed hyperlipidemia - ICD9: 272.2, ICD10: E78.2 - Controlled - Counseled on healthy diet and regular exercise - Discussed need for and benefit of weight loss. BMI 52.62 kg/(m^2) 3. EVE (obstructive sleep apnea) ahi 46 - ICD9: 327.23, ICD10: G47.33 -Wears cpap nightly 4. Hyperparathyroidism (HCC) - ICD9: 252.00, ICD10: E21.3 5. Elevated hemoglobin A1c - ICD9: 790.29, ICD10: R73.09 -Increased but still prediabetic. Discussed lifestyle and dietary modifications. 6. Moderate persistent asthma with (acute) exacerbation - ICD9: 493.92, ICD10: J45.41 - Moderate persistent asthma stable - Continue current medications - Avoidance of triggers recommended Valentino Egan APRN.IMMIGRATION INVESTIGATOR documented in this encounter [facility] 12-06-2023 Telephone encounter Note Patient has been identified by name and date of : Yes, Provider Dr Rust Date 12/06/2023 Time 8:18 am Requested Prescriptions Pending Prescriptions Disp Refills atorvastatin (LIPITOR) 10 mg tablet [Pharmacy Med Name: ATORVASTATIN TABS 10MG] 90 tablet 3 Sig: TAKE 1 TABLET DAILY AT BEDTIME FOR CHOLESTEROL RX INSTRUCTIONS: Patient aware RX will be sent to pharmacy. No need to notify patient. DEB Cueto 06/2023May 3112/2023 Last refill: 05/2023 [facility] 12-06-2023 Miscellaneous Notes Patient has been identified by name and date of : Yes, Provider Dr Rust Date 12/06/2023 Time 8:18 am Requested Prescriptions Pending Prescriptions Disp Refills atorvastatin (LIPITOR) 10 mg tablet [Pharmacy Med Name: ATORVASTATIN TABS 10MG] 90 tablet 3 Sig: TAKE 1 TABLET DAILY AT BEDTIME FOR CHOLESTEROL RX INSTRUCTIONS: Patient aware RX will be sent to pharmacy. No need to notify patient. Litzy Morales MA Ron 06/2023May 3112/2023 Last refill: 05/2023 documented in this encounter [facility] 08-23-2023 History of Present illness Narrative Radiology Service Progress Note PATIENT NAME: Amina Morales DATE OF SERVICE: August 23, 2023 TIME: 2:26 PM PATIENT IDENTITY VERIFICATION COMPLETED USING TWO (2) IDENTIFIERS: Name and Date of confirmed by patient verbally. FALL SCREENING: Has the patient had 2 falls in the last year or 1 fall with injury or currently using an Ambulatory Assistive Device (Walker, Cane, Wheelchair, Crutches, etc.)? No PATIENT GENDER DATA: Female. status: : No status: NO. PATIENT RELEVANT IMPLANT DATA REVIEWED: Yes PATIENT PRESENTS WITH AN IMPLANTABLE OR ATTACHED DOPE WORKER: No RADIOLOGY DEPARTMENT: General X-ray: Exam(s) Completed: Chest X-Ray PERIPHERAL IV DATA: Not applicable SIGNED BY: RT Mo(R) August 23, 2023 2:26 PM documented in this encounter [facility] 06-28-2023 Instructions Lazaro Rust MD - 06/28/2023 3:14 PM EST If you are considering the RSV vaccine make sure your insurance covers it and can you get it at your doctors or pharmacy. Please get labs done on or after 12/17/2023 prior to your next visit. documented in this encounter [facility] 06-28-2023 History of Present illness Narrative Chief Complaint Patient presents with: Physical HPI Amina Morales is a 62 year old female who presents here today for Physical. Patient with hx of HLP, Asthma, EVE, elevated glucose, elevated PTH, obesity and those as below. Any new concerns today? None Any recent ER/hospital visits? None Patient continues to wear CPAP nightly. Past medical history, appointments, medications, allergies reviewed. Previous Medical History PAST MEDICAL HISTORY Diagnosis Date Closed fracture of left humerus Diverticulosis of colon Elevated hemoglobin A1c 10/08/2015 External hemorrhoids History of pulmonary embolism 1993 ? Pulmonary embolism Hyperglycemia 10/08/2015 Hyperparathyroidism (HCC) 12/02/2020 Internal hemorrhoids Metabolic syndrome 10/08/2015 Mild intermittent asthma without complication 07/21/2013 Mixed hyperlipidemia 10/08/2015 Obesity, Class III, BMI 40-49.9 (morbid obesity) (HCC) 04/30/2017 EVE (obstructive sleep apnea) ahi 46 09/19/2014 On CPAP, DME [facility] Phlebitis and thrombophlebitis of unspecified site Plantar fasciitis, bilateral 10/08/2015 Symptomatic menopausal or female climacteric states 05/02/2009 Vitamin D deficiency 12/02/2020 Previous Surgical History PAST SURGICAL HISTORY Procedure Laterality Date [facility] INCL FLUOR GDNCE DX W/CELL WASHG SPX BRONCHOSCOPY COLONOSCOPY 04/22/2022 repeat in 5 years COLONOSCOPY FLX DX W/COLLJ SPEC WHEN PFRMD 09/18/2011 repeat 10 years FECAL OCCULT BLOOD TEST 05/01/2017 negative HYSTEROSCOPY, DIAGNOSTIC (SEPARATE WITH CURRETAGE LIG/TRNSXJ FLP TUBE ABDL/VAG APPR UNI/BI Tubal ligation PARATHYROIDECTOMY/EXPLOR PARATHYROIDS RE-EXPLOR 02/2022 PT ED ENDOCRINOLOGY 02/25/2022 Rt: upper and lower, Left Upper. TOTAL ABDOMINAL HYSTERECT W/WO RMVL TUBE OVARY 2004 Hysterectomy, DANIEL UNSPECIFIED ORAL SURGERY PROCEDURE, BY REPORT 08/18/2007 Family History FAMILY HISTORY Problem Relation Age of Onset Lipids Mother High Cholesterol Lipids Father High cholesterol Alzheimer's Disease Father Heart Maternal Grandmother Heart Maternal Grandfather Cancer Maternal Grandfather /BONE Heart Paternal Grandmother Heart Paternal Grandfather Hypertension Paternal Grandfather Patient Allergies ALLERGIES No Known Allergies Current Medications Current Outpatient Medications on File Prior to Visit Medication Sig budesonide (PULMICORT) 0.5 mg/2 mL nebulizer solution Use 2 mL via nebulizer once daily. atorvastatin (LIPITOR) 10 mg tablet Take 1 tablet by mouth daily at bedtime. For cholesterol. albuterol (PROVENTIL) 2.5 mg /3 mL (0.083 %) nebulizer solution Use 3 mL via nebulizer every 6 hours as needed for wheezing/shortness of breath. J45.20 budesonide (PULMICORT) 0.5 mg/2 mL nebulizer solution Use 2 mL via nebulizer once daily. CPAP Mask (per patient preference) optional chin strap (if indicated), filters, tubing / heated tubing, heated humidity and lifetime supplies. Dx. EVE G47.33 327.23 albuterol HFA (PROAIR HFA) 90 mcg/actuation inhaler Inhale 2 Puffs as instructed every 6 hours as needed for wheezing/shortness of breath. cholecalciferol (VITAMIN D-3) 50 mcg (2,000 unit) tablet Take 2 tablets by mouth once daily. Nebulizer NEBULIZER WITH SUPPLIES IF NEEDED FOR HOME USE. DX: Mild persistent asthma without complication J45.30 COMPOUNDED PRESCRIPTION Nebulizer supplies. Dx. Asthma.J45.909 No current facility-administered medications on file prior to visit. Social History Social History Tobacco Use Smoking status: Never Smokeless tobacco: Never Vaping Use Vaping Use: Never used Substance Use Topics Alcohol use: Yes Comment: Occasionally Drug use: No Review of Symptoms REVIEW OF SYSTEMS GENERAL: No weight loss, malaise or fevers HEENT: Negative for frequent or significant headaches, No changes in hearing or vision, no nose bleeds or other nasal problems NECK: Negative for lumps, goiter, pain and significant neck swelling RESPIRATORY: Negative for cough, hemoptysis, wheezing, COPD, dyspnea or shortness of breath CARDIOVASCULAR: Negative for chest pain, leg swelling, hypertension, CHF or palpitations GI: No nausea, vomiting, or diarrhea, No heartburn or reflux symptoms, and no blood : No history of dysuria, frequency or incontinence MUSCULOSKELETAL: Negative for joint pain or swelling, back pain or muscle pain SKIN: Negative for lesions, rash, and itching PSYCH: Negative for sleep disturbance, mood disorder and recent psychosocial stressors HEMATOLOGY/LYMPHOLOGY: Negative for prolonged bleeding, bruising easily or swollen nodes ENDOCRINE: Negative for cold or heat intolerance, polyuria, polydipsia and goiter NEURO: No history of headaches, syncope, paralysis, seizures or tremors EXAM: BP 136/82 (BP Site: Left Arm, BP Position: Sitting, BP Cuff Size: Large Adult) Pulse 70 Resp 16 Ht 171.5 cm (5' 7.5) Wt (!) 150.6 kg (332 lb) BMI 51.23 kg/m Last 4 Encounter Wt Readings: Date: Wt: 06/28/2023 150.6 kg (332 lb) 12/10/2022 151.5 kg (334 lb) 10/02/2022 153.8 kg (339 lb) 06/12/2022 154.7 kg (341 lb) General Appearance: Well appearing, alert, in no acute distress, well-hydrated, well nourished. and Morbidly obese. Skin: Skin color, texture, turgor normal, no suspicious rashes or lesions. Head: Normocephalic, no masses, lesions, tenderness or abnormalities. Eyes: Anicteric sclera. Pupils are equally round and reactive to light. Extraocular movements are intact. . Ears: External ears, TM's normal, canals clear. Nose/Sinuses: Nares normal, septum midline, mucosa normal, no drainage or sinus tenderness. Oropharynx: Lips, mucosa, and tongue normal, teeth and gums normal, oropharynx normal. Neck: Supple, no adenopathy; thyroid symmetric, normal size, no bruits. Lungs: Lungs clear to auscultation. No wheezing, rhonchi, rales.. Heart: RRR without murmur, gallop, or rubs. No ectopy. Abdomen: Normal abdominal exam, Abdomen soft, non-tender. Bowel sounds normal. No masses, organomegaly. Extremities: No deformities, edema, skin discoloration, clubbing or cyanosis. Good capillary refill. . Musculoskeletal: Muscular strength intact, No joint swelling, deformity, or tenderness. Peripheral Pulses: Normal. Neurologic: Gait normal. Reflexes normal and symmetric. Sensation to light touch and crainal nerves 2-12 intact.. Health Maintenance List RSV Vaccine(1 - 1-dose 60+ series) Never done Depression Assessment due on 07/26/2022 Annual PCP Team Chronic Disease Visit due on 12/11/2023 Mammogram Screening due on 01/12/2024 Pneumococcal Vaccine(3 - PPSV23 or PCV20) due on 05/07/2026 Diabetes Screening due on 06/21/2026 Colorectal Cancer Screening due on 04/22/2027 DTaP,Tdap,Td Vaccine(3 - Td or Tdap) due on 05/10/2028 Lipid Screening due on 06/21/2028 Influenza Vaccine Completed Shingrix Vaccine Completed Covid-19 Vaccine Completed Spirometry Discontinued Pap Testing Discontinued HPV Testing Discontinued Hepatitis C Screening Discontinued HIV Screening Discontinued Data reviewed Component Latest Ref Rng & Units 06/08/2022 09/09/2022 12/02/2022 06/21/2023 WBC 3.70 - 11.00 k/uL 8.81 8.50 RBC 3.90 - 5.20 m/uL 4.88 4.86 Hemoglobin 11.5 - 15.5 g/dL 13.6 13.4 Hematocrit 36.0 - 46.0 % 42.1 42.0 MCV 80.0 - 100.0 fL 86.3 86.4 MCH 26.0 - 34.0 pg 27.9 27.6 MCHC 30.5 - 36.0 g/dL 32.3 31.9 RDW-CV 11.5 - 15.0 % 14.1 14.7 Platelet Count 150 - 400 k/uL 252 263 MPV 9.0 - 12.7 fL 10.8 10.9 Neut% % 68.2 66.6 Abs Neut (ANC) 1.45 - 7.50 k/uL 6.01 5.66 Lymph% % 21.7 22.7 Abs Lymph 1.00 - 4.00 k/uL 1.91 1.93 Preble% % 6.8 6.8 Abs [place]ble <0.87 k/uL 0.60 0.58 Eosin% % 1.9 2.7 Abs Eosin <0.46 k/uL 0.17 0.23 Baso% % 0.7 0.7 Abs Baso <0.11 k/uL 0.06 0.06 Immature Gran % % 0.7 0.5 IMMATURE GRANS (ABS) <0.10 k/uL 0.06 0.04 NRBC /100 WBC 0.0 0.0 Absolute nRBC <0.01 k/uL <0.01 <0.01 DTYPE Auto Auto Color Yellow Yellow Clarity Clear Cloudy (A) Glucose, Urine Negative Negative Bilirubin, Urine Negative Negative Ketones, Urine Negative Negative Specific [place], Ur 1.005 - 1.030 1.022 Hemoglobin/Blood,Ur Negative Negative pH, Urine <8.5 6.0 Protein, Urine Negative Trace (A) Urobilinogen 0.2-1.0 EU/dL 0.2 EU/dL Nitrites Negative Negative Leukest Negative Trace (A) WBC, Urine 0-5 /HPF >20 /HPF (A) RBC, Urine 0-2 /HPF 3-5 /HPF (A) Bacteria uL Negative uL 9,340.1 (H) Epithelial Cells /HPF Moderate Hyaline Cast 0 /LPF 4-10 /LPF (A) Protein, Total 6.3 - 8.0 g/dL 7.2 7.6 7.4 Albumin 3.9 - 4.9 g/dL 3.8 (L) 4.1 4.1 Calcium 8.5 - 10.2 mg/dL 9.3 9.0 Bilirubin, Total 0.2 - 1.3 mg/dL 0.6 0.9 0.8 Alkaline Phosphatase 34 - 123 U/L 131 (H) 116 125 (H) AST 13 - 35 U/L 19 24 22 ALT 7 - 38 U/L 17 25 19 Glucose 74 - 99 mg/dL 153 (H) 157 (H) BUN 7 - 21 mg/dL 14 13 Creatinine 0.58 - 0.96 mg/dL 0.67 0.67 Sodium 136 - 144 mmol/L 138 137 Potassium 3.7 - 5.1 mmol/L 4.2 4.4 Chloride 97 - 105 mmol/L 103 103 CO2 22 - 30 mmol/L 23 25 Anion Gap 9 - 18 mmol/L 12 9 eGFR >=60 mL/min/1.73m 99 98 Total Cholesterol, Nonfasting <200 mg/dL 165 139 159 Triglycerides, Nonfasting <150 mg/dL 180 (H) 177 (H) 161 (H) HDL Cholesterol, Nonfasting >39 mg/dL 41 40 38 (L) LDL Cholesterol, Nonfasting <100 mg/dL 88 64 89 Non HDL Cholesterol, Nonfasting <130 mg/dL 124 99 121 VLDL Cholesterol, Nonfasting <30 mg/dL 36 (H) 35 (H) 32 (H) Total Chol/HDL Ratio, Nonfasting <5.10 mg/dL 4.02 3.48 4.18 LDL/HDL Ratio, Nonfasting <2.54 mg/dL 2.15 1.60 2.34 Bilirubin, Conjug <0.2 mg/dL 0.2 (H) Hemoglobin A1C 4.3 - 5.6 % 5.9 (H) 6.2 (H) 5.7 (H) Estimated Average Glucose mg/dL 123 131 117 Vitamin D 25 Hydroxy 31.0 - 80.0 ng/mL 36.8 34.0 A/P ASSESSMENT/PLAN: 1. Well adult exam - ICD9: V70.0, ICD10: Z00.00 (primary diagnosis) - Counseled on healthy diet and regular exercise - Calcium intake with supplements or by diet of 1000 mg/day for under 50, 2076-2503 mg/day for 50+ - Follow up for annual exam in one year - advised on RSV 2. Mixed hyperlipidemia - ICD9: 272.2, ICD10: E78.2 - Controlled - Continue current medications - Counseled on healthy diet and regular exercise 3. Elevated hemoglobin A1c - ICD9: 790.29, ICD10: R73.09 Improved with life style changes. 4. Hyperparathyroidism (HCC) - ICD9: 252.00, ICD10: E21.3 - labs normal since parathyroidectomy 5. Mild intermittent asthma without complication - ICD9: 493.90, ICD10: J45.20 - Mild intermittent asthma stable - Continue current medications - Avoidance of triggers recommended 6. Obesity, Class III, BMI 40-49.9 (morbid obesity) (HCC) - ICD9: 278.01, ICD10: E66.01 Weight decreasing - Behavioral intervention 7. EVE (obstructive sleep apnea) ahi 46 - ICD9: 327.23, ICD10: G47.33 - patient benefiting from nightly CPAP 8. Vitamin D deficiency - ICD9: 268.9, ICD10: E55.9 - patient to cont replacement with 2,000 IUS daily. Requested Prescriptions Signed Prescriptions Disp Refills budesonide (PULMICORT) 0.5 mg/2 mL nebulizer solution 180 mL 1 Sig: Use 2 mL via nebulizer once daily. albuterol HFA (PROAIR HFA) 90 mcg/actuation inhaler 3 Each 1 Sig: Inhale 2 Puffs as instructed every 6 hours as needed for wheezing/shortness of breath. albuterol (PROVENTIL) 2.5 mg /3 mL (0.083 %) nebulizer solution 300 mL 1 Sig: Use 3 mL via nebulizer every 6 hours as needed for wheezing/shortness of breath. J45.20 cholecalciferol (VITAMIN D-3) 50 mcg (2,000 unit) tablet Sig: Take 1 tablet by mouth once daily. F/u 6 months check Lipid and A1c prior Lazaro Rust MD documented in this encounter [facility] 06-18-2023 Miscellaneous Notes OK to refill as ordered Miguel Angel Herman MD Routing to applications specialist d/t PCP out of office. RON 12/10/22 NOV 06/28/23 Patient has been identified by name and date of : Yes Requested Prescriptions Pending Prescriptions Disp Refills budesonide (PULMICORT) 0.5 mg/2 mL nebulizer solution 20 mL 0 Sig: Use 2 mL via nebulizer once daily. RX INSTRUCTIONS: please send today, patient is out of this medication this is a copy of the mail order Patient aware RX will be sent to pharmacy. No need to notify patient. Lara Mitchell documented in this encounter [facility] 06-12-2023 Miscellaneous Notes Last refill 12/10/22 Qty: 90 with 1 refill RON 12/10/22 NOV 06/28/23 Elly Orourke LPN Pharmacy verified in [facility] Patient has been identified by name and date of : Yes Patient aware RX will be sent to pharmacy. No need to notify patient. Patient phones for refill(s): Requested Prescriptions Pending Prescriptions Disp Refills atorvastatin (LIPITOR) 10 mg tablet 90 tablet 1 Sig: Take 1 tablet by mouth daily at bedtime. For cholesterol. Date of last office visit : 12/10/2022 Date of next office visit : 06/28/2023 Last 2 Encounter Wt Readings: Date: Wt: 12/10/2022 151.5 kg (334 lb) 10/02/2022 153.8 kg (339 lb) Not applicable Please advise. Nazanin Brown documented in this encounter [facility] 05-21-2023 Miscellaneous Notes Pt calling in this morning and states she feel yesterday and hurt her knee. She thought she pulled a muscle but this morning it feels worse and hard to walk on it. Feels pain in the back of the knee and states it feels like something is torn. Asking to see someone this morning. No availability on FP schedule. [facility]. Explained to pt they can only do so much there so she may need to see an orthopedic provider. Pt verbalizes understanding but wants to get it checked out so she will go to [facility]. documented in this encounter [facility] 05-11-2023 Miscellaneous Notes Pt is going to check on this and let office know. Elly Orourke LPN Ask patient if she wants to check with some local pharmacies to see if they have it? Patient said [facility] told her that they can no longer get Pulmacort. They want to know if there is another medication that can be prescribed. Patient said she is disappointed because Pulmacort works well for her. Please advise at [phone]. documented in this encounter [facility] 01-12-2023 Miscellaneous Notes January 13, 2023 PID: [id number] Amina Morales [address] [place] [address] Dear Ms. Morales, We are pleased to inform you that the results of your recent breast imaging exam on 01/11/2023 are normal. Your mammogram demonstrates that you have dense breast tissue, which could hide abnormalities. Dense breast tissue, in and of itself, is a relatively common condition. Therefore, this information is not provided to cause undue concern; rather, it is to raise your awareness and promote discussion with your health care provider regarding the presence of dense breast tissue in addition to other risk factors. Early detection of cancer is very important. We also understand recommendations regarding breast cancer screening are controversial. Please discuss with your primary care provider which strategy is best for you and whether a mammogram is right for you. Your imaging studies and report will be kept on file at [facility] as part of your permanent medical record and are available for your continuing care. Thank you for allowing us to help in meeting your health care needs. Sincerely, Dr. Elliott Interpreting Radiologist [facility] (Normal over 40) documented in this encounter [facility] 01-11-2023 History of Present illness Narrative Radiology Service Progress Note PATIENT NAME: Amina Morales DATE OF SERVICE: January 11, 2023 TIME: 7:22 AM PATIENT IDENTITY VERIFICATION COMPLETED USING TWO (2) IDENTIFIERS: Name and Date of confirmed by patient verbally. FALL SCREENING: Has the patient had 2 falls in the last year or 1 fall with injury or currently using an Ambulatory Assistive Device (Walker, Cane, Wheelchair, Crutches, etc.)? No PATIENT GENDER DATA: Female. status: : No status: NO. PATIENT RELEVANT IMPLANT DATA REVIEWED: Not Applicable RADIOLOGY DEPARTMENT: Mammography PERIPHERAL IV DATA: Not applicable SIGNED BY: RT Roberto(R) January 11, 2023 7:22 AM documented in this encounter [facility] 10-02-2022 History of Present illness Narrative Radiology Service Progress Note PATIENT NAME: Amina Morales DATE OF SERVICE: October 02, 2022 TIME: 2:00 PM PATIENT IDENTITY VERIFICATION COMPLETED USING TWO (2) IDENTIFIERS: Name and Date of confirmed by patient verbally. FALL SCREENING: Has the patient had 2 falls in the last year or 1 fall with injury or currently using an Ambulatory Assistive Device (Walker, Cane, Wheelchair, Crutches, etc.)? No PATIENT GENDER DATA: Female. status: : No status: NO. PATIENT RELEVANT IMPLANT DATA REVIEWED: Not Applicable RADIOLOGY DEPARTMENT: General X-ray: Exam(s) Completed: Chest X-Ray PERIPHERAL IV DATA: Not applicable SIGNED BY: RT Lois(R) October 02, 2022 2:00 PM documented in this encounter [facility] 10-02-2022 History of Present illness Narrative Chief Complaint Patient presents with: Cough HPI Amina Morales is a 62 year old female who presents here today for Above Complaints.. Patient presents with cough. Patient has asthma and since Wednesday patient has had a cough, increased cough, increased chest congestion. Past medical history, appointments, medications, allergies reviewed. Previous Medical History PAST MEDICAL HISTORY Diagnosis Date Closed fracture of left humerus Diverticulosis of colon Elevated hemoglobin A1c 10/08/2015 External hemorrhoids History of pulmonary embolism 1993 ? Pulmonary embolism Hyperglycemia 10/08/2015 Hyperparathyroidism ([facility]) 12/02/2020 Internal hemorrhoids Metabolic syndrome 10/08/2015 Mild intermittent asthma without complication 07/21/2013 Mixed hyperlipidemia 10/08/2015 Obesity, Class III, BMI 40-49.9 (morbid obesity) (HCC) 04/30/2017 EVE (obstructive sleep apnea) ahi 46 09/19/2014 On CPAP, DME [facility] Phlebitis and thrombophlebitis of unspecified site Plantar fasciitis, bilateral 10/08/2015 Symptomatic menopausal or female climacteric states 05/02/2009 Vitamin D deficiency 12/02/2020 Previous Surgical History PAST SURGICAL HISTORY Procedure Laterality Date [facility] INCL FLUOR GDNCE DX W/CELL WASHG SPX BRONCHOSCOPY COLONOSCOPY 04/22/2022 repeat in 5 years COLONOSCOPY FLX DX W/COLLJ SPEC WHEN PFRMD 09/18/2011 repeat 10 years FECAL OCCULT BLOOD TEST 05/01/2017 negative HYSTEROSCOPY, DIAGNOSTIC (SEPARATE WITH CURRETAGE LIG/TRNSXJ FLP TUBE ABDL/VAG APPR UNI/BI Tubal ligation PARATHYROIDECTOMY/EXPLOR PARATHYROIDS RE-EXPLOR 02/2022 PT ED ENDOCRINOLOGY 02/25/2022 Rt: upper and lower, Left Upper. TOTAL ABDOMINAL HYSTERECT W/WO RMVL TUBE OVARY 2004 Hysterectomy, DANIEL UNSPECIFIED ORAL SURGERY PROCEDURE, BY REPORT 08/18/2007 Family History FAMILY HISTORY Problem Relation Age of Onset Lipids Mother High Cholesterol Lipids Father High cholesterol Alzheimer's Disease Father Heart Maternal Grandmother Heart Maternal Grandfather Cancer Maternal Grandfather /BONE Heart Paternal Grandmother Heart Paternal Grandfather Hypertension Paternal Grandfather Patient Allergies ALLERGIES No Known Allergies Current Medications Current Outpatient Medications on File Prior to Visit Medication Sig CPAP Mask (per patient preference) optional chin strap (if indicated), filters, tubing / heated tubing, heated humidity and lifetime supplies. Dx. EVE G47.33 327.23 atorvastatin (LIPITOR) 10 mg tablet Take 1 tablet by mouth daily at bedtime. For cholesterol. budesonide (PULMICORT) 0.5 mg/2 mL nebulizer solution Use 2 mL via nebulizer once daily. albuterol (PROVENTIL) 2.5 mg /3 mL (0.083 %) nebulizer solution Use 3 mL via nebulizer every 6 hours as needed for wheezing/shortness of breath. J45.20 albuterol HFA (PROAIR HFA) 90 mcg/actuation inhaler Inhale 2 Puffs as instructed every 6 hours as needed for wheezing/shortness of breath. cholecalciferol (VITAMIN D-3) 50 mcg (2,000 unit) tablet Take 2 tablets by mouth once daily. Nebulizer NEBULIZER WITH SUPPLIES IF NEEDED FOR HOME USE. DX: Mild persistent asthma without complication J45.30 COMPOUNDED PRESCRIPTION Nebulizer supplies. Dx. Asthma.J45.909 No current facility-administered medications on file prior to visit. Social History Social History Tobacco Use Smoking status: Never Smokeless tobacco: Never Vaping Use Vaping Use: Never used Substance Use Topics Alcohol use: Yes Comment: Occasionally Drug use: No Review of Symptoms REVIEW OF SYSTEMS SEE HPI EXAM: BP 136/82 Pulse 80 Temp 36.6 C (97.9 F) Resp 18 Wt (!) 153.8 kg (339 lb) SpO2 95% BMI 52.70 kg/m General Appearance: Well appearing, alert, in no acute distress, well-hydrated, well nourished.. Lungs: Lungs clear to auscultation. No wheezing, rhonchi, rales.. Heart: RRR without murmur, gallop, or rubs. No ectopy. Health Maintenance List DEPRESSION ASSESSMENT due on 07/26/2022 MAMMOGRAM due on 12/24/2022 ANNUAL PCP TEAM CHRONIC DISEASE VISIT due on 06/12/2023 DIABETES SCREEN due on 06/08/2025 PNEUMOCOCCAL(3 - PPSV23 if available, else PCV20) due on 05/07/2026 COLORECTAL CANCER SCREENING due on 04/22/2027 LIPID SCREEN due on 06/08/2027 DTAP,TDAP,TD(3 - Td or Tdap) due on 05/10/2028 INFLUENZA Completed SHINGRIX VACCINE Completed COVID-19 VACCINE Completed SPIROMETRY Discontinued PAP TESTING Discontinued HPV TESTING Discontinued HEPATITIS C SCREENING Discontinued HIV SCREENING Discontinued ASSESSMENT/PLAN: 1. Moderate persistent asthma with (acute) exacerbation - ICD9: 493.92, ICD10: J45.41 Moderate persistent Asthma acute excacerbation without status - factors affecting control of asthma include lack of avoidance of triggers weather changes - Continue Pulmicort: Pulmicort respules 0.5 mg daily - Exacerbation treatment of Prednisone burst- see orders - Avoidance of triggers recommended - XR CHEST 2V FRONTAL/LAT - PREDNISONE 20 MG TABLET - AZITHROMYCIN 250 MG TABLET Valentino Egan APRN.ANYA documented in this encounter [facility] 07-29-2022 Miscellaneous Notes Patient has been identified by name and date of : Yes Requested Prescriptions Pending Prescriptions Disp Refills CPAP Sig: Mask (per patient preference) optional chin strap (if indicated), filters, tubing / heated tubing, heated humidity and lifetime supplies. Dx. EVE G47.33 327.23 RX INSTRUCTIONS: Patient aware RX will be sent to pharmacy. No need to notify patient. Litzy Morales MA Patient has been identified by name and date of : Yes, Provider YOCASTA Patient phones for refill(s): Requested Prescriptions Pending Prescriptions Disp Refills CPAP Sig: Mask (per patient preference) optional chin strap (if indicated), filters, tubing / heated tubing, heated humidity and lifetime supplies. Dx. EVE G47.33 327.23 Date of last office visit in primary care: 06/12/22 Last 2 Encounter Wt Readings: Date: Wt: 06/12/2022 154.7 kg (341 lb) 04/28/2022 152.4 kg (336 lb) Previous labs/tests for medication: Not applicable Please advise. Thank you. Paz Wang PLEASE SEND TO [facility]. [phone] documented in this encounter [facility] 06-12-2022 Instructions Lazaro Rust MD - 06/12/2022 1:45 PM EST Please get labs done on or after 11/27/2022 prior to your next visit. documented in this encounter [facility] 06-12-2022 History of Present illness Narrative Chief Complaint Patient presents with: Physical HPI Amina Morales is a 61 year old female who presents here today for Physical. Patient with hx of HLP, Asthma, EVE, elevated glucose, elevated PTH, obesity and those as below. Patient had 3 out of 4 parathyroid glands removed back in Feb and had a colonoscopy in Mar. Recently returned form [place]. Has been doing well. No new isues or concerns. Past medical history, appointments, medications, allergies reviewed. Previous Medical History PAST MEDICAL HISTORY Diagnosis Date Closed fracture of left humerus Diverticulosis of colon External hemorrhoids History of pulmonary embolism 1993 ? Pulmonary embolism Hyperglycemia 10/08/2015 Hyperparathyroidism (HCC) 12/02/2020 Internal hemorrhoids Metabolic syndrome 10/08/2015 Mild intermittent asthma without complication 07/21/2013 Mixed hyperlipidemia 10/08/2015 Obesity, Class III, BMI 40-49.9 (morbid obesity) (HCC) 04/30/2017 EVE (obstructive sleep apnea) ahi 46 09/19/2014 On CPAP, [facility] Phlebitis and thrombophlebitis of unspecified site Plantar fasciitis, bilateral 10/08/2015 Symptomatic menopausal or female climacteric states 05/02/2009 Vitamin D deficiency 12/02/2020 Previous Surgical History PAST SURGICAL HISTORY Procedure Laterality Date [facility] INCL FLUOR GDNCE DX W/CELL WASHG SPX BRONCHOSCOPY COLONOSCOPY 04/22/2022 repeat in 5 years COLONOSCOPY FLX DX W/COLLJ SPEC WHEN PFRMD 09/18/2011 repeat 10 years FECAL OCCULT BLOOD TEST 05/01/2017 negative HYSTEROSCOPY, DIAGNOSTIC (SEPARATE WITH CURRETAGE LIG/TRNSXJ FLP TUBE ABDL/VAG APPR UNI/BI Tubal ligation PARATHYROIDECTOMY/EXPLOR PARATHYROIDS RE-EXPLOR 02/2022 PT ED ENDOCRINOLOGY 02/25/2022 Rt: upper and lower, Left Upper. TOTAL ABDOMINAL HYSTERECT W/WO RMVL TUBE OVARY 2004 Hysterectomy, DANIEL UNSPECIFIED ORAL SURGERY PROCEDURE, BY REPORT 08/18/2007 Family History FAMILY HISTORY Problem Relation Age of Onset Lipids Mother High Cholesterol Lipids Father High cholesterol Alzheimer's Disease Father Heart Maternal Grandmother Heart Maternal Grandfather Cancer Maternal Grandfather /BONE Heart Paternal Grandmother Heart Paternal Grandfather Hypertension Paternal Grandfather Patient Allergies ALLERGIES No Known Allergies Current Medications Current Outpatient Medications on File Prior to Visit Medication Sig atorvastatin (LIPITOR) 10 mg tablet Take 1 tablet by mouth daily at bedtime. For cholesterol. budesonide (PULMICORT) 0.5 mg/2 mL nebulizer solution Use 2 mL via nebulizer once daily. albuterol (PROVENTIL) 2.5 mg /3 mL (0.083 %) nebulizer solution Use 3 mL via nebulizer every 6 hours as needed for wheezing/shortness of breath. J45.20 albuterol HFA (PROAIR HFA) 90 mcg/actuation inhaler Inhale 2 Puffs as instructed every 6 hours as needed for wheezing/shortness of breath. cholecalciferol (VITAMIN D-3) 50 mcg (2,000 unit) tablet Take 2 tablets by mouth once daily. CPAP Mask (per patient preference) optional chin strap (if indicated), filters, tubing / heated tubing, heated humidity and lifetime supplies. Dx. EVE G47.33 327.23 polyethylene glycol 3350 (MIRALAX, GLYCOLAX) 17 gram/dose powder Use as directed for Miralax / Gatorade Bowel Prep Kit Bisacodyl (DULCOLAX) 5 mg tab Use as directed for Miralax / Gatorade Bowel Prep Kit Nebulizer NEBULIZER WITH SUPPLIES IF NEEDED FOR HOME USE. DX: Mild persistent asthma without complication J45.30 COMPOUNDED PRESCRIPTION Nebulizer supplies. Dx. Asthma.J45.909 No current facility-administered medications on file prior to visit. Social History Social History Tobacco Use Smoking status: Never Smokeless tobacco: Never Vaping Use Vaping Use: Never used Substance Use Topics Alcohol use: Yes Comment: Occasionally Drug use: No Review of Symptoms REVIEW OF SYSTEMS GENERAL: No weight loss, malaise or fevers HEENT: Negative for frequent or significant headaches, No changes in hearing or vision, no nose bleeds or other nasal problems NECK: Negative for lumps, goiter, pain and significant neck swelling RESPIRATORY: Negative for cough, hemoptysis, wheezing, COPD, dyspnea or shortness of breath CARDIOVASCULAR: Negative for chest pain, leg swelling, hypertension, CHF or palpitations GI: No nausea, vomiting, or diarrhea, No heartburn or reflux symptoms, and no blood : No history of dysuria, blood MUSCULOSKELETAL: Negative for new or changes in her typical joint pain or swelling, back pain or muscle pain SKIN: Negative for lesions, rash, and itching PSYCH: Negative for sleep disturbance, mood disorder and recent psychosocial stressors HEMATOLOGY/LYMPHOLOGY: Negative for prolonged bleeding, bruising easily or swollen nodes ENDOCRINE: Negative for cold or heat intolerance, polyuria, polydipsia and goiter NEURO: No history of headaches, syncope, paralysis, seizures or tremors EXAM: BP 148/90 (BP Site: Right Arm, BP Position: Sitting, BP Cuff Size: Large Adult) Pulse 70 Ht 170.8 cm (5' 7.25) Wt (!) 154.7 kg (341 lb) BMI 53.01 kg/m BP 132/82 Pulse 70 Ht 170.8 cm (5' 7.25) Wt (!) 154.7 kg (341 lb) BMI 53.01 kg/m Last 5 Encounter Wt Readings: Date: Wt: 06/12/2022 154.7 kg (341 lb) 04/28/2022 152.4 kg (336 lb) 04/08/2022 153.3 kg (338 lb) 02/16/2022 155.1 kg (342 lb) 02/03/2022 152 kg (335 lb) General Appearance: Well appearing, alert, in no acute distress, well-hydrated, well nourished. and Morbidly obese. Skin: Skin color, texture, turgor normal, no suspicious rashes or lesions. Head: Normocephalic, no masses, lesions, tenderness or abnormalities. Eyes: Anicteric sclera. Pupils are equally round and reactive to light. Extraocular movements are intact. . Ears: External ears, TM's normal, canals clear. Neck: Supple, no adenopathy; thyroid symmetric, normal size, no bruits. Lungs: Lungs clear to auscultation. No wheezing, rhonchi, rales.. Heart: RRR without murmur, gallop, or rubs. No ectopy. Abdomen: Normal abdominal exam, Abdomen soft, non-tender. Bowel sounds normal. No masses, organomegaly. Extremities: No deformities, skin discoloration, clubbing or cyanosis. Good capillary refill. Mild non-pitting edema.. Musculoskeletal: Muscular strength intact, No joint swelling, deformity, or tenderness. Peripheral Pulses: Normal. Neurologic: Gait normal. Reflexes normal and symmetric. Sensation to light touch and crainal nerves 2-12 intact.. Health Maintenance List DEPRESSION ASSESSMENT Never done ANNUAL PCP TEAM CHRONIC DISEASE VISIT due on 11/17/2022 MAMMOGRAM due on 12/24/2022 DIABETES SCREEN due on 06/08/2025 PNEUMOCOCCAL(3 - PPSV23 if available, else PCV20) due on 05/07/2026 COLORECTAL CANCER SCREENING due on 04/22/2027 LIPID SCREEN due on 06/08/2027 DTAP,TDAP,TD(3 - Td or Tdap) due on 05/10/2028 INFLUENZA Completed SHINGRIX VACCINE Completed COVID-19 VACCINE Completed SPIROMETRY Discontinued PAP TESTING Discontinued HPV TESTING Discontinued HEPATITIS C SCREENING Discontinued HIV SCREENING Discontinued Data reviewed Component Latest Ref Rng & Units 02/05/2021 05/03/2021 11/12/2021 06/08/2022 WBC 3.70 - 11.00 k/uL 8.84 8.81 RBC 3.90 - 5.20 m/uL 5.14 4.88 Hemoglobin 11.5 - 15.5 g/dL 14.1 13.6 Hematocrit 36.0 - 46.0 % 44.7 42.1 MCV 80.0 - 100.0 fL 87.0 86.3 MCH 26.0 - 34.0 pg 27.4 27.9 MCHC 30.5 - 36.0 g/dL 31.5 32.3 RDW-CV 11.5 - 15.0 % 14.3 14.1 Platelet Count 150 - 400 k/uL 265 252 MPV 9.0 - 12.7 fL 10.8 10.8 Neut% % 64.5 68.2 Abs Neut (ANC) 1.45 - 7.50 k/uL 5.71 6.01 Lymph% % 24.9 21.7 Abs Lymph 1.00 - 4.00 k/uL 2.20 1.91 Preble% % 7.5 6.8 Abs Preble <0.87 k/uL 0.66 0.60 Eosin% % 2.5 1.9 Abs Eosin <0.46 k/uL 0.22 0.17 Baso% % 0.6 0.7 Abs Baso <0.11 k/uL 0.05 0.06 Immature Gran % % 0.7 IMMATURE GRANS (ABS) <0.10 k/uL 0.06 NRBC /100 WBC 0.0 Absolute nRBC <0.01 k/uL <0.01 <0.01 DTYPE Auto Nucleated Reds 0 /100 WBC 0.0 Diff Type Auto Diff Protein, Total 6.3 - 8.0 g/dL 7.5 7.2 Albumin 3.9 - 4.9 g/dL 4.2 3.8 (L) Calcium 8.5 - 10.2 mg/dL 10.6 (H) 9.3 Bilirubin, Total 0.2 - 1.3 mg/dL 0.6 0.6 Alkaline Phosphatase 34 - 123 U/L 119 131 (H) AST 13 - 35 U/L 24 19 Glucose 74 - 99 mg/dL 122 (H) 153 (H) BUN 7 - 21 mg/dL 15 14 Creatinine 0.58 - 0.96 mg/dL 0.71 0.67 Sodium 136 - 144 mmol/L 137 138 Potassium 3.7 - 5.1 mmol/L 4.4 4.2 Chloride 97 - 105 mmol/L 103 103 CO2 22 - 30 mmol/L 21 (L) 23 Anion Gap 9 - 18 mmol/L 13 12 ALT 7 - 38 U/L 25 17 eGFR- >60 eGFR-All Other Races . >60 eGFR >=60 mL/min/1.73m 99 Color Yellow Yellow Clarity Clear Cloudy (A) Glucose, Urine Negative Negative Bilirubin, Urine Negative Negative Ketones, Urine Negative Negative Specific [place], Ur 1.005 - 1.030 1.022 Hemoglobin/Blood,Ur Negative Negative pH, Urine 5.0 - 8.0 6.5 Protein, Urine Negative Trace (A) Urobilinogen Negative Negative Nitrites Negative Negative Leukest Negative 75 Luis/mL (A) WBC, Urine 0-5 /HPF 6-10 /HPF (A) RBC, Urine 0-3 /HPF 0-3 /HPF Bacteria None Seen /HPF Few (A) Epithelial Cells /HPF Few Total Cholesterol, Nonfasting <200 mg/dL 219 (H) 243 (H) 165 Triglycerides, Nonfasting <150 mg/dL 218 (H) 244 (H) 180 (H) HDL Cholesterol, Nonfasting >39 mg/dL 41 46 41 LDL Cholesterol, Nonfasting <100 mg/dL 134 (H) 148 (H) 88 Non HDL Cholesterol, Nonfasting <130 mg/dL 178 (H) 197 (H) 124 VLDL Cholesterol, Nonfasting <30 mg/dL 44 (H) 49 (H) 36 (H) Total Chol/HDL Ratio, Nonfasting <5.10 mg/dL 5.34 (H) 5.28 (H) 4.02 LDL/HDL Ratio, Nonfasting <2.54 mg/dL 3.27 (H) 3.22 (H) 2.15 Hemoglobin A1C 4.3 - 5.6 % 5.7 (H) 5.8 (H) 5.9 (H) Estimated Average Glucose mg/dL 117 120 123 Vitamin D 25 Hydroxy 31.0 - 80.0 ng/mL 37.1 TSH 0.270 - 4.200 uU/mL 3.060 A/P ASSESSMENT/PLAN: 1. Well adult exam - ICD9: V70.0, ICD10: Z00.00 (primary diagnosis) - Counseled on healthy diet and regular exercise - Calcium intake with supplements or by diet of 1000 mg/day for under 50, 1017-8467 mg/day for 50+ - Discussed need and benefit for weight loss. BMI 53.01 kg/(m^2) - Follow up for annual exam in one year 2. Mild intermittent asthma without complication - ICD9: 493.90, ICD10: J45.20 Mild intermittent Asthma stable - Avoidance of triggers recommended Cont - BUDESONIDE 0.5 MG/2 ML SUSPENSION FOR NEBULIZATION 3. Mixed hyperlipidemia - ICD9: 272.2, ICD10: E78.2 - good control and - improved control - Continue current medication. - Encouraged following a low fat, low cholesterol diet. - Discussed the benefits of regular aerobic exercise and weight loss. - Encouraged following a low carbohydrate, healthy oil intake diet. 4. Hyperparathyroidism (HCC) - ICD9: 252.00, ICD10: E21.3 - s/p surgy. 5. Hyperglycemia - ICD9: 790.29, ICD10: R73.9 - A1c increased and discussed life style changes. 6. Vitamin D deficiency - ICD9: 268.9, ICD10: E55.9 - ok with replacement 7. EVE (obstructive sleep apnea) ahi 46 - ICD9: 327.23, ICD10: G47.33 - cont use of CPAP 8. Obesity, Class III, BMI 40-49.9 (morbid obesity) (HCC) - ICD9: 278.01, ICD10: E66.01 Weight increasing - Behavioral intervention Requested Prescriptions Signed Prescriptions Disp Refills atorvastatin (LIPITOR) 10 mg tablet 90 tablet 1 Sig: Take 1 tablet by mouth daily at bedtime. For cholesterol. budesonide (PULMICORT) 0.5 mg/2 mL nebulizer solution 180 mL 1 Sig: Use 2 mL via nebulizer once daily. F/u 6 months routine check Lipid, LFT's and A1c prior Lazaro Rust MD documented in this encounter [facility] 04-28-2022 History of Present illness Narrative Amina is a 61 year old who presents for an annual gynecologic exam without complaints. 3 grandchildren. 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 Postmenopausal: yes HRT use: No. Last Pap: 08/14/2003 normal History of abnormal pap: No Last mammogram: 2021 normal History of abnormal mammogram: No Sexually active: Yes History of STDS: None Patient concerns for STD exposure: No. Pain with intercourse: No Postcoital bleeding: No Hot flashes: No Night sweats: Yes Vaginal dryness: Yes Exercise: needs to be more active per patient Diet: balanced OB History T2 L2 SAB0 IAB0 Ectopic0 Multiple0 Live Births0 Comment: 2 vaginal deliveries Jig Hand History LMP: Hysterectomy Age at Menarche: Age at First : Age at Menopause: Jig Hand History Comments: Sexual Activity: Yes; Male; Pt has had a Hysterectomy Contraception: Surgical PAST MEDICAL HISTORY Diagnosis Date Closed fracture of left humerus Diverticulosis of colon External hemorrhoids History of pulmonary embolism 1993 ? Pulmonary embolism Hyperglycemia 10/08/2015 Hyperparathyroidism (HCC) 12/02/2020 Internal hemorrhoids Metabolic syndrome 10/08/2015 Mild intermittent asthma without complication 07/21/2013 Mixed hyperlipidemia 10/08/2015 Obesity, Class III, BMI 40-49.9 (morbid obesity) (HCC) 04/30/2017 EVE (obstructive sleep apnea) ahi 46 09/19/2014 On CPAP, [facility] Phlebitis and thrombophlebitis of unspecified site Plantar fasciitis, bilateral 10/08/2015 Symptomatic menopausal or female climacteric states 05/02/2009 Vitamin D deficiency 12/02/2020 PAST SURGICAL HISTORY Procedure Laterality Date [facility] INCL FLUOR GDNCE DX W/CELL WASHG SPX BRONCHOSCOPY COLONOSCOPY FLX DX W/COLLJ SPEC WHEN PFRMD 09/18/2011 repeat 10 years FECAL OCCULT BLOOD TEST 05/01/2017 negative HYSTEROSCOPY, DIAGNOSTIC (SEPARATE WITH CURRETAGE LIG/TRNSXJ FLP TUBE ABDL/VAG APPR UNI/BI Tubal ligation PARATHYROIDECTOMY/EXPLOR PARATHYROIDS RE-EXPLOR 02/2022 PT ED ENDOCRINOLOGY 02/25/2022 Rt: upper and lower, Left Upper. TOTAL ABDOMINAL HYSTERECT W/WO RMVL TUBE OVARY 2004 Hysterectomy, DANIEL UNSPECIFIED ORAL SURGERY PROCEDURE, BY REPORT 08/18/2007 FAMILY HISTORY Problem Relation Age of Onset Lipids Mother High Cholesterol Lipids Father High cholesterol Alzheimer's Disease Father Heart Maternal Grandmother Heart Maternal Grandfather Cancer Maternal Grandfather /BONE Heart Paternal Grandmother Heart Paternal Grandfather Hypertension Paternal Grandfather SOCIAL HISTORY Social History Tobacco Use Smoking status: Never Smokeless tobacco: Never Vaping Use Vaping Use: Never used Substance Use Topics Alcohol use: Yes Comment: Occasionally Drug use: No REVIEW OF SYSTEMS Abdomen: No abdominal pain, nausea, vomiting, diarrhea, or constipation. No bloating, early satiety, indigestion, or increased flatulence. Bladder: No dysuria, gross hematuria, urinary frequency, urinary urgency, or incontinence Breast: No breast lumps, nipple d/c, overlying skin changes, redness or skin retraction Allergies and current medication updated:Yes EXAM: BP 130/78 Ht 5' 7 (1.70m) Wt 336 lb (152.4kg) BMI 52.61 kg/(m^2). GENERAL: pleasant, female in no apparent distress HEENT: Normocephalic, atraumatic, mucus membranes moist, and no lesions NECK: Supple, full range of motion, no adenopathy, and thyroid normal DERMATOLOGY: Normal, without lesions, non-icteric, and non-hirsute BREAST: soft, non-tender, symmetric, no dominant mass, normal nipple-areolar complex, no lymphadenopathy, and no nipple discharge ABDOMEN: soft, non-tender, and no masses PELVIC: external genitalia normal, normal Bartholin's glands, urethra, Duncan's glands, no vulvar lesions, good vaginal support, physiologic discharge present, normal appearing perineal body and perianal region, cervix surgically absent BIMANUAL: no adnexal masses, non-tender, and uterus surgically absent RECTOVAGINAL: deferred. NEURO: alert and oriented x3,exam grossly non-focal EXTREMITIES: normal ASSESSMENT/PLAN: 1) Health maintenance: Pap/HPV screening no longer needed Mammogram ordered Mammogram up to date Nutrition, exercise and routine health maintenance exams reviewed. Calcium/Vitamin D supplementation information provided. Colon cancer screening: up to date with screening BMD: up to date 2) Follow up one year or sooner as needed 3) flu vaccine today Savanah Archer MD Laser Machine Operator offered: Patient declines. documented in this encounter [facility] 04-08-2022 Instructions Yaneth Vazquez APRN.IMMIGRATION INVESTIGATOR - 04/08/2022 8:59 AM EDT PATIENT PREOPERATIVE INSTRUCTIONS Ben Hollis MD has scheduled you for your procedure at this surgery center: [facility]: [phone] -- [address] [facility] [address]. Please read below carefully for your personalized instructions. Dietary Restrictions: - Follow bowel prep instructions: clear liquids need to be stopped 2 hours prior to schedule arrival at facility Medications: Unless instructed differently below, stay on all of your medications until your surgery. Approved medications to take the morning of surgery with a sip of water: Albuterol, Atorvastatin, Pulmicort If you start any new medications after today's visit, please contact the surgeon's office. Blood Thinning Medications: - Stop NSAIDS (Ibuprofen, Advil, Aleve, Motrin, Celebrex, Mobic, etc.) 7 days before surgery, as directed by your surgeon. - Stop Aspirin 7 days before surgery, as directed by your surgeon. - Stop Vitamin E, ALL multi-vitamins, herbals and dietary supplements 7 days before surgery. - You may take Tylenol (Acetaminophen) or any of your pain medications that do not contain aspirin or NSAIDS as needed. Important Reminders: - If you use CPAP/BIPAP, bring the machine with you to the surgery center. - If you are prescribed inhalers for breathing, continue using them. - Candy, mints, and tobacco products are NOT permitted the morning of surgery. - Hearing aids, dentures and glasses may be worn the morning of surgery. - NO jewelry, body piercings, makeup, hairpins or contacts are to be worn the day of surgery. If you develop symptoms such as a fever, cold, or flu, or have other changes to your health within TWO DAYS of scheduled surgery or the morning of surgery, please contact the surgery center above. Personal Belongings: -Please have photo ID and insurance cards. -If you do not have a copy of advance directives on file with us, please bring a copy with you on the day of surgery. - Leave ALL valuables and money at home or with family members. For Outpatient Procedures: - YOU MUST HAVE A RESPONSIBLE VOUCHER CLERK TAKE YOU HOME. A HORTICULTURE TEACHER OR FORMING MACHINE UPKEEP MECHANIC CANNOT BE MADE A RESPONSIBLE VOUCHER CLERK. - We recommend that a responsible person stays with you overnight to take care of you. - You cannot stay in a hotel alone after outpatient surgery. You will not be permitted to have your surgery, if you do not have someone to take care of you. Arrival Time for Surgery: - The Surgery Center or hospital where you are having surgery will call the afternoon before surgery (or Wednesday for Wednesday surgery) with a scheduled arrival time. - If you have not heard by 4 pm, please contact the surgery center above. Please be aware that emergency situations arise, which may delay or change your surgical time. If this happens, we will notify you as soon as possible and regret any inconvenience. If you already have an Advance Directive, please fax a copy to [phone] or email to for it to be added to your chart. If you do not have an Advance Directive, you can find the appropriate form and more information at [email or web address]. We recommend that you complete the Advance Directive form found on the website and bring it with you the day of your surgery. It can be witnessed and scanned into your chart that day. Yaneth Vazquez APRN.CNP documented in this encounter [facility] 04-08-2022 History and physical note Images from the original note were not included. HISTORY AND PHYSICAL EXAMINATION SERVICE DATE: 04/08/2022 SERVICE TIME: 8:56 AM PRIMARY CARE PHYSICIAN: Lazaro Rust MD REASON FOR VISIT: Amina Morales is a 61 year old female who is scheduled for colonoscopy at the request of Dr. Ben Hollis for consultation. My final recommendation will be communicated back to the requesting physician by way of shared medical record or letter. Subjective The patient has the following: ACTIVE PROBLEM LIST Mild Intermittent Asthma Without Complication EVE (obstructive sleep apnea) ahi 46 Mixed Hyperlipidemia Metabolic Syndrome Hyperglycemia Encounter for Gynecological Examination Without Abnormal Finding Diverticulosis of Colon External Hemorrhoids Internal Hemorrhoids History of Pulmonary Embolism Plantar Fasciitis, Bilateral Well Adult Exam Screening for Colon Cancer Obesity, Class Iii, Bmi 40-49.9 (Morbid Obesity) (Hcc) Hyperparathyroidism (Hcc) Vitamin D Deficiency COVID-19 Immunization Status COVID-19 VACCINE (Series Information) Completed 11/28/2021 Imm Admin: COVID-19 vaccine, age 12+ yr ([employer] - [place]ARRIS TOP) 04/28/2021 Imm Admin: COVID-19 vaccine, age 12+ yr ([employer] - PURPLE TOP) 09/07/2020 Imm Admin: COVID-19 vaccine, age 12+ yr ([employer] - PURPLE TOP) Only the first 3 history entries have been loaded, but more history exists. CHIEF COMPLAINT: Pre-op exam HPI: GEORGETTE is a 61 yo seen for PAC due to scheduled above procedure for colon cancer screening. 02/03/2022 Rabia Gupta, IMMIGRATION INVESTIGATOR Amina Morales is a 61 year old female with a past medical history diverticulosis of the colon, external hemorrhoids, internal hemorrhoids, vitamin D deficiency, EVE, hyperlipidemia, asthma, metabolic syndrome, hyperparathyroid, PE. Who presents for colon cancer screening Last colonoscopy 09/18/2011: Nonbleeding external and internal hemorrhoids, tortuous colon. HPI: The patient denies change in bowel habits, denies black stool or rectal bleeding or abdominal pain. Having a bowel movement Daily. Reports at times constipation reporting what she eats might cause constipation. Denies diarrhea. Denies weight loss. Denies upper GI complaints at this time. REVIEW OF SYSTEMS: General: No weight loss, malaise or fevers. Neurological: No history of TIA's, stroke, MEAT PACKER tumor, impaired sensorium, hemiplegia, paraplegia or quadraplegia. No neurological symptoms or problems. Respiratory: Positive for: asthma (on rx and as needed), obstructive sleep apnea and CPAP/BiPAP compliant. Negative for: COPD, pneumonia within 6 weeks, tobacco use and URI < 2 weeks. Cardiovascular: Positive for: DVT/PE (hx PE, tx with Coumadin >20 years ago, no daily AC) and hyperlipidemia (on rx) Negative for: angina, anticoagulation therapy, arrhythmia, atrial fibrillation, CAD, chest pain, CHF, congenital heart defect, hypertension, recent OR, murmur/valvular heart disease, open heart surgery and valve surgery. GI: See HPI. : No history of dysuria, frequency or incontinence, stones or chronic kidney disease. No difficulty urinating, nocturia > 1 time per night or hematuria. RACKMAN: Negative for abnormal vaginal bleeding, abnormal vaginal discharge. Endocrine: Positive for: hyperparathyroidism (s/p parathyroidectomy). Negative for: diabetes mellitus and hypothyroidism. Hematology: No history of bleeding or clotting disorder. Patient is not taking anti-coagulation or platelet medications. No history of hematological symptoms or problems. Oncology: No history of CA metastasis, chemo within 30 days, or radiotherapy within 90 days. No history of oncological symptoms or problems. Psych: No history of psychiatric symptoms or problems. Musculoskeletal: Negative for joint pain or swelling, back pain or muscle pain. Skin: Negative for lesions, rash and itching. PAST MEDICAL HISTORY Diagnosis Date Closed fracture of left humerus Diverticulosis of colon External hemorrhoids History of pulmonary embolism 1993 ? Pulmonary embolism Hyperglycemia 10/08/2015 Hyperparathyroidism ([facility]) 12/02/2020 Internal hemorrhoids Metabolic syndrome 10/08/2015 Mild intermittent asthma without complication 07/21/2013 Mixed hyperlipidemia 10/08/2015 Obesity, Class III, BMI 40-49.9 (morbid obesity) ([facility]) 04/30/2017 EVE (obstructive sleep apnea) ahi 46 09/19/2014 On CPAP, [facility] Phlebitis and thrombophlebitis of unspecified site Plantar fasciitis, bilateral 10/08/2015 Symptomatic menopausal or female climacteric states 05/02/2009 Vitamin D deficiency 12/02/2020 PAST SURGICAL HISTORY Procedure Laterality Date [facility] INCL FLUOR GDNCE DX W/CELL WASHG SPX BRONCHOSCOPY COLONOSCOPY FLX DX W/COLLJ SPEC WHEN PFRMD 09/18/2011 repeat 10 years FECAL OCCULT BLOOD TEST 05/01/2017 negative HYSTEROSCOPY, DIAGNOSTIC (SEPARATE WITH CURRETAGE LIG/TRNSXJ FLP TUBE ABDL/VAG APPR UNI/BI Tubal ligation PARATHYROIDECTOMY/EXPLOR PARATHYROIDS RE-EXPLOR 02/2022 PT ED ENDOCRINOLOGY 02/25/2022 Rt: upper and lower, Left Upper. TOTAL ABDOMINAL HYSTERECT W/WO RMVL TUBE OVARY 2004 Hysterectomy, DANIEL UNSPECIFIED ORAL SURGERY PROCEDURE, BY REPORT 08/18/2007 FAMILY HISTORY Problem Relation Age of Onset Lipids Mother High Cholesterol Lipids Father High cholesterol Alzheimer's Disease Father Heart Maternal Grandmother Heart Maternal Grandfather Cancer Maternal Grandfather /BONE Heart Paternal Grandmother Heart Paternal Grandfather Hypertension Paternal Grandfather Social History Tobacco Use Smoking status: Never Smokeless tobacco: Never Vaping Use Vaping Use: Never used Substance Use Topics Alcohol use: Yes Comment: Occasionally Drug use: No Prior to Admission medications as of 04/08/22 0832 Medication Sig Last Dose Taking polyethylene glycol 3350 (MIRALAX, GLYCOLAX) 17 gram/dose powder Use as directed for Miralax / Gatorade Bowel Prep Kit Taking Yes Bisacodyl (DULCOLAX) 5 mg tab Use as directed for Miralax / Gatorade Bowel Prep Kit Taking Yes atorvastatin (LIPITOR) 10 mg tablet Take 1 tablet by mouth daily at bedtime. For cholesterol. Taking Yes budesonide (PULMICORT) 0.5 mg/2 mL nebulizer solution Use 2 mL via nebulizer once daily. Taking Yes albuterol (PROVENTIL) 2.5 mg /3 mL (0.083 %) nebulizer solution Use 3 mL via nebulizer every 6 hours as needed for wheezing/shortness of breath. J45.20 Taking Yes albuterol HFA (PROAIR HFA) 90 mcg/actuation inhaler Inhale 2 Puffs as instructed every 6 hours as needed for wheezing/shortness of breath. Taking Yes cholecalciferol (VITAMIN D-3) 50 mcg (2,000 unit) tablet Take 2 tablets by mouth once daily. Taking Yes CPAP Mask (per patient preference) optional chin strap (if indicated), filters, tubing / heated tubing, heated humidity and lifetime supplies. Dx. EVE G47.33 327.23 Taking Yes Nebulizer NEBULIZER WITH SUPPLIES IF NEEDED FOR HOME USE. DX: Mild persistent asthma without complication J45.30 Taking Yes COMPOUNDED PRESCRIPTION Nebulizer supplies. Dx. Asthma.J45.909 Taking Yes No medication comments found. ALLERGIES No Known Allergies Objective PHYSICAL EXAM: General: alert and oriented (x3), healthy appearance and morbidly obese. Pertinent negatives noted - not distressed. Skin: normal color, no rash or lesions. HEENT: EOM intact and pupils equal round. Pertinent negatives noted - no carotid bruit. Cardiovascular: regular rate and rhythm, normal S1 and S2, no rub, murmurs, or gallop. Respiratory: normal breath sounds, no wheezes or crackles. No chest wall deformity or tenderness. Abdomen: soft. Pertinent negatives noted - not tender. Extremities: no deformity, no edema or tenderness, no joint swelling or clubbing. Neurological: normal cognition and motor skills. Gait normal. No weakness or sensory deficit. PAIN ASSESSMENT: VITALS: BP 136/74 Pulse 68 Temp (Src) 98.4 (Temporal) Resp 16 Ht 5' 7 (1.70m) Wt 338 lb (153.3kg) SpO2 96% BMI 52.93 kg/(m^2). Diagnostic tests reviewed for today's visit: Lab Value Units Date High Low HB 13.5 g/dL 02/16/2022 15.5 11.5 HCT 41.6 % 02/16/2022 46.0 36.0 WBC 7.12 k/uL 02/16/2022 11.00 3.70 PLT 196 k/uL 02/16/2022 400 150 NA 138 mmol/L 12/24/2021 144 136 K 4.4 mmol/L 12/24/2021 5.1 3.7 GLUC 96 mg/dL 12/24/2021 99 74 BUN 13 mg/dL 12/24/2021 21 7 CREAT 0.76 mg/dL 12/24/2021 0.96 0.58 PTSEC No results within date range. INR No results within date range. APTT No results within date range. ALT No results within date range. AST No results within date range. TBILI No results within date range. TSH No results within date range. Lab Value Units Date High Low HCGQT No results within date range. UHCG No results within date range. HCG, BODY* No results within date range. Lab Value Units Date High Low ABORHD No results within date range. ABSCREEN No results within date range. Hemoglobin A1C (%) Date Value 11/12/2021 5.8 05/03/2021 5.7 10/26/2020 5.9 04/27/2020 5.8 05/06/2019 5.6 11/05/2018 5.6 Recent Results (from the past 8760 hour(s)) ECG COMPLETE Collection Time: 02/16/22 9:15 AM Result Value Ventricular Rate 73 Atrial Rate 73 P-R Interval 160 QRS Duration 108 QT Interval 406 QTC Calculation (Bazett) 447 Calculated P [employer] 96 Calculated R [employer] -35 Calculated T [employer] 24 Impression NORMAL SINUS RHYTHM LEFT AXIS DEVIATION MINIMAL VOLTAGE CRITERIA FOR LVH, MAY BE NORMAL VARIANT , AGE UNDETERMINED ABNORMAL ECG No results found for this or any previous visit (from the past 07964 hour(s)). Assessment Mild intermittent asthma without complication Assessment: controlled on rx and as needed Mixed hyperlipidemia Assessment: c/w statin EVE (obstructive sleep apnea) ahi 46 Assessment: c/w CPAP Hyperparathyroidism (HCC) Assessment: s/p parathyroidectomy 02/2022, incision healed, no complications per pt History of pulmonary embolism Assessment: hx 1993, provoked, tx with Coumadin at the time, no daily AC [place] Activity Status Index: METS: Climb a flight of stairs or walk up a hill (5.50 METs) DASI Score: 5.5 Patient denies any chest pain or undue shortness of breath with the above physical activity. Clinical Frailty Scale: 3. Well, with treated comorbid disease STOP-Bang Score: Snores loudly Has been observed to stop breathing or choking/gasping during sleep BMI greater than 35 kg/m^2 Patient over 50 years old Has a large neck Denies feeling tired, fatigued, or sleepy during the daytime Denies having high blood pressure Non-male patient STOP-Bang Score: 5 [id number] Score: Age: <65 Sex: female CHF history: No Hypertension history: No Stroke/TIA/thromboembolism history: No Vascular disease history: No Diabetes history: No [id number] Score: 1 ARISCAT Score: Age: 51-80 Preoperative SpO2: >=96% Respiratory infection in the last month: No Preoperative anemia: No Surgical incision: peripheral Duration of surgery: <2 hrs Emergency procedure: No ARISCAT Score: 3 ASA Class: 3 ANESTHESIA FINDINGS: Intubation History: No history of difficult intubation Significant Anesthesia Considerations: none Airway History: No history of difficult airway I - PHYSICAL EVALUATION AIRWAYTracheostomy tube not present Mallampati: III. TM distance: >3 FB. Neck ROM: full ROM without neurological symptoms. Mouth opening: adequate. Short neck: no. Thick neck: yes DENTAL Dental findings: teeth intact. II - ANESTHESIA PLAN ASA Score: 3 Anesthetic Plan: other Anesthetic plan additional comments: *PACC/TCI - anesthesia choice. Informed Consent Anesthetic risks, benefits, alternatives, personnel and consent discussed: yes. Patient / Responsible Republican agrees to proceed: yes Patient / Surrogate agrees to blood products: blood products not planned Prepared for Surgery: optimally prepared for surgery. CONSULTS: Patient does not require consults for optimization at this time Planned Anesthetic: other anesthesia choice The Following Tests/Procedures Have Been Initiated: No orders of the defined types were placed in this encounter. Instructions Given to Patient: Instructions located in the after visit summary. Patient given verbal and written preop instructions and voices comprehension and compliance. SIGNATURE: Yaenth Vazquez APRN.CNP PATIENT NAME: Amina Morales DATE: April 08, 2022 TIME: 8:56 AM PAGER/CONTACT #: documented in this encounter [facility] 04-03-2022 Miscellaneous Notes Spoke to Noreen in surgery today. She wanted me to reach out to the patient due to being confused why she needed an additional pre anesthesia appointment when she had one in January. Called and spoke to patient and clarified that she will need an additional pre anesthesia appointment due to her Colonoscopy being 30 days after her pre anesthesia appointment for her parathyroidectomy in January. Patient aware and agreeable. Perla Stubbs LPN documented in this encounter [facility] 03-13-2022 History of Present illness Narrative Angelina Quiros M.D. Department of Endocrine Surgery Endocrinology Metabolism [place] [address], [place] [address] ENDOCRINE SURGERY POST-OP PHONE VISIT Procedure: parathyroidectomy with removal of right upper, right lower, and left upper parathyroid glands. IOPTH: 78 --> 15. Left lower parathyroid left in situ. Date of Procedure: 02/25/22 AM labs: Ca 10.0, PTH 11 Pathology: A. Parathyroid, right lower, excision: -Hypercellular parathyroid gland tissue. B. Parathyroid, right upper, excision: -Mildly hypercellular parathyroid gland tissue. C. Parathyroid, left upper, excision: -Variably cellular parathyroid gland tissue. (See comment.) Interval History: Feels good. No numbness or tingling PE: voice strong Assessment/Plan: She is doing very well. Advised to wean off calcium with goal daily calcium intake of ~1,200 mg. Labs in 6 months. Angelina Quiros MD [facility] Department of Endocrine Surgery Endocrinology & Metabolism [place] [facility] documented in this encounter [facility] 02-26-2022 Note HNO ID: [id number] Author: Nasim Ardon MD, PhD Service: Endocrine Surgery Author Type: Resident Type: Progress Notes Filed: 02/26/2022 7:26 AM Note Text: . ENDOCRINE SURGERY PROGRESS NOTE NAME: Amina Morales 02/26/2022 7:26 AM Assessment and Plan: Amina Morales is a 61 year old female w/ PMHx of hyperparathyroidism, now s/p PARATHYROIDECTOMY Recovering appropriately. No dysphagia. No dysphonia. No paresthesias. No signs of hematoma. - Regular diet - No SQH - SCDs - multimodal pain regimen, minimize narcotics - Discharge this morning - Follow-up PTH and Ca in AM Plan to be discussed with Surgery Staff Dr. Quiros. Nasim Ardon MD, PhD General Surgery [id number] Patient Active Hospital Problem List: No active hospital problems. Subjective: Interval Events: No acute events overnight. Pain: controlled. No other complaints. Physical Exam: BP 135/64 Pulse 71 Temp 36.6 ?C (97.9 ?F) (Oral) Resp 18 Ht 170.2 cm (5' 7) Wt (!) 155.1 kg (342 lb) SpO2 92% BMI 53.56 kg/m? GENERAL/NEURO: Awake, Alert, NAD HEENT: Normocephalic, Atraumatic; incision c/d/I without signs of hematoma CHEST: Unlabored breathing ABDOMEN: Soft, Non-tender EXTREMITIES: warm, well perfused Labs: CBC, Coags, BMP, Mg, Phos Recent Labs 02/26/22 0637 CA 10.0 Liver Function, Amylase, AND Lipase Intake and Output: Date 02/25/22699 - 02/26/22 0602/26/22 07 - 02/27/22 0659 Shift 8246-7639 2186-5594 7928-6519 24 Hour Total 2644-4859 0789-9774 6366-9871 24 Hour Total INTAKE IV 1000 1000 Volume (mL) (NaCl 0.9% iv infusion) 1000 1000 Shift Total 1000 1000 OUTPUT Shift Total Weight (kg) 155.1 155.1 155.1 155.1 155.1 155.1 155.1 Current Medications: Current Facility-Administered Medications Medication Dose Route Frequency - scopolamine - VERIFY patch OTHER q 8 H - scopolamine - REMOVE PATCH OTHER ONCE - [START ON 02/28/2022] scopolamine - REMOVE PATCH OTHER q 72 HR And - scopolamine - VERIFY patch OTHER q 8 H - atorvastatin 10 mg tab(s) (LIPITOR) 10 mg ORAL AT BEDTIME - albuterol 2.5 mg /3 mL (0.083 %) 2.5 mg (PROVENTIL) 2.5 mg INHALATION q 6 H PRN - budesonide 0.5 mg/2 mL 0.5 mg (PULMICORT) 0.5 mg INHALATION DAILY - dextrose 5% in NaCl 0.45% with 20 mEq/L KCl iv infusion 75 mL/hr INTRAVENOUS CONTINUOUS - sodium chloride 0.9 % (flush) 2-10 mL (BD POSIFLUSH) 2-10 mL INTRAVENOUS q 12 H - ibuprofen 600 mg tab(s) (MOTRIN) 600 mg ORAL q 6 H PRN - acetaminophen 500 mg tab(s) (TYLENOL) 500 mg ORAL q 4 H PRN - vgkipkm-zugtesmek-kfztlnw D3 500 mg-5 mcg (200 unit) 1 tablet 1 tablet ORAL TID - calcium carbonate 500 mg chewable tab(s) (TUMS) 500 mg ORAL q 1 H PRN - benzocaine-menthol 1 Lozenge (CEPACOL) 1 Lozenge MUCOUS MEMBRANE (TOPICAL MOUTH AND THROAT) q 2 H PRN - phenol 1 [place] (CHLORASEPTIC) 1 [place] MUCOUS MEMBRANE (TOPICAL MOUTH AND THROAT) q 2 H PRN - ondansetron (PF) 4 mg injection (ZOFRAN) 4 mg INTRAVENOUS q 6 H PRN - NaCl 0.9% iv flush bag 20 mL INTRAVENOUS PRN - sodium chloride 0.9 % (flush) 3-5 mL (BD POSIFLUSH) 3-5 mL INTRAVENOUS q 12 H Prior to Admission Medications: Bisacodyl (DULCOLAX) 5 mg tab, Use as directed for Miralax / Gatorade Bowel Prep Kit atorvastatin (LIPITOR) 10 mg tablet, Take 1 tablet by mouth daily at bedtime. For cholesterol. budesonide (PULMICORT) 0.5 mg/2 mL nebulizer solution, Use 2 mL via nebulizer once daily. albuterol (PROVENTIL) 2.5 mg /3 mL (0.083 %) nebulizer solution, Use 3 mL via nebulizer every 6 hours as needed for wheezing/shortness of breath. J45.20 CPAP, Mask (per patient preference) optional chin strap (if indicated), filters, tubing / heated tubing, heated humidity and lifetime supplies. Dx. EVE G47.33 327.23 fhrwwuv-somaxekjk-luvuoul D3 500 mg-5 mcg (200 unit) per tablet, Take 1 tablet by mouth three times daily. polyethylene glycol 3350 (MIRALAX, GLYCOLAX) 17 gram/dose powder, Use as directed for Miralax / Gatorade Bowel Prep Kit atorvastatin (LIPITOR) 10 mg tablet, Take 1 tablet by mouth daily at bedtime for 10 days. For cholesterol. albuterol HFA (PROAIR HFA) 90 mcg/actuation inhaler, Inhale 2 Puffs as instructed every 6 hours as needed for wheezing/shortness of breath. cholecalciferol (VITAMIN D-3) 50 mcg (2,000 unit) tablet, Take 2 tablets by mouth once daily. Nebulizer, NEBULIZER WITH SUPPLIES IF NEEDED FOR HOME USE. DX: Mild persistent asthma without complication J45.30 COMPOUNDED PRESCRIPTION, Nebulizer supplies. Dx. Asthma.J45.909 [facility] 02-25-2022 Note HNO ID: [id number] Author: Nasim Ardon MD, PhD Service: Endocrine Surgery Author Type: Resident Type: Progress Notes Filed: 02/25/2022 6:13 PM Note Text: . ENDOCRINE SURGERY POST-OPERATIVE NOTE NAME: Amina Morales 02/25/2022 5:14 PM Assessment and Plan: Amina Morales is a 61 year old female w/ PMHx of hyperparathyroidism, now s/p PARATHYROIDECTOMY on 02/25/2022. Recovering appropriately. No dysphagia. No paresthesias. No signs of hematoma. Mildly hoarse voice. - Regular diet - No SQH - SCDs - multimodal pain regimen, minimize narcotics - Discharge in the morning - Follow-up PTH and Ca in AM Nasim Ardon MD, PhD General Surgery [id number] Patient Active Hospital Problem List: No active hospital problems. Subjective: Interval Events: No acute events. Pain: controlled. No other complaints. Physical Exam: BP 155/76 Pulse 83 Temp 36.7 ?C (98 ?F) (Temporal) Resp 14 SpO2 92% GENERAL/NEURO: Awake, Alert, NAD HEENT: Normocephalic, Atraumatic; incision c/d/I without signs of hematoma CHEST: Unlabored breathing ABDOMEN: Soft, Non-tender EXTREMITIES: warm, well perfused Labs: CBC, Coags, BMP, Mg, Phos Liver Function, Amylase, AND Lipase Intake and Output: Date 02/24/221499 - 02/25/22 06(Not Admitted) 02/25/22 0700 - 02/26/22 0659 Shift 3550-1658 2876-2888 24 Hour Total 7243-1702 6141-4194 4935-5104 24 Hour Total INTAKE IV 1000 1000 Volume (mL) (NaCl 0.9% iv infusion) 1000 1000 Shift Total 1000 1000 OUTPUT Shift Total Weight (kg) Current Medications: Current Facility-Administered Medications Medication Dose Route Frequency - scopolamine 1 mg over 3 days 1 Patch (TRANSDERM-SCOP) 1 Patch TRANSDERMAL ONCE - [START ON 02/28/2022] scopolamine - REMOVE PATCH OTHER q 72 HR And - scopolamine - VERIFY patch OTHER q 8 H - lactated ringers iv infusion 50 mL/hr INTRAVENOUS CONTINUOUS - fentaNYL 50 mcg/mL 50 mcg injection (SUBLIMAZE) 50 mcg INTRAVENOUS q 10 MIN PRN - HYDROmorphone 0.2 mg injection (DILAUDID) 0.2 mg INTRAVENOUS q 5 MIN PRN - oxyCODONE IR 5-10 mg tab(s) (ROXICODONE) 5-10 mg ORAL PRN - ondansetron 4 mg tab(s) (ZOFRAN) 4 mg ORAL q 6 H PRN Or - ondansetron (PF) 4 mg injection (ZOFRAN) 4 mg INTRAVENOUS q 6 H PRN - metoclopramide HCl 10 mg tab(s) (REGLAN) 10 mg ORAL q 6 H PRN Or - metoclopramide HCl 10 mg injection (REGLAN) 10 mg INTRAVENOUS q 6 H PRN - meperidine (PF) 12.5 mg injection (DEMEROL) 12.5 mg INTRAVENOUS ONCE - meperidine (PF) 12.5 mg injection (DEMEROL) 12.5 mg INTRAVENOUS q 10 MIN PRN - fentaNYL 50 mcg/mL 50 mcg injection (SUBLIMAZE) 50 mcg INTRAVENOUS q 10 MIN PRN - acetaminophen 650 mg tab(s) (TYLENOL) 650 mg ORAL PRN - benzocaine-menthol 1 Lozenge (CEPACOL) 1 Lozenge MUCOUS MEMBRANE (TOPICAL MOUTH AND THROAT) q 2 H PRN - phenol 1 [place] (CHLORASEPTIC) 1 [place] MUCOUS MEMBRANE (TOPICAL MOUTH AND THROAT) q 2 H PRN Prior to Admission Medications: Bisacodyl (DULCOLAX) 5 mg tab, Use as directed for Miralax / Gatorade Bowel Prep Kit atorvastatin (LIPITOR) 10 mg tablet, Take 1 tablet by mouth daily at bedtime. For cholesterol. budesonide (PULMICORT) 0.5 mg/2 mL nebulizer solution, Use 2 mL via nebulizer once daily. albuterol (PROVENTIL) 2.5 mg /3 mL (0.083 %) nebulizer solution, Use 3 mL via nebulizer every 6 hours as needed for wheezing/shortness of breath. J45.20 CPAP, Mask (per patient preference) optional chin strap (if indicated), filters, tubing / heated tubing, heated humidity and lifetime supplies. Dx. EVE G47.33 327.23 polyethylene glycol 3350 (MIRALAX, GLYCOLAX) 17 gram/dose powder, Use as directed for Miralax / Gatorade Bowel Prep Kit atorvastatin (LIPITOR) 10 mg tablet, Take 1 tablet by mouth daily at bedtime for 10 days. For cholesterol. albuterol HFA (PROAIR HFA) 90 mcg/actuation inhaler, Inhale 2 Puffs as instructed every 6 hours as needed for wheezing/shortness of breath. cholecalciferol (VITAMIN D-3) 50 mcg (2,000 unit) tablet, Take 2 tablets by mouth once daily. Nebulizer, NEBULIZER WITH SUPPLIES IF NEEDED FOR HOME USE. DX: Mild persistent asthma without complication J45.30 COMPOUNDED PRESCRIPTION, Nebulizer supplies. Dx. Asthma.J45.909 [facility] 02-25-2022 Note HNO ID: [id number] Author: SE Carrillo Service: ? Author Type: Utility Lineman Type: Anesthesia Procedure Notes Filed: 02/25/2022 2:36 PM Note Text: ANESTHESIOLOGY PROCEDURE NOTE Airway General Information Procedure Start Time/Medication Administration: 02/25/2022 2:06 PM Patient location during procedure: OR Timeout Performed Pre-procedure: timeout performed Consent Obtained: Yes Patient identity confirmed: arm band, care service team leader and patient Staffing CAA: SE Carrillo Indications and Patient Condition Preoxygenated: yes Manual In-Line Stabilization: No Difficult Mask: No Indications for airway management: anesthesia anesthesia circuit Method: asleep Cricoid Pressure: No Final Airway Details Final airway type: endotracheal airway Final Endotracheal Airway: ETT Cuffed: yes Successful intubation technique: video laryngoscopy Devices used: Griggs Endotracheal tube insertion site: oral Blade size: #3 ETT size (mm): 7.0 Measured from: lips Measurement (cm): 22 Placement verified by: chest auscultation and capnometry Cormack-Lehane Classification: grade I - full view of glottis Number of attempts at approach: 1 Failed airway: no Unrecognized esophageal intubation: no Airway not difficult SIGNATURE: SE Carrillo PATIENT NAME: Amina Morales DATE: February 25, 2022 TIME: 2:33 PM CSN: [id number] [facility] 02-20-2022 Miscellaneous Notes Faxed and patient notified. Litzy Morales MA Order ready See message, pended Nebulizer. Please fax to [facility]. Debi Boo Ma Amina Morales is calling Lazaro Rust MD today to request Orders (nebulizer broken -needs a replacement )faxed to [facility] in [place]. Please advise when that is done. [phone] fax [phone] . Patient has been identified by name and birthdate. Duration of symptoms: N/A Person calling: self Call patient at: at home [phone] (home) [phone] (cell) Was an appointment scheduled: No Closing statement: Results or non-symptom based questions: Thank you for calling [facility], your call will be returned within the next business day. Akila Khan Pss documented in this encounter [facility] 02-16-2022 History of Present illness Narrative Radiology Service Progress Note PATIENT NAME: Amina Morales DATE OF SERVICE: February 16, 2022 TIME: 9:59 AM PATIENT IDENTITY VERIFICATION COMPLETED USING TWO (2) IDENTIFIERS: Name and Date of confirmed by patient verbally. FALL SCREENING: Has the patient had 2 falls in the last year or 1 fall with injury or currently using an Ambulatory Assistive Device (Walker, Cane, Wheelchair, Crutches, etc.)? No PATIENT GENDER DATA: Female. status: : No status: NO. PATIENT RELEVANT IMPLANT DATA REVIEWED: Not Applicable RADIOLOGY DEPARTMENT: General X-ray: Exam(s) Completed: Chest X-Ray PERIPHERAL IV DATA: Not applicable SIGNED BY: RT Lois(R) February 16, 2022 9:59 AM documented in this encounter [facility] 02-16-2022 Instructions Yaneth Vazquez APRN.IMMIGRATION INVESTIGATOR - 02/16/2022 9:28 AM EDT PATIENT PREOPERATIVE INSTRUCTIONS Angelina Quiros MD has scheduled you for your procedure at this surgery center: [facility]: [phone] -- [address] [place] [address]. Please read below carefully for your personalized instructions. Dietary Restrictions: - No solid food after midnight. - You may have 12 ounces of clear liquids (water, clear juices such as apple juice or gatorade, carbonated beverages, clear tea, black coffee, jello) until 2 hours before scheduled arrival at facility. No red/purple coloring and no creamer/sugar Medications: Unless instructed differently below, stay on all of your medications until your surgery. Approved medications to take the morning of surgery with a sip of water: Albuterol, Atorvastatin, Pulmicort If you start any new medications after today's visit, please contact the surgeon's office. Blood Thinning Medications: - Stop NSAIDS (Ibuprofen, Advil, Aleve, Motrin, Celebrex, Mobic, etc.) 7 days before surgery, as directed by your surgeon. - Stop Aspirin 7 days before surgery, as directed by your surgeon. - Stop Vitamin E, ALL multi-vitamins, herbals and dietary supplements 7 days before surgery. - You may take Tylenol (Acetaminophen) or any of your pain medications that do not contain aspirin or NSAIDS as needed. Important Reminders: - If you use CPAP/BIPAP, bring the machine with you to the surgery center. - If you are prescribed inhalers for breathing, continue using them. - Candy, mints, and tobacco products are NOT permitted the morning of surgery. - Hearing aids, dentures and glasses may be worn the morning of surgery. - NO jewelry, body piercings, makeup, hairpins or contacts are to be worn the day of surgery. If you develop symptoms such as a fever, cold, or flu, or have other changes to your health within TWO DAYS of scheduled surgery or the morning of surgery, please contact the surgery center above. Personal Belongings: -Please have photo ID and insurance cards. -If you do not have a copy of advance directives on file with us, please bring a copy with you on the day of surgery. - Leave ALL valuables and money at home or with family members. For Outpatient Procedures: - YOU MUST HAVE A RESPONSIBLE VOUCHER CLERK TAKE YOU HOME. A HORTICULTURE TEACHER OR FORMING MACHINE UPKEEP MECHANIC CANNOT BE MADE A RESPONSIBLE VOUCHER CLERK. - We recommend that a responsible person stays with you overnight to take care of you. - You cannot stay in a hotel alone after outpatient surgery. You will not be permitted to have your surgery, if you do not have someone to take care of you. Arrival Time for Surgery: - The Surgery Center or hospital where you are having surgery will call the afternoon before surgery (or Wednesday for Wednesday surgery) with a scheduled arrival time. - If you have not heard by 4 pm, please contact the surgery center above. Please be aware that emergency situations arise, which may delay or change your surgical time. If this happens, we will notify you as soon as possible and regret any inconvenience. If you already have an Advance Directive, please fax a copy to [phone] or email to for it to be added to your chart. If you do not have an Advance Directive, you can find the appropriate form and more information at [email or web address]. We recommend that you complete the Advance Directive form found on the website and bring it with you the day of your surgery. It can be witnessed and scanned into your chart that day. Yaneth Vazquez APRN.CNP documented in this encounter [facility] 02-16-2022 History and physical note Images from the original note were not included. HISTORY AND PHYSICAL EXAMINATION SERVICE DATE: 02/16/2022 SERVICE TIME: 9:27 AM PRIMARY CARE PHYSICIAN: Lazaro Rust MD REASON FOR VISIT: Amina Morales is a 61 year old female who is scheduled for Procedure(s): PARATHYROIDECTOMY (N/A) at the request of Dr. Angelina Quiros for consultation. My final recommendation will be communicated back to the requesting physician by way of shared medical record or letter. Subjective The patient has the following: ACTIVE PROBLEM LIST Mild Intermittent Asthma Without Complication EVE (obstructive sleep apnea) ahi 46 Mixed Hyperlipidemia Metabolic Syndrome Hyperglycemia Encounter for Gynecological Examination Without Abnormal Finding Diverticulosis of Colon External Hemorrhoids Internal Hemorrhoids History of Pulmonary Embolism Plantar Fasciitis, Bilateral Well Adult Exam Screening for Colon Cancer Obesity, Class Iii, Bmi 40-49.9 (Morbid Obesity) (Hcc) Hyperparathyroidism (Hcc) Vitamin D Deficiency COVID-19 Immunization Status COVID-19 VACCINE (Series Information) Completed 11/28/2021 Imm Admin: COVID-19 vaccine, age 12+ yr (PFIZER-BIONTECH - FARRIS TOP) 04/28/2021 Imm Admin: COVID-19 vaccine, age 12+ yr (PFIZER-BIONTECH - PURPLE TOP) 09/07/2020 Imm Admin: COVID-19 vaccine, age 12+ yr (PFIZER-BIONTECH - PURPLE TOP) Only the first 3 history entries have been loaded, but more history exists. CHIEF COMPLAINT: Pre-op exam HPI: BJ is a 61 yo seen for PAC due to scheduled above surgery because of hyperparathyroidism. 01/08/2022 Dr. Quiros History of Present Illness: Amina Morales is a 61 year old female referred by Dr. Shantell Seymour for evaluation of primary hyperparathyroidism with Ca as high as 10.9 and PTH 50's - 90's. Hypercalcemia has been present since 2018. She c/o brain fog. She denies fatigue, bone pain, kidney stones. She has very high 24 hr urine Ca (443)!! DEXA normal. No localizing studies to date. My findings and recommendations will be communicated by way of the shared medical record. ENDOCRINE SURGICAL HISTORY: New or established diagnosis: established Prior history of radiation treatment to the neck: no Known thyroid disease: no Known parathyroid disease: yes Prior neck operations: no Family history of hypercalcemia: no Family history of thyroid cancer: no Family history of other endocrine tumors: no Pertinent medications (levothyroxine, blood thinners, calcium, diuretics, lithium, Sensipar, biotin): none REVIEW OF SYSTEMS: General: No weight loss, malaise or fevers. Neurological: No history of TIA's, stroke, MEAT PACKER tumor, impaired sensorium, hemiplegia, paraplegia or quadraplegia. No neurological symptoms or problems. Respiratory: Positive for: asthma (on rx and as needed), obstructive sleep apnea and CPAP/BiPAP compliant. Negative for: pneumonia within 6 weeks, tobacco use and URI < 2 weeks. Cardiovascular: Positive for: DVT/PE (hx PE, tx with Coumadin >20 years ago, no daily AC) and hyperlipidemia (on rx) Negative for: angina, anticoagulation therapy, arrhythmia, atrial fibrillation, CAD, chest pain, CHF, congenital heart defect, hypertension, recent OR, murmur/valvular heart disease, open heart surgery and valve surgery. GI: No history of GI symptoms or problems. No history of esophageal varices, recent ascites, or ETOH greater than 2 drinks per day. : No history of dysuria, frequency or incontinence, stones or chronic kidney disease. No difficulty urinating, nocturia > 1 time per night or hematuria. RACKMAN: Negative for abnormal vaginal bleeding, abnormal vaginal discharge. Endocrine: See HPI. Negative for: diabetes mellitus. Hematology: No history of bleeding or clotting disorder. Patient is not taking anti-coagulation or platelet medications. No history of hematological symptoms or problems. Oncology: No history of CA metastasis, chemo within 30 days, or radiotherapy within 90 days. No history of oncological symptoms or problems. Psych: No history of psychiatric symptoms or problems. Musculoskeletal: Negative for joint pain or swelling, back pain or muscle pain. Skin: Negative for lesions, rash and itching. PAST MEDICAL HISTORY Diagnosis Date Closed fracture of left humerus Diverticulosis of colon External hemorrhoids History of pulmonary embolism 1993 ? Pulmonary embolism Hyperglycemia 10/08/2015 Hyperparathyroidism ([facility]) 12/02/2020 Internal hemorrhoids Metabolic syndrome 10/08/2015 Mild intermittent asthma without complication 07/21/2013 Mixed hyperlipidemia 10/08/2015 Obesity, Class III, BMI 40-49.9 (morbid obesity) ([facility]) 04/30/2017 EVE (obstructive sleep apnea) ahi 46 09/19/2014 On CPAP, DME [facility] Phlebitis and thrombophlebitis of unspecified site Plantar fasciitis, bilateral 10/08/2015 Symptomatic menopausal or female climacteric states 05/02/2009 Vitamin D deficiency 12/02/2020 PAST SURGICAL HISTORY Procedure Laterality Date [facility] INCL FLUOR GDNCE DX W/CELL WASHG SPX BRONCHOSCOPY COLONOSCOPY FLX DX W/COLLJ SPEC WHEN PFRMD 09/18/11 repeat 10 years FECAL OCCULT BLOOD TEST 05/01/2017 negative HYSTEROSCOPY, DIAGNOSTIC (SEPARATE WITH CURRETAGE LIG/TRNSXJ FLP TUBE ABDL/VAG APPR UNI/BI Tubal ligation TOTAL ABDOMINAL HYSTERECT W/WO RMVL TUBE OVARY 2004 Hysterectomy, DANIEL UNSPECIFIED ORAL SURGERY PROCEDURE, BY REPORT 08/18/2007 FAMILY HISTORY Problem Relation Age of Onset Lipids Mother High Cholesterol Lipids Father High cholesterol Alzheimer's Disease Father Heart Maternal Grandmother Heart Maternal Grandfather Cancer Maternal Grandfather /BONE Heart Paternal Grandmother Heart Paternal Grandfather Hypertension Paternal Grandfather Social History Tobacco Use Smoking status: Never Smoker Smokeless tobacco: Never Used Vaping Use Vaping Use: Never used Substance Use Topics Alcohol use: Yes Comment: Occasionally Drug use: No Prior to Admission medications as of 02/16/22 0913 Medication Sig Last Dose Taking polyethylene glycol 3350 (MIRALAX, GLYCOLAX) 17 gram/dose powder Use as directed for Miralax / Gatorade Bowel Prep Kit Taking Yes Bisacodyl (DULCOLAX) 5 mg tab Use as directed for Miralax / Gatorade Bowel Prep Kit Taking Yes atorvastatin (LIPITOR) 10 mg tablet Take 1 tablet by mouth daily at bedtime. For cholesterol. Taking Yes budesonide (PULMICORT) 0.5 mg/2 mL nebulizer solution Use 2 mL via nebulizer once daily. Taking Yes albuterol (PROVENTIL) 2.5 mg /3 mL (0.083 %) nebulizer solution Use 3 mL via nebulizer every 6 hours as needed for wheezing/shortness of breath. J45.20 Taking Yes albuterol HFA (PROAIR HFA) 90 mcg/actuation inhaler Inhale 2 Puffs as instructed every 6 hours as needed for wheezing/shortness of breath. Taking Yes cholecalciferol (VITAMIN D-3) 50 mcg (2,000 unit) tablet Take 2 tablets by mouth once daily. Taking Yes CPAP Mask (per patient preference) optional chin strap (if indicated), filters, tubing / heated tubing, heated humidity and lifetime supplies. Dx. EVE G47.33 327.23 Taking Yes Nebulizer NEBULIZER WITH SUPPLIES IF NEEDED FOR HOME USE. DX: Mild persistent asthma without complication J45.30 Taking Yes COMPOUNDED PRESCRIPTION Nebulizer supplies. Dx. Asthma.J45.909 Taking Yes atorvastatin (LIPITOR) 10 mg tablet Take 1 tablet by mouth daily at bedtime for 10 days. For cholesterol. Patient not taking: Reported on 12/24/2021 No medication comments found. ALLERGIES No Known Allergies Objective PHYSICAL EXAM: General: alert and oriented (x3), healthy appearance and morbidly obese. Pertinent negatives noted - not distressed. Skin: normal color, no rash or lesions. HEENT: EOM intact and pupils equal round. Pertinent negatives noted - no carotid bruit. Cardiovascular: regular rate and rhythm, normal S1 and S2, no rub, murmurs, or gallop. Respiratory: normal breath sounds, no wheezes or crackles. No chest wall deformity or tenderness. Abdomen: soft. Pertinent negatives noted - not tender. Extremities: no deformity, no edema or tenderness, no joint swelling or clubbing. Neurological: normal cognition and motor skills. Gait normal. No weakness or sensory deficit. PAIN ASSESSMENT: VITALS: BP 134/72 Pulse 73 Temp (Src) 97.6 (Temporal) Resp 18 Ht 5' 7 (1.70m) Wt 342 lb (155.1kg) SpO2 95% BMI 53.55 kg/(m^2). Diagnostic tests reviewed for today's visit: Lab Value Units Date High Low HB No results within date range. HCT No results within date range. WBC No results within date range. PLT No results within date range. NA 138 mmol/L 12/24/2021 144 136 K 4.4 mmol/L 12/24/2021 5.1 3.7 GLUC 96 mg/dL 12/24/2021 99 74 BUN 13 mg/dL 12/24/2021 21 7 CREAT 0.76 mg/dL 12/24/2021 0.96 0.58 PTSEC No results within date range. INR No results within date range. APTT No results within date range. ALT No results within date range. AST No results within date range. TBILI No results within date range. TSH No results within date range. Lab Value Units Date High Low HCGQT No results within date range. UHCG No results within date range. HCG, BODY* No results within date range. Lab Value Units Date High Low ABORHD No results within date range. ABSCREEN No results within date range. Hemoglobin A1C (%) Date Value 11/12/2021 5.8 05/03/2021 5.7 10/26/2020 5.9 04/27/2020 5.8 05/06/2019 5.6 11/05/2018 5.6 No results found for this or any previous visit (from the past 8760 hour(s)). No results found for this or any previous visit (from the past 74603 hour(s)). Assessment History of pulmonary embolism Assessment: hx 1993, provoked, tx with Coumadin at the time, no daily AC Mild intermittent asthma without complication Assessment: controlled on rx and as needed EVE (obstructive sleep apnea) ahi 46 Assessment: c/w CPAP Mixed hyperlipidemia Assessment: on rx Obesity, Class III, BMI 40-49.9 (morbid obesity) ([facility]) Assessment: Body mass index is 53.56 kg/m . [place] Activity Status Index: METS: Climb a flight of stairs or walk up a hill (5.50 METs) DASI Score: 5.5 Patient denies any chest pain or undue shortness of breath with the above physical activity. Clinical Frailty Scale: 3. Well, with treated comorbid disease STOP-Bang Score: Snores loudly Has been observed to stop breathing or choking/gasping during sleep BMI greater than 35 kg/m^2 Patient over 50 years old Has a large neck Denies feeling tired, fatigued, or sleepy during the daytime Denies having high blood pressure Non-male patient STOP-Bang Score: 5 [id number] Score: Age: <65 Sex: female CHF history: No Hypertension history: No Stroke/TIA/thromboembolism history: No Vascular disease history: No Diabetes history: No [id number] Score: 1 ARISCAT Score: Age: 51-80 ARISCAT Score: ASA Class: 3 ANESTHESIA FINDINGS: Intubation History: No history of difficult intubation Significant Anesthesia Considerations: none Airway History: No history of difficult airway I - PHYSICAL EVALUATION AIRWAY Tracheostomy tube not present Mallampati: III. TM distance: >3 FB. Neck ROM: full ROM without neurological symptoms. Mouth opening: adequate. Short neck: no. Thick neck: yes DENTAL Dental findings: teeth intact. II - ANESTHESIA PLAN ASA Score: 3 Anesthetic Plan: other Anesthetic plan additional comments: *PACC/TCI - anesthesia choice. Informed Consent Anesthetic risks, benefits, alternatives, personnel and consent discussed: yes. Patient / Responsible Republican agrees to proceed: yes Patient / Surrogate agrees to blood products: blood products not planned Prepared for Surgery: optimally prepared for surgery, pending (see comment). Ekg, labs CONSULTS: Patient does not require consults for optimization at this time Planned Anesthetic: other anesthesia choice The Following Tests/Procedures Have Been Initiated: Orders Placed This Encounter ECG COMPLETE Standing Status: Future Number of Occurrences: 1 Standing Expiration Date: 02/16/2023 Instructions Given to Patient: Instructions located in the after visit summary. Patient given verbal and written preop instructions and voices comprehension and compliance. SIGNATURE: Yaneth Vazquez APRN.CNP PATIENT NAME: Amina Morales DATE: February 16, 2022 TIME: 9:27 AM PAGER/CONTACT #: documented in this encounter [facility] 02-03-2022 Miscellaneous Notes Patient scheduled 04/22 in [place] with Bunny Espinosa Patient is needing scheduled at [place] with Dr. Bruce or Bunny for a colonoscopy. DX: Screening for colon cancer [Z12.11] Verbal and written instructions given. documented in this encounter [facility] 02-03-2022 Instructions Rabia Gupta APRN.IMMIGRATION INVESTIGATOR - 02/03/2022 9:50 AM EDT Images from the original note were not included. Your procedure will be at [place] - with or Follow the provided instructions for colonoscopy. You will be using Miralax as the laxative during the preparation. You may start the laxative as early as 1:00 in the afternoon. The endoscopy staff will call you the day before the procedure with specific on arrival time. (Wednesday for Wednesday procedures). Drink at least 64 oz water daily Benefiber daily or Metamucil 2 teaspoons added to 8 ounces of water SLOWLY increase up to 2 TBP daily Improving Your Health with Fiber This guide provides basic information to help you start increasing dietary fiber in your diet. These are general guidelines that may be tailored to meet your needs. Fiber is an important dietary substance to help support your health. Making changes in your current eating habits will help you eat more healthfully. Most fiber-containing foods are also good sources of vitamins, minerals, and antioxidants, which offer many health benefits. A registered dietitian can provide in-depth nutrition education to help you develop a personal action plan. What is fiber? Fiber is the structural part of plant foods--such as fruits, vegetables, and grains--that our bodies cannot digest or break down. There are two kinds of fiber: soluble and insoluble. Soluble fiber: dissolves in water to form a gummy gel. It can slow down the passage of food from the stomach to the intestine. Examples: dried beans, oats, barley, banana, potatoes, and soft parts of apples and pears Insoluble fiber: often referred to as roughage because it does not dissolve in water. It holds onto water, which helps produce softer, bulkier stools to help regulate bowel movements. Examples: whole bran, whole grain products, nuts, corn, carrots, grapes, berries, and peels of apples and pears What other things does fiber do? Research has shown that a diet rich in fiber is associated with many health benefits, including the followin. Lowers cholesterol--Soluble fiber has been shown to lower cholesterol by binding to bile (composed of cholesterol) and taking it out of the body. This may help reduce the risk of heart disease. 2. Better regulates blood sugar levels--A high-fiber meal slows down the digestion of food into the intestines, which may help to keep blood sugars from rising rapidly. 3. Weight control--A high-fiber diet may help keep you [place] longer, which prevents overeating and hunger between meals. 4. May prevent intestinal cancer--Insoluble fiber increases the bulk and speed of food moving through the intestinal tract, which reduces time for harmful substances to build up. 5. Constipation--Constipation can often be relieved by increasing the fiber or roughage in your diet. Fiber works to help regulate bowel movements by pulling water into the colon to produce softer, bulkier stools. This action helps to promote better regularity. How much fiber should I eat? The recommendation is to consume about 20-35 grams of total fiber per day, with 10-15 grams from soluble fiber. This can be accomplished by choosing 6 ounces of grains (3 or more ounces from whole grains), 2 cups of vegetables, and 2 cups of fruit per day (based on a 2,000 calorie/day pattern). Note: Eating a high-fiber diet may interfere with the absorption and effectiveness of some medications. Speak to your doctor about which medications to take with caution and when to take them. Fiber also binds with certain nutrients and carries them out of the body. To avoid this, aim for the recommended 20-35 grams of fiber per day. Some studies indicate that up to 50 grams of dietary fiber may help control blood sugars for people with diabetes. When eating a high-fiber diet, be sure to drink at least eight glasses of fluid each day. Tips for increasing dietary fiber in your diet: Add fiber to your diet slowly. Too much fiber all at once may cause cramping, bloating, and constipation. When adding fiber to your diet, be sure to increase fluids (at least 64 ounces per day) to prevent constipation. Buy bread with 2-4 grams of dietary fiber per slice. Buy cereals with at least 5 grams of dietary fiber per serving. Choose cereals with a whole grain such as whole wheat or whole grain rolled oats. Choose raw fruits and vegetables in place of juice. Choose products that have a whole grain listed as the first ingredient, not enriched flour. Whole wheat flour is a whole grain--wheat flour is not. Try alternative fiber choices such as whole buckwheat, whole wheat couscous, quinoa, and bulgur. Popcorn is a whole grain. Serve it low-fat without butter for a healthier snack choice. Try whole wheat bread and whole wheat pastas. Sprinkle bran in soups, cereals, baked products, spaghetti sauce, ground meat, and casseroles. Bran also mixes well with orange juice. Use dried peas, beans, and legumes in main dishes, salads, or side dishes such as rice or pasta. Eat the skins of raw fruits and vegetables. Add dried fruit to yogurt, cereal, rice, and muffins. Try brown rice and whole grain pastas. Choose crackers with a whole grain listed as the first ingredient. Look for whole grain rye and wheat crackers. How to read a food label Food labels are standardized by the U.S. government's National Labeling and Education Act (NLEA). Nutrition labels and an ingredient list are required on most foods, so that you can make the best selection for a healthy lifestyle. Review the food label. Determine the total amount of fiber in this product or ask your dietitian or health care provider to show you how to read food labels and apply the information to your personal needs. In order for a product to be labeled high fiber, it must contain 5 grams or more of dietary fiber per serving. Fiber supplements Fiber supplements may be an option if you are not able to get enough fiber from your diet. Fiber supplements can be used to normalize both constipation and diarrhea. Check with your doctor before starting any kind of supplement. Read labels for fiber carefully. Drink at least 8 ounces of liquids with your supplement. Taking some fiber supplements without adequate liquids may cause the fiber to swell and may cause choking. Some fiber supplements to consider are Benefiber (hydrolyzed guar gum-soluble fiber), Metamucil (psyllium), Konsyl (psyllium), Citrucel (methylcellulose), Fibercon (calcium polycarbophil), and Fiberall (multiple sources of fiber). Psyllium husk and guar gum are soluble fibers. Consider keeping a food journal and tracking how much fiber you eat in a typical day. Use the fiber content chart in this handout as a guide to meeting your high fiber goal or check with www.NAL.usda.gov/fnic for additional information on the dietary fiber content of food. Food Category Food Serving Size Total Fiber (grams) Soluble Fiber (grams) Starches, Grains, Starchy vegetables Breads: Bagel-whole wheat Light white/wheat Cleopatra-Whole wheat Pumpernickel Whole wheat Chacon 3 1/2 inches 2 slices 7 inches slice slice slice 3 1 4 3 2 2 1 trace 1 1 trace 1 Cereals: Bran Flakes Cheerios Oatmeal Fiber One All Bran Kashi Heart to Heart 3/4 cup 1 1/4 cup 1 cup cooked 1/2 cup 2/3 cup 3/4 cup 5 4 4 14 13 5 trace 1 2 1 1 1 Grains: Barley Brown rice Pasta-whole wheat 1/2 cup cooked 1/2 cup 1/2 cup cooked 4 2 3 1 trace 1 Legumes and starchy vegetables: Garbanzo beans Kidney beans Lentils Potato (with skin) Potatoes, sweet Squash (winter) Green peas, cooked Obrien beans Carroll, cooked 1/2 cup 1/2 cup 1/2 cup 1 medium 1/2 cup 1/2 cup 1/2 cup 1/2 cup 1/2 cup 4 6 5 3 4 3 4 7 2 1 3 1 1 2 2 1 3 trace Nuts and Seeds Almonds Peanuts Phoenix seeds Walnuts 1/4 cup 1/4 cup 1/4 cup 1/4 cup 3 3 3 2 1 1 1 trace Fruits Apple with skin Banana Blueberries Grapefruit Albemarle Pear with skin Prunes Strawberries 1 medium 1 medium 1 cup 1/2 cup 1 medium 1 medium 3 1 cup 3 2 2 1 3 4 2 4 1 1 trace 1 2 2 1 1 Vegetables, non-starchy Broccoli Nocona sprouts Cabbage-green Carrot Cauliflower Green beans Kale Spinach Squash (zucchini) 1/2 cup 1/2 cup 1 cup, fresh 1/2 cup cooked 1/2 cup cooked 1/2 cup 1/2 cup 1/2 cup 1/2 cup 3 4 2 2 1 2 3 2 1 1 2 1 1 trace 1 1 1 1 documented in this encounter [facility] 02-03-2022 History of Present illness Narrative CHIEF COMPLAINT: Patient presents with: Outpatient Colonoscopy This consult was requested by Aurora Muñoz PA-C for an opinion regarding colon cancer screening. My final recommendations will be communicated to the requesting health care provider by way of the shared medical record for internal providers or letter via the [employer] for external providers. Amina Morales is a 61 year old female with a past medical history diverticulosis of the colon, external hemorrhoids, internal hemorrhoids, vitamin D deficiency, EVE, hyperlipidemia, asthma, metabolic syndrome, hyperparathyroid, PE. Who presents for colon cancer screening Last colonoscopy 09/18/2011: Nonbleeding external and internal hemorrhoids, tortuous colon. HPI: The patient denies change in bowel habits, denies black stool or rectal bleeding or abdominal pain. Having a bowel movement Daily. Reports at times constipation reporting what she eats might cause constipation. Denies diarrhea. Denies weight loss. Denies upper GI complaints at this time. Record Review: [facility] / Outside records reviewed. PAST MEDICAL HISTORY Diagnosis Date Closed fracture of left humerus Diverticulosis of colon External hemorrhoids History of pulmonary embolism 1993 ? Pulmonary embolism Hyperglycemia 10/08/2015 Hyperparathyroidism (HCC) 12/02/2020 Internal hemorrhoids Metabolic syndrome 10/08/2015 Mild intermittent asthma without complication 07/21/2013 Mixed hyperlipidemia 10/08/2015 Obesity, Class III, BMI 40-49.9 (morbid obesity) (HCC) 04/30/2017 EVE (obstructive sleep apnea) ahi 46 09/19/2014 On CPAP, DME [facility] Phlebitis and thrombophlebitis of unspecified site Plantar fasciitis, bilateral 10/08/2015 Symptomatic menopausal or female climacteric states 05/02/2009 Vitamin D deficiency 12/02/2020 PAST SURGICAL HISTORY Procedure Laterality Date [facility] INCL FLUOR GDNCE DX W/CELL WASHG SPX BRONCHOSCOPY COLONOSCOPY FLX DX W/COLLJ SPEC WHEN PFRMD 09/18/11 repeat 10 years FECAL OCCULT BLOOD TEST 05/01/2017 negative HYSTEROSCOPY, DIAGNOSTIC (SEPARATE WITH CURRETAGE LIG/TRNSXJ FLP TUBE ABDL/VAG APPR UNI/BI Tubal ligation TOTAL ABDOMINAL HYSTERECT W/WO RMVL TUBE OVARY 2004 Hysterectomy, DANIEL UNSPECIFIED ORAL SURGERY PROCEDURE, BY REPORT 08/18/2007 Allergies: ALLERGIES No Known Allergies Medications: atorvastatin (LIPITOR) 10 mg tablet Take 1 tablet by mouth daily at bedtime. For cholesterol. budesonide (PULMICORT) 0.5 mg/2 mL nebulizer solution Use 2 mL via nebulizer once daily. albuterol (PROVENTIL) 2.5 mg /3 mL (0.083 %) nebulizer solution Use 3 mL via nebulizer every 6 hours as needed for wheezing/shortness of breath. J45.20 albuterol HFA (PROAIR HFA) 90 mcg/actuation inhaler Inhale 2 Puffs as instructed every 6 hours as needed for wheezing/shortness of breath. cholecalciferol (VITAMIN D-3) 50 mcg (2,000 unit) tablet Take 2 tablets by mouth once daily. predniSONE (DELTASONE) 10 mg tablet Take 4 tabs daily x 3 days, then 3 tabs x 3 days, 2 tabs x 3 days, then 1 tab x3 days with food. atorvastatin (LIPITOR) 10 mg tablet Take 1 tablet by mouth daily at bedtime for 10 days. For cholesterol. CPAP Mask (per patient preference) optional chin strap (if indicated), filters, tubing / heated tubing, heated humidity and lifetime supplies. Dx. EVE G47.33 327.23 Nebulizer NEBULIZER WITH SUPPLIES IF NEEDED FOR HOME USE. DX: Mild persistent asthma without complication J45.30 COMPOUNDED PRESCRIPTION Nebulizer supplies. Dx. Asthma.J45.909 FAMILY HISTORY Problem Relation Age of Onset Lipids Mother High Cholesterol Lipids Father High cholesterol Alzheimer's Disease Father Heart Maternal Grandmother Heart Maternal Grandfather Cancer Maternal Grandfather /BONE Heart Paternal Grandmother Heart Paternal Grandfather Hypertension Paternal Grandfather Employer And Job Title: [employer] ([employer]) Years Of Education Completed: Not specified Marital Status: to Zac with 2 children Social History Tobacco Use Smoking status: Never Smoker Smokeless tobacco: Never Used Vaping Use Vaping Use: Never used Substance Use Topics Alcohol use: Yes Comment: Occasionally Drug use: No Review of Systems: Review of Systems All other systems reviewed and are negative. Are you taking any blood thinners? No Physical Examination: BP 114/68 Pulse 76 Ht 5' 8.504 (1.74m) Wt 335 lb (152.0kg) SpO2 98% BMI 50.19 kg/(m^2). Physical Exam Constitutional: Appearance: Normal appearance. She is normal weight. HENT: Head: Normocephalic and atraumatic. Eyes: Extraocular Movements: Extraocular movements intact. Pupils: Pupils are equal, round, and reactive to light. Cardiovascular: Rate and Rhythm: Normal rate and regular rhythm. Pulses: Normal pulses. Heart sounds: Normal heart sounds. Pulmonary: Effort: Pulmonary effort is normal. Breath sounds: Normal breath sounds. Abdominal: General: Abdomen is flat. Bowel sounds are normal. Palpations: Abdomen is soft. Musculoskeletal: General: Normal range of motion. Cervical back: Normal range of motion and neck supple. Skin: General: Skin is warm and dry. Neurological: General: No focal deficit present. Mental Status: She is alert and oriented to person, place, and time. Psychiatric: Mood and Affect: Mood normal. Behavior: Behavior normal. ASSESSMENT: Screening for colon cancer PLAN: Assessment/Plan (Z12.11) Screening for colon cancer 1. Screening for colon cancer - Screening colonoscopy to be done at [facility] - CONSULT TO GENERAL SURGERY - polyethylene glycol 3350 (MIRALAX, GLYCOLAX) 17 gram/dose powder; Use as directed for Miralax / Gatorade Bowel Prep Kit Dispense: 238 g; Refill: 0 - Bisacodyl (DULCOLAX) 5 mg tab; Use as directed for Miralax / Gatorade Bowel Prep Kit Dispense: 4 tablet; Refill: 0 - COLONOSCOPY SCREENING; Future Follow up in office 3 months/PRN. Recommended to please call office/go to ER if fever, chills, chest pain, SOB, diarrhea, nausea, emesis, worsening abdominal pain, dehydration occurs I spent a total of 30 minutes on the date of the service which included preparing to see the patient, [id number] patient care, completing clinical documentation, obtaining and/or reviewing separately obtained history, performing a medically appropriate examination, counseling and educating the patient/family/caregiver, ordering medications, tests, or procedures, communicating with other HCPs (not separately reported), independently interpreting results (not separately reported), communicating results to the patient/family/caregiver, and care coordination (not separately reported). Rabia Gupta APRN.CNP DATE: 02/03/22 TIME: 8:05 AM documented in this encounter [facility] 01-25-2022 Miscellaneous Notes Pt with exacerbation of asthma. Has been using her nebulizers routinely. Requesting prednisone script. She has taken in the past. Aware to go to the ER with any severe symptoms. iRana Morales APRN.CNP documented in this encounter [facility] 01-08-2022 History of Present illness Narrative RADIOLOGY SERVICE PROGRESS NOTE SERVICE DATE: 01/08/2022 SERVICE TIME: 8:50 AM PATIENT IDENTITY VERIFICATION COMPLETED USING TWO (2) STANDARD IDENTIFIERS: Name and Date of confirmed by patient verbally and Name and Date of confirmed by identification band FALL SCREENING: Has the patient had 2 falls in the last year or 1 fall with injury or currently using an Ambulatory Assistive Device (Walker, Cane, Wheelchair, Crutches, etc.)? No PATIENT GENDER DATA: .female : No ALLERGIES: Reviewed and unchanged MEDICATIONS REVIEWED: Not applicable PATIENT RELEVANT IMPLANT DATA REVIEWED: Not Applicable CREATININE: Creatinine Date Value Ref Range Status 12/24/2021 0.76 0.58 - 0.96 mg/dL Final 11/12/2021 0.82 0.58 - 0.96 mg/dL Final 05/03/2021 0.71 0.58 - 0.96 mg/dL Final Estimated Glomerular Filtration Rate Date Value Ref Range Status 12/24/2021 89 >=60 mL/min/1.73m Final Comment: Estimated Glomerular Filtration Rate (eGFR) is calculated using the 2020 CKD-EPI creatinine equation. This equation utilizes serum creatinine, sex, and age as parameters. The creatinine assay has traceable calibration to isotope dilution-mass spectrometry. Refer to KDIGO guidelines for clinical interpretation. In patients with unstable renal function, e.g. those with acute kidney injury, the eGFR may not accurately reflect actual GFR. eGFR- Date Value Ref Range Status 05/03/2021 >60 Final P.O.C.T. RESULTS: N/A January 08, [address] PERFORMED: No IV SITE: Ambulatory: A peripheral IV was started in the Left forearm with a Angio cath: 22 gauge. POST EXAM PIV STATUS: Discontinued PROCEDURE TYPE: NM Parathyroid: 357.9 microcuries of Nal 123 capsules was administered orally at 8:38. 36.0 mCi of Tc99m Sestamibi was injected IV at 1215. ADMINISTRATION TIME: PATIENT DISCHARGED TO: Ambulatory patient, left NM department area. A Diagnostic radioactive procedure has taken place, with no further precautions necessary other than routine body substance precautions. More information regarding radiation safety can be found using this link: [email or web address] SIGNATURE: RT Emerson(R) PATIENT NAME: Amina Morales DATE: January 08, 2022 TIME: 8:50 AM PAGER/CONTACT #: documented in this encounter [facility] 01-08-2022 History of Present illness Narrative Angelina Quiros M.D. Department of Endocrine Surgery Endocrinology [place] [address] ENDOCRINE SURGERY NEW PATIENT VISIT NAME: Amina Morales CLINIC NO: [id number] : 1960 History of Present Illness: Amina Morales is a 61 year old female referred by Dr. Shantell Seymour for evaluation of primary hyperparathyroidism with Ca as high as 10.9 and PTH 50's - 90's. Hypercalcemia has been present since 2018. She c/o brain fog. She denies fatigue, bone pain, kidney stones. She has very high 24 hr urine Ca (443)!! DEXA normal. No localizing studies to date. My findings and recommendations will be communicated by way of the shared medical record. ENDOCRINE SURGICAL HISTORY: New or established diagnosis: established Prior history of radiation treatment to the neck: no Known thyroid disease: no Known parathyroid disease: yes Prior neck operations: no Family history of hypercalcemia: no Family history of thyroid cancer: no Family history of other endocrine tumors: no Pertinent medications (levothyroxine, blood thinners, calcium, diuretics, lithium, Sensipar, biotin): none PMH: PAST MEDICAL HISTORY Diagnosis Date Closed fracture of left humerus Diverticulosis of colon External hemorrhoids History of pulmonary embolism 1993 ? Pulmonary embolism Hyperglycemia 10/08/2015 Hyperparathyroidism (HCC) 12/02/2020 Internal hemorrhoids Metabolic syndrome 10/08/2015 Mild intermittent asthma without complication 07/21/2013 Mixed hyperlipidemia 10/08/2015 Obesity, Class III, BMI 40-49.9 (morbid obesity) (HCC) 04/30/2017 EVE (obstructive sleep apnea) ahi 46 09/19/2014 On CPAP, DME [facility] Phlebitis and thrombophlebitis of unspecified site Plantar fasciitis, bilateral 10/08/2015 Symptomatic menopausal or female climacteric states 05/02/2009 Vitamin D deficiency 12/02/2020 PSH: PAST SURGICAL HISTORY Procedure Laterality Date [facility] INCL FLUOR GDNCE DX W/CELL WASHG SPX BRONCHOSCOPY COLONOSCOPY FLX DX W/COLLJ SPEC WHEN PFRMD 09/18/11 repeat 10 years FECAL OCCULT BLOOD TEST 05/01/2017 negative HYSTEROSCOPY, DIAGNOSTIC (SEPARATE WITH CURRETAGE LIG/TRNSXJ FLP TUBE ABDL/VAG APPR UNI/BI Tubal ligation TOTAL ABDOMINAL HYSTERECT W/WO RMVL TUBE OVARY 2004 Hysterectomy, DANIEL UNSPECIFIED ORAL SURGERY PROCEDURE, BY REPORT 08/18/2007 CURRENT MEDICATIONS: Current Outpatient Medications on File Prior to Visit Medication Sig atorvastatin (LIPITOR) 10 mg tablet Take 1 tablet by mouth daily at bedtime. For cholesterol. atorvastatin (LIPITOR) 10 mg tablet Take 1 tablet by mouth daily at bedtime for 10 days. For cholesterol. (Patient not taking: Reported on 12/24/2021 ) budesonide (PULMICORT) 0.5 mg/2 mL nebulizer solution Use 2 mL via nebulizer once daily. albuterol (PROVENTIL) 2.5 mg /3 mL (0.083 %) nebulizer solution Use 3 mL via nebulizer every 6 hours as needed for wheezing/shortness of breath. J45.20 albuterol HFA (PROAIR HFA) 90 mcg/actuation inhaler Inhale 2 Puffs as instructed every 6 hours as needed for wheezing/shortness of breath. cholecalciferol (VITAMIN D-3) 50 mcg (2,000 unit) tablet Take 2 tablets by mouth once daily. CPAP Mask (per patient preference) optional chin strap (if indicated), filters, tubing / heated tubing, heated humidity and lifetime supplies. Dx. EVE G47.33 327.23 Nebulizer NEBULIZER WITH SUPPLIES IF NEEDED FOR HOME USE. DX: Mild persistent asthma without complication J45.30 COMPOUNDED PRESCRIPTION Nebulizer supplies. Dx. Asthma.J45.909 No current facility-administered medications on file prior to visit. All: ALLERGIES No Known Allergies SH: Social History Tobacco Use Smoking status: Never Smoker Smokeless tobacco: Never Used Vaping Use Vaping Use: Never used Substance Use Topics Alcohol use: Yes Comment: Occasionally Drug use: No FH: Pertinent history above; otherwise, non-contributory REVIEW OF SYSTEMS: CONSTITUTIONAL: Well-appearing, no malaise or fevers EYES: normal HEENT: Negative for occular, acoustic, nasal, or oral complaints RESPIRATORY: Negative for cough, hemoptysis, wheezing, or resting dyspnea CARDIOVASCULAR: Negative for resting chest pain GI: No nausea, vomiting, or diarrhea : normal MUSCULOSKELETAL: Negative for joint swelling or acute pain SKIN: no rashes, erythema, or skin cancers PSYCH: Negative for significant mood disorder or psychiatric illness NEURO: No history of recent syncope, paralysis, or seizures ENDOCRINE: See HPI PHYSICAL EXAM: BMI 52 CONSTITUTIONAL: Well appearing, alert, and oriented and appears euthyroid. NECK: skin over the anterior neck is smooth, no mass is visualized. Palpation revealed neck to be supple, thyroid gland is palpable and overall normal in size. No lymphadenopathy was palpated on either side of the neck. ULTRASOUND EXAMINATION: Ultrasound examination was performed in the office. Hypoechoic structure measuring 1.20 x 0.83 x 1.51 cm in distribution of right lower parathyroid with typical appearance of enlarged parathyroid gland. No other parathyroids seen. Bilateral (pure) colloid cysts. No worrisome lymphadenopathy was appreciated in either central neck compartment or jugular chain. DATA: - PARATHYROID DATA SHEET Latest Ref Rng & Units 05/05/2018 11/05/2018 05/06/2019 04/27/2020 05/01/2020 05/13/2020 10/26/2020 11/30/2020 02/05/2021 05/03/2021 11/12/2021 12/24/2021 CALCIUM 8.5 - 10.2 mg/dL 10.3 (H) 10.1 9.6 10.9 (H) 10.6 (H) 9.9 10.3 (H) 10.0 9.9 10.6 (H) CALCIUM 8.5 - 10.2 mg/dL 10.4 (H) 10.7 (H) CALCIUM, NORMALIZED 1.08 - 1.30 mmol/L 1.40 (H) CALCIUM IONIZED, WHOLE BLOOD 1.08 - 1.30 mmol/L 1.43 (H) PTH, INTACT 15 - 65 pg/mL 57 81 (H) 64 PTH, INTACT 15 - 65 pg/mL 78 (H) 72 (H) PHOSPHORUS 2.7 - 4.8 mg/dL 3.0 PHOSPHORUS 2.7 - 4.8 mg/dL 3.2 3.1 CREAT 0.58 - 0.96 mg/dL 0.82 0.80 0.71 0.71 0.78 0.70 0.71 CREATININE 0.58 - 0.96 mg/dL 0.82 0.76 VITAMIN D 25 HYDROXY 31.0 - 80.0 ng/mL 11.1 (L) 37.1 VITAMIN D 25 HYDROXY 31.0 - 80.0 ng/mL 27.1 (L) 27.0 (L) VIT D1,25 DIHYDROXY 19.9 - 79.3 pg/mL 51.6 ALBUMIN 3.9 - 4.9 g/dL 4.2 4.0 4.0 4.2 ALBUMIN 3.9 - 4.9 g/dL 4.3 4.3 11/19/21: 24 hr urine Ca 443 (!!) DIAGNOSTIC STUDIES REVIEWED: DEXA 11/2021 IMPRESSION: Normal bone mineral density LUMBAR SPINE: T-score of +2.3. LEFT HIP: T-score of +1.9. LEFT FEMORAL NECK: T-score of +0.2. LEFT FOREARM: T-score of +0.7. ASSESSMENT and PLAN: In summary, Amina Morales has primary hyperparathyroidism with markedly elevated urinary calcium. Imaging suggestive of right lower parathyroid adenoma. Plan for parathyroidectomy. OR scheduled for 02/25/22. Will complete sestamibi today. Pre-op testing and consent in chart today. I spent a total of 30 minutes on the date of the service which included preparing to see the patient, [id number] patient care, completing clinical documentation, obtaining and/or reviewing separately obtained history, performing a medically appropriate examination, counseling and educating the patient/family/caregiver, ordering medications, tests, or procedures, communicating with other HCPs (not separately reported), independently interpreting results (not separately reported), communicating results to the patient/family/caregiver and care coordination (not separately reported). I appreciate being involved in the care of your patient, and please feel free to contact me should you have additional questions. Sincerely, Angelina Quiros M.D. Endocrine Surgeon [facility] documented in this encounter [facility] 01-08-2022 Instructions Silvia Sweeney Ma - 01/08/2022 10:01 AM EDT Thank you for choosing the [facility] Department of Endocrinology, Diabetes and Metabolism. Did you know that you need to call 48 hours in advance of your scheduled visit, if you are unable to make your appointment? The Endocrinology and Metabolism [place] thanks you for your commitment, because patients not showing to their appointment results in a lost opportunity for patients to receive [facility] health care at the [facility]. To Cancel an appointment, please choose one of the following: - Call the Appointment Call Center at [phone] - From [employer], Go to Appointments Cancel Appts If cancelling, consider your need to reschedule to prevent further delays in your care. To Schedule an appointment, please choose one of the following: - Call the Appointment Call Center at [phone] - From [employer], Go to Appointments Request an Appt documented in this encounter [facility] 12-24-2021 History of Present illness Narrative Endocrinology Calcium Follow-Up Note Amina Morales is here for follow-up of: hyperparathyroidism REQUESTING PHYSICIAN: SELF Phone: N/A Fax: My final recommendations will be communicated back to the requesting physician by way of shared Medical record or letter via [place] mail. History of Present Illness: Ms. Amina Morales is a 61 year old female coming today for follow-up of hyperparathyroidism. She had high PTH in the setting of vitamin D deficiency and transient hypercalcemia. Hypercalcemia was initially diagnosed 04/27/2020. Highest value 10.9 mg/dL with no albumin. At the time of last visit, serum calcium was 10 mg/dL with PTH of 81 pg/mL in the setting of severe vitamin D deficiency. Repeat testing revealed a calcium of 9.9 mg/dL with a PTH of 64 with an improved vitamin D level. She is not on any thiazide diuretics. No history of fractures, renal insufficiency or nephrolithiasis. She fell down basement steps in 2011 and broke her left shoulder. Since 10/2020, patient with increasing calcium levels. PTH non-suppressed despite improvement in vitamin D levels. 24 hour urine calcium is elevated. Has EVE on CPAP. The patient currently is not experiencing symptoms of hypercalcemia. Severity, modifying factors, and associated signs and symptoms are as follows: polyuria: no polydipsia: no renal insufficiency: no nephrolithiasis: no nausea/vomiting: no anorexia: no constipation: yes: sometimes hx of pancreatitis: no hx of peptic ulcer disease: no muscle weakness: no bone pain: no, some shoulder pain decrease in concentration:no increase in fatigue: no calcium or vitamin D supplementation: yes: on 2,000 iu daily hx of fractures: yes: broken shoulder hx of lithium or thiazide diuretics: no Current Outpatient Medications Medication Sig Dispense Refill atorvastatin (LIPITOR) 10 mg tablet Take 1 tablet by mouth daily at bedtime. For cholesterol. 90 tablet 1 atorvastatin (LIPITOR) 10 mg tablet Take 1 tablet by mouth daily at bedtime for 10 days. For cholesterol. 10 tablet 0 budesonide (PULMICORT) 0.5 mg/2 mL nebulizer solution Use 2 mL via nebulizer once daily. 90 Ampule 1 albuterol (PROVENTIL) 2.5 mg /3 mL (0.083 %) nebulizer solution Use 3 mL via nebulizer every 6 hours as needed for wheezing/shortness of breath. J45.20 240 Vial 1 albuterol HFA (PROAIR HFA) 90 mcg/actuation inhaler Inhale 2 Puffs as instructed every 6 hours as needed for wheezing/shortness of breath. 3 Inhaler 3 cholecalciferol (VITAMIN D-3) 50 mcg (2,000 unit) tablet Take 2 tablets by mouth once daily. CPAP Mask (per patient preference) optional chin strap (if indicated), filters, tubing / heated tubing, heated humidity and lifetime supplies. Dx. EVE G47.33 327.23 1 Device 0 Nebulizer NEBULIZER WITH SUPPLIES IF NEEDED FOR HOME USE. DX: Mild persistent asthma without complication J45.30 1 Each 0 COMPOUNDED PRESCRIPTION Nebulizer supplies. Dx. Asthma.J45.909 1 Each 0 No current facility-administered medications for this visit. ALLERGIES No Known Allergies Past medical, surgical, family and social histories reviewed with the following changes: Yes. COMPLETE REVIEW OF SYSTEMS: Review Of Systems GENERAL:No weight loss, malaise or fevers HEENT:Negative for frequent or significant headaches, No changes in hearing or vision, no nose bleeds or other nasal problems NECK:Negative for lumps, goiter, pain and significant neck swelling RESPIRATORY: Negative for cough, hemoptysis, wheezing or shortness of breath CARDIOVASCULAR: Negative for chest pain, leg swelling or palpitations GASTROINTESTINAL: No nausea, vomiting, or diarrhea GENITOURINARY: No history of dysuria, frequency or incontinenceMUSCULOSKELETAL: Negative for joint pain or swelling, back pain or muscle pain NEUROLOGIC:Negative for focal numbness or weakness, headaches and dizziness or syncope. SKIN:Negative for lesions, rash, and itching PSYCHIATRIC: Negative for sleep disturbance, mood disorder and recent psychosocial stressors. HEMATOLOGIC/LYMPHATIC/IMMUNOLOGIC: Negative for prolonged bleeding, bruising easily or swollen nodes ENDOCRINE: Negative for cold or heat intolerance, polyuria, polydipsia and goiter OBJECTIVE PHYSICAL EXAM: BP 140/63 Ht 172.7 cm (5' 8) Wt (!) 154.2 kg (340 lb) BMI 51.70 kg/m General: Well appearing, alert, in no acute distress, well-hydrated, well nourished Skin: skin color, texture, turgor normal, no rashes or lesions. Head: normocephalic, no masses, lesions, tenderness or abnormalities. Eyes: Anicteric sclera. Pupils are equally round and reactive to light. Extraocular movements are intact. Neck: Supple, no adenopathy; thyroid symmetric, normal size, no bruits Heart: RRR without murmur, gallop, or rubs. No ectopy Abdomen: soft, non-tender, positive bowel sounds Extremities: no edema, no calluses or ulcers present. Peripheral Pulses: posterior tibial and doralis pedis pulses 2+ and symmetrical DATA: Component Latest Ref Rng & Units 05/13/2020 10/26/2020 11/30/2020 02/05/2021 05/03/2021 11/12/2021 11/19/2021 11/19/2021 7:13 AM 7:13 AM Protein, Total 6.3 - 8.0 g/dL 7.5 Albumin 3.9 - 4.9 g/dL 4.0 4.2 4.3 Calcium 8.5 - 10.2 mg/dL 9.9 10.3 (H) 10.0 9.9 10.6 (H) 10.4 (H) Bilirubin, Total 0.2 - 1.3 mg/dL 0.6 Alkaline Phosphatase 34 - 123 U/L 119 AST 13 - 35 U/L 24 Glucose 74 - 99 mg/dL 130 (H) 121 (H) 122 (H) 157 (H) BUN 7 - 21 mg/dL 19 13 15 17 Creatinine 0.58 - 0.96 mg/dL 0.78 0.70 0.71 0.82 Sodium 136 - 144 mmol/L 136 137 137 137 Potassium 3.7 - 5.1 mmol/L 4.2 4.2 4.4 4.5 Chloride 97 - 105 mmol/L 104 104 103 102 CO2 22 - 30 mmol/L 22 23 21 (L) 21 (L) Anion Gap 9 - 18 mmol/L 10 10 13 14 ALT 7 - 38 U/L 25 eGFR- >60 >60 >60 eGFR-All Other Races . >60 >60 >60 Phosphorus 2.7 - 4.8 mg/dL 3.0 3.2 eGFR >=60 mL/min/1.73m 81 Calcium, 24 Hr Urine 100.0 - 300.0 mg/24 hr 443.3 (H) Period hours 24 24 Urine Volume 24 hour mL 1,725 1,725 Creatinine 24 hr Ur 0.800 - 1.800 g/24 hr 2.025 (H) Magnesium 1.7 - 2.6 mg/dL PTH, Intact 15 - 65 pg/mL 81 (H) 64 78 (H) Vitamin D 25 Hydroxy 31.0 - 80.0 ng/mL 11.1 (L) 37.1 27.1 (L) IMAGING: Bone density was done. DXA forearm + AXIAL 11/2021 IMPRESSION: Normal bone mineral density LUMBAR SPINE: The bone mineral density from L1 through L4 is 1.297 grams per square centimeter which yields a T-score of 2.3. LEFT HIP: The bone mineral density of the total region of the hip is 1.174 grams per square centimeter which yields a T-score of 1.9. LEFT FEMORAL NECK: The bone mineral density of the femoral neck is 0.874 grams per square centimeter which yields a T-score of 0.2. LEFT FOREARM: The bone mineral density of the radius 1/3 is 0.734 grams per square centimeter which yields a T-score of 0.7. 10-year Fracture Risk (FRAX): Major osteoporotic fracture risk 15% Hip fracture risk 0.4% ASSESSMENT/PLAN: Ms. Amina Morales is a 61 year old female coming today for follow-up of hyperparathyroidism. She had high PTH in the setting of vitamin D deficiency and transient hypercalcemia. Calcium levels now persistently elevated and PTH levels NOT Suppressed despite normalization of vitamin D levels - Discussed surgical indications for primary hyperparathyroidism: - Per the Fourth International Workshop guidelines for patients with asymptomatic primary hyperparathyroidism, indication for surgery are as follows: --Age < 50 years old (or relative youthfulness) --Serum calcium concentration of 1.0 mg/dL or more above the upper limit of normal --Creatinine clearance <60 mL/min --24-hour urine for calcium >400 mg/day (>10 mmol/day) and increased stone risk by biochemical stone risk analysis --Presence of nephrolithiasis or nephrocalcinosis by radiograph, ultrasound or CT -- BMD by DXA: T-Score < -2.5 at the lumbar spine, total hip, femoral neck or distal 1/3 radius -- Vertebral fracture by radiograph, CT, MRI or VFA (or previous fragility fracture). - Discussed that patients need to meet only one of these criteria to be advised to have parathyroid surgery - Surgery is also indicated in patients from whom medical surveillance is neither desired nor possible and in patients opting for surgery, in the absence of meeting any guidelines, as long as there are no medical contraindications - Encouraged to maintain a moderate dietary intake of calcium, as low calcium diets can lead to further secretion of PTH. - Measure/monitor vitamin D levels - 24 hour urinary calcium and creatinine - Referral to endocrine surgery placed for consideration of parathyroid surgery given hypercacliuria - Rechecking blood work today - 24 hour urine calcium is high >400 mg/24 hours The patient will follow-up in 6 months. I spent a total of 30 minutes on the date of the service which included preparing to see the patient, [id number] patient care, completing clinical documentation, obtaining and/or reviewing separately obtained history, performing a medically appropriate examination, counseling and educating the patient/family/caregiver, ordering medications, tests, or procedures, independently interpreting results (not separately reported), communicating results to the patient/family/caregiver and care coordination (not separately reported). Shantell Seymour MD documented in this encounter [facility] 12-24-2021 Miscellaneous Notes Pt notified of same. Elly Orourke LPN ----- Message from Aurora Muñoz PA-C sent at 12/24/2021 12:37 PM EDT ----- Normal mammogram. Repeat in 1 year. documented in this encounter [facility] 12-24-2021 Miscellaneous Notes December 24, 2021 PID: [id number] Amina Morales [address] [place] [address] Dear Ms. Moarles, We are pleased to inform you that the results of your recent breast imaging exam on 12/24/2021 are normal. Your mammogram demonstrates that you have dense breast tissue, which could hide abnormalities. Dense breast tissue, in and of itself, is a relatively common condition. Therefore, this information is not provided to cause undue concern; rather, it is to raise your awareness and promote discussion with your health care provider regarding the presence of dense breast tissue in addition to other risk factors. Early detection of cancer is very important. We also understand recommendations regarding breast cancer screening are controversial. Please discuss with your primary care provider which strategy is best for you and whether a mammogram is right for you. Your imaging studies and report will be kept on file at [facility] as part of your permanent medical record and are available for your continuing care. Thank you for allowing us to help in meeting your health care needs. Sincerely, Dr. Vergara Interpreting Radiologist [facility] (Normal over 40) documented in this encounter [facility] 12-24-2021 History of Present illness Narrative Radiology Service Progress Note PATIENT NAME: Amina Morales DATE OF SERVICE: December 24, 2021 TIME: 7:15 AM PATIENT IDENTITY VERIFICATION COMPLETED USING TWO (2) IDENTIFIERS: Name and Date of confirmed by patient verbally. FALL SCREENING: Has the patient had 2 falls in the last year or 1 fall with injury or currently using an Ambulatory Assistive Device (Walker, Cane, Wheelchair, Crutches, etc.)? No PATIENT GENDER DATA: Female. status: : No status: NO. PATIENT RELEVANT IMPLANT DATA REVIEWED: Not Applicable RADIOLOGY DEPARTMENT: Mammography PERIPHERAL IV DATA: Not applicable SIGNED BY: Teena Farmer December 24, 2021 7:15 AM documented in this encounter [facility] 12-17-2021 Miscellaneous Notes The following approved medication requests have been transmitted electronically. Signed Prescriptions Disp Refills atorvastatin (LIPITOR) 10 mg tablet 90 tablet 1 Sig: Take 1 tablet by mouth daily at bedtime. For cholesterol. JENAE: No Authorizing Provider: AURORA MUÑOZ atorvastatin (LIPITOR) 10 mg tablet 10 tablet 0 Sig: Take 1 tablet by mouth daily at bedtime for 10 days. For cholesterol. Authorizing Provider: AURORA MUÑOZ PA-C Pt notified of lab orders prior to next visit and that rx has been sent to [facility]. Pt states she took last Lipitor pill last night and would like a short term supply of 10 tablets sent to [facility] to get her through until she gets mail order. Call pt only if problem. Elly Orourke LPN Labs to do prior to next visit. Aurora Muñoz PA-C Amina Morales is calling Aurora Goddard PA-C office today. Patient completed the first 30 days of the atorvastatin. Does she need any blood work drawn before next refill? If not, patient is requesting a 90 day script is sent to [facility] pharmacy Please advise documented in this encounter [facility] 12-02-2021 History of Present illness Narrative Radiology Service Progress Note PATIENT NAME: Amina Morales DATE OF SERVICE: December 02, 2021 TIME: 8:43 AM PATIENT IDENTITY VERIFICATION COMPLETED USING TWO (2) IDENTIFIERS: Name and Date of confirmed by patient verbally. FALL SCREENING: Has the patient had 2 falls in the last year or 1 fall with injury or currently using an Ambulatory Assistive Device (Walker, Cane, Wheelchair, Crutches, etc.)? No PATIENT GENDER DATA: Female. status: : No status: NO. PATIENT RELEVANT IMPLANT DATA REVIEWED: Not Applicable RADIOLOGY DEPARTMENT: Bone Density PERIPHERAL IV DATA: Not applicable SIGNED BY: RT Suleman(R) December 02, 2021 8:43 AM documented in this encounter [facility] 11-20-2021 Instructions Shantell Seymour MD - 11/20/2021 8:04 AM EDT BONE MINERAL DENSITY PATIENT INSTRUCTIONS ======= Bone mineral density testing measures the amount of calcium in certain parts of your bones. This information determines how strong your bones are. The test is used to detect osteoporosis, a disease in which the bone's mineral content and density are low, increasing a person's risk of fractures. The lumbar spine (lower back) and the hip are the skeletal sites usually examined. For the test, remember that: 1. You cannot take this test if you are . 2. Eat a normal diet on the day of the test. 3. Take your medications as you normally would. 4. DO NOT take calcium supplements (such as Tums) for 24 hours before the test. 5. On the day of the test, leave valuables (jewelry or credit cards) at home. 6. The test should be performed prior to oral, rectal or IV contrast studies, or at least 7 days after any of these studies. For the test, you may be asked to wear a hospital gown. You will lie on your back, on a padded table, in a comfortable position. Generally, you can resume your usual activities immediately. documented in this encounter [facility] 10-08-2015 History of Past i llness Narrative Problem Noted Date Resolved Date Plantar fasciitis, bilateral 10/08/2015 RLS (restless legs syndrome) 11/21/201404/2016 Iron deficiency concern 11/21/2014 03/04/20 16 Snoring 09/19/2014 09/14/2016 Symptomatic menopausal or female climacteric sta geraldine 05/02/2009 09/14/2016 Pain in joint, shoulder region 11/17/2006 0 09/14/2016 documented as of this encounter (statuses as of 11/20/2021) [facility] History of Past illness Narrative* Problem Noted Date Resolved Date Plantar fasciitis, bilateral 10/08/2015 RLS (restless legs syndrome) 11/21/201404/2016 Iron deficiency concern 11/21/2014 03/04/20 16 Snoring 09/19/2014 09/14/2016 Symptomatic menopausal or female climacteric sta geraldine 05/02/2009 09/14/2016 Pain in joint, shoulder region 11/17/2006 0 09/14/2016 documented as of this encounter (statuses as of 12/03/2021) [facility] History of Past illness Narrative* Problem Noted Date Resolved Date Plantar fasciitis, bilateral 10/08/2015 RLS (restless legs syndrome) 11/21/201404/2016 Iron deficiency concern 11/21/2014 03/04/20 16 Snoring 09/19/2014 09/14/2016 Symptomatic menopausal or female climacteric sta geraldine 05/02/2009 09/14/2016 Pain in joint, shoulder region 11/17/2006 0 09/14/2016 documented as of this encounter (statuses as of 12/17/2021) [facility] History of Past illness Narrative* Problem Noted Date Resolved Date Plantar fasciitis, bilateral 10/08/2015 RLS (restless legs syndrome) 11/21/201404/2016 Iron deficiency concern 11/21/2014 03/04/20 16 Snoring 09/19/2014 09/14/2016 Symptomatic menopausal or female climacteric sta geraldine 05/02/2009 09/14/2016 Pain in joint, shoulder region 11/17/2006 0 09/14/2016 documented as of this encounter (statuses as of 12/24/2021) [facility] History of Past illness Narrative* Problem Noted Date Resolved Date Plantar fasciitis, bilateral 10/08/2015 RLS (restless legs syndrome) 11/21/201404/2016 Iron deficiency concern 11/21/2014 03/04/20 16 Snoring 09/19/2014 09/14/2016 Symptomatic menopausal or female climacteric sta geraldine 05/02/2009 09/14/2016 Pain in joint, shoulder region 11/17/2006 0 09/14/2016 documented as of this encounter (statuses as of 12/24/2021) [facility] History of Past illness Narrative* Problem Noted Date Resolved Date Plantar fasciitis, bilateral 10/08/2015 RLS (restless legs syndrome) 11/21/201404/2016 Iron deficiency concern 11/21/2014 03/04/20 16 Snoring 09/19/2014 09/14/2016 Symptomatic menopausal or female climacteric sta geraldine 05/02/2009 09/14/2016 Pain in joint, shoulder region 11/17/2006 0 09/14/2016 documented as of this encounter (statuses as of 12/25/2021) [facility] History of Past illness Narrative* Problem Noted Date Resolved Date Plantar fasciitis, bilateral 10/08/2015 RLS (restless legs syndrome) 11/21/201404/2016 Iron deficiency concern 11/21/2014 03/04/20 16 Snoring 09/19/2014 09/14/2016 Symptomatic menopausal or female climacteric sta geraldine 05/02/2009 09/14/2016 Pain in joint, shoulder region 11/17/2006 0 09/14/2016 documented as of this encounter (statuses as of 12/26/2021) [facility] History of Past illness Narrative* Problem Noted Date Resolved Date Plantar fasciitis, bilateral 10/08/2015 RLS (restless legs syndrome) 11/21/201404/2016 Iron deficiency concern 11/21/2014 03/04/20 16 Snoring 09/19/2014 09/14/2016 Symptomatic menopausal or female climacteric sta geraldine 05/02/2009 09/14/2016 Pain in joint, shoulder region 11/17/2006 0 09/14/2016 documented as of this encounter (statuses as of 01/08/2022) [facility] History of Past illness Narrative* Problem Noted Date Resolved Date Plantar fasciitis, bilateral 10/08/2015 RLS (restless legs syndrome) 11/21/201404/2016 Iron deficiency concern 11/21/2014 03/04/20 16 Snoring 09/19/2014 09/14/2016 Symptomatic menopausal or female climacteric sta geraldine 05/02/2009 09/14/2016 Pain in joint, shoulder region 11/17/2006 0 09/14/2016 documented as of this encounter (statuses as of 01/08/2022) [facility] History of Past illness Narrative* Problem Noted Date Resolved Date Plantar fasciitis, bilateral 10/08/2015 RLS (restless legs syndrome) 11/21/201404/2016 Iron deficiency concern 11/21/2014 03/04/20 16 Snoring 09/19/2014 09/14/2016 Symptomatic menopausal or female climacteric sta geraldine 05/02/2009 09/14/2016 Pain in joint, shoulder region 11/17/2006 0 09/14/2016 documented as of this encounter (statuses as of 01/08/2022) [facility] History of Past illness Narrative* Problem Noted Date Resolved Date Plantar fasciitis, bilateral 10/08/2015 RLS (restless legs syndrome) 11/21/201404/2016 Iron deficiency concern 11/21/2014 03/04/20 16 Snoring 09/19/2014 09/14/2016 Symptomatic menopausal or female climacteric sta geraldine 05/02/2009 09/14/2016 Pain in joint, shoulder region 11/17/2006 0 09/14/2016 documented as of this encounter (statuses as of 01/09/2022) [facility] History of Past illness Narrative* Problem Noted Date Resolved Date Plantar fasciitis, bilateral 10/08/2015 RLS (restless legs syndrome) 11/21/201404/2016 Iron deficiency concern 11/21/2014 03/04/20 16 Snoring 09/19/2014 09/14/2016 Symptomatic menopausal or female climacteric sta geraldine 05/02/2009 09/14/2016 Pain in joint, shoulder region 11/17/2006 0 09/14/2016 documented as of this encounter (statuses as of 01/09/2022) [facility] History of Past illness Narrative* Problem Noted Date Resolved Date Plantar fasciitis, bilateral 10/08/2015 RLS (restless legs syndrome) 11/21/201404/2016 Iron deficiency concern 11/21/2014 03/04/20 16 Snoring 09/19/2014 09/14/2016 Symptomatic menopausal or female climacteric sta geraldine 05/02/2009 09/14/2016 Pain in joint, shoulder region 11/17/2006 0 09/14/2016 documented as of this encounter (statuses as of 01/25/2022) [facility] History of Past illness Narrative* Problem Noted Date Resolved Date Plantar fasciitis, bilateral 10/08/2015 RLS (restless legs syndrome) 11/21/201404/2016 Iron deficiency concern 11/21/2014 03/04/20 16 Snoring 09/19/2014 09/14/2016 Symptomatic menopausal or female climacteric sta geraldine 05/02/2009 09/14/2016 Pain in joint, shoulder region 11/17/2006 0 09/14/2016 documented as of this encounter (statuses as of 02/03/2022) [facility] History of Past illness Narrative* Problem Noted Date Resolved Date Plantar fasciitis, bilateral 10/08/2015 RLS (restless legs syndrome) 11/21/201404/2016 Iron deficiency concern 11/21/2014 03/04/20 16 Snoring 09/19/2014 09/14/2016 Symptomatic menopausal or female climacteric sta geraldine 05/02/2009 09/14/2016 Pain in joint, shoulder region 11/17/2006 0 09/14/2016 documented as of this encounter (statuses as of 02/04/2022) [facility] History of Past illness Narrative* Problem Noted Date Resolved Date Plantar fasciitis, bilateral 10/08/2015 RLS (restless legs syndrome) 11/21/201404/2016 Iron deficiency concern 11/21/2014 03/04/20 16 Snoring 09/19/2014 09/14/2016 Symptomatic menopausal or female climacteric sta geraldine 05/02/2009 09/14/2016 Pain in joint, shoulder region 11/17/2006 0 09/14/2016 documented as of this encounter (statuses as of 02/17/2022) [facility] History of Past illness Narrative* Problem Noted Date Resolved Date Plantar fasciitis, bilateral 10/08/2015 RLS (restless legs syndrome) 11/21/201404/2016 Iron deficiency concern 11/21/2014 03/04/20 16 Snoring 09/19/2014 09/14/2016 Symptomatic menopausal or female climacteric sta geraldine 05/02/2009 09/14/2016 Pain in joint, shoulder region 11/17/2006 0 09/14/2016 documented as of this encounter (statuses as of 02/19/2022) [facility] History of Past illness Narrative* Problem Noted Date Resolved Date Plantar fasciitis, bilateral 10/08/2015 RLS (restless legs syndrome) 11/21/201404/2016 Iron deficiency concern 11/21/2014 03/04/20 16 Snoring 09/19/2014 09/14/2016 Symptomatic menopausal or female climacteric sta geraldine 05/02/2009 09/14/2016 Pain in joint, shoulder region 11/17/2006 0 09/14/2016 documented as of this encounter (statuses as of 02/20/2022) [facility] History of Past illness Narrative* Problem Noted Date Resolved Date Plantar fasciitis, bilateral 10/08/2015 RLS (restless legs syndrome) 11/21/201404/2016 Iron deficiency concern 11/21/2014 03/04/20 16 Snoring 09/19/2014 09/14/2016 Symptomatic menopausal or female climacteric sta geraldine 05/02/2009 09/14/2016 Pain in joint, shoulder region 11/17/2006 0 09/14/2016 documented as of this encounter (statuses as of 02/25/2022) [facility] History of Past illness Narrative* Problem Noted Date Resolved Date Plantar fasciitis, bilateral 10/08/2015 RLS (restless legs syndrome) 11/21/201404/2016 Iron deficiency concern 11/21/2014 03/04/20 16 Snoring 09/19/2014 09/14/2016 Symptomatic menopausal or female climacteric sta geraldine 05/02/2009 09/14/2016 Pain in joint, shoulder region 11/17/2006 0 09/14/2016 documented as of this encounter (statuses as of 03/13/2022) [facility] History of Past illness Narrative* Problem Noted Date Resolved Date Plantar fasciitis, bilateral 10/08/2015 RLS (restless legs syndrome) 11/21/201404/2016 Iron deficiency concern 11/21/2014 03/04/20 16 Snoring 09/19/2014 09/14/2016 Symptomatic menopausal or female climacteric sta geraldine 05/02/2009 09/14/2016 Pain in joint, shoulder region 11/17/2006 0 09/14/2016 documented as of this encounter (statuses as of 04/03/2022) [facility] History of Past illness Narrative* Problem Noted Date Resolved Date Plantar fasciitis, bilateral 10/08/2015 RLS (restless legs syndrome) 11/21/201404/2016 Iron deficiency concern 11/21/2014 03/04/20 16 Snoring 09/19/2014 09/14/2016 Symptomatic menopausal or female climacteric sta geraldine 05/02/2009 09/14/2016 Pain in joint, shoulder region 11/17/2006 0 09/14/2016 documented as of this encounter (statuses as of 04/08/2022) [facility] History of Past illness Narrative* Problem Noted Date Resolved Date Plantar fasciitis, bilateral 10/08/2015 RLS (restless legs syndrome) 11/21/201404/2016 Iron deficiency concern 11/21/2014 03/04/20 16 Snoring 09/19/2014 09/14/2016 Symptomatic menopausal or female climacteric sta geraldine 05/02/2009 09/14/2016 Pain in joint, shoulder region 11/17/2006 0 09/14/2016 documented as of this encounter (statuses as of 04/28/2022) [facility] History of Past illness Narrative* Problem Noted Date Resolved Date Plantar fasciitis, bilateral 10/08/2015 RLS (restless legs syndrome) 11/21/201404/2016 Iron deficiency concern 11/21/2014 03/04/20 16 Snoring 09/19/2014 09/14/2016 Symptomatic menopausal or female climacteric sta geraldine 05/02/2009 09/14/2016 Pain in joint, shoulder region 11/17/2006 0 09/14/2016 documented as of this encounter (statuses as of 06/14/2022) [facility] History of Past illness Narrative* Problem Noted Date Resolved Date Plantar fasciitis, bilateral 10/08/2015 RLS (restless legs syndrome) 11/21/201404/2016 Iron deficiency concern 11/21/2014 03/04/20 16 Snoring 09/19/2014 09/14/2016 Symptomatic menopausal or female climacteric sta geraldine 05/02/2009 09/14/2016 Pain in joint, shoulder region 11/17/2006 0 09/14/2016 documented as of this encounter (statuses as of 07/31/2022) [facility] History of Past illness Narrative* Problem Noted Date Resolved Date Plantar fasciitis, bilateral 10/08/2015 RLS (restless legs syndrome) 11/21/201404/2016 Iron deficiency concern 11/21/2014 03/04/20 16 Snoring 09/19/2014 09/14/2016 Symptomatic menopausal or female climacteric sta geraldine 05/02/2009 09/14/2016 Pain in joint, shoulder region 11/17/2006 0 09/14/2016 documented as of this encounter (statuses as of 10/02/2022) [facility] History of Past illness Narrative* Problem Noted Date Resolved Date Plantar fasciitis, bilateral 10/08/2015 RLS (restless legs syndrome) 11/21/201404/2016 Iron deficiency concern 11/21/2014 03/04/20 16 Snoring 09/19/2014 09/14/2016 Symptomatic menopausal or female climacteric sta geraldine 05/02/2009 09/14/2016 Pain in joint, shoulder region 11/17/2006 0 09/14/2016 documented as of this encounter (statuses as of 01/14/2023) [facility] History of Past illness Narrative* Problem Noted Date Diagnosed Date Resolved Date Plantar fasciitis, bilateral 10/08/2015 09/14/2016 RLS (restless legs syndrome) 11/21/2014 03/04/2016 Iron deficiency concern 11/21/201402/23 Snoring 09/19/2014 09/14/2016 Symptomatic menopausal or fe male climacteric states 05/02/2009 09/14/2016 Pain in joint, shoulder region 11/17/2006 09/14/2016 documented as of this encounter (statuses as of 05/13/2023) [facility] History of Past illness Narrative* Problem Noted Date Diagnosed Date Resolved Date Plantar fasciitis, bilateral 10/08/2015 09/14/2016 RLS (restless legs syndrome) 11/21/2014 03/04/2016 Iron deficiency concern 11/21/201402/23 Snoring 09/19/2014 09/14/2016 Symptomatic menopausal or fe male climacteric states 05/02/2009 09/14/2016 Pain in joint, shoulder region 11/17/2006 09/14/2016 documented as of this encounter (statuses as of 05/21/2023) [address]15-2016 History of Past illness Narrative* Problem Noted Date Diagnosed Date Resolved Date Plantar fasciitis, bilateral 10/08/2015 09/14/2016 RLS (restless legs syndrome) 11/21/2014 03/04/2016 Iron deficiency concern 11/21/201402/23 Snoring 09/19/2014 09/14/2016 Symptomatic menopausal or fe male climacteric states 05/02/2009 09/14/2016 Pain in joint, shoulder region 11/17/2006 09/14/2016 documented as of this encounter (statuses as of 05/30/2023) [address]15-2016 History of Past illness Narrative* Problem Noted Date Diagnosed Date Resolved Date Plantar fasciitis, bilateral 10/08/2015 09/14/2016 RLS (restless legs syndrome) 11/21/2014 03/04/2016 Iron deficiency concern 11/21/201402/23 Snoring 09/19/2014 09/14/2016 Symptomatic menopausal or fe male climacteric states 05/02/2009 09/14/2016 Pain in joint, shoulder region 11/17/2006 09/14/2016 documented as of this encounter (statuses as of 06/14/2023) [address]15-2016 History of Past illness Narrative* Problem Noted Date Diagnosed Date Resolved Date Plantar fasciitis, bilateral 10/08/2015 09/14/2016 RLS (restless legs syndrome) 11/21/2014 03/04/2016 Iron deficiency concern 11/21/201402/23 Snoring 09/19/2014 09/14/2016 Symptomatic menopausal or fe male climacteric states 05/02/2009 09/14/2016 Pain in joint, shoulder region 11/17/2006 09/14/2016 documented as of this encounter (statuses as of 06/18/2023) [facility]03-15-2016 History of Past illness Narrative* Problem Noted Date Diagnosed Date Resolved Date Plantar fasciitis, bilateral 10/08/2015 09/14/2016 RLS (restless legs syndrome) 11/21/2014 03/04/2016 Iron deficiency concern 11/21/201402/23 Snoring 09/19/2014 09/14/2016 Symptomatic menopausal or fe male climacteric states 05/02/2009 09/14/2016 Pain in joint, shoulder region 11/17/2006 09/14/2016 documented as of this encounter (statuses as of 06/29/2023) [facility] note* Diagnosis Hyperparathyroidism (HCC)- Primary Hyperparathyroidism, unspecified Hypercalcemia Hypercalciuria Unspecified disorders of calcium metabolism documented in this encounter [facility] note* Diagnosis Hyperparathyroidism (HCC) Hyperparathyroidism, unspecified Hypercalcemia Hypercalciuria Unspecified disorders of calcium metabolism documented in this encounter [facility] note* Diagnosis Hypercalcemia- Primary Hypercalciuria Unspecified disorders of calcium metabolism Hyperparathyroidism (HCC) Hyperparathyroidism, unspecified Vitamin D deficiency Unspecified vitamin D deficiency documented in this encounter [facility] note* Diagnosis Screening mammogram for breast cancer [facility] Diagnosis Hyperparathyroidism (HCC)- Primary Hyperparathyroidism, unspecified documented in this encounter [facility] note* Diagnosis Primary hyperparathyroidism (HCC)- Primary Primary hyperparathyroidism Hypercalcemia Hypercalciuria Unspecified disorders of calcium metabolism Hyperparathyroidism (HCC) Hyperparathyroidism, unspecified documented in this encounter [facility] note* Diagnosis Hyperparathyroidism (HCC)- Primary Hyperparathyroidism, unspecified documented in this encounter [facility] note* Diagnosis Hypercalcemia Hyperparathyroidism (HCC) Hyperparathyroidism, unspecified documented in this encounter [facility] note* Diagnosis Screening for colon cancer Special screening for malignant neoplasms, colon Hyperparathyroidism (HCC) Hyperparathyroidism, unspecified documented in this encounter [facility] note* Diagnosis Hyperparathyroidism (HCC) Hyperparathyroidism, unspecified Hyperparathyroidism (HCC) Hyperparathyroidism, unspecified documented in this encounter [facility] note* Diagnosis Pre-operative examination- Primary Preoperative examination, unspecified Hyperparathyroidism (HCC) Hyperparathyroidism, unspecified History of pulmonary embolism Personal history of pulmonary embolism Mild intermittent asthma without complication Unspecified asthma EVE (obstructive sleep apnea) ahi 46 Obstructive sleep apnea (adult) (pediatric) Mixed hyperlipidemia Obesity, Class III, BMI 40-49.9 (morbid obesity) (HCC) Morbid obesity Hyperparathyroidism (HCC) Hyperparathyroidism, unspecified [facility] Diagnosis Mild intermittent asthma without complication- Primary Unspecified asthma Hyperparathyroidism (HCC) Hyperparathyroidism, unspecified [facility] Diagnosis Hyperparathyroidism (HCC)- Primary Hyperparathyroidism, unspecified [facility] Diagnosis S/P parathyroidectomy (HCC)- Primary Other postprocedural status [facility]* Diagnosis Pre-operative examination- Primary Preoperative examination, unspecified Screening for colon cancer Special screening for malignant neoplasms, colon Diverticulosis of colon Diverticulosis of colon (without mention of hemorrhage) Mild intermittent asthma without complication Unspecified asthma Mixed hyperlipidemia EVE (obstructive sleep apnea) ahi 46 Obstructive sleep apnea (adult) (pediatric) Hyperparathyroidism (HCC) Hyperparathyroidism, unspecified History of pulmonary embolism Personal history of pulmonary embolism [facility] Diagnosis Encounter for gynecological examination (general) (routine) without abnormal findings- Primary Encounter for screening mammogram for malignant neoplasm of breast Other screening mammogram Need for influenza vaccination Need for prophylactic vaccination and inoculation against influenza [facility] Diagnosis Well adult exam- Primary Routine general medical examination at a health care facility Mild intermittent asthma without complication Unspecified asthma Mixed hyperlipidemia Hyperparathyroidism (HCC) Hyperparathyroidism, unspecified Hyperglycemia Other abnormal glucose Vitamin D deficiency Unspecified vitamin D deficiency EVE (obstructive sleep apnea) ahi 46 Obstructive sleep apnea (adult) (pediatric) Obesity, Class III, BMI 40-49.9 (morbid obesity) (HCC) Morbid obesity Elevated hemoglobin A1c Other abnormal blood chemistry [facility]* Diagnosis EVE (obstructive sleep apnea) Obstructive sleep apnea (adult) (pediatric) [facility]* Diagnosis Moderate persistent asthma with (acute) exacerbation- Primary [facility]* Diagnosis Encounter for screening mammogram for malignant neoplasm of breast Other screening mammogram [facility] Diagnosis Mild intermittent asthma without complication Unspecified asthma [facility] Diagnosis Well adult exam- Primary Routine general medical examination at a health care facility Mixed hyperlipidemia Elevated hemoglobin A1c Other abnormal blood chemistry Hyperparathyroidism (HCC) Hyperparathyroidism, unspecified Mild intermittent asthma without complication Unspecified asthma Obesity, Class III, BMI 40-49.9 (morbid obesity) (HCC) Morbid obesity EVE (obstructive sleep apnea) ahi 46 Obstructive sleep apnea (adult) (pediatric) Vitamin D deficiency Unspecified vitamin D deficiency [facility] Diagnosis Midline low back pain without sciatica, unspecified chronicity- Primary Mixed hyperlipidemia EVE (obstructive sleep apnea) ahi 46 Obstructive sleep apnea (adult) (pediatric) Hyperparathyroidism (HCC) Hyperparathyroidism, unspecified Elevated hemoglobin A1c Other abnormal blood chemistry Moderate persistent asthma with (acute) exacerbation Wellness examination Vitamin D deficiency Unspecified vitamin D deficiency Morbid obesity with BMI of 50.0-59.9, adult (HCC) Morbid obesity [facility]* Diagnosis Left hip pain- Primary Pain in joint, pelvic region and thigh [facility] Diagnosis Lumbar spondylosis- Primary Lumbosacral spondylosis without myelopathy Left hip pain Pain in joint, pelvic region and thigh [facility] Diagnosis Encounter for screening mammogram for malignant neoplasm of breast Other screening mammogram Dense breast tissue [facility] Diagnosis Lumbar spondylosis- Primary Lumbosacral spondylosis without myelopathy [facility] Diagnosis Lumbar spondylosis- Primary Lumbosacral spondylosis without myelopathy [facility] Diagnosis Lumbar spondylosis- Primary Lumbosacral spondylosis without myelopathy [facility] Diagnosis Pre-operative examination- Primary Preoperative examination, unspecified Hyperparathyroidism (HCC) Hyperparathyroidism, unspecified History of pulmonary embolism Personal history of pulmonary embolism Mild intermittent asthma without complication Unspecified asthma EVE (obstructive sleep apnea) ahi 46 Obstructive sleep apnea (adult) (pediatric) Mixed hyperlipidemia Obesity, Class III, BMI 40-49.9 (morbid obesity) (HCC) Morbid obesity Pre-operative examination- Primary Preoperative examination, unspecified Screening for colon cancer Special screening for malignant neoplasms, colon Diverticulosis of colon Diverticulosis of colon (without mention of hemorrhage) Mild intermittent asthma without complication Unspecified asthma Mixed hyperlipidemia EVE (obstructive sleep apnea) ahi 46 Obstructive sleep apnea (adult) (pediatric) Hyperparathyroidism (HCC) Hyperparathyroidism, unspecified History of pulmonary embolism Personal history of pulmonary embolism Midline low back pain without sciatica, unspecified chronicity [facility] Diagnosis Pre-operative examination- Primary Preoperative examination, unspecified Hyperparathyroidism (HCC) Hyperparathyroidism, unspecified History of pulmonary embolism Personal history of pulmonary embolism Mild intermittent asthma without complication Unspecified asthma EVE (obstructive sleep apnea) ahi 46 Obstructive sleep apnea (adult) (pediatric) Mixed hyperlipidemia Obesity, Class III, BMI 40-49.9 (morbid obesity) (HCC) Morbid obesity Pre-operative examination- Primary Preoperative examination, unspecified Screening for colon cancer Special screening for malignant neoplasms, colon Diverticulosis of colon Diverticulosis of colon (without mention of hemorrhage) Mild intermittent asthma without complication Unspecified asthma Mixed hyperlipidemia EVE (obstructive sleep apnea) ahi 46 Obstructive sleep apnea (adult) (pediatric) Hyperparathyroidism (HCC) Hyperparathyroidism, unspecified History of pulmonary embolism Personal history of pulmonary embolism Acute cough documented in this encounter [facility] note* Diagnosis Pre-operative examination- Primary Preoperative examination, unspecified Hyperparathyroidism (HCC) Hyperparathyroidism, unspecified History of pulmonary embolism Personal history of pulmonary embolism Mild intermittent asthma without complication Unspecified asthma EVE (obstructive sleep apnea) ahi 46 Obstructive sleep apnea (adult) (pediatric) Mixed hyperlipidemia Obesity, Class III, BMI 40-49.9 (morbid obesity) (HCC) Morbid obesity Pre-operative examination- Primary Preoperative examination, unspecified Screening for colon cancer Special screening for malignant neoplasms, colon Diverticulosis of colon Diverticulosis of colon (without mention of hemorrhage) Mild intermittent asthma without complication Unspecified asthma Mixed hyperlipidemia EVE (obstructive sleep apnea) ahi 46 Obstructive sleep apnea (adult) (pediatric) Hyperparathyroidism (HCC) Hyperparathyroidism, unspecified History of pulmonary embolism Personal history of pulmonary embolism Left hip pain- Primary Pain in joint, pelvic region and thigh Encounter for immunization Need for other specified prophylactic vaccination against single bacterial disease Mild intermittent asthma without complication Unspecified asthma [facility] Diagnosis Pre-operative examination- Primary Preoperative examination, unspecified Hyperparathyroidism (HCC) Hyperparathyroidism, unspecified History of pulmonary embolism Personal history of pulmonary embolism Mild intermittent asthma without complication Unspecified asthma EVE (obstructive sleep apnea) ahi 46 Obstructive sleep apnea (adult) (pediatric) Mixed hyperlipidemia Obesity, Class III, BMI 40-49.9 (morbid obesity) (HCC) Morbid obesity Pre-operative examination- Primary Preoperative examination, unspecified Screening for colon cancer Special screening for malignant neoplasms, colon Diverticulosis of colon Diverticulosis of colon (without mention of hemorrhage) Mild intermittent asthma without complication Unspecified asthma Mixed hyperlipidemia EVE (obstructive sleep apnea) ahi 46 Obstructive sleep apnea (adult) (pediatric) Hyperparathyroidism (HCC) Hyperparathyroidism, unspecified History of pulmonary embolism Personal history of pulmonary embolism Moderate persistent asthma with (acute) exacerbation documented in this encounter [facility] note* Diagnosis Pre-operative examination- Primary Preoperative examination, unspecified Hyperparathyroidism (HCC) Hyperparathyroidism, unspecified History of pulmonary embolism Personal history of pulmonary embolism Mild intermittent asthma without complication Unspecified asthma EVE (obstructive sleep apnea) ahi 46 Obstructive sleep apnea (adult) (pediatric) Mixed hyperlipidemia Obesity, Class III, BMI 40-49.9 (morbid obesity) (HCC) Morbid obesity Pre-operative examination- Primary Preoperative examination, unspecified Screening for colon cancer Special screening for malignant neoplasms, colon Diverticulosis of colon Diverticulosis of colon (without mention of hemorrhage) Mild intermittent asthma without complication Unspecified asthma Mixed hyperlipidemia EVE (obstructive sleep apnea) ahi 46 Obstructive sleep apnea (adult) (pediatric) Hyperparathyroidism (HCC) Hyperparathyroidism, unspecified History of pulmonary embolism Personal history of pulmonary embolism Lower respiratory infection- Primary Other diseases of respiratory system, not elsewhere classified URI, acute Acute upper respiratory infections of unspecified site Lower respiratory infection Other diseases of respiratory system, not elsewhere classified URI, acute Acute upper respiratory infections of unspecified site documented in this encounter [facility] note* Diagnosis Pre-operative examination- Primary Preoperative examination, unspecified Hyperparathyroidism (HCC) Hyperparathyroidism, unspecified History of pulmonary embolism Personal history of pulmonary embolism Mild intermittent asthma without complication Unspecified asthma EVE (obstructive sleep apnea) ahi 46 Obstructive sleep apnea (adult) (pediatric) Mixed hyperlipidemia Obesity, Class III, BMI 40-49.9 (morbid obesity) ([facility]) Morbid obesity Pre-operative examination- Primary Preoperative examination, unspecified Screening for colon cancer Special screening for malignant neoplasms, colon Diverticulosis of colon Diverticulosis of colon (without mention of hemorrhage) Mild intermittent asthma without complication Unspecified asthma Mixed hyperlipidemia EVE (obstructive sleep apnea) ahi 46 Obstructive sleep apnea (adult) (pediatric) Hyperparathyroidism (HCC) Hyperparathyroidism, unspecified History of pulmonary embolism Personal history of pulmonary embolism Influenza A- Primary Influenza with other respiratory manifestations documented in this encounter [facility] note* Diagnosis Pre-operative examination- Primary Preoperative examination, unspecified Hyperparathyroidism (HCC) Hyperparathyroidism, unspecified History of pulmonary embolism Personal history of pulmonary embolism Mild intermittent asthma without complication Unspecified asthma EVE (obstructive sleep apnea) ahi 46 Obstructive sleep apnea (adult) (pediatric) Mixed hyperlipidemia Obesity, Class III, BMI 40-49.9 (morbid obesity) (HCC) Morbid obesity Pre-operative examination- Primary Preoperative examination, unspecified Screening for colon cancer Special screening for malignant neoplasms, colon Diverticulosis of colon Diverticulosis of colon (without mention of hemorrhage) Mild intermittent asthma without complication Unspecified asthma Mixed hyperlipidemia EVE (obstructive sleep apnea) ahi 46 Obstructive sleep apnea (adult) (pediatric) Hyperparathyroidism (HCC) Hyperparathyroidism, unspecified History of pulmonary embolism Personal history of pulmonary embolism Acute otitis media, right- Primary Unspecified otitis media URI, acute Acute upper respiratory infections of unspecified site Acute cough [facility] Diagnosis Pre-operative examination- Primary Preoperative examination, unspecified Hyperparathyroidism (HCC) Hyperparathyroidism, unspecified History of pulmonary embolism Personal history of pulmonary embolism Mild intermittent asthma without complication Unspecified asthma EVE (obstructive sleep apnea) ahi 46 Obstructive sleep apnea (adult) (pediatric) Mixed hyperlipidemia Obesity, Class III, BMI 40-49.9 (morbid obesity) (HCC) Morbid obesity Pre-operative examination- Primary Preoperative examination, unspecified Screening for colon cancer Special screening for malignant neoplasms, colon Diverticulosis of colon Diverticulosis of colon (without mention of hemorrhage) Mild intermittent asthma without complication Unspecified asthma Mixed hyperlipidemia EVE (obstructive sleep apnea) ahi 46 Obstructive sleep apnea (adult) (pediatric) Hyperparathyroidism (HCC) Hyperparathyroidism, unspecified History of pulmonary embolism Personal history of pulmonary embolism Mild intermittent asthma without complication- Primary Unspecified asthma documented in this encounter [facility] note* Diagnosis Pre-operative examination- Primary Preoperative examination, unspecified Hyperparathyroidism (HCC) Hyperparathyroidism, unspecified History of pulmonary embolism Personal history of pulmonary embolism Mild intermittent asthma without complication Unspecified asthma EVE (obstructive sleep apnea) ahi 46 Obstructive sleep apnea (adult) (pediatric) Mixed hyperlipidemia Obesity, Class III, BMI 40-49.9 (morbid obesity) (HCC) Morbid obesity Pre-operative examination- Primary Preoperative examination, unspecified Screening for colon cancer Special screening for malignant neoplasms, colon Diverticulosis of colon Diverticulosis of colon (without mention of hemorrhage) Mild intermittent asthma without complication Unspecified asthma Mixed hyperlipidemia EVE (obstructive sleep apnea) ahi 46 Obstructive sleep apnea (adult) (pediatric) Hyperparathyroidism (HCC) Hyperparathyroidism, unspecified History of pulmonary embolism Personal history of pulmonary embolism Mild intermittent asthma without complication Unspecified asthma documented in this encounter [facility] note* Diagnosis Pre-operative examination- Primary Preoperative examination, unspecified Hyperparathyroidism (HCC) Hyperparathyroidism, unspecified History of pulmonary embolism Personal history of pulmonary embolism Mild intermittent asthma without complication Unspecified asthma EVE (obstructive sleep apnea) ahi 46 Obstructive sleep apnea (adult) (pediatric) Mixed hyperlipidemia Obesity, Class III, BMI 40-49.9 (morbid obesity) (HCC) Morbid obesity Pre-operative examination- Primary Preoperative examination, unspecified Screening for colon cancer Special screening for malignant neoplasms, colon Diverticulosis of colon Diverticulosis of colon (without mention of hemorrhage) Mild intermittent asthma without complication Unspecified asthma Mixed hyperlipidemia EVE (obstructive sleep apnea) ahi 46 Obstructive sleep apnea (adult) (pediatric) Hyperparathyroidism (HCC) Hyperparathyroidism, unspecified History of pulmonary embolism Personal history of pulmonary embolism Mild intermittent asthma without complication Unspecified asthma documented in this encounter [facility] note* Diagnosis Pre-operative examination- Primary Preoperative examination, unspecified Hyperparathyroidism (HCC) Hyperparathyroidism, unspecified History of pulmonary embolism Personal history of pulmonary embolism Mild intermittent asthma without complication Unspecified asthma EVE (obstructive sleep apnea) ahi 46 Obstructive sleep apnea (adult) (pediatric) Mixed hyperlipidemia Obesity, Class III, BMI 40-49.9 (morbid obesity) ([facility]) Morbid obesity Pre-operative examination- Primary Preoperative examination, unspecified Screening for colon cancer Special screening for malignant neoplasms, colon Diverticulosis of colon Diverticulosis of colon (without mention of hemorrhage) Mild intermittent asthma without complication Unspecified asthma Mixed hyperlipidemia EVE (obstructive sleep apnea) ahi 46 Obstructive sleep apnea (adult) (pediatric) Hyperparathyroidism (HCC) Hyperparathyroidism, unspecified History of pulmonary embolism Personal history of pulmonary embolism Mild intermittent asthma without complication Unspecified asthma documented in this encounter [facility] note* Diagnosis Pre-operative examination- Primary Preoperative examination, unspecified Hyperparathyroidism (HCC) Hyperparathyroidism, unspecified History of pulmonary embolism Personal history of pulmonary embolism Mild intermittent asthma without complication (HCC) Unspecified asthma EVE (obstructive sleep apnea) ahi 46 Obstructive sleep apnea (adult) (pediatric) Mixed hyperlipidemia Obesity, Class III, BMI 40-49.9 (morbid obesity) (HCC) Morbid obesity Pre-operative examination- Primary Preoperative examination, unspecified Screening for colon cancer Special screening for malignant neoplasms, colon Diverticulosis of colon Diverticulosis of colon (without mention of hemorrhage) Mild intermittent asthma without complication (HCC) Unspecified asthma Mixed hyperlipidemia EVE (obstructive sleep apnea) ahi 46 Obstructive sleep apnea (adult) (pediatric) Hyperparathyroidism (HCC) Hyperparathyroidism, unspecified History of pulmonary embolism Personal history of pulmonary embolism Moderate persistent asthma with (acute) exacerbation (HCC)- Primary documented in this encounter [facility] note* Diagnosis Pre-operative examination- Primary Preoperative examination, unspecified Hyperparathyroidism (HCC) Hyperparathyroidism, unspecified History of pulmonary embolism Personal history of pulmonary embolism Mild intermittent asthma without complication (HCC) Unspecified asthma EVE (obstructive sleep apnea) ahi 46 Obstructive sleep apnea (adult) (pediatric) Mixed hyperlipidemia Obesity, Class III, BMI 40-49.9 (morbid obesity) (HCC) Morbid obesity Pre-operative examination- Primary Preoperative examination, unspecified Screening for colon cancer Special screening for malignant neoplasms, colon Diverticulosis of colon Diverticulosis of colon (without mention of hemorrhage) Mild intermittent asthma without complication (HCC) Unspecified asthma Mixed hyperlipidemia EVE (obstructive sleep apnea) ahi 46 Obstructive sleep apnea (adult) (pediatric) Hyperparathyroidism (HCC) Hyperparathyroidism, unspecified History of pulmonary embolism Personal history of pulmonary embolism Mixed hyperlipidemia- Primary Elevated hemoglobin A1c Other abnormal blood chemistry Mild intermittent asthma without complication (HCC) Unspecified asthma Hyperparathyroidism (HCC) Hyperparathyroidism, unspecified Obesity, Class III, BMI 40-49.9 (morbid obesity) (HCC) Morbid obesity EVE (obstructive sleep apnea) ahi 46 Obstructive sleep apnea (adult) (pediatric) Vitamin D deficiency Unspecified vitamin D deficiency Need for vaccination Need for prophylactic vaccination and inoculation against unspecified single disease Screening for depression Encounter for screening examination for other mental health and behavioral disorders Encounter for screening mammogram for malignant neoplasm of breast Other screening mammogram documented in this encounter [facility] note* Diagnosis Pre-operative examination- Primary Preoperative examination, unspecified Hyperparathyroidism (HCC) Hyperparathyroidism, unspecified History of pulmonary embolism Personal history of pulmonary embolism Mild intermittent asthma without complication (HCC) Unspecified asthma EVE (obstructive sleep apnea) ahi 46 Obstructive sleep apnea (adult) (pediatric) Mixed hyperlipidemia Obesity, Class III, BMI 40-49.9 (morbid obesity) (HCC) Morbid obesity Pre-operative examination- Primary Preoperative examination, unspecified Screening for colon cancer Special screening for malignant neoplasms, colon Diverticulosis of colon Diverticulosis of colon (without mention of hemorrhage) Mild intermittent asthma without complication (HCC) Unspecified asthma Mixed hyperlipidemia EVE (obstructive sleep apnea) ahi 46 Obstructive sleep apnea (adult) (pediatric) Hyperparathyroidism (HCC) Hyperparathyroidism, unspecified History of pulmonary embolism Personal history of pulmonary embolism Encounter for screening mammogram for malignant neoplasm of breast Other screening mammogram documented in this encounter [facility] for referral (narrative)* Diagnostic Procedure Only (Routine) - Pending Review Specialty Diagnoses / Procedures Referred By Smith bowers Referred To Contact XR IMAGING Diagnoses Hyperparathyroidism (HCC) Hypercalcemia Hypercalciuria Procedures DXA-FOREARM SKELETON DXA BONE DENSITY STUDY 1/>SITES Shantell Harris MD [address], [place] [id number] Xr Imaging Referral ID Status Reason Start Date Expiration Date Visits Requested Visits Authorized [id number] Pending Review Auto-Generat ed Referral 11/20/2021 12/20/2022 1 1 [facility] for referral (narrative)* Diagnostic Procedure Only (Routine) - Closed Specialty Diagnoses / Procedures Referred By Smith bowers Referred To Contact XR IMAGING Diagnoses Hyperparathyroidism (HCC) Hypercalcemia Hypercalciuria Procedures DXA-FOREARM SKELETON DXA BONE DENSITY STUDY 1/>SITES Shantell Harris MD [address], [address] [address] Xr Imaging Referral ID Status Reason Start Date Expiration Date V isits Requested Visits Authorized [id number] Closed Auto-Generate d Referral 11/20/2021 12/20/2022 1 1 T [facility] for referral (narrative)* Diagnostic Procedure Only (Routine) - Closed Specialty Diagnoses / Procedures Referred By Contchantale t Referred To Contact BR IMAGING Diagnoses Screening mammogram for breast cancer Procedures JUSTIN SCREENING SCREENING MAMMOGRAPHY BI 2-VIEW BREAST INC Aurora Bang PA-C [address] [place] [address] Br Imaging [address] [address] Referral ID Status Reason Start Date Expiration Date V isits Requested Visits Authorized [id number] Closed Auto-Generate d Referral 11/17/2021 12/17/2022 1 1 [facility] for referral (narrative)* Outpatient Procedure (Routine) - Pending Review Specialty Diagnoses / Procedures Referred By Contac t Referred To Contact [facility] Diagnoses Hyperparathyroidism (HCC) Procedures ECG COMPLETE ECG ROUTINE ECG W/LEAST 12 LDS W/I&R Angelina Quiros MD [address] [place] [address] [facility] [address] [address] Referral ID Status Reason Start Date Expiration Date Visits Requested Visits Authorized [id number] Pending Review Auto-Generat ed Referral 01/08/2022 01/08/2023 1 1 T [facility] for referral (narrative)* Diagnostic Procedure Only (Routine) - Closed Specialty Diagnoses / Procedures [facility] To Contact MOLECULAR & FUNCTIONAL IMAGING Diagnoses Hypercalcemia Hyperparathyroidism (HCC) Procedures NM PARATHYROID W SPECT/CT PARATHYROID IMAGING W/TOMOGRAPHIC SPECT & CT Angelina Quiros MD [address] [place] [address] [facility] [address] [place] [id number] Referral ID Status Reason Start Date Expiration Date V isits Requested Visits Authorized [id number] Closed Auto-Generate d Referral 12/30/2021 01/29/2023 1 1 [facility] for referral (narrative)* Outpatient Procedure (Routine) - Authorized Specialty Diagnoses / Procedures [facility] To Contact [facility] Diagnoses Screening for colon cancer Procedures COLONOSCOPY SCREENING COLONOSCOPY FLX DX W/COLLJ SPEC WHEN PFRMD Rabia Gupta APRN.[facility] [address] [place] [address] [facility] [address] [place] [address], [place] [address] Referral ID Status Reason Start Date Expiration Date Visits Requested Visits Authorized [id number] Authorized Auto-Generat ed Referral 02/03/2022 02/03/2023 1 1 [facility] for referral (narrative)* Outpatient Procedure (Routine) - Closed Specialty Diagnoses / Procedures Referred By Contac t Referred To Contact [facility] [place] Diagnoses Hyperparathyroidism (HCC) Procedures ECG COMPLETE ECG ROUTINE ECG W/LEAST 12 LDS W/I&R Yaneth Vazquez APRN.CNP [address] [place] [address] [facility] [address] [address] Referral ID Status Reason Start Date Expiration Date V isits Requested Visits Authorized [id number] Closed Auto-Generate d Referral 02/16/2022 02/16/2023 1 1 [facility] for referral (narrative)* Diagnostic Procedure Only (Routine) - Pending Review Specialty Diagnoses / Procedures Referred By Contac t Referred To Contact BR IMAGING Diagnoses Encounter for screening mammogram for malignant neoplasm of breast Procedures JUSTIN SCREENING W BIANCA SCREENING DIGITAL BREAST TOMOSYNTHESIS BI SCREENING MAMMOGRAPHY BI 2-VIEW BREAST INC CAD Savanah Yoo MD [address] [place] [address] Br Imaging [address] [place] [address] Referral ID Status Reason Start Date Expiration Date Visits Requested Visits Authorized [id number] Pending Review Auto-Generat ed Referral 04/28/2022 05/28/2023 1 1 T [facility] for referral (narrative)* Diagnostic Procedure Only (Routine) - Closed Specialty Diagnoses / Procedures Referred By Contac t Referred To Contact BR IMAGING Diagnoses Encounter for screening mammogram for malignant neoplasm of breast Procedures JUSTIN SCREENING W BIANCA SCREENING DIGITAL BREAST TOMOSYNTHESIS BI SCREENING MAMMOGRAPHY BI 2-VIEW BREAST INC CAD Savanah Yoo MD [address] [place] [address] Br Imaging [address] [place] [address] Referral ID Status Reason Start Date Expiration Date V isits Requested Visits Authorized [id number] Closed Auto-Generate d Referral 04/28/2022 05/28/2023 1 1 [facility] for referral (narrative)* Diagnostic Procedure Only (Routine) - Closed Specialty Diagnoses / Procedures Referred By Smith bowers Referred To Contact BR IMAGING Diagnoses Encounter for screening mammogram for malignant neoplasm of breast Dense breast tissue Procedures JUSTIN SCREENING W BIANCA SCREENING DIGITAL BREAST TOMOSYNTHESIS BI SCREENING MAMMOGRAPHY BI 2-VIEW BREAST INC CAD Savanah Yoo MD [address] [place] [address] Br Imaging [address] [place] [id number] Referral ID Status Reason Start Date Expiration Date V isits Requested Visits Authorized [id number] Closed Auto-Generate d Referral 10/21/2023 11/19/2024 1 1 [facility] for referral (narrative)* Diagnostic Procedure Only (Routine) - Closed Specialty Diagnoses / Procedures Referred By Smith bowers Referred To Contact XR IMAGING Diagnoses Midline low back pain without sciatica, unspecified chronicity Procedures XR HIP BILATERAL 5V PEL/AP/LAT EACH HIP RADEX HIPS BILATERAL WITH PELVIS MINIMUM 5 VIEWS Valentino Egan APRN.[facility] [address] [place] [address] [place] [id number] Referral ID Status Reason Start Date Expiration Date V isits Requested Visits Authorized [id number] Closed Auto-Generate d Referral 12/30/2023 01/28/2025 1 1 * Diagnostic Procedure Only (Routine) - Closed Specialty Diagnoses / Procedures Referred By Contac t Referred To Contact XR IMAGING Diagnoses Midline low back pain without sciatica, unspecified chronicity Procedures XR LUMBAR PARS DEFECT 4V AP/LAT/BOTH OBL RADEX SPINE LUMBOSACRAL MINIMUM 4 VIEWS Valentino Egan APRN.IMMIGRATION INVESTIGATOR [address] [place] [address] [place] [id number] Referral ID Status Reason Start Date Expiration Date V isits Requested Visits Authorized [id number] Closed Auto-Generate d Referral 12/30/2023 01/28/2025 1 1 [facility] for visit Narrative* Diagnostic Procedure Only (Routine) - Closed Specialty Diagnoses / Procedures Referred By Contac t Referred To Contact XR IMAGING Diagnoses Hyperparathyroidism (HCC) Hypercalcemia Hypercalciuria Procedures DXA-FOREARM SKELETON DXA BONE DENSITY STUDY /SITES APPENDICLR Shantell Lara MD [address], [address] [address] Xr Imaging Referral ID Status Reason Start Date Expiration Date V isits Requested Visits Authorized [id number] Closed Auto-Generate d Referral 11/20/2021 12/20/2022 1 1 [facility] for visit Narrative* Diagnostic Procedure Only (Routine) - Closed Specialty Diagnoses / Procedures Referred By Contac t Referred To Contact BR IMAGING Diagnoses Screening mammogram for breast cancer Procedures JUSTIN SCREENING SCREENING MAMMOGRAPHY BI 2-VIEW BREAST INC Aurora Bang PA-C [address] [place] [address] Br Imaging [address] [facility] [place] [address] Referral ID Status Reason Start Date Expiration Date V isits Requested Visits Authorized [id number] Closed Auto-Generate d Referral 11/17/2021 12/17/2022 1 1 [facility] for visit Narrative* Diagnostic Procedure Only (Routine) - Closed Specialty Diagnoses / Procedures Referred By Contac t Referred To Contact MOLECULAR & FUNCTIONAL IMAGING Diagnoses Hypercalcemia Hyperparathyroidism (HCC) Procedures NM PARATHYROID W SPECT/CT PARATHYROID IMAGING W/TOMOGRAPHIC SPECT & CT Angelina Quiros MD [address] [place] [address] Molecular [facility] [address] [place] [address] Referral ID Status Reason Start Date Expiration Date V isits Requested Visits Authorized [id number] Closed Auto-Generate d Referral 12/30/2021 01/29/2023 1 1 [facility] for visit Narrative* Diagnostic Procedure Only (Routine) - Closed Specialty Diagnoses / Procedures Referred By Smith bowers Referred To Contact BR IMAGING Diagnoses Encounter for screening mammogram for malignant neoplasm of breast Procedures JUSTIN SCREENING W BIANCA SCREENING DIGITAL BREAST TOMOSYNTHESIS BI SCREENING MAMMOGRAPHY BI 2-VIEW BREAST INC CAD Savanah Yoo MD [address] [place] [address] Br Imaging [address] [place] [address] Referral ID Status Reason Start Date Expiration Date V isits Requested Visits Authorized [id number] Closed Auto-Generate d Referral 04/28/2022 05/28/2023 1 1 [facility] for visit Narrative* Diagnostic Procedure Only (Routine) - Closed Specialty Diagnoses / Procedures Referred By Smith bowers Referred To Contact BR IMAGING Diagnoses Encounter for screening mammogram for malignant neoplasm of breast Dense breast tissue Procedures JUSTIN SCREENING W BIANCA SCREENING DIGITAL BREAST TOMOSYNTHESIS BI SCREENING MAMMOGRAPHY BI 2-VIEW BREAST INC CAD Savanah Yoo MD [address] [place] [address] Br Imaging [address] [place] [address] Referral ID Status Reason Start Date Expiration Date V isits Requested Visits Authorized [id number] Closed Auto-Generate d Referral 10/21/2023 11/19/2024 1 1 [facility] for visit Narrative* Diagnostic Procedure Only (Routine) - Closed Specialty Diagnoses / Procedures Referred By Smith bowers Referred To Contact XR IMAGING Diagnoses Midline low back pain without sciatica, unspecified chronicity Procedures XR HIP BILATERAL 5V PEL/AP/LAT EACH HIP RADEX HIPS BILATERAL WITH PELVIS MINIMUM 5 VIEWS Valentino Egan APRN.IMMIGRATION INVESTIGATOR [address] [place] [address] Xr Imaging [facility] Referral ID Status Reason Start Date Expiration Date V isits Requested Visits Authorized [id number] Closed Auto-Generate d Referral 12/30/2023 01/28/2025 1 1 [facility] Diagnostic Procedure Only (Routine) - Closed Specialty Diagnoses / Procedures Referred By Contac t Referred To Contact BR IMAGING Diagnoses Encounter for screening mammogram for malignant neoplasm of breast Procedures JUSTIN SCREENING W BIANCA SCREENING DIGITAL BREAST TOMOSYNTHESIS BI SCREENING MAMMOGRAPHY BI 2-VIEW BREAST INC CAD Lazaro Rust MD [address] [place] [id number] Phone: tel: fax: BR IMAGING [facility] [place] [address] Referral ID Status Reason Start Date Expiration Date V isits Requested Visits Authorized [id number] Closed Auto-Generate d Referral 01/18/2025 02/17/2026 1 1 [facility] Advance Directives No Advanced Directives Records FoundDocuments on File Type Date Recorded 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 Advance Directive(s) Documents on File Type Date Recorded 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 Advance Directive(s) Documents on File Type Date Recorded 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 Advance Directive(s) Advance Directive(s) 02/05/2022 12:03 PM Documents on File Type Date Recorded 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 Advance Directive(s) Advance Directive(s) 02/05/2022 12:03 PM Reason for Referral Specialty Diagnoses / Procedures Referred By Contac t Referred To Contact Diagnoses Hypercalcemia Hypercalciuria Hyperparathyroidism (HCC) Procedures CONSULT TO ENDOCRINE SURGERY OFFICE/OUTPATIENT [facility] 60-74 MINUTES Shantell Seymour MD [address], [address] [place] [address] Referral ID Status Reason Start Date Expiration Date Visits Requested Visits Authorized [id number] Pending Review PCP Requested Referral 12/24/2021 12/24/2022 1 1 Specialty Diagnoses / Procedures Referred By Contac t Referred To Contact Nutrition Diagnoses Morbid obesity with BMI of 50.0-59.9, adult (HCC) Procedures CONSULT TO NUTRITION THERAPY MEDICAL NUTRITION ASSMT&IVNTJ INDIV EACH 15 OR Valentino Egan APRN.IMMIGRATION INVESTIGATOR [address] [place] [address] Referral ID Status Reason Start Date Expiration Date Visits Requested Visits Authorized [id number] Authorized PCP Requested Referral 12/30/2023 12/29/2024 1 4 Specialty Diagnoses / Procedures Referred By Contac t Referred To Contact XR IMAGING Diagnoses Midline low back pain without sciatica, unspecified chronicity Procedures XR HIP BILATERAL 5V PEL/AP/LAT EACH HIP RADEX HIPS BILATERAL WITH PELVIS MINIMUM 5 VIEWS Valentino Egan APRN.IMMIGRATION INVESTIGATOR [address] [place] [address] [place] [address] Referral ID Status Reason Start Date Expiration Date V isits Requested Visits Authorized [id number] Closed Auto-Generate d Referral 12/30/2023 01/28/2025 1 1 Specialty Diagnoses / Procedures Referred By Contac t Referred To Contact XR IMAGING Diagnoses Midline low back pain without sciatica, unspecified chronicity Procedures XR LUMBAR PARS DEFECT 4V AP/LAT/BOTH OBL RADEX SPINE LUMBOSACRAL MINIMUM 4 VIEWS Valentino Egan APRN.IMMIGRATION INVESTIGATOR [facility] [place] [address] [place] [address] Referral ID Status Reason Start Date Expiration Date V isits Requested Visits Authorized [id number] Closed Auto-Generate d Referral 12/30/2023 01/28/2025 1 1 Specialty Diagnoses / Procedures Referred By Contac t Referred To Contact Orthopedics Diagnoses Left hip pain Procedures CONSULT TO ORTHOPAEDICS OFFICE/OUTPATIENT [facility] MDM 60 MINUTES Valentino Egan APRN.IMMIGRATION INVESTIGATOR [address] [place] [address] Referral ID Status Reason Start Date Expiration Date Visits Requested Visits Authorized [id number] Authorized PCP Requested Referral 01/06/2024 01/05/2025 1 1 Specialty Diagnoses / Procedures Referred By Contac t Referred To Contact [facility] Diagnoses Lumbar spondylosis Procedures CONSULT TO PHYSICAL THERAPY PHYSICAL THERAPY EVALUATION HIGH COMPLEX 45 MINS Raji Dubois MD [address] [place] [address] [facility] [place] [address] [place] [address] Referral ID Status Reason Start Date Expiration Date Visits Requested Visits Authorized [id number] Pending Review Auto-Generat ed Referral 01/10/2024 01/09/2025 1 1 Summary Purpose Family History No Family History Records FoundNo Family History Records FoundNo Family History Records FoundNo Family History Records Found Additional Source Comments Source Comments (unrecognize d section and content) In the event this informatio n is protected by the Federal Confidentiality of Alcohol and Drug Abuse Patient Records regulations: The Federal rules restrict any use of the information to criminally investigate or prosecute any alcohol or drug abuse patient.[facility] the event this information is protected by the Federal Confidentiality of Alcohol and Drug Abuse Patient Records regulations: The Federal rules restrict any use of the information to criminally investigate or prosecute any alcohol or drug abuse patient.[facility] the event this information is protected by the Federal Confidentiality of Alcohol and Drug Abuse Patient Records regulations: The Federal rules restrict any use of the information to criminally investigate or prosecute any alcohol or drug abuse patient.[facility] Hospital[facility] the event this information is protected by the Federal Confidentiality of Alcohol and Drug Abuse Patient Records regulations: The Federal rules restrict any use of the information to criminally investigate or prosecute any alcohol or drug abuse patient.[facility] Hospital[facility] the event this information is protected by the Federal Confidentiality of Alcohol and Drug Abuse Patient Records regulations: The Federal rules restrict any use of the information to criminally investigate or prosecute any alcohol or drug abuse patient.[facility] Hospital[facility] the event this information is protected by the Federal Confidentiality of Alcohol and Drug Abuse Patient Records regulations: The Federal rules restrict any use of the information to criminally investigate or prosecute any alcohol or drug abuse patient.[facility] Hospital[facility] the event this information is protected by the Federal Confidentiality of Alcohol and Drug Abuse Patient Records regulations: The Federal rules restrict any use of the information to criminally investigate or prosecute any alcohol or drug abuse patient.[facility] Hospital[facility] the event this information is protected by the Federal Confidentiality of Alcohol and Drug Abuse Patient Records regulations: The Federal rules restrict any use of the information to criminally investigate or prosecute any alcohol or drug abuse patient.[facility] Hospital[facility] the event this information is protected by the Federal Confidentiality of Alcohol and Drug Abuse Patient Records regulations: The Federal rules restrict any use of the information to criminally investigate or prosecute any alcohol or drug abuse patient.[facility] Hospital[facility] the event this information is protected by the Federal Confidentiality of Alcohol and Drug Abuse Patient Records regulations: The Federal rules restrict any use of the information to criminally investigate or prosecute any alcohol or drug abuse patient.[facility] Hospital[facility] the event this information is protected by the Federal Confidentiality of Alcohol and Drug Abuse Patient Records regulations: The Federal rules restrict any use of the information to criminally investigate or prosecute any alcohol or drug abuse patient.[facility] Hospital[facility] the event this information is protected by the Federal Confidentiality of Alcohol and Drug Abuse Patient Records regulations: The Federal rules restrict any use of the information to criminally investigate or prosecute any alcohol or drug abuse patient.[facility] Hospital[facility] the event this information is protected by the Federal Confidentiality of Alcohol and Drug Abuse Patient Records regulations: The Federal rules restrict any use of the information to criminally investigate or prosecute any alcohol or drug abuse patient.[facility] Hospital[facility] the event this information is protected by the Federal Confidentiality of Alcohol and Drug Abuse Patient Records regulations: The Federal rules restrict any use of the information to criminally investigate or prosecute any alcohol or drug abuse patient.[facility] Hospital[facility] the event this information is protected by the Federal Confidentiality of Alcohol and Drug Abuse Patient Records regulations: The Federal rules restrict any use of the information to criminally investigate or prosecute any alcohol or drug abuse patient.[facility] Hospital[facility] the event this information is protected by the Federal Confidentiality of Alcohol and Drug Abuse Patient Records regulations: The Federal rules restrict any use of the information to criminally investigate or prosecute any alcohol or drug abuse patient.[facility] Hospital[facility] the event this information is protected by the Federal Confidentiality of Alcohol and Drug Abuse Patient Records regulations: The Federal rules restrict any use of the information to criminally investigate or prosecute any alcohol or drug abuse patient.[facility] HospitalIn the event this information is protected by the Federal Confidentiality of Alcohol and Drug Abuse Patient Records regulations: The Federal rules restrict any use of the information to criminally investigate or prosecute any alcohol or drug abuse patient.[facility] Hospital[facility] the event this information is protected by the Federal Confidentiality of Alcohol and Drug Abuse Patient Records regulations: The Federal rules restrict any use of the information to criminally investigate or prosecute any alcohol or drug abuse patient.[facility] HospitalIn the event this information is protected by the Federal Confidentiality of Alcohol and Drug Abuse Patient Records regulations: The Federal rules restrict any use of the information to criminally investigate or prosecute any alcohol or drug abuse patient.[facility] HospitalIn the event this information is protected by the Federal Confidentiality of Alcohol and Drug Abuse Patient Records regulations: The Federal rules restrict any use of the information to criminally investigate or prosecute any alcohol or drug abuse patient.[facility] HospitalIn the event this information is protected by the Federal Confidentiality of Alcohol and Drug Abuse Patient Records regulations: The Federal rules restrict any use of the information to criminally investigate or prosecute any alcohol or drug abuse patient.[facility] HospitalIn the event this information is protected by the Federal Confidentiality of Alcohol and Drug Abuse Patient Records regulations: The Federal rules restrict any use of the information to criminally investigate or prosecute any alcohol or drug abuse patient.[facility] HospitalIn the event this information is protected by the Federal Confidentiality of Alcohol and Drug Abuse Patient Records regulations: The Federal rules restrict any use of the information to criminally investigate or prosecute any alcohol or drug abuse patient.[facility] HospitalIn the event this information is protected by the Federal Confidentiality of Alcohol and Drug Abuse Patient Records regulations: The Federal rules restrict any use of the information to criminally investigate or prosecute any alcohol or drug abuse patient.[facility] HospitalIn the event this information is protected by the Federal Confidentiality of Alcohol and Drug Abuse Patient Records regulations: The Federal rules restrict any use of the information to criminally investigate or prosecute any alcohol or drug abuse patient.[facility] HospitalIn the event this information is protected by the Federal Confidentiality of Alcohol and Drug Abuse Patient Records regulations: The Federal rules restrict any use of the information to criminally investigate or prosecute any alcohol or drug abuse patient.[facility] HospitalIn the event this information is protected by the Federal Confidentiality of Alcohol and Drug Abuse Patient Records regulations: The Federal rules restrict any use of the information to criminally investigate or prosecute any alcohol or drug abuse patient.[facility] HospitalIn the event this information is protected by the Federal Confidentiality of Alcohol and Drug Abuse Patient Records regulations: The Federal rules restrict any use of the information to criminally investigate or prosecute any alcohol or drug abuse patient.[facility] HospitalIn the event this information is protected by the Federal Confidentiality of Alcohol and Drug Abuse Patient Records regulations: The Federal rules restrict any use of the information to criminally investigate or prosecute any alcohol or drug abuse patient.[facility] HospitalIn the event this information is protected by the Federal Confidentiality of Alcohol and Drug Abuse Patient Records regulations: The Federal rules restrict any use of the information to criminally investigate or prosecute any alcohol or drug abuse patient.[facility] HospitalIn the event this information is protected by the Federal Confidentiality of Alcohol and Drug Abuse Patient Records regulations: The Federal rules restrict any use of the information to criminally investigate or prosecute any alcohol or drug abuse patient.[facility] HospitalIn the event this information is protected by the Federal Confidentiality of Alcohol and Drug Abuse Patient Records regulations: The Federal rules restrict any use of the information to criminally investigate or prosecute any alcohol or drug abuse patient.[facility] HospitalIn the event this information is protected by the Federal Confidentiality of Alcohol and Drug Abuse Patient Records regulations: The Federal rules restrict any use of the information to criminally investigate or prosecute any alcohol or drug abuse patient.[facility] HospitalIn the event this information is protected by the Federal Confidentiality of Alcohol and Drug Abuse Patient Records regulations: The Federal rules restrict any use of the information to criminally investigate or prosecute any alcohol or drug abuse patient.[facility] HospitalIn the event this information is protected by the Federal Confidentiality of Alcohol and Drug Abuse Patient Records regulations: The Federal rules restrict any use of the information to criminally investigate or prosecute any alcohol or drug abuse patient.[facility] HospitalIn the event this information is protected by the Federal Confidentiality of Alcohol and Drug Abuse Patient Records regulations: The Federal rules restrict any use of the information to criminally investigate or prosecute any alcohol or drug abuse patient.[facility] HospitalIn the event this information is protected by the Federal Confidentiality of Alcohol and Drug Abuse Patient Records regulations: The Federal rules restrict any use of the information to criminally investigate or prosecute any alcohol or drug abuse patient.[facility] the event this information is protected by the Federal Confidentiality of Alcohol and Drug Abuse Patient Records regulations: The Federal rules restrict any use of the information to criminally investigate or prosecute any alcohol or drug abuse patient.[facility] HospitalIn the event this information is protected by the Federal Confidentiality of Alcohol and Drug Abuse Patient Records regulations: The Federal rules restrict any use of the information to criminally investigate or prosecute any alcohol or drug abuse patient.[facility] HospitalIn the event this information is protected by the Federal Confidentiality of Alcohol and Drug Abuse Patient Records regulations: The Federal rules restrict any use of the information to criminally investigate or prosecute any alcohol or drug abuse patient.[facility] ClinicIn the event this information is protected by the Federal Confidentiality of Alcohol and Drug Abuse Patient Records regulations: The Federal rules restrict any use of the information to criminally investigate or prosecute any alcohol or drug abuse patient.[facility] HospitalIn the event this information is protected by the Federal Confidentiality of Alcohol and Drug Abuse Patient Records regulations: The Federal rules restrict any use of the information to criminally investigate or prosecute any alcohol or drug abuse patient.[facility] HospitalIn the event this information is protected by the Federal Confidentiality of Alcohol and Drug Abuse Patient Records regulations: The Federal rules restrict any use of the information to criminally investigate or prosecute any alcohol or drug abuse patient.[facility] HospitalIn the event this information is protected by the Federal Confidentiality of Alcohol and Drug Abuse Patient Records regulations: The Federal rules restrict any use of the information to criminally investigate or prosecute any alcohol or drug abuse patient.[facility] HospitalIn the event this information is protected by the Federal Confidentiality of Alcohol and Drug Abuse Patient Records regulations: The Federal rules restrict any use of the information to criminally investigate or prosecute any alcohol or drug abuse patient.[facility] HospitalIn the event this information is protected by the Federal Confidentiality of Alcohol and Drug Abuse Patient Records regulations: The Federal rules restrict any use of the information to criminally investigate or prosecute any alcohol or drug abuse patient.[facility] HospitalIn the event this information is protected by the Federal Confidentiality of Alcohol and Drug Abuse Patient Records regulations: The Federal rules restrict any use of the information to criminally investigate or prosecute any alcohol or drug abuse patient.[facility] HospitalIn the event this information is protected by the Federal Confidentiality of Alcohol and Drug Abuse Patient Records regulations: The Federal rules restrict any use of the information to criminally investigate or prosecute any alcohol or drug abuse patient.[facility] HospitalIn the event this information is protected by the Federal Confidentiality of Alcohol and Drug Abuse Patient Records regulations: The Federal rules restrict any use of the information to criminally investigate or prosecute any alcohol or drug abuse patient.[facility] HospitalIn the event this information is protected by the Federal Confidentiality of Alcohol and Drug Abuse Patient Records regulations: The Federal rules restrict any use of the information to criminally investigate or prosecute any alcohol or drug abuse patient.[facility] HospitalIn the event this information is protected by the Federal Confidentiality of Alcohol and Drug Abuse Patient Records regulations: The Federal rules restrict any use of the information to criminally investigate or prosecute any alcohol or drug abuse patient.[facility] HospitalIn the event this information is protected by the Federal Confidentiality of Alcohol and Drug Abuse Patient Records regulations: The Federal rules restrict any use of the information to criminally investigate or prosecute any alcohol or drug abuse patient.[facility] HospitalIn the event this information is protected by the Federal Confidentiality of Alcohol and Drug Abuse Patient Records regulations: The Federal rules restrict any use of the information to criminally investigate or prosecute any alcohol or drug abuse patient.[facility] HospitalIn the event this information is protected by the Federal Confidentiality of Alcohol and Drug Abuse Patient Records regulations: The Federal rules restrict any use of the information to criminally investigate or prosecute any alcohol or drug abuse patient.[facility] HospitalIn the event this information is protected by the Federal Confidentiality of Alcohol and Drug Abuse Patient Records regulations: The Federal rules restrict any use of the information to criminally investigate or prosecute any alcohol or drug abuse patient.[facility] HospitalIn the event this information is protected by the Federal Confidentiality of Alcohol and Drug Abuse Patient Records regulations: The Federal rules restrict any use of the information to criminally investigate or prosecute any alcohol or drug abuse patient.[facility] HospitalIn the event this information is protected by the Federal Confidentiality of Alcohol and Drug Abuse Patient Records regulations: The Federal rules restrict any use of the information to criminally investigate or prosecute any alcohol or drug abuse patient.[facility] HospitalIn the event this information is protected by the Federal Confidentiality of Alcohol and Drug Abuse Patient Records regulations: The Federal rules restrict any use of the information to criminally investigate or prosecute any alcohol or drug abuse patient.[facility] HospitalIn the event this information is protected by the Federal Confidentiality of Alcohol and Drug Abuse Patient Records regulations: The Federal rules restrict any use of the information to criminally investigate or prosecute any alcohol or drug abuse patient.[facility] HospitalIn the event this information is protected by the Federal Confidentiality of Alcohol and Drug Abuse Patient Records regulations: The Federal rules restrict any use of the information to criminally investigate or prosecute any alcohol or drug abuse patient.[facility] HospitalIn the event this information is protected by the Federal Confidentiality of Alcohol and Drug Abuse Patient Records regulations: The Federal rules restrict any use of the information to criminally investigate or prosecute any alcohol or drug abuse patient.[facility] HospitalIn the event this information is protected by the Federal Confidentiality of Alcohol and Drug Abuse Patient Records regulations: The Federal rules restrict any use of the information to criminally investigate or prosecute any alcohol or drug abuse patient.[facility] HospitalIn the event this information is protected by the Federal Confidentiality of Alcohol and Drug Abuse Patient Records regulations: The Federal rules restrict any use of the information to criminally investigate or prosecute any alcohol or drug abuse patient.[facility] HospitalIn the event this information is protected by the Federal Confidentiality of Alcohol and Drug Abuse Patient Records regulations: The Federal rules restrict any use of the information to criminally investigate or prosecute any alcohol or drug abuse patient.[facility] HospitalIn the event this information is protected by the Federal Confidentiality of Alcohol and Drug Abuse Patient Records regulations: The Federal rules restrict any use of the information to criminally investigate or prosecute any alcohol or drug abuse patient.[facility] HospitalIn the event this information is protected by the Federal Confidentiality of Alcohol and Drug Abuse Patient Records regulations: The Federal rules restrict any use of the information to criminally investigate or prosecute any alcohol or drug abuse patient.[facility] HospitalIn the event this information is protected by the Federal Confidentiality of Alcohol and Drug Abuse Patient Records regulations: The Federal rules restrict any use of the information to criminally investigate or prosecute any alcohol or drug abuse patient.[facility] HospitalIn the event this information is protected by the Federal Confidentiality of Alcohol and Drug Abuse Patient Records regulations: The Federal rules restrict any use of the information to criminally investigate or prosecute any alcohol or drug abuse patient.[facility] Care Teams (unrecognized sec tion and content) Lobbyist Relationship Specialty Start Date End Date Lazaro Rust MD [address] [place] [address] PCP - General Family Practice 03/19/17 Lobbyist Relationship Specialty Start Date End Date Lazaro Rust MD [facility] [place] [address] PCP - General Family Practice 03/19/17 Lobbyist Relationship Specialty Start Date End Date Lazaro Rust MD [facility] [place] [address] PCP - General Family Practice 03/19/17 Lobbyist Relationship Specialty Start Date End Date Lazaro Rust MD [facility] [place] [address] PCP - General Family Practice 03/19/17 Lobbyist Relationship Specialty Start Date End Date Lazaro Rust MD [facility] [place] [address] PCP - General Family Practice 03/19/17 Lobbyist Relationship Specialty Start Date End Date Lazaro Rust MD [address] [place] [address] PCP - General Family Practice 03/19/17 Lobbyist Relationship Specialty Start Date End Date Lazaro Rust MD [address] [facility] [address] PCP - General Family Practice 03/19/17 Lobbyist Relationship Specialty Start Date End Date Lazaro Rust MD [address] [place] [address] PCP - General Family Practice 03/19/17 Lobbyist Relationship Specialty Start Date End Date Lazaro Rust MD [facility] [address] PCP - General Family Practice 03/19/17 Lobbyist Relationship Specialty Start Date End Date Lazaro Rust MD [facility] [address] PCP - General Family Practice 03/19/17 Lobbyist Relationship Specialty Start Date End Date Lazaro Rust MD [facility] [address] PCP - General Family Practice 03/19/17 Lobbyist Relationship Specialty Start Date End Date Lazaro Rust MD [facility] [address] PCP - General Family Practice 03/19/17 Lobbyist Relationship Specialty Start Date End Date Lazaro Rust MD [facility] [address] PCP - General Family Practice 03/19/17 Lobbyist Relationship Specialty Start Date End Date Lazaro Rust MD [facility] [address] PCP - General Family Practice 03/19/17 Lobbyist Relationship Specialty Start Date End Date Lazaro Rust MD [facility] [place] [address] PCP - General Family Practice 03/19/17 Lobbyist Relationship Specialty Start Date End Date Lazaro Rust MD [address] [place] [address] PCP - General Family Practice 03/19/17 Lobbyist Relationship Specialty Start Date End Date Lazaro Rust MD [address] [place] [address] PCP - General Family Practice 03/19/17 Lobbyist Relationship Specialty Start Date End Date Lazaro Rust MD [address] [place] [address] PCP - General Family Practice 03/19/17 Lobbyist Relationship Specialty Start Date End Date Lazaro Rust MD [address] [place] [address] PCP - General Family Medicine 03/19/17 Lobbyist Relationship Specialty Start Date End Date Lazaro Rust MD [address] [place] [address] PCP - General Family Medicine 03/19/17 Lobbyist Relationship Specialty Start Date End Date Lazaro Rust MD [address] [place] [address] PCP - General Family Medicine 03/19/17 Lobbyist Relationship Specialty Start Date End Date Lazaro Rust MD [address] [place] [address] PCP - General Family Medicine 03/19/17 Lobbyist Relationship Specialty Start Date End Date Lazaro Rust MD [address] [place] [address] PCP - General Family Medicine 03/19/17 Lobbyist Relationship Specialty Start Date End Date Lazaro Rust MD [address] [place] [address] PCP - General Family Medicine 03/19/17 Lobbyist Relationship Specialty Start Date End Date Lazaro Rust MD [address] [place] [address] PCP - General Family Medicine 03/19/17 Lobbyist Relationship Specialty Start Date End Date Lazaro Rust MD [address] [place] [address] PCP - General Family Medicine 03/19/17 Lobbyist Relationship Specialty Start Date End Date Lazaro Rust MD [address] [place] [address] PCP - General Family Medicine 03/19/17 Lobbyist Relationship Specialty [place] [address] [place] [address] PCP - General Family Medicine 03/19/17 Lobbyist Relationship Specialty Start Date End Date Lazaro Rust MD [address] [place] [address] PCP - General Family Medicine 03/19/17 Lobbyist Relationship Specialty Start Date End Date Lazaro Rust MD [address] [place] [address] PCP - General Family Medicine 03/19/17 Lobbyist Relationship Specialty Start Date End Date Lazaro Rust MD [address] [place] [address] PCP - General Family Medicine 03/19/17 Lobbyist Relationship Specialty Start Date End Date Lazaro Rust MD [address] [place] [address] PCP - General Family Medicine 03/19/17 Lobbyist Relationship Specialty Start Date End Date Lazaro Rust MD [address] [place] [address] PCP - General Family Medicine 03/19/17 Lobbyist Relationship Specialty Start Date End Date Lazaro Rust MD [address] [place] [address] PCP - General Family Medicine 03/19/17 Lobbyist Relationship Specialty Start Date End Date Lazaro Rust MD [address] [place] [address] PCP - General Family Medicine 03/19/17 Lobbyist Relationship Specialty Start Date End Date Lazaro Rust MD [address] [place] [address] PCP - General Family Medicine 03/19/17 Lobbyist Relationship Specialty Start Date End Date Lazaro Rust MD [address] [place] [address] PCP - General Family Medicine 03/19/17 Lobbyist Relationship Specialty Start Date End Date Lazaro Rust MD [address] [place] [address] PCP - General Family Medicine 03/19/17 Lobbyist Relationship Specialty Start Date End Date Lazaro Rust MD [address] [place] [address] PCP - General Family Medicine 03/19/17 Lobbyist Relationship Specialty Start Date End Date Lazaro Rust MD [address] [place] [address] PCP - General Family Medicine 03/19/17 Valentino Egan, SOLAR PANEL TECHNICIAN.IMMIGRATION INVESTIGATOR [address] [place] [address] Mechanical Systems Control Engineer Family Medicine 07/01/24 Aurora Muñoz PA-C [address] [place] [address] Mechanical Systems Control Engineer Family Medicine 07/01/24 Lobbyist Relationship Specialty Start Date End Date Lazaro Rust MD [address] [place] [address] PCP - General Family Medicine 03/19/17 Valentino Egan, SOLAR PANEL TECHNICIAN.IMMIGRATION INVESTIGATOR [address] [place] [address] Mechanical Systems Control Engineer Family Medicine 07/01/24 Aurora Muñoz PA-C [address] [place] [address] Mechanical Systems Control Engineer Family Medicine 07/01/24 Lobbyist Relationship Specialty Start Date End Date Lazaro Rust MD [address] [place] [address] PCP - General Family Medicine 03/19/17 Valentino Egan, SOLAR PANEL TECHNICIAN.IMMIGRATION INVESTIGATOR [address] [place] [address] Mechanical Systems Control Engineer Family Medicine 07/01/24 Aurora Muñoz PA-C [address] [place] [address] Mechanical Systems Control Engineer Family Medicine 07/01/24 Lobbyist Relationship Specialty Start Date End Date Lazaro Rust MD [address] [place] [address] PCP - General Family Medicine 03/19/17 Valentino Egan, HARJEET.IMMIGRATION INVESTIGATOR [address] [place] [address] Mechanical Systems Control Engineer Family Medicine 07/01/24 Aurora Muñoz PA-C [address] [place] [address] [facility] 07/01/24 Lobbyist Relationship Specialty Start Date End Date Lazaro Rust MD [address] [place] [address] PCP - General Family Medicine 03/19/17 Valentino Egan, HARJEET.IMMIGRATION INVESTIGATOR [address] [place] [address] Mechanical Systems Control Engineer Family Medicine 07/01/24 Aurora Muñoz PA-C [address] [place] [address] Mechanical Systems Control Engineer Family Medicine 07/01/24 Lobbyist Relationship Specialty Start Date End Date Lazaro Rust MD [address] [place] [address] PCP - General Family Medicine 03/19/17 Valentino Egan, SOLAR PANEL TECHNICIAN.IMMIGRATION INVESTIGATOR [address] [place] [address] Mechanical Systems Control Engineer Family Medicine 07/01/24 Aurora Muñoz PA-C [address] [place] [address] Mechanical Systems Control Engineer Family [facility] 07/01/24 Lobbyist Relationship Specialty Start Date End Date Lazaro Rust MD [address] [place] [address] PCP - General Family Medicine 03/19/17 Valentino Egan, HARJEET.IMMIGRATION INVESTIGATOR [address] [place] [address] Mechanical Systems Control Engineer Family Medicine 07/01/24 Aurora Muñoz PA-C [address] [place] [address] [facility] Systems [facility] 07/[facility] Lobbyist Relationship Specialty Start Date End Date Lazaro Rust MD [address] [place] [address] PCP - General Family Medicine 03/19/17 Valentino Egan, SOLAR PANEL TECHNICIAN.IMMIGRATION INVESTIGATOR [address] [place] [address] Mechanical Systems Control Engineer Family Medicine 07/01/24 Aurora Muñoz PA-C [address] [place] [address] Mechanical Systems Control Engineer Family Medicine 07/01/24 Lobbyist Relationship Specialty Start Date End Date Lazaro Rust MD [address] [place] [address] PCP - General Family Medicine 03/19/17 Valentino Egan, SOLAR PANEL TECHNICIAN.IMMIGRATION INVESTIGATOR [address] [place] [address] Mechanical Systems Control Engineer Family Medicine 07/01/24 Aurora Muñoz PA-C [address] [place] [address] Mechanical Systems Control Engineer Family Medicine 07/01/24 Lobbyist Relationship Specialty [place] [address] [place] [address] PCP - General Family Medicine 03/19/17 Valentino Egan APRN.IMMIGRATION INVESTIGATOR [address] [place] [address] Mechanical Systems Control Engineer Family Medicine 07/01/24 Aurora Muñoz PA-C [address] [place] [address] Mechanical Systems Control Engineer Family Medicine 07/01/24 Lobbyist Relationship Specialty Start Date End Date Lazaro Rust MD [address] [place] [address] PCP - General Family Medicine 03/19/17 Valentino Egan APRN.IMMIGRATION INVESTIGATOR [address] [place] [address] Mechanical Systems Control Engineer Family Medicine 07/01/24 Aurora Muñoz PA-C [address] [place] [address] Mechanical Systems Control Engineer Family Medicine 07/01/24 Lobbyist Relationship Specialty Start Date End Date Lazaro Rust MD [address] [place] [address] PCP - General Family Medicine 10/30/24 Valentino Egan, SOLAR PANEL TECHNICIAN.IMMIGRATION INVESTIGATOR [address] [place] [address] Mechanical Systems Control Engineer Family Medicine 12/25/24 Aurora Muñoz PA-C [address] [place] [address] Mechanical Systems Control Engineer Family Medicine 12/25/24 Lobbyist Relationship Specialty Start Date End Date Lazaro Rust MD [address] [place] [address] PCP - General Family Medicine 10/30/24 Valentino Egan, SOLAR PANEL TECHNICIAN.IMMIGRATION INVESTIGATOR [address] [place] [address] Mechanical Systems Control Engineer Family Medicine 12/25/24 Aurora Muñoz PA-C [address] [place] [address] Mechanical Systems Control Engineer Family Medicine 12/25/24 Lobbyist Relationship Specialty Start Date End Date Lazaro Rust MD [address] [place] [address] PCP - General Family Medicine 10/30/24 Valentino Egan, SOLAR PANEL TECHNICIAN.IMMIGRATION INVESTIGATOR [address] [place] [address] Mechanical Systems Control Engineer Family Medicine 12/25/24 Aurora Muñoz PA-C [address] [place] [address] Mechanical Systems Control Engineer Family Medicine 12/25/24 Lobbyist Relationship Specialty Start Date End Date Lazaro Rust MD [address] [place] [id number] PCP - General Family Medicine 10/30/24 Valentino Egan APRN.IMMIGRATION INVESTIGATOR [address] [place], [place] [address] Mechanical Systems Control Engineer Family Medicine 12/25/24 Aurora Muñoz PA-C [address] [place] [address] Mechanical Systems Control Engineer Family Medicine 12/25/24 Reason for Visit (unrecogniz ed section and content) Reason Comments PT Discharge Specialty Diagnoses / Procedures Referred By Contac t Referred To Contact [facility] Diagnoses Lumbar spondylosis Procedures CONSULT TO PHYSICAL THERAPY PHYSICAL THERAPY EVALUATION HIGH COMPLEX 45 MINS Raji Dubois MD [address] [place] [address] [facility] [place] [address] [place] [address] Referral ID Status Reason Start Date Expiration Date Visits Requested Visits Authorized [id number] Authorized Auto-Generat ed Referral 07/26/2023 07/25/2024 99 99 Reason Comments Physical Therapy Reason Comments Medication Question Reason Comments Results Reason Comments Follow Up Reason Comments Calcium Problem Hyperparathyroidism Specialty Diagnoses / Procedures Referred By Contac t Referred To Contact Diagnoses Hypercalcemia Hypercalciuria Hyperparathyroidism (HCC) Procedures CONSULT TO ENDOCRINE SURGERY OFFICE/OUTPATIENT [facility] MDM 60-74 MINUTES Shantell Seymour MD [address] [facility], [address] [address] Referral ID Status Reason Start Date Expiration Date Visits Requested Visits Authorized [id number] Pending Review PCP Requested Referral 12/24/2021 12/24/2022 1 1 Reason Comments pre-ops, MM OR 02/25/22 Parathyroidectomy Reason Comments Orders Reason Comments Outpatient Colonoscopy Specialty Diagnoses / Procedures Referred By Contac t Referred To Contact General Surgery Diagnoses Screening for colon cancer Procedures CONSULT TO GENERAL SURGERY OFFICE/OUTPATIENT [facility] MDM 60-74 MINUTES Aurora Muñoz PA-C [address] [place] [address] Referral ID Status Reason Start Date Expiration Date Visits Requested Visits Authorized [id number] Pending Review PCP Requested Referral 11/17/2021 11/17/2022 1 1 Reason Comments Procedure Colonoscopy Reason Comments Consult Specialty Diagnoses / Procedures Referred By Contac t Referred To Contact [facility] Diagnoses Hyperparathyroidism (HCC) Procedures ECG COMPLETE ECG ROUTINE ECG W/LEAST 12 LDS W/I&R Angelina Quiros MD [address] [place] [address] [facility] [id number] [place] [address] Referral ID Status Reason Start Date Expiration Date V isits Requested Visits Authorized [id number] Closed Auto-Generate d Referral 01/08/2022 01/08/2023 1 1 Reason Onset Date Comments Orders 02/18/2022 nebulizer broken -needs a replacement Reason Comments Post-Op Visit Reason Comments Patient Question Appointment clarific ations Reason Comments Consult Reason Onset Date Comments Yearly Exam Immunizations 04/28/2022 Flu vaccination Reason Comments Physical Reason Onset Date Comments Refill Request 07/29/2022 Reason Comments Cough Reason Comments Rx not available at pharmacy Reason Comments Knee Pain Reason Onset Date Comments Refill Request 06/11/2023 Reason Comments Refill Request Please send RX today , patient is out! this is a copy of the mail order for urgent reuqest to local pharmacy [facility] Reason Comments Refill Request Reason Comments 6 Month Exam Reason Comments Results Reason Comments New Pain Referred by Valentino Egan Specialty Diagnoses / Procedures Referred By Contac t Referred To Contact Orthopedics Diagnoses Left hip pain Procedures CONSULT TO ORTHOPAEDICS OFFICE/OUTPATIENT NEW [facility] MDM 60 MINUTES Valentino Egan, HARJEET.IMMIGRATION INVESTIGATOR [address] [place] [address] Referral ID Status Reason Start Date Expiration Date V isits Requested Visits Authorized [id number] Closed PCP Requested Referral 01/06/2024 01/05/2025 1 1 Reason Comments PT Eval Reason Comments ER Discharge Summary Reason Comments ER F/U Reason Comments Patient Question Reason Comments Follow Up Having right ear jhony n, cough Reason Onset Date Comments Refill Request 09/25/2024 Reason Comments Insurance Authorization Reason Onset Date Comments Refill Request 10/03/2024 Reason Comments Med Change Request Reason Comments Medication Problem Resend Rxs to Drug M art Reason Onset Date Comments Refill Request 10/17/2024 Reason Comments Medication Problem Budesonide Reason Onset Date Comments Refill Request 12/27/2024 Reason Onset Date Comments Population Health Navigation Outreach [facility] Reason Comments F/U 6 Month INFORMATION SOURCE (unrecogn ized section and content) DATE CREATED AUTHOR 03/02/2022 [facility] DATE CREATED AUTHOR AUTHOR'S ORGANIZ ATION 04/27/2022 [facility] DATE CREATED AUTHOR AUTHOR'S ORGANIZ ATION 05/15/2024 [facility] DATE CREATED AUTHOR AUTHOR'S ORGANIZ ATION 05/12/2025 [facility] FOR RECORDS PERTAINING TO PATIENTS WHO ARE OR HAVE BEEN ENROLLED IN A CHEMICAL DEPENDENCY/SUBSTANCEABUSE PROGRAM, SOME INFORMATION MAY BE OMITTED. This clinical summary was aggregated from multiple sources. Caution should be exercised in using it in the provision of clinical care. This summary normalizes information from multiple sources, and as a consequence, information in this document may materially change the coding, format and clinical context of patient data. In addition, data may be omitted in some cases. CLINICAL DECISIONS SHOULD BE BASED ON THE PRIMARY CLINICAL RECORDS. [employer] [facility]. provides no warranty or guarantee of the accuracy or completeness of information in this document.
--- NOTE | 2025-07-24 00:26 | EDS_ITS ---
HPI History of Present Illness Chief Complaint: Abd Pain Informant: patient and spouse/S.O. Narrative Narrative: Patient is a 64-year-old female with past medical history of hyperlipidemia. She states that she awoke in the morning as she normally would and then felt nauseous and had 1 bout of vomiting. She states after doing this she had complete resolution of symptoms and went about her day as she normally would. She reports that around 5 or 6 PM after eating she then developed pain in the upper abdomen with further bouts of nausea without vomiting. She states that her symptoms have been persistent since that time and without improvement she presents for evaluation She denies any fevers or chills or known sick contacts. [facility] Medical History (Updated 07/24/25 @ 04:[address] Drew Alexis DO) Hyperlipemia Home Medications ?Medication ?Instructions ?Recorded ?Last Taken ?Type albuterol sulfate 2.5 mg/3 mL 2.5 mg inhalation DAILY 09/15/19 Unknown History (0.083 %) solution for nebulization atorvastatin 10 mg tablet 10 mg PO DAILY 07/23/25 Unkn own History ondansetron 4 mg disintegrating 4 mg PO TID PRN nausea and 07/24/25 Unknown Rx tablet vomiting 7 days #21 tabs oxycodone-acetaminophen 5 mg-325 1 tab PO Q6H PRN pain 3 days #12 07/24/25 Unknown Rx mg tablet (Percocet) tabs Allergy/AdvReac Type Severity Reaction Status Date / Time No Known Allergies Allergy Verified 07/23/25 21:22 Social History Smoking Status: Never smoker [facility] ED Constitutional Constitutional ED: Denies chills or fever(s) ENT ENT ED: Denies sore throat Cardiovascular Cardiovascular: Denies chest pain Respiratory/Chest Respiratory/Chest: Denies cough or dyspnea Gastrointestinal Gastrointestinal: Reports abdominal pain and nausea; Denies diarrhea or vomiting Genitourinary Genitourinary ED: Denies dysuria or hematuria Musculoskeletal Musculoskeletal: Denies back pain or myalgias Integumentary Denies rash Neurologic Neurologic: Denies headache(s) Hematologic/Lymphatic Hematologic/Lymphatic: Denies easy bleeding or easy bruising EXAM Physical Exam Const Vital Signs: 07/23/25 21:22 07/23/25 22:43 07/23/25 23:22 Temperature 98.3 F Temperature Source Temporal Pulse Rate 79 62 Respiratory Rate 18 15 Blood Pressure 187/86 H 152/78 H Blood Pressure Mean 119 102 Pulse Ox 100 93 Oxygen Delivery Method Room Air Room Air Room Air 07/24/25 00:33 Temperature 98 F Temperature Source Pulse Rate 59 L Respiratory Rate 14 Blood Pressure 152/78 H Blood Pressure Mean 102 Pulse Ox 94 Oxygen Delivery Method Positive well nourished, well developed and obese General Appearance ED: well developed; Negative for pallor Nutritional Appearance: obese HEENT Reports moist mucous membranes HEENT Narrative: Normocephalic atraumatic No tongue or lip swelling no oral lesions no airway edema or compromise; no secondary findings in the posterior pharynx to suggest infection Eyes PERRL and EOMs intact bilaterally General Eye ED: Negative for scleral icterus Neck supple Resp normal respiratory effort and clear to auscultation bilaterally Cardio regular rate and regular rhythm Rate: other Other Details: Heart is regular rate and rhythm Radial and carotid pulses are equal and symmetric No murmurs rubs or gallops noted GI non-distended and no masses GI Narrative: Abdomen is soft and nondistended with normal active bowel sounds. There is pain with palpation in the midepigastric and right upper quadrant region No voluntary guarding or rigidity or pulsatile mass Negative Molina sign No peritoneal signs Auscultation: normoactive bowel sounds Palpation: soft Extremity normal to inspection Neuro oriented x3, CN's II-XII intact bilaterally and no sensory deficits noted Sensorium / Orientation: alert Motor Exam: strength 5/5 throughout Psych mental status grossly normal Skin no rashes or lesions noted General Skin Exam: Negative for jaundice or pallor MDM MDM MDM Narrative Medical decision making narrative: Patient arrived to ER hypertensive but otherwise with stable vitals. With report of pain in the upper abdomen after eating patient may have biliary colic versus acute cholecystitis versus acute pancreatitis. Symptoms could also be atypical presentation for acute coronary syndrome or lower lobe pneumonia. Therefore an EKG was obtained as well as basic labs with chest x-ray and right upper quadrant ultrasound. Labs reveal leukocytosis at 12.8 but otherwise no sign of acute kidney injury. Troponin was less than 6 going against acute coronary syndrome and EKG revealed no findings of ischemia or cardiac dy srhythmia. Liver enzymes are also normal going against acute cholecystitis or choledocholithiasis. Chest x-ray confirms no acute lung pathology such as pneumonia. Ultrasound of the right upper quadrant revealed gallbladder sludge without Vinnie cholecystic fluid or dilation of the common bile duct or thickening of the gallbladder wall. After receiving medication in the ER patient had resolution of her abdominal pain and on reevaluation abdomen remains soft and nonsurgical. Therefore history and exam would most likely indicate a potential biliary colic from the gallbladder sludge but as there is no signs of acute coronary syndrome acute kidney injury acute pancreatitis or acute cholecystitis she is otherwise safe for discharge with outpatient follow-up. History & Record Review Discussion w/independent historian: Patient and Significant other Lab Data Attestation: I reviewed the patient's lab results. Labs: Laboratory Results - last 24 hr 07/23/25 21:30 WBC 12.8 H RBC 5.26 Hgb 14.4 Hct 44.4 MCV 84.4 MCH 27.4 MCHC 32.4 RDW Std Deviation 45.2 H RDW Coeff of Taiwo 14.7 H Plt Count 281 MPV 10.8 Immature Gran % (Auto) 0.400 Neut % (Auto) 79.1 H Lymph % (Auto) 13.5 L [place] % (Auto) 5.7 Eos % (Auto) 0.9 Baso % (Auto) 0.4 Absolute Neuts (auto) 10.1 H Absolute Lymphs (auto) 1.73 Nucleated RBC % 0 Sodium 135 Potassium 3.9 Chloride 99 Carbon Dioxide 24.4 Anion Gap 12 BUN 16 Creatinine 0.71 Estim Creat Clear Calc 108.10 Est GFR (MDRD) Non-Af 95 BUN/Creatinine Ratio 21.9 H Glucose 157 H Calcium 9.7 Total Bilirubin 0.90 Direct Bilirubin 0.35 H AST 25 ALT 20 Alkaline Phosphatase 125 H Troponin T High Sens < 6 Total Protein 8.3 Albumin 4.3 Globulin 4.0 Lipase 28 Radiography Diagnostic Testing: Clinical Impression(s) from Imaging Studies Chest X-Ray 07/23/25 21:47 IMPRESSION: As above. Reading Location: [facility] Gallbladder Ultrasound 07/23/25 22:55 IMPRESSION: Mild hepatomegaly with fatty infiltration. Minimal gallbladder sludge. Reading Location: [facility] Chest x-ray as interpreted by the emergency medicine physician reveals no acute infiltrate pneumothorax or pleural effusion Discharge Plan Triage Chief Complaint: Abd Pain ED Provider: Drew Alexis Dx/Rx/DC Orders Clinical Impression: Biliary colic, Hyperlipidemia, Morbid obesity Instructions: Treating Gallstones Prescriptions: New oxycodone-acetaminophen [Percocet] 5-325 mg tablet 1 tab PO Q6H PRN (Reason: pain) 3 Days Qty: 12 0RF ondansetron 4 mg tablet,disintegrating 4 mg PO TID PRN (Reason: nausea and vomiting) 7 Days Qty: 21 0RF No Action albuterol sulfate 2.5 MG/3 ML solution for nebulization 2.5 mg inhalation DAILY atorvastatin 10 mg tablet 10 mg PO DAILY Primary Care Provider: Lazaro Conner Referrals: Aj Vu MD [Med Staff - Active Staff, General Surgery] Lazaro Conner MD [Primary Care Provider, Family Practice] Activity Restrictions/Additional Instructions: Your workup today revealed sludge within the gallbladder which could very well be the cause of your abdominal pain and nausea/vomiting. Please follow-up with general surgery to discuss further evaluation of this. In the meantime in order to prevent a flareup try eating a bland diet and smaller portions. If symptoms recur take the prescribed medication and if this helps resolve/control your symptoms it is safe to stay home. However if symptoms persist or worsen despite taking your medication then return to the ER for repeat evaluation. Print Language: Palauan Disposition Disposition: Home, Self Care Discharge Date/Time: 07/24/25 00:47
[2025-07-24 00:33] VITALS: BP 152/78; PULSE 59; RESP 14; TEMP 36.6; O2SAT 94
== END 2025-07-24 00:47 | disposition home or self-care (01) ==
PROVIDERS: Emergency Provider Emergency Medicine; PCP Family Medicine; Visit Provider Emergency Medicine
DX: K80.50 Calculus of bile duct without cholangitis or cholecystitis without obstruction (principal); E66.01 Morbid (severe) obesity due to excess calories; E78.5 Hyperlipidemia, unspecified; Z79.899 Other long term (current) drug therapy
CPT/HCPCS: 71045; 76705; 80048; 80076; 83690; 84484; 85025; 93005; 96365; 96375; 99284; A4216; J2405